=== PATIENT | male | born 1965 | race Caucasian/White ===

== ENCOUNTER 2016-12-27 17:38 | Emergency (ER) | payer MEDICARE, MEDICAID ==
--- NOTE | 2016-12-27 19:24 | ED ---
Lower Extremity - HPI Summary HPI Summary: Patient is a type 2 diabetic, on dialysis with 2 previous surgeries to his left charcot foot with now a small 2x2 cm small effusion to the medial side of the foot with pain, erythema or warmth. He is concerned d/t 2 previous foot infections and 2 surgeries. He has been walking with more pain, but denies other symptoms. He is currently on dialysis and states nothing has changed in his healthy history. He is afebrile. He is ambulatory, but with pain. - History of Current Complaint Chief Complaint: EDExtremityLower Stated Complaint: LEFT FOOT COMPLAINT Time Seen by Provider: 12/27/16 19:01 Pain Intensity: 5 - Allergies/Home Medications Allergies/Adverse Reactions: Allergies Allergy/AdvReac Type Severity Reaction Status Date / Time Amlodipine Allergy Rash Verified 11/22/15 12:53 Iodinated Contrast Media Allergy SEVERE RASH Verified 11/22/15 12:53 [IV CONTRAST DYE] Tetracyclines & Related Allergy Hives Verified 11/22/15 12:53 PMH/Surg Hx/FS Hx/Imm Hx Previously Healthy: No - diabetes, CHF, dialysis Endocrine/Hematology History: Reports: Hx Diabetes - TYPE 2 Denies: Hx Thyroid Disease Cardiovascular History: Reports: Hx Congestive Heart Failure - NO PROBLEMS NOW, Hx Hypertension - CONTROL WITH MEDS Denies: Hx Deep Vein Thrombosis, Hx Myocardial Infarction, Hx Pacemaker/ICD Respiratory History: Denies: Hx Asthma, Hx Chronic Obstructive Pulmonary Disease (COPD), Hx Lung Cancer, Hx Pneumonia, Hx Pulmonary Embolism GI History: Reports: Hx Gastroesophageal Reflux Disease Denies: Hx Gall Bladder Disease, Hx Gastrointestinal Bleed, Hx Ulcer, Hx Urosepsis History: Reports: Hx Chronic Renal Failure, Hx Renal Disease Denies: Hx Kidney Stones Musculoskeletal History: Reports: Other Musculoskeletal History - Fx left ulnar/ radius; Charcot foot Sensory History: Reports: Hx Contacts or Glasses - reading glasses Denies: Hx Hearing Aid Opthamlomology History: Reports: Hx Contacts or Glasses - reading glasses Neurological History: Denies: Hx Dementia, Hx Migraine, Hx Seizures, Hx Transient Ischemic Attacks (TIA) Psychiatric History: Denies: Hx Anxiety, Hx Depression, Hx Schizophrenia, Hx Bipolar Disorder - Surgical History Surgery Procedure, Year, and Place: 09/2012 LEFT MIDFOOT OSTEOTOMY AND FUSION WITH TIBIAL BONE GRAFT AND [place]CHILLES LENGTHING[place] [facility] [place]. 06/2013 LEFT FOOT DEBRIDEMENT AND REMOVAL HARDWARE, [facility] Hx Anesthesia Reactions: No - Immunization History Hx Pertussis Vaccination: No Immunizations Up to Date: Unable to Obtain/Confirm Infectious Disease History: No Infectious Disease History: Denies: Traveled Outside the [place] in Last 30 Days - Family History Known Family History: Positive: None Family History: R & n/C - Social History Occupation: Unemployed Lives: With Family Alcohol Use: Daily Alcohol Amount: 5-6 beers/day Hx Substance Use: No Substance Use Type: Reports: None Hx Tobacco Use: Yes Smoking Status (MU): Light Every Day Tobacco Smoker Type: Cigarettes Amount Used/How Often: 4 CIGARETTES A DAY (TRYING TO QUIT) Length of Time of Smoking/Using Tobacco: 20+ YEARS Have You Smoked in the Last Year: Yes Review of Systems Constitutional: Negative Eyes: Negative Cardiovascular: Negative Respiratory: Negative Positive: Arthralgia - bottom of left foot with pain and deformity, Myalgia Skin: Negative Neurological: Negative Psychological: Normal All Other Systems Reviewed And Are Negative: Yes Physical Exam Triage Information Reviewed: Yes Vital Signs On Initial Exam: Initial Vitals Temp Pulse Resp BP Pulse Ox 97.7 F 69 20 212/104 100 12/27/16 17:43 12/27/16 17:43 12/27/16 17:43 12/27/16 17:43 12/27/16 17:43 Vital Signs Reviewed: Yes Appearance: Positive: Well-Appearing, No Pain Distress, Well-Nourished Skin: Positive: Warm, Skin Color Reflects Adequate Perfusion, Other - PAD throughout left lower extremity Head/Face: Positive: Normal Head/Face Inspection Eyes: Positive: EOMI, FABRICE, Conjunctiva Clear Neck: Positive: Supple, Nontender, No Lymphadenopathy Respiratory/Lung Sounds: Positive: Clear to Auscultation, Breath Sounds Present Cardiovascular: Positive: Normal, RRR, Pulses are Symmetrical in both Upper and Lower Extremities Musculoskeletal: Positive: Pain @ - plantar surface of foot with deformity Neurological: Positive: Speech Normal Psychiatric: Positive: Normal AVPU Assessment: Alert - [place] Coma Scale Coma Scale Total: 15 Diagnostics - Vital Signs Vital Signs Temp Pulse Resp BP Pulse Ox 12/27/16 18:57 98.5 F 62 18 150/76 99 12/27/16 17:43 97.7 F 69 20 212/104 100 - Laboratory Lab Statement: Any lab studies that have been ordered have been reviewed, and results considered in the medical decision making process. Lower Extremity Course/Dx - Course Course Of Treatment: Dr. Decker called at 7:25p. He is familiar with patient. States he would like a CT of the foot and follow up in the office next week. Charcot foot on the left side with small 2x2 effusion medial to the charcot on plantar surface. No signs of infection. Patient states an increase in pain. IMPRESSION: 1. AGAIN NOTED ARE FINDINGS OF ADVANCED OSTEOARTHRITIS OF THE MIDFOOT CONSISTENT WITH THE. HISTORY OF NEUROPATHIC JOINT. 2. THERE IS BEEN INTERVAL DEVELOPMENT OF A LOCULATED FLUID COLLECTION ALONG THE PLANTAR. SURFACE OF THE FOOT WITH EXTENSION THROUGH THE PLANTAR FASCIA ALONG THE JOINTS OF THE. MIDFOOT. IN THE CORRECT CLINICAL SETTING, THIS CONCERNING FOR ABSCESS. No erythema, warmth or drainage. However, d/t extension in to the plantar fascia and joints of the midfoot and hx of diabetes, will treat for possible abscess with Keflex. He will follow up with Dr. Decker next week. - Diagnoses Differential Diagnosis/HQI/PQRI: Positive: Cellulitis, Osteomyelitis, Other - charcot Provider Diagnoses: Abscess of foot Discharge - Discharge Plan Condition: Stable Disposition: HOME Prescriptions: Cephalexin CAP* [Keflex CAP*] 500 mg PO QID #28 cap MDD 4 Patient Education Materials: Abscess (ED) Referrals: Trenton Romero MD [Primary Care Provider] - Additional Instructions: Follow up with Dr Decker next week Take the Keflex as prescribed.
--- NOTE | 2016-12-27 20:25 | RAD ---
HISTORY: Charcot foot with effusion COMPARISONS: June 25, 2016 TECHNIQUE: Multiple contiguous axial CT images are obtained of the left foot, with coronal and sagittal multiplanar reconstructions, without intravenous contrast administration. FINDINGS: BONE DENSITY: Normal. BONES: The patient is status post internal fixation of the midfoot JOINTS: There is advanced osteoarthritic change of the midfoot. This is similar to the previous examination. This is consistent with history of neuropathic joint. MUSCULATURE: Unremarkable ALIGNMENT: There is no dislocation. SOFT TISSUES: There is been interval development of a loculated soft tissue collection along the plantar aspect of the midfoot. This extends into the deep fascia and is contiguous with the lateral tarsometatarsal articulations. This measures approximately 3.8 x 1.6 x 3.8 x 4.5 cm in size. OTHER FINDINGS: None. IMPRESSION: 1. AGAIN NOTED ARE FINDINGS OF ADVANCED OSTEOARTHRITIS OF THE MIDFOOT CONSISTENT WITH THE HISTORY OF NEUROPATHIC JOINT. 2. THERE IS BEEN INTERVAL DEVELOPMENT OF A LOCULATED FLUID COLLECTION ALONG THE PLANTAR SURFACE OF THE FOOT WITH EXTENSION THROUGH THE PLANTAR FASCIA ALONG THE JOINTS OF THE MIDFOOT. IN THE CORRECT CLINICAL SETTING, THIS CONCERNING FOR ABSCESS.
[2016-12-27] MEDS ORDERED: Cephalexin CAP* 500 MG PO ONE ×2 (20:38)
[2016-12-27 20:57] VITALS: BP 141/79
== END 2016-12-27 20:56 | disposition home or self-care (01) ==
LOC: SUPCPDRO 17:38 → ED 17:38
DX: L02.612 Cutaneous abscess of left foot (principal); F17.210 Nicotine dependence, cigarettes, uncomplicated
CPT/HCPCS: 99282; A9270-GY

== ENCOUNTER 2017-01-23 16:28 | Emergency (ER) | payer MEDICARE, MEDICAID ==
--- NOTE | 2017-01-23 19:26 | RAD ---
INDICATION: Constipation COMPARISON: None TECHNIQUE: 5 views the abdomen were obtained. FINDINGS: A low midline peritoneal dialysis catheter is noted. There are no acute bony or soft tissue abnormalities. Overlying the left abdomen there is a gas-filled small bowel loop measuring 3.1 cm in diameter. There is a paucity of gas and stool overlying the colon. IMPRESSION: IN THE LEFT ABDOMEN THERE IS A LOOP OF AIR-FILLED SMALL BOWEL MEASURING 3.1 CM IN DIAMETER WHICH IS PATHOLOGICALLY DILATED STRICTLY BY SIZE CRITERIA. NO OTHER SMALL OR LARGE BOWEL DILATATION IS IDENTIFIED.
[2017-01-23 19:46] LABS: Hematocrit 34 % (42-52); Hemoglobin 11.1 g/dl (14.0-18.0); Mean Corpuscular HGB Conc 33 g/dl (31-36); Mean Corpuscular Hemoglobin 29 pg (27-31); Mean Corpuscular Volume 89 fL (80-94); Mean Platelet Volume 8 um3 (7.4-10.4); Red Blood Count 3.78 10^6/ul (4.0-5.4); Red Cell Distribution Width 13 % (10.5-15); White Blood Count 9.7 10^3/ul (3.5-10.8)
[2017-01-23 20:02] LABS: Albumin 3.2 g/dL (3.2-5.2); BUN/Creatinine Ratio 6.6 (8-20); C Reactive Protein 19.34 mg/L (< 5.00); Calcium 9.3 mg/dL (8.6-10.3); EGFR African American 5.7 (>60); EGFR Non-African American 4.4 (>60); Globulin 4.6 g/dL (2-4); Magnesium 3.2 mg/dL (1.9-2.7); Phosphorus 8.2 mg/dL (2.5-5.0); Potassium 4.3 mmol/L (3.5-5.0); Total Bilirubin 0.7 mg/dL (0.2-1.0); Total Protein 7.8 g/dL (6.4-8.9)
--- NOTE | 2017-01-23 21:05 | ED ---
Joanie Diaz Salem, scribed for Ashwin Mcfarlane MD on 01/23/17 at 1916 . Abdominal Pain/Male - HPI Summary HPI Summary: Patient is a 51 y/o M who presents to the ED with abdominal discomfort for the past couple of weeks, unchanged since onset. He reports abnormal BM producing limited excretion and pressure in rectum. He states that he discussed symptoms with PCP and has been using OTC laxatives/softeners. Pt receives peritoneal dialysis at home and denies anything cloudy. He also denies fever or nausea. - History of Current Complaint Chief Complaint: EDAbdPain Stated Complaint: ABD PAIN Time Seen by Provider: 01/23/17 19:11 Hx Obtained From: Patient Onset/Duration: Gradual Onset, Lasting Weeks, Still Present Timing: Lasting Weeks Severity Initially: Moderate Severity Currently: Moderate Pain Intensity: 6 Pain Scale Used: 0-10 Numeric Location: Diffuse Radiates: No Character: Cramping Aggravating Factor(s): Nothing Alleviating Factor(s): Nothing Associated Signs And Symptoms: Negative: Fever, Nausea - Allergies/Home Medications Allergies/Adverse Reactions: Allergies Allergy/AdvReac Type Severity Reaction Status Date / Time Amlodipine Allergy Rash Verified 11/22/15 12:53 Iodinated Contrast Media Allergy SEVERE RASH Verified 11/22/15 12:53 [IV CONTRAST DYE] Tetracyclines & Related Allergy Hives Verified 11/22/15 12:53 PMH/Surg Hx/FS Hx/Imm Hx Endocrine/Hematology History: Reports: Hx Diabetes - TYPE 2 Denies: Hx Thyroid Disease Cardiovascular History: Reports: Hx Congestive Heart Failure - NO PROBLEMS NOW, Hx Hypertension - CONTROL WITH MEDS Denies: Hx Deep Vein Thrombosis, Hx Myocardial Infarction, Hx Pacemaker/ICD Respiratory History: Denies: Hx Asthma, Hx Chronic Obstructive Pulmonary Disease (COPD), Hx Lung Cancer, Hx Pneumonia, Hx Pulmonary Embolism GI History: Reports: Hx Gastroesophageal Reflux Disease Denies: Hx Gall Bladder Disease, Hx Gastrointestinal Bleed, Hx Ulcer, Hx Urosepsis History: Reports: Hx Chronic Renal Failure, Hx Renal Disease Denies: Hx Kidney Stones Musculoskeletal History: Reports: Other Musculoskeletal History - Fx left ulnar/ radius; Charcot foot Sensory History: Reports: Hx Contacts or Glasses - reading glasses Denies: Hx Hearing Aid Opthamlomology History: Reports: Hx Contacts or Glasses - reading glasses Neurological History: Denies: Hx Dementia, Hx Migraine, Hx Seizures, Hx Transient Ischemic Attacks (TIA) Psychiatric History: Denies: Hx Anxiety, Hx Depression, Hx Schizophrenia, Hx Bipolar Disorder - Surgical History Surgery Procedure, Year, and Place: 09/2012 LEFT MIDFOOT OSTEOTOMY AND FUSION WITH TIBIAL BONE GRAFT AND ACHILLES LENGTHING, [facility]. 06/2013 LEFT FOOT DEBRIDEMENT AND REMOVAL HARDWARE, [facility] Hx Anesthesia Reactions: No Infectious Disease History: Denies: Traveled Outside the [place] in Last 30 Days - Family History Known Family History: Positive: Diabetes, Other - No CA. - Social History Alcohol Use: Daily Alcohol Amount: 5-6 beers/day Hx Substance Use: No Substance Use Type: Reports: None Hx Tobacco Use: Yes Smoking Status (MU): Light Every Day Tobacco Smoker Type: Cigarettes Amount Used/How Often: 4 CIGARETTES A DAY (TRYING TO QUIT) Length of Time of Smoking/Using Tobacco: 20+ YEARS Have You Smoked in the Last Year: Yes Review of Systems Negative: Fever Positive: Abdominal Pain. Negative: Nausea Positive: other - Abnormal BM. All Other Systems Reviewed And Are Negative: Yes Physical Exam Triage Information Reviewed: Yes Vital Signs On Initial Exam: Initial Vitals Temp Pulse Resp BP Pulse Ox 97.9 F 63 20 187/89 99 01/23/17 16:59 01/23/17 16:59 01/23/17 16:59 01/23/17 16:59 01/23/17 16:59 Vital Signs Reviewed: Yes Appearance: Positive: Well-Appearing, No Pain Distress, Well-Nourished Skin: Positive: Warm Head/Face: Positive: Normal Head/Face Inspection Eyes: Positive: FABRICE ENT: Positive: Hearing grossly normal Neck: Positive: Supple Respiratory/Lung Sounds: Positive: Clear to Auscultation, Breath Sounds Present Cardiovascular: Positive: RRR Abdomen Description: Positive: Nontender, No Organomegaly, Soft. Negative: CVA Tenderness (R), CVA Tenderness (L) Bowel Sounds: Positive: Present Musculoskeletal: Positive: Strength/ROM Intact Neurological: Positive: Alert, Oriented to Person Place, Time, Normal Gait Psychiatric: Positive: Affect/Mood Appropriate Diagnostics - Vital Signs Vital Signs Temp Pulse Resp BP Pulse Ox 01/23/17 18:14 97.1 F 65 20 166/96 100 01/23/17 16:59 97.9 F 63 20 187/89 99 - Laboratory Lab Results: Lab Results 01/23/17 01/23/17 01/23/17 Range/Units 19:38 19:38 19:38 WBC 9.7 (3.5-10.8) 10^3/ul RBC 3.78 L (4.0-5.4) 10^6/ul Hgb 11.1 L (14.0-18.0) g/dl Hct 34 L (42-52) % MCV 89 (80-94) fL MCH 29 (27-31) pg MCHC 33 (31-36) g/dl RDW 13 (10.5-15) % Plt Count 182 (150-450) 10^3/ul MPV 8 (7.4-10.4) um3 Neut % (Auto) 73.7 (38-83) % Lymph % (Auto) 12.4 L (25-47) % Robertson % (Auto) 10.3 H (1-9) % Eos % (Auto) 2.2 (0-6) % Baso % (Auto) 1.4 (0-2) % Absolute Neuts (auto) 7.1 (1.5-7.7) 10^3/ul Absolute Lymphs (auto) 1.2 (1.0-4.8) 10^3/ul Absolute Monos (auto) 1.0 H (0-0.8) 10^3/ul Absolute Eos (auto) 0.2 (0-0.6) 10^3/ul Absolute Basos (auto) 0.1 (0-0.2) 10^3/ul Absolute Nucleated RBC 0 10^3/ul Nucleated RBC % 0 Sodium 133 (133-145) mmol/L Potassium 4.3 (3.5-5.0) mmol/L Chloride 98 L (101-111) mmol/L Carbon Dioxide 23 (22-32) mmol/L Anion Gap 12 H (2-11) mmol/L BUN 79 H (6-24) mg/dL Creatinine 12.05 H (0.67-1.17) mg/dL Est GFR ( Amer) 5.7 (>60) Est GFR (Non-Af Amer) 4.4 (>60) BUN/Creatinine Ratio 6.6 L (8-20) Glucose 104 H (70-100) mg/dL Lactic Acid 0.7 (0.5-2.0) mmol/L Calcium 9.3 (8.6-10.3) mg/dL Phosphorus 8.2 H (2.5-5.0) mg/dL Magnesium 3.2 H (1.9-2.7) mg/dL Total Bilirubin 0.70 (0.2-1.0) mg/dL AST 30 (13-39) U/L ALT 22 (7-52) U/L Alkaline Phosphatase 207 H (34-104) U/L C-Reactive Protein 19.34 H (< 5.00) mg/L Total Protein 7.8 (6.4-8.9) g/dL Albumin 3.2 (3.2-5.2) g/dL Globulin 4.6 H (2-4) g/dL Albumin/Globulin Ratio 0.7 L (1-3) Lipase 94 H (11.0-82.0) U/L Result Diagrams: 01/23/17 19:38 01/23/17 19:38 Lab Statement: Any lab studies that have been ordered have been reviewed, and results considered in the medical decision making process. - Radiology ABD XR Radiology Interpretation Completed By: Radiologist - IMPRESSION: IN THE LEFT ABDOMEN THERE IS A LOOP OF AIR-FILLED SMALL BOWEL MEASURING 3.1 CM IN DIAMETER WHICH IS PATHOLOGICALLY DILATED STRICTLY BY SIZE CRITERIA. NO OTHER SMALL OR LARGE BOWEL DILATATION IS IDENTIFIED. - CT Abd/pelvis CT Interpretation Completed By: Radiologist - Impression: Cirrhosis. Probable portal hypertension. Dialysis catheter noted. Ascites. Enlarged peripancreatic, supraceliac and gastrohepatic lymph nodes, nonspecific but can be seen in the setting of viral hepatitis. Re-Evaluation - Re-Evaluation First Eval Re-Evaluation Time: 23:30 Comment: Reviewed results. Abdominal Pain Fem Course/Dx - Course Course Of Treatment: 51 y/o M presents with abdominal discomfort for the past couple of weeks, unchanged since onset. He reports abnormal BM producing limited excretion and pressure in rectum, but denies fever or nausea. He states that has been using OTC laxatives/softeners. ABD XR shows, per radiology, IMPRESSION: IN THE LEFT ABDOMEN THERE IS A LOOP OF AIR-FILLED SMALL BOWEL MEASURING 3.1 CM. IN DIAMETER WHICH IS PATHOLOGICALLY DILATED STRICTLY BY SIZE CRITERIA. NO OTHER SMALL OR. LARGE BOWEL DILATATION IS IDENTIFIED. CT a/p shows, per radiology, Impression: Cirrhosis. Probable portal hypertension. Dialysis catheter noted. Ascites. Enlarged peripancreatic, supraceliac and gastrohepatic lymph nodes, nonspecific but can be seen in the setting of viral hepatitis. Pt will be discharged with instructions. - Diagnoses Provider Diagnoses: Abdominal pain Discharge - Discharge Plan Condition: Stable Disposition: HOME Patient Education Materials: Abdominal Pain (ED) Referrals: Trenton Romero MD [Primary Care Provider] - Additional Instructions: Please follow up with your primary care provider and return for worsening of symptoms. The documentation as recorded by the Joanie curry Salem accurately reflects the service I personally performed and the decisions made by me, Ashwin Mcfarlane MD.
[2017-01-23 23:37] VITALS: BP 139/78
--- NOTE | 2017-01-24 07:53 | RAD ---
INDICATION: Abdominal pain COMPARISON: CT chest April 12, 2011 TECHNIQUE: Axial source images were acquired from the level hemidiaphragms to the symphysis pubis as part of CT imaging for renal stone. The examination was performed with oral contrast only per ED request Lung bases: The lung bases are clear. Liver: The liver appears heterogeneous with a micronodular configuration compatible with cirrhosis. There is left hepatic lobe enlargement.. Gallbladder: Partially contracted. No CT evidence of calcified cholelithiasis. Spleen: The spleen is mildly enlarged. The noncontrast CT appearance is normal. Pancreas: Noncontrast imaging shows no pancreatic mass or ductal dilitation. Adrenal glands: No masses are identified. Kidneys/Bladder: There is no evidence of nephrolithiasis or CT evidence of hydronephrosis. Noncontrast imaging shows a 1.5 cm exophytic lower pole left renal hypodensity likely representing a cyst. There is mild bilateral renal parenchymal thinning with sinus fibrolipomatosis The bladder is unremarkable.. Adenopathy: Enlarged periportal and gastrohepatic lymph nodes measuring up to 1.8 cm. There are enlarged and fatty replaced iliac and inguinal lymph nodes measuring up to 1.5 cm in short axis. Fluid collections: Small amount of ascites right paracolic gutter. Vessels: There are atherosclerotic changes of the aorta and iliac vessels. There is no focal aneurysm. The IVC appears normal. There is portosystemic collaterals compatible with portal hypertension Pelvic organs: The uterus and adnexa appear normal GI tract: Limited evaluation the upper GI tract due to poor oral contrast opacification of the proximal small bowel. Mural thickening transverse colon perhaps related to a colitis.. Soft tissues: Peritoneal dialysis catheter. Osseous structures: There are no acute osseous findings. IMPRESSION: 1. Cirrhotic liver morphology with findings of portal hypertension, unchanged. 2. Small amount of ascites. Peritoneal dialysis catheter. 3. Nonspecific gastrohepatic, periportal, iliac, and inguinal lymphadenopathy. The gastrohepatic and periportal lymphadenopathy is included on the CT of the chest from 2010 and is unchanged. 4. Nonspecific mural thickening of the transverse colon.
== END 2017-01-23 23:37 | disposition home or self-care (01) ==
LOC: ED 16:28
DX: R10.9 Unspecified abdominal pain (principal); F17.210 Nicotine dependence, cigarettes, uncomplicated
CPT/HCPCS: 36415; 74000; 74176; 80053; 83605; 83690; 83735; 84100; 85025; 86140; 99283

== ENCOUNTER 2017-02-03 08:21 | Day surgery (SDC) | payer MEDICARE, MEDICAID ==
[~2017-02-03 08:21] MED LIST: Buffered Lidocaine 0.9% SYRIN* 5 ML/SYR SYRINGE INTRADERM ONE; Buffered Lidocaine 0.9% SYRIN* 5 ML/SYR SYRINGE ONE; Clindamycin 900 MG IVPREMIX(* 900 MG/50 ML SDV IV ONE; Famotidine IV* 10 MG/ML 2 ML (20 mg) IV ONE; Famotidine IV* 10 MG/ML 2 ML (20 mg) ONE; Metoclopramide IV* 5 MG/ML 2 ML VIAL IV SLOW PU ONE; Metoclopramide IV* 5 MG/ML 2 ML VIAL ONE
[2017-02-03] MEDS ORDERED: Bupivacaine 0.5% SDV PF* 30 ML VIAL ONE (08:52)
[2017-02-03] MEDS ORDERED: fentaNYL* 50 MCG/ML 2 ML VIAL (100 MCG VIAL) ONE ×2 (08:58→11:25)
[2017-02-03] MEDS ORDERED: Midazolam* 1 MG/ML 2 ML VIAL (2 MG) ONE (08:58)
[2017-02-03] MEDS ORDERED: DiMENhydriNATE IV* 50 MG/ML VIAL IV PUSH PRN (09:44)
[2017-02-03] MEDS ORDERED: Propofol* 10 MG/ML 20 ML BTL IV PUSH ONE (10:29)
[2017-02-03] MEDS ORDERED: Ondansetron INJ* 2 MG/ML VIAL ONE (10:29)
[2017-02-03] MEDS ORDERED: Phenylephrine IV* 40 MCG/ML 10 ML SYRINGE ONE (10:29)
[2017-02-03] MEDS: fentaNYL* 50 MCG/ML 2 ML VIAL (100 MCG VIAL) IV PRN ×2 (11:28→12:10)
[2017-02-03] MEDS ORDERED: oxyCODONE TAB* 5 MG TAB ONE ×2 (11:44→12:12)
[2017-02-03 13:13] VITALS: BP 157/88
--- NOTE | 2017-02-04 04:08 | OP ---
DATE OF OPERATION: 02/03/17 - [facility] DATE OF : 63 SURGEON: Gumaro Decker MD. HOT DIE PICKER: Carina Lamas PA-C. ANESTHESIOLOGIST: Fernie Cotto MD ANESTHESIA: General PRE-OP DIAGNOSIS: Charcot deformity, left midfoot with plantar prominence and large plantar bursa. POST-OP DIAGNOSIS: Charcot deformity, left midfoot with plantar prominence and large plantar bursa. OPERATIVE PROCEDURE: Decompression osteotomy left midfoot and excision of plantar bursa. DESCRIPTION OF PROCEDURE: The patient was taken to the operating room, lateral positioning used. We opened up 8 cm longitudinal incision along the plantar aspect of the fifth metatarsal edge. We undermined underneath the arch of the foot to allow the osteotomy of some loose bone with a 0.5-inch curved osteotome as well as shaving the undersurface of the prominent cuneiforms where they underride the metatarsal bridge. There was a large 2 x 5 cm bursa in the soft tissue as well, this was filled with brownish necrotic fluid. Cultures were sent intraoperatively. We excised the entire bursa away from the subcutaneous tissue and performed a 3 L pulsatile lavage. We then closed with some 0 Vicryl deep sutures, 2-0 Vicryl subcu and Surgipro for the skin. A compression dressing, plaster splint was applied. [id number]/[facility] #: [id number] MTDD
== END 2017-02-03 12:55 | disposition home or self-care (01) ==
LOC: OR 08:21
PROVIDERS: ATTEND Orthopaedic Surgery
DX: M14.672 Charcot's joint, left ankle and foot (principal); E11.9 Type 2 diabetes mellitus without complications; Z79.4 Long term (current) use of insulin; Z68.34 Body mass index [BMI] 34.0-34.9, adult; F17.210 Nicotine dependence, cigarettes, uncomplicated; I10 Essential (primary) hypertension; N18.6 End stage renal disease; Z99.2 Dependence on renal dialysis
CPT/HCPCS: 87070; 87073; 87205; 88304; 88311; A9270-GY; J2250; J2405; J2704; J3010

== ENCOUNTER → 2017-06-17 11:33 | Day surgery (SDC) | payer MEDICARE, MEDICAID ==
[~2017-06-17 11:33] MED LIST changes: +Acetylcysteine CAP (RENAL)* 600 MG PO ONE; +Aspirin Low Dose CHEW TAB* 81 MG ONE; -Buffered Lidocaine 0.9% SYRIN* 5 ML/SYR SYRINGE INTRADERM ONE; -Buffered Lidocaine 0.9% SYRIN* 5 ML/SYR SYRINGE ONE; -Clindamycin 900 MG IVPREMIX(* 900 MG/50 ML SDV IV ONE; +Clopidogrel TAB* 300 MG ONE; +Diazepam TAB(*) 5 MG ONE; -Famotidine IV* 10 MG/ML 2 ML (20 mg) IV ONE; -Famotidine IV* 10 MG/ML 2 ML (20 mg) ONE; +Flumazenil* 0.1 MG/ML 5 ML MDV ONE; +Heparin 2 UNITS/ML IVPREMIX* 2,000 ML IV ONE; +Heparin(*) 1000 UNIT/ML 10 ML VIAL CATH LAB IV ONE; +Iodixanol* (CONTRAST) 320 MG/ML 100 ML SDV ONE; +Lidocaine 1% INJ* 10 MG/ML 30 ML SDV ONE; -Metoclopramide IV* 5 MG/ML 2 ML VIAL IV SLOW PU ONE; -Metoclopramide IV* 5 MG/ML 2 ML VIAL ONE; +Midazolam* 1 MG/ML 10 ML VIAL (10 MG) ONE; +NS 0.9% 1000 ML* 1,000 ML IV SCH; +Naloxone* 0.4 MG/ML 1 ML VIAL ONE; +diPHENhydraMINE PO* 25 MG ONE; +fentaNYL* 50 MCG/ML 5 ML VIAL (250 MCG VIAL) ONE; +methylPREDNISolone SOD 40 MG* 1 ML VIAL IV ONE; +nitroGLYCERIN DRIP* 25,000 MCG/250 ML BTL ONE
[2017-06-17 17:50] VITALS: BP 130/76
--- NOTE | 2017-08-29 09:56 | CATH ---
CC: Trenton Romero MD; Alva Aldrich MD * PERIPHERAL ANGIOGRAM REPORT: DATE OF PROCEDURE: 06/17/17 - [facility] CATH PRIMARY CARE PHYSICIAN: Trenton Romero MD PROCEDURES: Left common femoral artery antegrade access, angiography left SFA and popliteal. Selective angiography left anterior tibial and left posterior tibial. Angio-Seal left common femoral artery. HISTORY: A 51-year-old diabetic with a Charcot foot with a nonhealing wound left foot lateral aspect. PROCEDURE ACCESS: Left common femoral artery with ultrasound guidance, antegrade puncture. The first puncture was too distal, was repeated more proximally. The SFA was selectively wired, a 5-Malaysian long sheath was then inserted. Angiography was performed of the SFA and profunda, popliteals and the proximal tibials. Subsequently, a selective catheter was positioned in the anterior tibial as well as the posterior tibial for selective distal angiography to evaluate pedal arterial anatomy. Angio-Seal was used for hemostasis. MEDICATIONS: 1. Subcutaneous lidocaine. 2. IV Versed. 3. IV fentanyl. 4. Nitroglycerin 400, 400 mcg IA. 5. Heparin 5000 units IV. HEMODYNAMICS: Initial BP 186/102, final BP 144/89. ANGIOGRAPHY: The left SFA is heavily calcified as is the profunda. The SFA has no stenosis. The profunda is patent. The popliteal has no stenosis. The anterior tibial is heavily calcified, is patent to the ankle. Posterior tibial. The posterior tibial is calcified, patent to the ankle. The medial and lateral plantars are proximally patent, but then are occluded. Peroneal. The peroneal is patent to the ankle, has no stenosis. Dorsalis pedis. The dorsalis pedis is patent. The plantar loop is not patent. CONCLUSION: 1. Occluded lateral plantar without obvious entry point resulting in hypoperfusion of the lateral aspect of the mid foot. This is suboptimal for percutaneous revascularization, although one could attempt to open the pedal loop retrograde from the dorsalis pedis. 2. Successful Angio-Seal left common femoral artery. 3. Patent SFA, profunda, popliteal, anterior tibial, posterior tibial, and peroneal arteries left side. [id number]/[facility] #: [id number] [facility]
== END | disposition home or self-care (01) ==
LOC: CHICATH 11:33
PROVIDERS: ATTEND Internal Medicine Cardiovascular Disease
DX: I70.245 Atherosclerosis of native arteries of left leg with ulceration of other part of foot (principal); Z79.4 Long term (current) use of insulin; Z79.899 Other long term (current) drug therapy; Z91.041 Radiographic dye allergy status; Z88.0 Allergy status to penicillin; Z91.09 Other allergy status, other than to drugs and biological substances; I12.0 Hypertensive chronic kidney disease with stage 5 chronic kidney disease or end stage renal disease; E11.22 Type 2 diabetes mellitus with diabetic chronic kidney disease; N18.6 End stage renal disease; Z99.2 Dependence on renal dialysis; F17.200 Nicotine dependence, unspecified, uncomplicated
CPT/HCPCS: 76937; 99156; 99157; A9270-GY; C1887; C1894; J1644; J2250; J2310; J2920; J3010

== ENCOUNTER 2017-08-02 15:13 | Emergency (ER) | payer MEDICARE, MEDICAID ==
[2017-08-02 15:23] VITALS: BP 145/86
--- OUTSIDE RECORDS SUMMARY | 2017-08-02 15:23 | XMS REPORT ---
:1965 External Reference #:[id number] Author Organization [facility] Address [address] [address] Phone [phone] Care Team Providers Name Role Phone Trenton Romero MD Primary Care Physician Unavailable Payers Type Date Identification Numbers Payment Provider Subscriber Medicare Primary Policy Number: [id number] Medicare Sam Sherman PayID: [id number] [address] [place] [address] Medigap Part B Policy Number: [id number] Medicaid Sam Sherman Group Name: 1 1 [address] PayID: [id number] [place] [address] Medigap Part B Expires: 2016 Policy Number: [id number] Medicaid Sam Sherman Group Name: 1 1 [address] PayID: [id number] [place] [address] Problems Date Description Provider Status Onset: 07/06/2013 Localized, primary osteoarthritis Gumaro Decker M.D. Active of the ankle and/or foot Onset: 07/06/2013 Disorder of joint of ankle and/or Gumaro Decker M.D. Active foot Onset: 07/06/2013 Idiopathic peripheral neuropathy Gumaro Decker M.D. 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 Work Status Not Currently Working Cigarette Use Light tobacco smoker (10 or fewer cigarettes/day) ETOH Use consumes 3-4 beers per day Recreational Drug Use Never Used Drugs Smoking Patient is a current smoker, smokes every day Smoking Light tobacco smoker (10 or fewer 1/4 pack a day cigarettes/day) Daily Caffeine Consumes on average 1 cup of regular coffee per day Exercise Type/Frequency Does not exercise Allergies, Adverse Reactions, Alerts Date Description Reaction Status Severity Comments 07/06/2013 Penicillin active 07/06/2013 Intravenous Dyes active 07/28/2013 Amlodipine active Medications Medication Date Status Form Strength Qnty SIG Indications Ordering Provider Levofloxacin Active Tablets 500mg 1/2 tablet Gumaro Decker M.D. other day (250 mg) Knee Scooter Active T81.31xD Gumaro Decker M.D. I70.245 Glipizide Active Tablets 10mg 180tabs 1 po bid Unknown Atenolol Active Tablets 100mg 90tabs 1 po qd Unknown Hydralazine HCL Active Tablets 50mg 1 by mouth Unknown two times a day Lantus Solostar Active Solution 100Unit 60-70 units Unknown Pen-Inject /ML once daily Sodium Active Tablets 650mg 2 tablets 3 Unknown Bicarbonate times daily Renvela Active Tablets 800mg 5-6 tablets Unknown after each meal, dependent on meal. Atorvastatin 06/09/2017 - Hx Tablets 80mg 90tabs 1 by mouth Marcis T. Calcium 06/09/2017 every day MD Valdemar, [facility], [facility] Levofloxacin 03/06/2017 - Hx Tablets 750mg 20tabs one per day I70 Gumaro 06/09/2017 (pt takes .24 Jeronimo, 250 mg every 5 M.D. other day- Per Dr. Rodriguez) Oxycodone HCL 02/03/2017 - Hx Tablets 5mg 40tabs 1-2 tab by Gumaro 02/11/2017 mouth every Jeronimo, 4-6 hours as M.D. neededfor pain Bactrim DS 02/03/2017 - Hx Tablets 800-160 20tabs 1 by mouth Gumaro 02/11/2017 mg twice a day Jeronimo, x 10 days M.DDejah Levofloxacin 07/28/2013 - Hx Tablets 500mg 30tabs 1 po qd Gumaro 08/10/2013 Cathi Decker Levaquin 07/28/2013 - Hx Tablets 750mg 14tabs 1 po every 996 Caio 08/10/2013 other day .67 Michael Rosales M.D. Bactrim DS 11/30/2012 - Hx Tablets 800-160 20tabs 1 po bid [place] 07/28/2013 mg Cathi Decker Levofloxacin 10/12/2012 - Hx Tablets 500mg 14tabs 1 po qd Gumaro 07/28/2013 Cathi Decker Norvasc - Hx Tablets 10mg 90tabs 1 po qd Unknown 07/28/2013 Oxycodone HCL - Hx Tablets 10mg 100tabs 1 tablet po Unknown 07/28/2013 q6hrs prn Oxycodone HCL - Hx Tablets 5mg 60tabs 1-2 po qid Unknown 06/13/2016 prn Bumetanide - Hx Unknown 08/31/2013 Clonidine HCL - Hx Unknown (Analgesia) 06/08/2017 Vital Signs Date Vital Result Comment 07/22/2017 Height 70 inches 5'10" Weight 240.00 lb Heart Rate 80 /min Respiratory Rate 16 /min Body Temperature 97.0 F Pain Level 6 BMI (Body Mass Index) 34.4 kg/m2 06/24/2017 Height 70 inches 5'10" Weight 240.00 lb Heart Rate 84 /min BP Systolic Sitting 124 mmHg BP Diastolic Sitting 70 mmHg Pain Level 7 BMI (Body Mass Index) 34.4 kg/m2 06/23/2017 Height 70 inches 5'10" Weight 237.38 lb with shoes Heart Rate 86 /min BP Systolic Sitting 104 mmHg Rue lg cuff BP Diastolic Sitting 60 mmHg Rue lg cuff Respiratory Rate 16 /min BMI (Body Mass Index) 34.1 kg/m2 06/09/2017 Height 70 inches 5'10" Weight 244.00 lb w/ shoes and walking boot Heart Rate 72 /min apical BP Systolic Sitting 122 mmHg lue large cuff BP Diastolic Sitting 68 mmHg lue large cuff Respiratory Rate 18 /min BMI (Body Mass Index) 35.0 kg/m2 06/02/2017 Height 70 inches 5'10" Weight 240.00 lb Heart Rate 80 /min BP Systolic 134 mmHg BP Diastolic 90 mmHg Body Temperature 97.9 F Pain Level 9 BMI (Body Mass Index) 34.4 kg/m2 05/23/2017 Height 70 inches 5'10" Weight 240.00 lb BP Systolic 126 mmHg BP Diastolic 88 mmHg Respiratory Rate 20 /min Pain Level 7 BMI (Body Mass Index) 34.4 kg/m2 05/02/2017 Height 70 inches 5'10" Weight 240.00 lb BP Systolic 114 mmHg BP Diastolic 74 mmHg Respiratory Rate 20 /min Body Temperature 97.1 F Pain Level 9 BMI (Body Mass Index) 34.4 kg/m2 04/18/2017 Heart Rate 70 /min BP Systolic Sitting 115 mmHg BP Diastolic Sitting 85 mmHg Body Temperature 97.2 F Pain Level 6 04/01/2017 Height 70 inches 5'10" Weight 240.00 lb Heart Rate 69 /min BP Systolic 114 mmHg BP Diastolic 76 mmHg Body Temperature 95.9 F Pain Level 5 BMI (Body Mass Index) 34.4 kg/m2 03/21/2017 Height 70 inches 5'10" Weight 250.00 lb Heart Rate 60 /min BP Systolic 140 mmHg BP Diastolic 88 mmHg Body Temperature 97.1 F Pain Level 4 BMI (Body Mass Index) 35.9 kg/m2 03/13/2017 Height 70 inches 5'10" Weight 250.00 lb Respiratory Rate 18 /min Body Temperature 97.3 F Pain Level 4 BMI (Body Mass Index) 35.9 kg/m2 03/06/2017 Height 70 inches 5'10" Weight 250.00 lb BP Systolic 124 mmHg BP Diastolic 74 mmHg Respiratory Rate 20 /min Body Temperature 97.9 F Pain Level 0 BMI (Body Mass Index) 35.9 kg/m2 02/28/2017 Height 70 inches 5'10" Weight 250.00 lb BP Systolic 120 mmHg BP Diastolic 78 mmHg Respiratory Rate 20 /min Body Temperature 98.3 F Pain Level 7 BMI (Body Mass Index) 35.9 kg/m2 02/20/2017 Height 70 inches 5'10" Weight 250.00 lb BP Systolic 140 mmHg BP Diastolic 88 mmHg Body Temperature 98.8 F Pain Level 0 BMI (Body Mass Index) 35.9 kg/m2 02/13/2017 Height 70 inches 5'10" Weight 250.00 lb Heart Rate 60 /min BP Systolic 142 mmHg BP Diastolic 80 mmHg Body Temperature 96.3 F BMI (Body Mass Index) 35.9 kg/m2 01/21/2017 Height 70 inches 5'10" Weight 250.00 lb BP Systolic 129 mmHg BP Diastolic 82 mmHg Respiratory Rate 16 /min Body Temperature 97.5 F Pain Level 0 BMI (Body Mass Index) 35.9 kg/m2 12/31/2016 Height 70 inches 5'10" Weight 250.00 lb Heart Rate 68 /min BP Systolic 140 mmHg BP Diastolic 99 mmHg Body Temperature 97.4 F Pain Level 5 BMI (Body Mass Index) 35.9 kg/m2 06/27/2016 Height 70 inches 5'10" Weight 250.00 lb Heart Rate 65 /min BP Systolic 154 mmHg BP Diastolic 83 mmHg BMI (Body Mass Index) 35.9 kg/m2 08/31/2013 Height 70 inches 5'10" Weight 250.00 lb Heart Rate 63 /min 69 BP Systolic 224 mmHg 212/113 BP Diastolic 95 mmHg 212/113 BMI (Body Mass Index) 35.9 kg/m2 08/10/2013 Height 70 inches 5'10" Weight 250.00 lb Heart Rate 75 /min BP Systolic 187 mmHg BP Diastolic 98 mmHg BMI (Body Mass Index) 35.9 kg/m2 07/28/2013 Height 70 inches 5'10" Weight 250.00 lb Heart Rate 68 /min BP Systolic 124 mmHg BP Diastolic 74 mmHg Body Temperature 98.1 F BMI (Body Mass Index) 35.9 kg/m2 Results Test Date Test Result H/L Range Note Laboratory test finding 06/17/2017 Point of Care Glucose 230 mg/dL High 70 -100 1 Basic Metabolic Panel 06/11/2017 Sodium 130 mmol/L Low 133-145 Potassium 4.1 mmol/L 3.5-5.0 Chloride 94 mmol/L Low 101-111 Co2 Carbon Dioxide 25 mmol/L 22-32 Anion Gap 11 mmol/L 2-11 Glucose 206 mg/dL High 70-100 Blood Urea Nitrogen 59 mg/dL High 6-24 Creatinine 8.61 mg/dL High 0.67-1.17 BUN/Creatinine Ratio 6.9 Low 8-20 Calcium 9.2 mg/dL 8.6-10.3 Egfr Non- 6.5 >60 Egfr 8.4 >60 2 CBC Auto Diff 06/11/2017 White Blood Count 7.0 10^3/uL 3.5-10.8 Red Blood Count 3.12 10^6/uL Low 4.0-5.4 Hemoglobin 9.2 g/dL Low 14.0-18.0 Hematocrit 28 % Low 42-52 Mean Corpuscular Volume 90 fL 80-94 Mean Corpuscular Hemoglobin 30 pg 27-31 Mean Corpuscular HGB Conc 33 g/dL 31-36 Red Cell Distribution Width 14 % 10.5-15 Platelet Count 199 10^3/uL 150-450 Mean Platelet Volume 8 um3 7.4-10.4 Abs Neutrophils 4.5 10^3/uL 1.5-7.7 Abs Lymphocytes 1.3 10^3/uL 1.0-4.8 Abs Monocytes 0.9 10^3/uL High 0-0.8 Abs Eosinophils 0.2 10^3/uL 0-0.6 Abs Basophils 0.1 10^3/uL 0-0.2 Abs Nucleated RBC 0 10^3/uL Granulocyte % 63.8 % 38-83 Lymphocyte % 18.9 % Low 25-47 Monocyte % 13.0 % High 1-9 Eosinophil % 3.0 % 0-6 Basophil % 1.3 % 0-2 Nucleated Red Blood Cells % 0 Manual Differential 06/11/2017 Neutrophil % 65 % 38-83 Lymphocytes % 21 % Low 25-47 Monocytes % 10 % 0-13 Basophil % 4 % High 0-2 RBC Morphology Normal Normal Laboratory test finding 05/13/2017 Blood Urea Nitrogen BUN 65 mg/dL High 6 -24 Creatinine 05/13/2017 Creatinine 8.98 mg/dL High 0.67-1.17 Egfr Non- 6.2 >60 Egfr 8.0 >60 3 Laboratory test 02/03/2017 Surgical Pathology SEE RESULT 4 finding BELOW Laboratory test 02/03/2017 Point of Care 174 mg/dL High 74-106 5 finding Glucose Laboratory test 02/03/2017 Anaerobic Culture SEE RESULT 6 finding BELOW Wound Culture/Sensi 02/03/2017 Wound/Misc SEE RESULT 7 Culture-Gram Stain BELOW Laboratory test 08/06/2016 Point of Care 205 mg/dL High 74-106 8 finding Glucose Laboratory test 08/02/2013 C Reactive Protein 0.9 mg/dL High Less than 0.5 9 finding Comp Metabolic Panel 08/02/2013 Sodium 128 mmol/L Low 133-145 Potassium 5.1 mmol/L High 3.5-5.0 Chloride 95 mmol/L Low 101-111 Co2 Carbon Dioxide 24.0 mmol/L 22-32 Anion Gap 9.0 mmol/L 2-11 Glucose 372 mg/dL High 70-100 Blood Urea Nitrogen 33 mg/dL High 6-24 Creatinine 2.40 mg/dL High 0.50-1.40 BUN/Creatinine Ratio 13.8 8-20 Calcium 8.6 mg/dL 8.1-9.9 Total Protein 6.9 g/dL 6.2-8.1 Albumin 2.0 g/dL Low 3.6-5.4 Globulin 4.9 g/dL High 2-4 Albumin/Globulin Ratio 0.4 Low 1-3 Total Bilirubin 0.8 mg/dL 0.4-1.5 Alkaline Phosphatase 164 U/L High 30-110 Alt 19 U/L 14-54 Ast 30 U/L 12-42 Egfr Non- 29.0 >60 Egfr 37.3 >60 10 CBC No Diff 08/02/2013 White Blood Count 6.0 10^3/uL 4.8-10.8 Red Blood Count 4.15 10^6/uL 4.0-5.4 Hemoglobin 11.4 g/dL Low 14.0-18.0 Hematocrit 35 % Low 42-52 Mean Corpuscular Volume 85 fL 80-94 Mean Corpuscular Hemoglobin 28 pg 27-31 Mean Corpuscular HGB Conc 32 g/dL 31-36 Red Cell Distribution Width 13 % 10.5-15 Platelet Count 219 10^3/uL 150-450 Mean Platelet Volume 9 um3 7.4-10.4 Manual Differential 07/26/2013 Neutrophil % 66 % 38-83 Lymphocytes % 22 % Low 25-47 Monocytes % 8 % 0-13 Eosinophils % 3 % 0-6 Myelocytes % 1 % 0-1 RBC Morphology Normal Normal Laboratory test finding 07/26/2013 C Reactive Protein 0.9 mg/dL High Less than 0.5 Comp Metabolic Panel 07/26/2013 Sodium 132 mmol/L Low 133-145 Potassium 4.8 mmol/L 3.5-5.0 Chloride 102 mmol/L 101-111 Co2 Carbon Dioxide 26.0 mmol/L 22-32 Anion Gap 4.0 mmol/L 2-11 Glucose 203 mg/dL High 70-100 Blood Urea Nitrogen 30 mg/dL High 6-24 Creatinine 2.10 mg/dL High 0.50-1.40 BUN/Creatinine Ratio 14.3 8-20 Calcium 8.3 mg/dL 8.1-9.9 Total Protein 6.9 g/dL 6.2-8.1 Albumin 1.9 g/dL Low 3.6-5.4 Globulin 5.0 g/dL High 2-4 Albumin/Globulin Ratio 0.4 Low 1-3 Total Bilirubin 0.5 mg/dL 0.4-1.5 Alkaline Phosphatase 178 U/L High 30-110 Alt 25 U/L 14-54 Ast 43 U/L High 12-42 Egfr Non- 33.9 >60 Egfr 43.6 >60 11 CBC No Diff 07/26/2013 White Blood Count 6.4 10^3/uL 4.8-10.8 Red Blood Count 3.90 10^6/uL Low 4.0-5.4 Hemoglobin 11.1 g/dL Low 14.0-18.0 Hematocrit 33 % Low 42-52 Mean Corpuscular Volume 85 fL 80-94 Mean Corpuscular Hemoglobin 29 pg 27-31 Mean Corpuscular HGB Conc 34 g/dL 31-36 Red Cell Distribution Width 13 % 10.5-15 Platelet Count 311 10^3/uL 150-450 Mean Platelet Volume 9 um3 7.4-10.4 1 Golf Course Mechanic: [id number] 2 Because ethnic data is not always readily available, this report includes an eGFR for both -Americans and non- Americans. The National Kidney Disease Education Program (NKDEP) does not endorse the use of the MDRD equation for patients that are not between the ages of 18 and 70, are , have extremes of body size, muscle mass, or nutritional status, or are non- or non-. According to the National Kidney Foundation, irrespective of diagnosis, the stage of the disease is based on the level of kidney function: Stage Description GFR(mL/min/1.73 m(2)) 1 Kidney damage with normal or decreased GFR 90 2 Kidney damage with mild decrease in GFR 60-89 3 Moderate decrease in GFR 30-59 4 Severe decrease in GFR 15-29 5 Kidney failure <15 (or dialysis) 3 Because ethnic data is not always readily available, this report includes an eGFR for both -Americans and non- Americans. The National Kidney Disease Education Program (NKDEP) does not endorse the use of the MDRD equation for patients that are not between the ages of 18 and 70, are , have extremes of body size, muscle mass, or nutritional status, or are non- or non-. According to the National Kidney Foundation, irrespective of diagnosis, the stage of the disease is based on the level of kidney function: Stage Description GFR(mL/min/1.73 m(2)) 1 Kidney damage with normal or decreased GFR 90 2 Kidney damage with mild decrease in GFR 60-89 3 Moderate decrease in GFR 30-59 4 Severe decrease in GFR 15-29 5 Kidney failure <15 (or dialysis) 4 SEE RESULT BELOW Name: SAM SHERMAN : [address]: Gumaro Decker MD Acct: [id number] Unit: [id number] AGE: 51 Location: OR Re02/03/17 SEX: M Status: SCOTT COMER SPEC: [id number] ROMULO: 02/03/17- SUBM DR: Gumaro Decker MD REQ: [id number] RECD: 02/03/17-1155 STATUS: SOUT _ ORDERED: Decal, LEVEL 3 FINAL DIAGNOSIS Foot, left, excision: -- Benign fibroconnective and synovial tissue fragments with chronic inflammation and reactive change. -- Fibroconnective tissue with metaplastic ossification. -- Bone with reactive change. PRE-OPERATIVE DIAGNOSIS Charcots joint left ankle and foot GROSS DESCRIPTION The specimen is received in formalin labeled, Bone Deformity and Bursa Left Foot, and consists of an 8.0 x 5.5 by up to 2.0 cm aggregate of tamez-pink lobulated and irregular rubbery to fibrous tissue fragments admixed with two nodular bone fragments. The bone fragments measure 0.8 x 0.8 x 0.4 cm and 2.5 x 1.5 x 0.5 cm and internet sales representative sections are submitted in cassette A following decalcification. Within the aggregate the largest fragment measures 5.0 x 4.0 x 2.0 cm, is inked blue, serially sectioned and a internet sales representative section is submitted in cassette B. The second largest fragment measures 3.2 x 2.5 x 0.7 cm, is inked black, serially sectioned and internet sales representative sections of the remaining soft tissue are submitted in cassette C. MICROSCOPIC DESCRIPTION . Signed (signature on file) Mahogany Arrieta MD 1539 END OF REPORT * ML=Testing performed at Main Lab DEPARTMENT OF PATHOLOGY, [address] [place] [address] Balta Fuchs M.D. Director [facility] # [id number] 5 Golf Course Mechanic: [id number] 6 SEE RESULT BELOW Name: SAM SHERMAN : [address]: Gumaro Decker MD Acct: [id number] Unit: [id number] AGE: 51 Location: OR Re02/03/17 SEX: M Status: DEP SDC SPEC: [id number] ROMULO: 02/03/17-[address] [facility] [address]: Gumaro Decker MD REQ: [id number] RECD: 02/03/171202 STATUS: ALEXA IRIZARRY DR: Trenton Rodriguez MD _ SOURCE: WOUND SPDESC:LEFT ORDERED: Anaerobic Cult COMMENTS: LEFT FOOT Procedure Result Reported Site Anaerobic Culture Final 02/07/17- 0804 ML No Growth Day 4 * ML - MAIN LAB ([facility]) . END OF REPORT * ML=Testing performed at Main Lab DEPARTMENT OF PATHOLOGY, [address] [place] [address] Balta Fuchs M.D. Director [facility] # [id number] 7 SEE RESULT BELOW Name: WHITSAM : [address]: Gumaro Decker MD Acct: [id number] Unit: [id number] AGE: 51 Location: OR Re02/03/17 SEX: M Status: DEP SDC SPEC: [id number] ROMULO: 02/03/17-[address] [facility] [address]: Gumaro Decker MD REQ: [id number] RECD: 02/03/17-1202 STATUS: ALEXA IRIZARRY DR: Trenton Rodriguez MD _ SOURCE: FOOT,LEFT SPDESC: ORDERED: Culture Stain QUERIES: Specimen Description LEFT FOOT OPSITE Procedure Result Reported Site Wound/Misc Gram Stain Final 02/03/17- 1358 ML 3+ Neutrophils 1+ Epithelial Cells No Organisms Seen Wound/Misc Culture Final 02/06/17- 0839 ML No Growth Day 3 * ML - MAIN LAB ([facility]) . END OF REPORT * ML=Testing performed at Main Lab DEPARTMENT OF PATHOLOGY, [address] [place] [address] Batla Fuchs M.D. Director [facility] # [id number] 8 Golf Course Mechanic: [id number] LOTTIE ADAME [address] ROSALES [phone] 10 Because ethnic data is not always readily available, this report includes an eGFR for both -Americans and non- Americans. The National Kidney Disease Education Program (NKDEP) does not endorse the use of the MDRD equation for patients that are not between the ages of 18 and 70, are , have extremes of body size, muscle mass, or nutritional status, or are non- or non-. According to the National Kidney Foundation, irrespective of diagnosis, the stage of the disease is based on the level of kidney function: Stage Description GFR(mL/min/1.73 m(2)) 1 Kidney damage with normal or decreased GFR 90 2 Kidney damage with mild decrease in GFR 60-89 3 Moderate decrease in GFR 30-59 4 Severe decrease in GFR 15-29 5 Kidney failure <15 (or dialysis) 11 Because ethnic data is not always readily available, this report includes an eGFR for both -Americans and non- Americans. The National Kidney Disease Education Program (NKDEP) does not endorse the use of the MDRD equation for patients that are not between the ages of 18 and 70, are , have extremes of body size, muscle mass, or nutritional status, or are non- or non-. According to the National Kidney Foundation, irrespective of diagnosis, the stage of the disease is based on the level of kidney function: Stage Description GFR(mL/min/1.73 m(2)) 1 Kidney damage with normal or decreased GFR 90 2 Kidney damage with mild decrease in GFR 60-89 3 Moderate decrease in GFR 30-59 4 Severe decrease in GFR 15-29 5 Kidney failure <15 (or dialysis) Procedures Date CPT Code Description Status 07/04/2017 06741 Removal Devitalization Tissue Wound Less Than Equal 20 Completed Square CM 02/13/2017 77363 Walking Cast Completed 02/03/2017 82475 Partial Excision Bone Tarsal/Metatarsal Completed 02/03/2017 03436 Partial Excision Bone Tarsal/Metatarsal Completed 08/06/2016 Colonoscopy Completed 10/31/2015 02691 Fluoroscopic Guidance For Cent Completed 10/31/2015 84353 Ultrasound Guidance For Vascular Access Completed 10/31/2015 06080 Insertion Tunneled Cent Venous Cathr W/O Subcut Completed Port/Pump 5Yrs> 10/01/2015 42726 EKG, Interpretation Only Completed 08/31/2013 25038 Rad Exam; Foot Comp Completed 07/12/2013 81160 Partial Excision Bone Tarsal/Metatarsal Completed 07/12/2013 36549 Removal Implant Deep Wire,Screw Nail,Keith Or Plate Completed 05/31/2013 25618 Rad Exam; Foot Comp Completed 11/16/2012 65657 Rad Exam; Foot Comp Completed 10/19/2012 41584 Short Leg Cast Completed 10/12/2012 93118 Short Leg Cast Completed 10/12/2012 39188 Rad Exam; Foot Comp Completed 10/09/2012 45166 Arthrodesis Midtarsal/Tarsometatarsal W/Osteotomy Completed 09/28/2012 89541 Rad Exam; Foot Comp Completed 06/26/2012 27217 Short Leg Cast Completed 06/08/2012 61791 Walking Cast Completed 06/08/2012 94538 Short Leg Cast Completed 05/25/2012 87646 Short Leg Cast Completed 05/13/2012 51273 Rad Exam; Foot Limited Completed 05/13/2012 93397 Rad Exam; Foot Limited Completed 05/13/2012 03067 Rad Exam; Ankle Comp Completed 05/13/2012 13607 Rad Exam; Ankle Comp Completed 05/13/2012 50941 Short Leg Cast Completed 04/16/2012 Diabetic Foot Exam Completed Encounters Type Date Location Provider CPT E/M Dx Office Visit 06/23/2017 [facility] Aldrich, 16574 I70.245 3:00p Curtain Supervisor At [facility] DALILA WILKS, FSCAI F17.200 Office Visit 06/20/2017 1:30p [facility] Anh Smith DNP, 93895 L97.521 At [facility] RN, PRODUCT ENGINEERING MANAGER-BC E11.621 M14.672 I12.0 N18.5 F17.200 Office Visit 06/09/2017 3:20p [facility] Alva Aldrich, 09093 I70.245 Curtain Supervisor At [facility] DALILA WILKS, FSCAI E11.621 N18.5 K74.60 Office Visit 06/02/2017 1:15p [facility] [place] [address] E11.621 C.M.ADejah M14.672 Office Visit 01/21/2017 11:00a [facility] De[facility] 97392 M14.672 C.M.Naif Winkler Office Visit 12/31/2016 11:00a [facility] 81093 M14.672 C.MEliud Winkler Office Visit 06/27/2016 11:00a [facility], 67267 M14.671 Puneet Winkler Office Visit 11/02/2015 10:07a [facility] Katy Malik, 34150 N18.5 Hospitalists M.D. E11.9 I10 Office Visit 11/01/2015 10:06a [facility] Katy Malik, 43224 N18.5 Hospitalists M.D. E11.9 I10 Office Visit 10/31/2015 10:06a [facility] [address] I50.9 Hospitalists E11.9 S37.009A I10 Office Visit 10/08/2015 3:21p [facility] Katy Malik, 34267 N18.5 Hospitalists M.D. E11.9 E87.70 D64.9 Office Visit 10/07/2015 3:21p [facility] Katy Malik, 04605 N18.5 Hospitalists M.D. E11.9 E87.70 D64.9 Office Visit 10/06/2015 3:20p [facility] Katy Malik, 07179 N18.5 Hospitalists M.D. E11.9 E87.70 D64.9 Office Visit 10/05/2015 2:49p [facility] Katy Malik, 38926 N18.5 Hospitalists M.D. E11.9 E87.70 D64.9 Office Visit 10/04/2015 2:49p [facility] Katy Malik, 44715 N18.5 Hospitalists M.D. E11.9 E87.70 D64.9 Office Visit 10/03/2015 2:48p [facility] [address] N18.5 Hospitalists E11.9 E87.70 D64.9 Office Visit 10/02/2015 2:47p [facility] [address] E87.70 Hospitalists E11.9 N18.5 D64.9 Office Visit 10/01/2015 2:47p [facility] Mukund Tapia M.D. 08806 I50.9 Hospitalists E11.9 D64.9 N18.5 Office Visit 08/31/2013 1:45p [facility], 15371 707.15 C.M.A. Cathi 996.67 Office Visit 07/28/2013 3:20p [facility] Caio Rosales, 54975 996.67 Infectious Diseases M.D. 730.27 Office Visit 07/20/2013 1:51p [facility] Caio Rosales, 03328 996.67 Infectious Diseases M.D. 730.27 041.00 Office Visit 07/20/2013 10:35a [facility], 15625 682.7 Hospitalists N.P. 250.82 713.5 Office Visit 07/19/2013 10:34a [facility], 56073 682.7 Hospitalists N.P. 250.82 713.5 Office Visit 07/18/2013 10:33a [facility], 12045 682.7 Hospitalists N.P. 250.82 713.5 Office Visit 07/17/2013 10:33a [facility], 44637 682.7 Hospitalists N.P. 250.82 713.5 Office Visit 07/16/2013 10:32a [facility], Sandra Alberts N.PDejah 20739 682.7 Hospitalists 250.82 713.5 Office Visit 07/15/2013 11:12a [facility] Caio Rodriguez [place], 91862 996.67 Infectious Diseases M.D. 730.27 041.00 Office Visit 07/15/2013 10:31a [facility], Sandra Alberts N.P. 34898 682.7 Hospitalists 250.82 713.5 Office Visit 07/14/2013 10:31a [facility], 56113 682.7 Hospitalists N.P. 250.82 713.5 Office Visit 07/13/2013 10:30a [facility], [facility], 68654 682.7 Hospitalists N.P. 250.82 713.5 Office Visit 07/13/2013 11:11a [facility] Caio Rosales, 31234 996.67 Infectious Diseases M.Michael 730.27 041.00 Office Visit 07/12/2013 10:29a [facility] Ass,[facility], [address] 682.7 Hospitalists N.P. 250.82 713.5 Office Visit 07/11/2013 10:28a [facility] Robby DDejah Bradford, [address] 682.7 Assoc, Hospitalists M.D. Hospitalist 250.82 Office Visit 07/11/2013 7:00a [facility] Torres M.D. 48365 682.7 C.M.A. 686.9 250.60 713.5 Office Visit 05/31/2013 3:15p [facility] G[facility] Decker 29897 715.17 C.M.A. MMiguelina Office Visit 09/07/2012 3:30p [facility], 21082 356.8 C.M.A. MMiguelina 716.97 Office Visit 07/03/2012 3:45p [facility], 98681 356.8 C.M.A. MDejahD. Office Visit 06/26/2012 1:00p [facility], 73889 356.8 C.M.A. MMiguelina 250.60 713.5 Office Visit 06/08/2012 10:00a [facility], 73617 716.97 C.M.A. MMiguelina 713.5 Office Visit 05/25/2012 2:45p [facility] 54150 716.97 C.M.A. MDejahD. 250.60 713.5 Office Visit 05/13/2012 2:00p [facility], 20008 356.8 C.M.A. M.D. 094.0 713.5 Plan of Care Future Appointment(s):08/26/2017 11:15 am - Gumaro Decker M.D. at [facility] C.M.ADejah07/31/2017 1:20 pm - Alva Aldrich MD, FACC, FSCAI at [facility] [place]07/22/2017 - Gumaro Decker M.D.[id number] Type 2 diabetes mellitus with foot ulcerNew Therapy:Rehab ReferralFollow up:4-5 weeks
--- NOTE | 2017-08-02 17:36 | UC ---
Ear Complaint HPI - History of Current Complaint Chief Complaint: UCEar Stated Complaint: EAR PAIN Time Seen by Provider: 08/02/17 17:24 Hx Obtained From: Patient Onset/Duration: Sudden Onset - felt a "pop" in R ear this am and now ear hurts and it is sore to swallow on R side Severity Initially: Mild Severity Currently: Mild Aggravating Factors: Other - no pain in teeth, no pain when chewing Associated Signs/Symptoms: Negative: Discharge, Hearing Loss, Foreign Body Sensation, URI Symptoms - Allergies/Home Medications Allergies/Adverse Reactions: Allergies Allergy/AdvReac Type Severity Reaction Status Date / Time Amlodipine Allergy Rash Verified 05/14/17 10:52 Iodinated Contrast Media Allergy SEVERE RASH Verified 05/14/17 10:52 [IV CONTRAST DYE] Tetracyclines & Related Allergy Hives Verified 05/14/17 10:52 PMH/Surg Hx/FS Hx/Imm Hx Previously Healthy: Yes Endocrine History: Diabetes Cardiovascular History: Hypertension - Surgical History Surgical History: Yes Surgery Procedure, Year, and Place: 09/2012 LEFT MIDFOOT OSTEOTOMY AND FUSION WITH TIBIAL BONE GRAFT AND ACHILLES LENGTHING, [facility] [place]. 06/2013 LEFT FOOT DEBRIDEMENT AND REMOVAL HARDWARE, [facility] - Family History Known Family History: Positive: None, Diabetes, Other - No CA. Family History: R & n/C - Social History Occupation: Disabled Lives: With Family Alcohol Use: Daily Alcohol Amount: 5-6 beers/day Substance Use Type: None Smoking Status (MU): Light Every Day Tobacco Smoker Type: Cigarettes Amount Used/How Often: 4 CIGARETTES A DAY (TRYING TO QUIT) Length of Time of Smoking/Using Tobacco: 20+ YEARS Have You Smoked in the Last Year: Yes Household Exposure Type: Cigarettes Cessation Counseling: Patient Advised to Stop - Immunization History Most Recent Influenza Vaccination: never Most Recent Tetanus Shot: current Most Recent Pneumonia Vaccination: never Review of Systems Constitutional: Negative Eyes: Negative ENT: Ear Ache Respiratory: Negative Cardiovascular: Negative Neurological: Negative Psychological: Negative All Other Systems Reviewed And Are Negative: Yes Physical Exam Triage Information Reviewed: Yes Appearance: Well-Appearing, No Pain Distress, Obese Vital Signs: Initial Vital Signs Temp 97.3 F 08/02/17 15:19 Pulse 98 08/02/17 15:19 Resp 18 08/02/17 15:19 BP 145/86 08/02/17 15:19 Pulse Ox 99 08/02/17 15:19 Vital Signs Reviewed: Yes ENT: Positive: Pharynx normal, TMs normal. Negative: Sinus tenderness Dental Exam: Normal Neck exam: Normal Neck: Positive: Supple, Nontender, No Lymphadenopathy Respiratory Exam: Normal Respiratory: Positive: Lungs clear Cardiovascular Exam: Normal Neurological Exam: Normal Psychological Exam: Normal Skin Exam: Normal Skin: Negative: rashes Ear Complaint Course/Dx - Differential Dx/Diagnosis Differential Diagnosis/HQI/PQRI: Cerumen Impaction, Foreign Body, Otitis Externa , Otitis Media Provider Diagnoses: otalgia Discharge - Discharge Plan Condition: Good Disposition: HOME Patient Education Materials: Earache (ED) Referrals: Trenton Romero MD [Primary Care Provider] - 2 Days (if no better) Additional Instructions: there is no evidence of infection on exam use tylenol as directed for pain drink plenty of fluids
== END 2017-08-02 17:47 | disposition home or self-care (01) ==
LOC: UCEAST 15:13
DX: H92.01 Otalgia, right ear (principal); E11.9 Type 2 diabetes mellitus without complications; I10 Essential (primary) hypertension; E66.9 Obesity, unspecified; F17.210 Nicotine dependence, cigarettes, uncomplicated
CPT/HCPCS: 99212; G0463

== ENCOUNTER 2018-02-02 06:59 | Day surgery (SDC) | payer MEDICARE, MEDICAID ==
--- NOTE | 2018-01-01 07:28 | HP ---
PREOPERATIVE HISTORY AND PHYSICAL: DATE OF ADMISSION: 01/12/18 PROVIDER: Dr. Gumaro Decker.* (DICTATED BY KALEE MEEK) CHIEF COMPLAINT: Left ankle pain. HISTORY OF PRESENT ILLNESS: Lalo is a 52-year-old male with a long history of diabetes and end-stage renal disease, who has had Charcot arthropathy of the left foot and ankle. He underwent surgical excision of bony prominences of the plantar aspect of his foot and had a recurrent ulcer in this area secondary to a varus deformity. He has tried bracing to hold his ankle stable in neutral; however, this has failed significantly. He is interested in surgical intervention for correction of problem at this point. PAST MEDICAL HISTORY: Diabetes, end-stage renal disease, peripheral vascular disease, and hypertension. PAST SURGICAL HISTORY: Multiple surgeries on the left foot, peritoneal dialysis catheter placement, carotid stents in his neck as well as removal of that. He reports no complications with anesthesia. CURRENT MEDICATIONS: 1. Glipizide 10 mg p.o. b.i.d. 2. Atenolol 100 mg q. day. 3. Hydralazine 50 mg b.i.d. 4. Lantus 60 to 70 units daily. 5. Sodium bicarbonate 650 mg 2 tabs 3 times daily. ALLERGIES: TETRACYCLINE, INTRAVENOUS DYES, and AMLODIPINE. He is okay to take cephalosporins. FAMILY HISTORY: Noncontributory. SOCIAL HISTORY: He is not currently working. He is a current smoker and smokes a quarter pack of cigarettes per day and has for several years. He drinks 4 to 5 alcoholic beverages per day. He denies any illicit drug use. REVIEW OF SYSTEMS: A 14-point review of systems was discussed with the patient. All systems were negative except discussed in the HPI. PHYSICAL EXAMINATION GENERAL: He is a well-developed, well-nourished male in no acute distress at rest. He is alert and oriented x3 with appropriate mood and affect. VITAL SIGNS: The patient is 5 feet 10 inches, 240 pounds. Blood pressure 122/ 74, pulse of 70, respirations 20. HEENT: Normocephalic, atraumatic. Hearing and vision grossly intact. NECK: His trachea is midline. RESPIRATORY: Lungs clear to auscultation bilaterally. No wheezes, rales, or rhonchi. CARDIOVASCULAR: Regular rate and rhythm. No murmurs, rubs, or gallops. Normal S1, S2. ABDOMEN: Soft, nondistended, nontender. Normal bowel sounds. EXTREMITIES: Exam of the left lower extremity: Skin is intact without abrasions or open wounds. His plantar ulcer is completely healed and infection free. He has a severe varus deformity of the ankle with limited range of motion. Sensation to light touch is decreased secondary to neuropathy. He has 1+ dorsalis pedis pulse. IMPRESSION: Left foot and ankle varus deformity. PLAN: The patient is to undergo left ankle closing wedge osteotomy by Dr. Decker on 01/12/18. The risks, benefits, and postoperative course were discussed with the patient and his and he would like to proceed. All of his questions were answered to his full satisfaction. He is understanding to call if he develops problems or concerns. KALEE MEEK [id number]/[facility] #: [id number] [employer]
[~2018-02-02 06:59] MED LIST changes: -Acetylcysteine CAP (RENAL)* 600 MG PO ONE; -Aspirin Low Dose CHEW TAB* 81 MG ONE; +Buffered Lidocaine 0.9% SYRIN* 5 ML/SYR SYRINGE INTRADERM ONE; -Clopidogrel TAB* 300 MG ONE; -Diazepam TAB(*) 5 MG ONE; +Famotidine IV* 10 MG/ML 2 ML (20 mg) IV ONE; -Flumazenil* 0.1 MG/ML 5 ML MDV ONE; -Heparin 2 UNITS/ML IVPREMIX* 2,000 ML IV ONE; -Heparin(*) 1000 UNIT/ML 10 ML VIAL CATH LAB IV ONE; -Iodixanol* (CONTRAST) 320 MG/ML 100 ML SDV ONE; -Lidocaine 1% INJ* 10 MG/ML 30 ML SDV ONE; +Metoclopramide IV* 5 MG/ML 2 ML VIAL IV SLOW PU ONE; -Midazolam* 1 MG/ML 10 ML VIAL (10 MG) ONE; +NS 0.45% 1000 ML BAG* 1,000 ML IV SCH; -NS 0.9% 1000 ML* 1,000 ML IV SCH; -Naloxone* 0.4 MG/ML 1 ML VIAL ONE; -diPHENhydraMINE PO* 25 MG ONE; -fentaNYL* 50 MCG/ML 5 ML VIAL (250 MCG VIAL) ONE; -methylPREDNISolone SOD 40 MG* 1 ML VIAL IV ONE; -nitroGLYCERIN DRIP* 25,000 MCG/250 ML BTL ONE
[2018-02-02] MEDS ORDERED: Famotidine IV* 10 MG/ML 2 ML (20 mg) ONE (07:05)
[2018-02-02] MEDS ORDERED: Clindamycin 900 MG IVPREMIX(* 900 MG/50 ML SDV IV ONE (07:05)
[2018-02-02] MEDS ORDERED: Metoclopramide IV* 5 MG/ML 2 ML VIAL ONE (07:05)
[2018-02-02] MEDS ORDERED: fentaNYL* 50 MCG/ML 2 ML VIAL (100 MCG VIAL) ONE ×4 (08:27→12:55)
[2018-02-02] MEDS ORDERED: Midazolam* 1 MG/ML 2 ML VIAL (2 MG) ONE (08:27)
[2018-02-02] MEDS ORDERED: Bupivacaine 0.5% PF 10 ML VIAL INJ ONE ×4 (08:57→10:24)
[2018-02-02] MEDS ORDERED: Naloxone* 0.4 MG/ML 1 ML VIAL IV PRN (10:20)
[2018-02-02] MEDS ORDERED: Ondansetron INJ* 2 MG/ML VIAL ONE (10:58)
[2018-02-02] MEDS ORDERED: Propofol* 10 MG/ML 20 ML BTL IV PUSH ONE (10:59)
[2018-02-02] MEDS ORDERED: HYDROmorphone INJ* 0.5 MG/0.5 ML SYRINGE ONE ×2 (11:49→12:38)
[2018-02-02] MEDS: HYDROmorphone INJ* 0.5 MG/0.5 ML SYRINGE IV PRN ×2 (11:50→12:40)
[2018-02-02] MEDS: fentaNYL* 50 MCG/ML 2 ML VIAL (100 MCG VIAL) IV PRN ×4 (11:59→12:56)
[2018-02-02] MEDS ORDERED: oxyCODONE TAB* 5 MG TAB ONE (12:38)
[2018-02-02 13:20] VITALS: BP 149/76
--- NOTE | 2018-02-03 01:14 | OP ---
DATE OF OPERATION: 02/02/18 - [facility] DATE OF : 63 SURGEON: Gumaro Decker MD [employer] SAL[employer] REPRESENTATIVE: Samra Broussard PA-C PRE-OP DIAGNOSIS: Charcot arthropathy, left tibiotalar and hindfoot joints and severe hindfoot varus. POST-OP DIAGNOSIS: Charcot arthropathy, left tibiotalar and hindfoot joints and severe hindfoot varus. OPERATIVE PROCEDURE: Left distal tibial osteotomy and tibiotalar fusion. DESCRIPTION OF PROCEDURE: The patient was taken to the operating room where extensile lateral longitudinal incision was made over the fibula. We dissected around the fibula proximally and removed this with a Fisher elevator. There was some evidence of osteomyelitis of the distal portion of the fibula. This evidence was of slightly greater consistency and some soft friability of the bone itself. Bone was sent to pathology. Cultures were sent of the tibiotalar joint. We then dissected around the tibiotalar joint exposing the lateral talus as well as the tibial shaft. We removed approximately 25 degree wedge from the tibia 4 to 5 cm above the tibiotalar joint. This corrected most of the varus deformity. This was fixed with 3.5 mm Recon plates, 2 of them placed , 1 straight lateral, 1 more anterolaterally. These were placed under manual compression, fixed with locking and nonlocking screws. The tibiotalar fusion was then performed and this was carried out after wedge resection of the tibiotalar joint helping to correct more of the varus deformity. We used paired 6.7 mm cannulated screws driven from the plantar lateral aspect of the hindfoot up through the medial tibial cortex, one over a washer. Good compression was obtained and good correction of the residual varus deformity. X -rays intraoperatively were performed followed by extensive irrigation, closure with deep 2-0 Vicryl subcu, interrupted 2-0 Prolene for the skin, and compression dressing was then applied. [id number]/[facility] #: [id number] [facility]
--- NOTE | 2018-02-03 07:51 | RAD ---
INDICATION: M14.672 COMPARISONS: June 02, 2017 TECHNIQUE: Fluoroscopy was provided for a surgical procedure. Total fluoroscopy time is: 7 seconds FINDINGS: Spot images demonstrate osteotomy of the distal tibia and fibula with graft placement and fixation of the distal tibia. IMPRESSION: FLUOROSCOPY WAS PROVIDED FOR A SURGICAL PROCEDURE CPT II Codes: G9500
== END 2018-02-02 13:54 | disposition home or self-care (01) ==
LOC: OR 06:59
PROVIDERS: ATTEND Orthopaedic Surgery
DX: M21.172 Varus deformity, not elsewhere classified, left ankle (principal); M14.672 Charcot's joint, left ankle and foot; Z79.4 Long term (current) use of insulin; E11.22 Type 2 diabetes mellitus with diabetic chronic kidney disease; N18.6 End stage renal disease; I12.0 Hypertensive chronic kidney disease with stage 5 chronic kidney disease or end stage renal disease; Z99.2 Dependence on renal dialysis; Z72.0 Tobacco use; K74.60 Unspecified cirrhosis of liver; I48.92 Unspecified atrial flutter; I73.9 Peripheral vascular disease, unspecified; Z68.36 Body mass index [BMI] 36.0-36.9, adult
CPT/HCPCS: 76001; 87070; 87073; 87205; 88304; 88311; A9270-GY; C1713; J1170; J2250; J2405; J2704; J2765; J3010

== ENCOUNTER 2018-05-25 12:29 | Inpatient (IN) | payer MEDICARE, MEDICAID ==
[2018-05-25 12:08] LABS: Hematocrit 31 % (42-52); Hemoglobin 10.1 g/dl (14.0-18.0); Mean Corpuscular HGB Conc 33 g/dl (31-36); Mean Corpuscular Hemoglobin 30 pg (27-31); Mean Corpuscular Volume 90 fL (80-94); Mean Platelet Volume 7.6 fL (7.4-10.4); Platelet Count 138 10^3/ul (150-450); Red Cell Distribution Width 17 % (10.5-15); White Blood Count 6.4 10^3/ul (3.5-10.8)
[~2018-05-25 12:29] MED LIST changes: +Buffered Lidocaine 0.9% SYRIN* 5 ML/SYR SYRINGE ONE; +Bupivacaine 0.5% SDV PF* 30ML VIAL ONE; +Famotidine IV* 10 MG/ML 2 ML (20 mg) ONE; +Lidocaine 1% INJ* 10 MG/ML 30 ML SDV ONE; +Lidocaine 1%* 5 ML VIAL ONE; +Lidocaine 2% PF * 5 ML VIAL ONE; -Metoclopramide IV* 5 MG/ML 2 ML VIAL IV SLOW PU ONE; +Midazolam* 1 MG/ML 2 ML VIAL (2 MG) ONE; +ROPIVACAINE 5 MG/ML 30 ML BTL (0.5%) ONE; +Rocuronium* 10 MG/ML VIAL ONE; +ceFAZolin 1 GM ADVAN(*) 1 GM ADDV.VIAL IVPB ONE; +ceFAZolin 2 GM PREMIX in ORs 2 GM/50 ML BAG IVPB ONE; +fentaNYL* 50 MCG/ML 2 ML VIAL (100 MCG VIAL) ONE
--- OUTSIDE RECORDS SUMMARY | 2018-05-25 12:33 | XMS REPORT ---
:1965 External Reference #:[id number] Author Organization [facility] Address [address] [place] [address] [place] [address] Phone [phone] Care Team Providers Name Role Phone Trenton Romero MD Primary Care Physician Unavailable Payers Type Date Identification Numbers Payment Provider Subscriber Medicare Primary Policy Number: [id number] Medicare Sam Sherman PayID: [id number] [address] [place] [address] Medigap Part B Policy Number: [id number] Medicaid Sam Sherman Group Name: 1 1 [address] PayID: [id number] [place] [address] Medigap Part B Expires: 2016 Policy Number: [id number] Medicaid Sam Sherman Group Name: 1 1 [address] PayID: [id number] [place] [address] Problems Date Description Provider Status Onset: 07/06/2013 Localized, primary osteoarthritis Gumaro Decker M.D. Active of the ankle and/or foot Onset: 07/06/2013 Disorder of joint of ankle and/or Gumaro Decker M.D. Active foot Onset: 07/06/2013 Idiopathic peripheral neuropathy Gumaro Decker M.D. 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 Onset: 06/09/2017 [facility]cl [place] arteries of left Alva Aldrich MD, FACC, Active leg w ulceration oth prt foot FSCAI Onset: 01/06/2018 Chest pain Alva Aldrich MD, FACC, Active FSCAI Onset: 01/06/2018 Atrial flutter Alva Aldrich MD, [facility], Active [facility] Family History Date Family Member(s) Problem(s) Comments General Diabetes father, paternal grandmother General Heart Disease father Father Diabetes Type II Father [place] x 2 Mother Hypertension Siblings 2 2 sisters- oldest- paralysed from broken neck, diabetes, youngest- healthy Social History Type Date Description Comments Marital Status Single Lives With Partner Occupation [place] [employer] medically retired Work Status Not Currently Working [...] Date Description Reaction Status Severity Comments 07/06/2013 Intravenous Dyes active 07/28/2013 Amlodipine active 01/06/2018 Tetracycline Urticaria active Medications Medication Date Status Form Strength Qnty SIG Indications Ordering Provider Oxycodone HCL 02/03/20 Active Tablets 5mg 20tabs 1 tabs by Gumaro 18 leigh Decker, every 4-6 M.D. hours as needed Eliquis 01/14/20 Active Tablets 2.5mg 60tabs 1 by Domingo Ring 18 leigh Torres, twice a M.D., [facility], day FASNC Knee Scooter 04/18/20 Active T81.31xD Gmuaro Decker M.D. I70.245 Glipizide Active Tablets 5mg 180tabs 2 po bid Unknown Atenolol Active Tablets 100mg 90tabs 1 po qd Unknown Hydralazine HCL Active Tablets 50mg 1 by mouth two Unknown times a day Lantus Solostar Active Solution 100Uni 70 units once Unknown Pen-Inject t/ML daily Sodium Active Tablets 650mg 2 tablets 3 Unknown Bicarbonate times daily Gabapentin Active Capsules 100mg take 1 to 3 Unknown capsules by mouth at night Calcitriol Active Capsules 0.25mc 1 by mouth Unknown g every other day (Off temporarily Xifaxan Active Tablets 550mg 1 by mouth Unknown once daily Aspirin 81 Low Active Chewtabs 81mg 1 by mouth Unknown Dose every day Oxycodone HCL Active Capsules 5mg 1 tabs by Unknown mouth every 4-6 hours as needed pain(pt takes twice daily) Levofloxacin 06/09/2017 - Hx Tablets 500mg 1/2 tablet Gumaro 07/14/2017 every other Jeronimo, day (250 mg) M.D. Atorvastatin 06/09/2017 - Hx Tablets 80mg 90tabs 1 by mouth Marcis T. Calcium 06/09/2017 every day MD Valdemar, FAC, [facility] Levofloxacin 03/06/2017 - Hx Tablets 750mg 20tabs one per day I7 Gumaro 06/09/2017 (pt takes 250 0. Jeronimo, mg every other 24 M.D. day- Per Dr. Diogo oRdriguez) Oxycodone HCL 02/03/2017 - Hx Tablets 5mg 40tabs 1-2 tab by Gumaro 02/11/2017 mouth every Jeronimo, 4-6 hours as M.D. neededfor pain Bactrim DS 02/03/2017 - Hx Tablets 800-16 20tabs 1 by mouth Gumaro 02/11/2017 0mg twice a day x Jeronimo, 10 days M.D. Levofloxacin 07/28/2013 - Hx Tablets 500mg 30tabs 1 po qd Gumaro 08/10/2013 Cathi Decker Levaquin 07/28/2013 - Hx Tablets 750mg 14tabs 1 po every 99 Caio 08/10/2013 other day 6. D. 67 Cathi Rosales Bactrim DS 11/30/2012 - Hx Tablets 800-16 20tabs 1 po bid Gumaro 07/28/2013 0mg Cathi Decker Levofloxacin 10/12/2012 - Hx Tablets 500mg 14tabs 1 po qd Gumaro 07/28/2013 Cathi Decker Norvasc - Hx Tablets 10mg 90tabs 1 po qd Unknown 07/28/2013 Oxycodone HCL - Hx Tablets 10mg 100tabs 1 tablet po Unknown 07/28/2013 q6hrs prn Oxycodone HCL - Hx Tablets 5mg 60tabs 1-2 po qid prn Unknown 06/13/2016 Bumetanide - Hx Unknown 08/31/2013 Clonidine HCL - Hx Unknown (Analgesia) 06/08/2017 Renvela - Hx Tablets 800mg 5-6 tablets Unknown 01/05/2018 after each meal, dependent on meal. Auryxia - Hx Tablets 1GM 1 by mouth Unknown 05/05/2018 210 with meals. mg(Fe) Vital Signs Date Vital Result Comment 05/14/2018 Height 71 inches 5'11" Weight 263.00 lb Heart Rate 76 /min BP Systolic 134 mmHg BP Diastolic 80 mmHg Body Temperature 97.6 F Pain Level 6 BMI (Body Mass Index) 36.7 kg/m2 05/05/2018 Height 71 inches 5'11" Weight 263.00 lb Heart Rate 79 /min BP Systolic Sitting 130 mmHg Lue reg cuff BP Diastolic Sitting 75 mmHg Lue reg cuff BP Systolic Standing 120 mmHg Lue reg cuff BP Diastolic Standing 70 mmHg Lue reg cuff BMI (Body Mass Index) 36.7 kg/m2 Ejection Fraction 65-70% 01/09/2018 05/05/2018 Height 71 inches 5'11" Heart Rate 68 /min BP Systolic 140 mmHg BP Diastolic 90 mmHg Body Temperature 97.6 F Pain Level 0 04/21/2018 Height 71 inches 5'11" Heart Rate 64 /min BP Systolic 138 mmHg BP Diastolic 82 mmHg Body Temperature 97.2 F Pain Level 0 04/14/2018 Heart Rate 68 /min BP Systolic 136 mmHg BP Diastolic 82 mmHg Body Temperature 97.8 F Pain Level 2 03/19/2018 Height 71 inches 5'11" Heart Rate 68 /min BP Systolic Sitting 156 mmHg BP Diastolic Sitting 84 mmHg Respiratory Rate 16 /min Body Temperature 97.6 F Pain Level 4 03/03/2018 Height 71 inches 5'11" Weight 250.00 lb Heart Rate 64 /min BP Systolic Sitting 130 mmHg BP Diastolic Sitting 90 mmHg Body Temperature 97.5 F Pain Level 4 BMI (Body Mass Index) 34.9 kg/m2 02/12/2018 Height 70 inches 5'10" Weight 265.00 lb Heart Rate 68 /min BP Systolic Sitting 130 mmHg BP Diastolic Sitting 70 mmHg Pain Level 8 BMI (Body Mass Index) 38.0 kg/m2 01/13/2018 Height 70 inches 5'10" Weight 265.00 lb w/ shoes Heart Rate 76 /min BP Systolic Sitting 152 mmHg lue lg cuff BP Diastolic Sitting 72 mmHg lue lg cuff Respiratory Rate 18 /min BMI (Body Mass Index) 38.0 kg/m2 Ejection Fraction 65-70% echo 01/09/18 01/06/2018 Height 70 inches 5'10" Weight 240.00 lb w/ shoes Heart Rate 58 /min irregular BP Systolic Sitting 142 mmHg lue lg cuff BP Diastolic Sitting 68 mmHg lue lg cuff Respiratory Rate 18 /min BMI (Body Mass Index) 34.4 kg/m2 Ejection Fraction stress tet Jaswinder 1 year ago, 12/30/2017 Height 70 inches 5'10" Weight 240.00 lb BP Systolic Sitting 138 mmHg BP Diastolic Sitting 80 mmHg Respiratory Rate 16 /min Body Temperature 97.8 F Pain Level 7 BMI (Body Mass Index) 34.4 kg/m2 11/20/2017 Height 70 inches 5'10" Weight 240.00 lb BP Systolic 122 mmHg BP Diastolic 74 mmHg Respiratory Rate 20 /min Body Temperature 97.7 F Pain Level 4 BMI (Body Mass Index) 34.4 kg/m2 10/23/2017 Height 70 inches 5'10" Weight 240.00 lb Respiratory Rate 16 /min Pain Level 4 BMI (Body Mass Index) 34.4 kg/m2 09/23/2017 Height 70 inches 5'10" Weight 240.00 lb Heart Rate 86 /min BP Systolic Sitting 128 mmHg BP Diastolic Sitting 80 mmHg Pain Level 3 BMI (Body Mass Index) 34.4 kg/m2 08/26/2017 Height 70 inches 5'10" Weight 240.00 lb BP Systolic 124 mmHg BP Diastolic 80 mmHg Body Temperature 97.9 F BMI (Body Mass Index) 34.4 kg/m2 07/31/2017 Height 70 inches 5'10" Weight 248.00 lb w/ shoes Heart Rate 80 /min apical BP Systolic Sitting 122 mmHg lue large cuff BP Diastolic Sitting 72 mmHg lue large cuff BP Systolic Standing 128 mmHg lue large cuff BP Diastolic Standing 76 mmHg lue large cuff Respiratory Rate 18 /min BMI (Body Mass Index) 35.6 kg/m2 Ejection Fraction no echo/ss 07/22/2017 Height 70 inches 5'10" Weight 240.00 [...] Test Date Test Result H/L Range Note CBC Auto Diff 05/01/2018 White Blood Count 6.0 10^3/uL 3.5-10.8 Red Blood Count 3.24 10^6/uL Low 4.00-5.40 Hemoglobin 9.8 g/dL Low 14.0-18.0 Hematocrit 30 % Low 42-52 Mean Corpuscular Volume 92 fL 80-94 Mean Corpuscular Hemoglobin 30 pg 27-31 Mean Corpuscular HGB Conc 33 g/dL 31-36 Red Cell Distribution Width 17 % High 10.5-15 Platelet Count 161 10^3/uL 150-450 Mean Platelet Volume 8.2 um3 7.4-10.4 Abs Neutrophils 3.9 10^3/uL 1.5-7.7 Abs Lymphocytes 1.0 10^3/uL 1.0-4.8 Abs Monocytes 0.8 10^3/uL 0-0.8 Abs Eosinophils 0.2 10^3/uL 0-0.6 Abs Basophils 0.1 10^3/uL 0-0.2 Abs Nucleated RBC 0 10^3/uL Granulocyte % 64.5 % 38-83 Lymphocyte % 16.6 % Low 25-47 Monocyte % 14.0 % High 0-7 Eosinophil % 3.2 % 0-6 Basophil % 1.7 % 0-2 Nucleated Red Blood Cells % 0.3 Basic Metabolic Panel 05/01/2018 Sodium 128 mmol/L Low 135-145 Potassium 4.4 mmol/L 3.5-5.0 Chloride 88 mmol/L Low 101-111 Co2 Carbon Dioxide 24 mmol/L 22-32 Anion Gap 16 mmol/L High 2-11 Glucose 302 mg/dL High 70-100 Blood Urea Nitrogen 70 mg/dL High 6-24 Creatinine 13.19 mg/dL High 0.67-1.17 BUN/Creatinine Ratio 5.3 Low 8-20 Calcium 10.1 mg/dL 8.6-10.3 Egfr Non- 4.0 >60 Egfr 4.8 >60 1 Laboratory test 02/02/2018 Surgical Pathology SEE RESULT BELOW 2 finding Laboratory test 02/02/2018 Point of Care Glucose 183 mg/dL High 70-100 3 finding Wound Culture/Sensi 02/02/2018 Wound/Misc Culture-Gram SEE RESULT BELOW 4 Stain Laboratory test 02/02/2018 Anaerobic Culture SEE RESULT BELOW 5 finding Laboratory test 02/02/2018 Point of Care Glucose 179 mg/dL High 70-100 6 finding Lipid Profile 07/29/2017 Triglycerides 118 mg/dL 7 (Trig/Chol/HDL) Cholesterol 147 mg/dL 8 HDL Cholesterol 47.4 mg/dL 9 LDL Cholesterol 76 mg/dL 10 Laboratory test finding 06/17/2017 Point of Care Glucose 230 mg/dL High 70 -100 11 Basic Metabolic Panel 06/11/2017 Sodium 130 mmol/L Low 133-145 Potassium 4.1 mmol/L 3.5-5.0 Chloride 94 mmol/L Low 101-111 Co2 Carbon Dioxide 25 mmol/L 22-32 Anion Gap 11 mmol/L 2-11 Glucose 206 mg/dL High 70-100 Blood Urea Nitrogen 59 mg/dL High 6-24 Creatinine 8.61 mg/dL High 0.67-1.17 BUN/Creatinine Ratio 6.9 Low 8-20 Calcium 9.2 mg/dL 8.6-10.3 Egfr Non- 6.5 >60 Egfr 8.4 >60 12 CBC Auto Diff 06/11/2017 White Blood Count [...] % High 0-2 RBC Morphology Normal Normal Creatinine 05/13/2017 Creatinine 8.98 mg/dL High 0.67-1.17 Egfr Non- 6.2 >60 Egfr 8.0 >60 13 Laboratory test 05/13/2017 Blood Urea Nitrogen 65 mg/dL High 6-24 finding BUN Laboratory test 02/03/2017 Anaerobic Culture SEE RESULT BELOW 14 finding Laboratory test 02/03/2017 Point of Care 174 mg/dL High 74-106 15 finding Glucose Laboratory test 02/03/2017 Surgical Pathology SEE RESULT BELOW 16 finding Wound Culture/Sensi 02/03/2017 Wound/Misc SEE RESULT BELOW 17 Culture-Gram Stain Laboratory test 08/06/2016 Point of Care 205 mg/dL High 74-106 18 finding Glucose CBC No Diff 08/02/2013 White Blood Count 6.0 10^3/uL 4.8-10.8 Red Blood Count 4.15 10^6/uL 4.0-5.4 Hemoglobin 11.4 g/dL Low 14.0-18.0 Hematocrit 35 % Low 42-52 Mean Corpuscular Volume 85 fL 80-94 Mean Corpuscular Hemoglobin 28 pg 27-31 Mean Corpuscular HGB Conc 32 g/dL 31-36 Red Cell Distribution Width 13 % 10.5-15 Platelet Count 219 10^3/uL 150-450 Mean Platelet Volume 9 um3 7.4-10.4 Comp Metabolic Panel 08/02/2013 Sodium 128 mmol/L [...] Egfr Non- 29.0 >60 Egfr 37.3 >60 19 Laboratory test finding 08/02/2013 C Reactive Protein 0.9 mg/dL High Less than 0.5 20 Manual Differential 07/26/2013 Neutrophil % 66 % [...] Egfr Non- 33.9 >60 Egfr 43.6 >60 21 CBC No Diff 07/26/2013 White Blood Count [...] Mean Platelet Volume 9 um3 7.4-10.4 1 Because ethnic data is not always readily [...] 15-29 5 Kidney failure <15 (or dialysis) 2 SEE RESULT BELOW Name: SAM SHERMAN : [address]: Gumaro Decker MD Acct: [id number] Unit: [id number] AGE: 52 Location: OR Re02/02/18 SEX: M Status: [facility] [place]C: [id number] ROMULO: 02/02/18- [facility] DR: Gumaro Decker MD REQ: [id number] RECD: 02/02/18-1203 STATUS: SOUT _ ORDERED: Decal, LEVEL 3 FINAL DIAGNOSIS Left tibia and fibula, excision: -- Benign bone and cartilage with reactive change. CLINICAL HISTORY No history given GROSS DESCRIPTION The specimen is received in formalin labeled, Left Tibia and Fibula Bone Cuts , and consists of an 11.2 by up to 3.3 x 2.4 cm tamez-pink elongated bone fragment with a smooth margin of resection and mild adherent tamez-white soft tissue. Received separately in the same container is a 6.7 x 4.6 by up to 1.5 cm aggregate of tamez-pink irregular bone fragments. Sfdc Consultant sections, two cassettes following decalcification. Signed by and Reported on: Mahogany Arrieta MD 02/10/18 1044 END OF REPORT DEPARTMENT OF PATHOLOGY, [address] [place] [address] Balta Fuchs M.D. Director [facility] # [id number] 3 [place] Rider: [id number] 4 SEE RESULT BELOW Name: SAM SHERMAN : [address]: Gumaro Decker MD Acct: [id number] Unit: [id number] AGE: 52 Location: OR Re02/02/18 SEX: M Status: DEP SD SPEC: [id number] ROMULO: 02/02/18 [facility] DR: Gumaro Decker MD REQ: [id number] RECD: 02/02/18 STATUS: ALEXA IRIZARRY DR: Trenton Romero MD _ SOURCE: ANKLE LEFT SPDESC: ORDERED: Culture Stain Procedure Result Reported Site Wound/Misc Gram Stain Final 02/02/18- 1136 ML 1+ Epithelial Cells 1+ Neutrophils No Organisms Seen Wound/Misc Culture Final 02/06/18- 933 ML No Growth Day 4 * ML - Main Lab . END OF REPORT DEPARTMENT OF PATHOLOGY, [address] [address] Balta Fuchs M.D. Director JULIAN # [id number] 5 SEE RESULT BELOW Name: SAM SHERMAN : [address]: Gumaro Decker MD Acct: [id number] Unit: [id number] AGE: 52 Location: OR Re02/02/18 SEX: M Status: DEP SDC SPEC: [id number] ROMULO: 02/02/18 [facility] DR: Gumaro Decker MD REQ: [id number] RECD: 02/02/18-1000 STATUS: ALEXA IRIZARRY DR: Trenton Romero MD _ SOURCE: WOUND SPDESC:ANKLE LEFT ORDERED: Anaerobic Cult Procedure Result Reported Site Anaerobic Culture Final 02/06/18- 0934 ML No Growth Day 4 * ML - Main Lab . END OF REPORT DEPARTMENT OF PATHOLOGY, [address] [place] [address] Balta Fuchs M.D. Director [facility] # [id number] 6 [place]: [id number] Desirable: <150 Borderline High: 150-199 High: 200-499 Very High: >500 8 Desirable: <200 Borderline High: 200-239 High: >239 9 Low: <40 Desirable: 40-60 High: >60 10 Desirable: <100 Near Optimal: 100-129 Borderline High: 130-159 High: 160-189 Very High: >189 11 [place]: [id number] 12 Because ethnic data is not always readily [...] 15-29 5 Kidney failure <15 (or dialysis) 13 Because ethnic data is not always readily [...] 15-29 5 Kidney failure <15 (or dialysis) 14 SEE RESULT BELOW Name: SAM SHERMAN : [address]: Gumaro Decker MD Acct: [id number] Unit: [id number] AGE: 51 Location: OR Re02/03/17 SEX: M Status: DEP SDC SPEC: [id number] ROMULO: 02/03/17-[address]: Gumaro Decker MD REQ: [id number] RECD: 02/03/17-1202 STATUS: COMP [facility] DR: Trenton Rodriguez MD _ SOURCE: WOUND SPDESC:LEFT ORDERED: Anaerobic Cult COMMENTS: LEFT FOOT Procedure Result Reported Site Anaerobic Culture Final 02/07/17- 803 ML No Growth Day 4 * ML - MAIN LAB ([facility]) . END OF REPORT * ML=Testing performed at Main Lab DEPARTMENT OF PATHOLOGY, [address] [place] [address] Balta Fuchs M.D. Director [facility] # [id number] 15 [place]: [id number] 16 SEE RESULT BELOW Name: SAM SHERMAN : [address]: Gumaro Decker MD Acct: [id number] Unit: [id number] AGE: 51 Location: OR Re02/03/17 SEX: M Status: [facility] SPEC: [id number] ROMULO: 02/03/17- SUBM DR: Gumaro Decker MD REQ: [id number] RECD: 02/03/171155 STATUS: SOUT _ ORDERED: Decal, LEVEL 3 [...] 2.5 x 1.5 x 0.5 cm and charter representative sections are submitted in cassette A following decalcification. Within the aggregate the largest fragment measures 5.0 x 4.0 x 2.0 cm, is inked blue, serially sectioned and a charter representative section is submitted in cassette B. The second largest fragment measures 3.2 x 2.5 x 0.7 cm, is inked black, serially sectioned and charter representative sections of the remaining soft tissue are submitted in cassette C. MICROSCOPIC DESCRIPTION . Signed (signature on file) Mahogany Arrieta MD 1539 END OF REPORT * ML=Testing performed at Main Lab DEPARTMENT OF PATHOLOGY, [address] [place] [address] Balta Fuchs M.D. Director [facility] # [id number] 17 SEE RESULT BELOW Name: SAM SHERMAN : [address]: Gumaro Decker MD Acct: [id number] Unit: [id number] AGE: 51 Location: OR Re02/03/17 SEX: M Status: [facility] SPEC: [id number] ROMULO: 02/03/17-1041 [facility] DR: Gumaro Decker MD REQ: [id number] RECD: 02/03/171202 STATUS: ALEXA IRIZARRY DR: Trenton Rodriguez MD _ SOURCE: FOOT,LEFT SPDESC: ORDERED: Culture Stain QUERIES: Specimen Description LEFT FOOT OPSITE Procedure Result Reported Site Wound/Misc Gram Stain Final 02/03/17- 1358 ML 3+ Neutrophils 1+ Epithelial Cells No Organisms Seen Wound/Misc Culture Final 02/06/17- 0839 ML No Growth Day 3 * ML - MAIN LAB ([facility]) . END OF REPORT * ML=Testing performed at Main Lab DEPARTMENT OF PATHOLOGY, [address] [place] [address] Balta Fuchs M.D. Director [facility] # [id number] 18 [place]: [id number] LOTTIE ADAME 19 Because ethnic data is not always readily [...] 15-29 5 Kidney failure <15 (or dialysis) [address] ROSALES [phone] 21 Because ethnic data is not always readily [...] dialysis) Procedures Date CPT Code Description Status 05/05/2018 90031 EKG Tracing & Interpretation Completed 04/15/2018 29909 Walking Cast Completed 04/14/2018 71241 Short Leg Cast Completed 03/19/2018 91538 Short Leg Cast Completed 03/03/2018 74065 Short Leg Cast Completed 02/12/2018 64821 Short Leg Cast Completed 02/02/2018 35432 Arthrodesis Ankle,open Completed 02/02/2018 74848 Arthrodesis Ankle,open Completed 02/02/2018 15210 Osteotomy Tibia Completed 02/02/2018 32441 Osteotomy Tibia Completed 01/09/2018 61356 ECHO Transthoracic, Real-Time 2D With Doppler And Color Completed Flow 01/09/2018 63756 ECHO Transthoracic, Real-Time 2D With Doppler And Color Completed Flow 01/06/2018 27339 EKG Tracing & Interpretation Completed 07/04/2017 11275 Removal Devitalization Tissue Wound Less Than Equal 20 Completed Square CM 06/17/2017 46904 Aovda-Vlpjlcrwg-Blilsxkmyk Completed 06/17/2017 37258 Catheter Placement Arterial System Addtl 2ND/3RD Ord Completed Abdom/Pelv 06/17/2017 92060 Catheter Placement Arterial System Init 3RD Order Completed Abdom/Pelv/Low 02/13/2017 29874 Walking Cast Completed 02/03/2017 17403 Partial Excision Bone Tarsal/Metatarsal Completed 02/03/2017 67465 Partial Excision Bone Tarsal/Metatarsal Completed 08/06/2016 Colonoscopy Completed 10/31/2015 02927 Insertion Tunneled Cent Venous Cathr W/O Subcut Completed Port/Pump 5Yrs> 10/31/2015 02433 Ultrasound Guidance For Vascular Access Completed 10/31/2015 27013 Fluoroscopic Guidance For Cent Completed 10/01/2015 74849 EKG, Interpretation Only Completed 08/31/2013 73076 Rad Exam; Foot Comp Completed 07/12/2013 84761 Partial Excision Bone Tarsal/Metatarsal Completed 07/12/2013 42860 Removal Implant Deep Wire,Screw Nail,Keith Or Plate Completed 05/31/2013 74779 Rad Exam; Foot Comp Completed 11/16/2012 56151 Rad Exam; Foot Comp Completed 10/19/2012 50855 Short Leg Cast Completed 10/12/2012 99790 Rad Exam; Foot Comp Completed 10/12/2012 72003 Short Leg Cast Completed 10/09/2012 86104 Arthrodesis Midtarsal/Tarsometatarsal W/Osteotomy Completed 09/28/2012 00936 Rad Exam; Foot Comp Completed 06/26/2012 66401 Short Leg Cast Completed 06/08/2012 21554 Walking Cast Completed 06/08/2012 52860 Short Leg Cast Completed 05/25/2012 80633 Short Leg Cast Completed 05/13/2012 16928 Rad Exam; Foot Limited Completed 05/13/2012 22539 Rad Exam; Foot Limited Completed 05/13/2012 62771 Rad Exam; Ankle Comp Completed 05/13/2012 90237 Rad Exam; Ankle Comp Completed 05/13/2012 94517 Short Leg Cast Completed 04/16/2012 Diabetic Foot Exam Completed Encounters Type Date Location Provider CPT E/M Dx Office Visit 05/05/2018 [facility] Domingo Torres, 32606 I48.3 2:45p Thompson Winkler, DALILA, FASAUSTIN Office Visit 01/13/2018 [facility] Alva Aldrich, 39595 I48.3 3:40p 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 MFarzana. Office Visit 11/20/2017 11:30a [facility] Gumaro Decker 37129 M14.672 Of C.M.A. M.D. Office Visit 10/23/2017 11:30a [facility] Gumaro Decker, 16128 M14.672 Of C.M.A. M.DDejah Office Visit 09/23/2017 10:30a [facility] Gumaro Decker 83739 M86.672 Of C.M.A. M.DDejah Office Visit 08/26/2017 11:15a [facility] Gumaro Decker, 87594 M86.672 Of C.M.A. 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 AT [facility] DALILA WILKS, [facility] Office Visit 07/25/2017 1:30p [facility] AT Anh Smith, 81353 E11.610 [facility] JOSEPHINE, RN, [facility]- I70.299 N18.5 F17.200 Office Visit 07/22/2017 11:15a [facility] Gumaro Decker, 90158 E11.621 Of Puneet Wiknler Office Visit 06/24/2017 11:00a [facility] Gumaro Decker 08215 T81.31xD Of Puneet Winkler M14.672 L97.521 Office Visit 06/23/2017 3:00p [facility] Alva Aldrich, 38263 I70.245 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 M14.672 Office Visit 01/21/2017 11:00a [facility] Of Gumaro Decker, 71382 M14.672 C.M.A. M.D. Office Visit 12/31/2016 11:00a [facility] Of Gumaro Decker, 39949 M14.672 C.M.A. M.D. Office Visit 06/27/2016 11:00a [facility] Gumaro Decker, 30560 M14.671 C.M.A. M.D. Office Visit 11/02/2015 10:07a [facility] Katy Malik, 09900 N18.5 Hospitalists D.O. E11.9 I10 Office Visit 11/01/2015 10:06a [facility] Katy Malik, 95284 N18.5 Hospitalists D.O. E11.9 I10 Office Visit 10/31/2015 10:06a [facility] [address] I50.9 Hospitalists E11.9 S37.009A I10 Office Visit 10/08/2015 3:21p [facility] Katy Malik, 80956 N18.5 Hospitalists D.O. E11.9 E87.70 D64.9 Office Visit 10/07/2015 3:21p [facility] Katy Malik, 24901 N18.5 Hospitalists D.O. E11.9 E87.70 D64.9 Office Visit 10/06/2015 3:20p [facility] Katy Malik, 53603 N18.5 Hospitalists D.O. E11.9 E87.70 D64.9 Office Visit 10/05/2015 2:49p [facility] Katy Malik, 81849 N18.5 Hospitalists D.O. E11.9 E87.70 D64.9 Office Visit 10/04/2015 2:49p [facility] Katy Malik, 39552 N18.5 Hospitalists D.O. E11.9 E87.70 D64.9 Office Visit 10/03/2015 2:48p [facility], [place] [address] N18.5 Hospitalists E11.9 E87.70 D64.9 Office Visit 10/02/2015 2:47p [facility], [place] [address] E87.70 Hospitalists E11.9 N18.5 D64.9 Office Visit 10/01/2015 2:47p [facility], Mukund Tapia M.D. 98906 I50.9 Hospitalists E11.9 D64.9 N18.5 Office Visit 08/31/2013 1:45p [facility] Of [place], [address] 707.15 C.M.ADejah Winkler 996.67 Office Visit 07/28/2013 3:20p [facility] Caio Rosales, 07812 996.67 Infectious Diseases M.DDejah 730.27 Office Visit 07/20/2013 10:35a [facility], [place], 37347 682.7 Hospitalists N.P. 250.82 713.5 Office Visit 07/20/2013 1:51p [facility] Caio Rosales, 64808 996.67 Infectious Diseases M.DDejah 730.27 041.00 Office Visit 07/19/2013 10:34a [facility] [place], 11629 682.7 Hospitalists N.P. 250.82 713.5 Office Visit 07/18/2013 10:33a [facility] [place], [address]5739 682.7 Hospitalists N.P. 250.82 713.5 Office Visit 07/17/2013 10:33a [facility] [address] 682.7 Hospitalists N.P. 250.82 713.5 Office Visit 07/16/2013 10:32a [facility], Sandra [place], 62916 682.7 Hospitalists N.P. 250.82 713.5 Office Visit 07/15/2013 10:31a [facility], Sandra [place], 52800 682.7 Hospitalists N.P. 250.82 713.5 Office Visit 07/15/2013 11:12a [facility] Caio Rosales, 61919 996.67 Infectious Diseases M.D. 730.27 041.00 Office Visit 07/14/2013 10:31a [facility], [place], 81792 682.7 Hospitalists N.P. 250.82 713.5 Office Visit 07/13/2013 11:11a [facility] Caio Rosales, 23942 996.67 Infectious Diseases M.D. 730.27 041.00 Office Visit 07/13/2013 10:30a [facility], [place], 73604 682.7 Hospitalists N.P. 250.82 713.5 Office Visit 07/12/2013 10:29a [facility], [facility] [place], 32643 682.7 Hospitalists N.P. 250.82 713.5 Office Visit 07/11/2013 10:28a [facility] Robby Bradford, 35585 682.7 Assoc, Hospitalists M.D. Hospitalist 250.82 Office Visit 07/11/2013 7:00a [facility] Torres M.D. 46482 682.7 C.M.A. 686.9 250.60 713.5 Office Visit 05/31/2013 3:15p [facility] [place] 41778 715.17 C.M.A. MMiguelina Office Visit 09/07/2012 3:30p [facility] [place] 36301 356.8 C.M.ADejah MMiguelina 716.97 Office Visit 07/03/2012 3:45p [facility] [place]cekr 77947 356.8 C.M.ADejah MDejahDDejah Office Visit 06/26/2012 1:00p [facility] [place] 74836 356.8 C.M.ADejah MMiguelina 250.60 713.5 Office Visit 06/08/2012 10:00a [facility] [place] 74028 716.97 Puneet Winkler 713.5 Office Visit 05/25/2012 2:45p [facility] [place], 18848 716.97 CMaribell Winkler 250.60 713.5 Office Visit 05/13/2012 2:00p [facility] [place], 44255 356.8 C.Selena Winkler 094.0 713.5 Plan of Care Future Appointment(s):06/02/2018 9:45 am - Gumaro Decker M.D. at [facility]05/25/2018 1:00 pm - CAROLINA Vasquez at [facility]05/25/2018 1:00 pm - Gumaro Decker M.D. at [facility]05/26/2018 10:45 am - Gumaro Decker M.D. at [facility]05/14/2018 - Gumaro Decker M.D.M86.672 Other chronic osteomyelitis, left ankle and footFollow up:10-14 days postop
--- OUTSIDE RECORDS SUMMARY | 2018-05-25 12:33 | XMS REPORT | Continuity of Care Document ---
:1965 External Reference #:[id number] Author Name Mihaela Perdue PA-C Address [address] [place] [address] Care Team Providers Name Role Phone Jennifer Teetee WOO Care Team Information Medicaid Specialist Unavailable Heather WILKS, [place] Primary Care Physician Unavailable Payers Type Date Identification Numbers Payment Provider Subscriber Policy Number: [id number] Medicare-[facility] [employer] Lalo Guzman PayID: [id number] [address] [place] [address] Policy Number: [id number] Medicaid/I Lalo Guzman Group Name: 1 2 Insurance Primary PayID: [id number] [address] [place] [address] Advance Directives Description No Information Available Problems Date Description Provider Status Onset: 04/13/2018 Acute myringitis Milan Main MD Active Onset: 12/29/2017 Otorrhea Milan Main MD Active Onset: 12/05/2017 Chronic rhinitis Milan Main MD Active Onset: 12/05/2017 Bilateral chronic serous otitis Milan Main MD Active Onset: 12/05/2017 Conductive hearing loss, bilateral Milan Main MD Active Family History Description No Information Available Social History Type Date Description Comments Sex Unknown Occupation Disabled Tobacco Use Start: Unknown Current Cigarette Smoker Smoked for 20 years. 1-5 Cigarettes Daily Tobacco Use Start: Unknown Never Smoked Cigars Tobacco Use Start: Unknown Never Smoked A Pipe Smokeless Tobacco Never Used Smokeless Tobacco ETOH Use Currently occasionally consumes alcohol Tobacco Use Start: Unknown Patient is a current smoker, smokes some days Smoking Status Reviewed: 05/08/18 Patient is a current smoker, smokes some days Allergies, Adverse Reactions, Alerts Date Description Reaction Status Severity Comments 12/05/2017 Contrast Dye Active 12/05/2017 Tetracycline Active Medications Medication Date Status Form Strength Qnty SIG Indications Ordering Provider Fluticasone 12/05/ Active Suspension 50mcg/Act 16unit 2 puffs Milan Propionate 2018 s both sides Ruparelia once a day , Oxycodone HCL 11/10/ Active Tablets 5mg 60tabs Take 1 Tab Jennifer 2018 by mouth , Teetee Every Six DELIVERY STOCK CLERK Hours as Needed for Pain. Max Daily Amount: 20 mg. Atenolol 09/25/ Active Tablets 100mg 30tabs Take 1 Tab Jennifer 2018 by mouth , Teetee Daily. DELIVERY STOCK CLERK Lantus 09/18/ Active Solution 100Unit/ML 30unit Inject 70 Jennifer Solostar 2018 Pen-Inject s Units , Teetee beneath DELIVERY STOCK CLERK the skin Daily. Glipizide ER 08/07/ Active Tablets ER 5mg 360tab Take 2 Jennifer 2018 24HR s Tabs by , Teetee mouth DELIVERY STOCK CLERK Twice Daily. Xifaxan 06/19/ Active Tablets 550mg 60tabs Take 1 Tab Unknown 2017 by mouth Twice Daily. Hydralazine 04/07/ Active Tablets 50mg 180tab Take 1 By Jennifer HCL 2016 s Mouth Two , Teetee Times DELIVERY STOCK CLERK Daily Sodium 10/12/ Active Tablets 650mg 90tabs Take 1 Tab Jennifer Bicarbonate 2015 by mouth , Teetee Three DELIVERY STOCK CLERK Times Daily. Gabapentin / Active Capsules 100mg [place], 0000 Sammy Winkler Eliquis / Active Tablets 2.5mg Sodums 0000 , Marcis Auryxia / Active Tablets 1GM 210 Jasonon, 0000 mg(Fe) Sammy Winkler Ciprodex 12/29/ Hx Suspension 0.3-0.1% 1units 3 drops H92.13 Milan 2018 - twice a Ruparelia 04/16/ day ayaka , 2018 ears Fluticasone 10/11/ Hx Suspension 50mcg/Act 1units [place] 2 Cifuentes Propionate 2017 - Sprays in D.O., 04/13/ nose as Dwight 2018 Directed. 2 sprays in each nostril once a day until symptoms gone Sevelamer / Hx Tablets 800mg Take 3,200 Unknown Carbonate 0000 - mg by 10/01/ mouth. 2018 Sensipar / Hx Tablets as Unknown 0000 - directed 2017 Immunizations Description No Information Available Vital Signs Date Vital Result Comment 05/08/2018 1:42pm Weight 265.00 lb Weight 120.204 kg Height 70 inches 5'10" Height in cm's 177.8 cm BMI (Body Mass Index) 38.0 kg/m2 05/01/2018 10:49am Weight 265.00 lb Weight 120.204 kg Height 70 inches 5'10" Height in cm's 177.8 cm BMI (Body Mass Index) 38.0 kg/m2 04/17/2018 10:33am Weight 265.00 lb Weight 120.204 kg Height 70 inches 5'10" Height in cm's 177.8 cm BMI (Body Mass Index) 38.0 kg/m2 04/13/2018 10:54am Weight 265.00 lb Weight 120.204 kg Height 70 inches 5'10" Height in cm's 177.8 cm BMI (Body Mass Index) 38.0 kg/m2 02/12/2018 1:38pm Weight 265.00 lb Weight 120.204 kg Height 70 inches 5'10" Height in cm's 177.8 cm BMI (Body Mass Index) 38.0 kg/m2 01/23/2018 11:01am Weight 260.00 lb Weight 117.936 kg Height 70 inches 5'10" Height in cm's 177.8 cm BMI (Body Mass Index) 37.3 kg/m2 12/29/2017 10:34am Weight 260.00 lb Weight 117.936 kg Height 70 inches 5'10" Height in cm's 177.8 cm BMI (Body Mass Index) 37.3 kg/m2 12/25/2017 9:25am Weight 260.00 lb Weight 117.936 kg Height 70 inches 5'10" Height in cm's 177.8 cm BMI (Body Mass Index) 37.3 kg/m2 12/05/2017 10:34am Weight 260.00 lb Weight 117.936 kg Height 70 inches 5'10" Height in cm's 177.8 cm BMI (Body Mass Index) 37.3 kg/m2 Results Description No Information Available Procedures Date Code Description Status 12/05/2017 39331 Tympanostomy W/Tube Local Or Topical Anes. Completed Encounters Type Date Location Provider Dx Diagnosis Office Visit 05/08/2018 [place] Mihaela Perdue, H92.12 Otorrhea, left ear 1:30p 07/14/07 PA-C H65.23 Chronic serous otitis media, bilateral Office Visit 05/01/2018 10:45a [place],After 07/14/07 Mihaela Disla H92.12 Otorrhea , left CATIA Perdue ear H65.23 Chronic serous otitis media, bilateral Office Visit 04/17/2018 [place],After Milan Main, H92.12 Otorrhea, left 10:30a 07/14/07 ear H73.002 Acute myringitis, left ear Office Visit 04/13/2018 [place],After Milan Main, H92.12 Otorrhea, left 10:30a 07/14/07 ear H73.002 Acute myringitis, left ear Office Visit 02/12/2018 [place],After Milan Main, H65.23 Chronic serous 1:45p 07/14/07 otitis media, bilateral Office Visit 01/23/2018 [place],After Milan Main, H92.13 Otorrhea, 10:45a 07/14/07 bilateral H65.23 Chronic serous otitis media, bilateral Office Visit 12/29/2017 [place],After Milan Main, H92.13 Otorrhea, 10:30a 07/14/07 bilateral H65.23 Chronic serous otitis media, bilateral Office Visit 12/25/2017 [place],After Milan Main, H92.13 Otorrhea, 9:15a 07/14/07 bilateral H65.23 Chronic serous otitis media, bilateral Office Visit 12/05/2017 [place],After Milan Main, H90.0 Conductive 10:30a 07/14/07 hearing loss, bilateral H65.23 Chronic serous otitis media, bilateral J31.0 Chronic rhinitis Plan of Treatment Future Appointment(s):05/28/2018 1:45 pm - Milan Main MD at [place],After - KALEE Gaston-CH92.12 Otorrhea, left earH65.23 Chronic serous otitis media, bilateralComments:Rosemarie ear appears to be very healthy today. There is no inflammation in the canal or on the TM. We discussed infection resulting in thickening of the tympanic membrane and reviewed the extra layer of gentian alin on his eardrum both as possible causes for his plugged sensation. At this point I have asked him to discontinue use of Ciprodex drops as further use could result in recurrent fungal infection. We discussed "tincture of time", meaning allow time for the ear to heal and extrude the gentian alin from the eardrum. He will make a follow-up appointment in approximately [address] Main, although I expect the symptoms will be resolved by them and he will cancel that appointment. He is encouraged to call with any questions or concerns in the interim.
--- OUTSIDE RECORDS SUMMARY | 2018-05-25 12:33 | XMS REPORT | Continuity of Care Document ---
:1965 External Reference #:[id number] Author Name Mihaela Perdue PA-C Address [address] [place] [address] Care Team Providers Name Role Phone Jennifer Teetee WOO Care Team Information Field Agronomist Unavailable Heather WILKS, [place] Primary Care Physician Unavailable Payers Type Date Identification Numbers Payment Provider Subscriber Policy Number: [id number] Medicare-[facility] [employer] SRVS Lalo Guzman PayID: [id number] [address] [place] [address] Policy Number: [id number] Medicaid/I Lalo Guzman Group Name: 1 2 Insurance Primary PayID: [id number] [address] [place] [address] Advance Directives Description No Information Available Problems [...] Tobacco Use Start: Unknown Current Cigarette Smoker 1-5 Smoked for 20 years. Cigarettes Daily Tobacco Use Start: Unknown Never Smoked Cigars Tobacco Use Start: Unknown Never Smoked A Pipe Smokeless Tobacco Never Used Smokeless Tobacco ETOH Use Currently occasionally consumes alcohol Allergies, Adverse Reactions, Alerts Date Description Reaction [...] 2018 by mouth , Teetee Every Six SUPERVISOR RECORDS CHANGE Hours as Needed for Pain. Max Daily Amount: 20 mg. Atenolol 09/25/ Active Tablets 100mg 30tabs Take 1 Tab Jennifer 2018 by mouth , Teetee Daily. SUPERVISOR RECORDS CHANGE Lantus 09/18/ Active Solution 100Unit/ML 30unit Inject 70 Jennifer Solostar 2018 Pen-Inject s Units , Teetee beneath SUPERVISOR RECORDS CHANGE the skin Daily. Glipizide ER 08/07/ Active Tablets ER 5mg 360tab Take 2 Jennifer 2018 24HR s Tabs by , Teetee mouth SUPERVISOR RECORDS CHANGE Twice Daily. Xifaxan 06/19/ Active Tablets 550mg 60tabs Take 1 Tab Unknown 2017 by mouth Twice Daily. Hydralazine 04/07/ Active Tablets 50mg 180tab Take 1 By Jennifer HCL 2017 s Mouth Two , Teetee Times SUPERVISOR RECORDS CHANGE Daily Sodium 10/12/ Active Tablets 650mg 90tabs Take 1 Tab Jennifer Bicarbonate 2015 by mouth , Teetee Three SUPERVISOR RECORDS CHANGE Times Daily. Gabapentin / Active Capsules 100mg Hesson, 0000 Sammy Winkler Eliquis / Active Tablets 2.5mg Sodums 0000 Alva WILKS Auryxia / Active Tablets 1GM 210 [place], 0000 mg(Fe) Sammy Winkler Ciprodex 12/29/ Hx Suspension 0.3-0.1% 1units 3 drops H92.13 Milan 2018 - twice a Ruparelia 04/16/ day MD ayaka 2018 ears Fluticasone 10/11/ Hx Suspension 50mcg/Act 1units [place] 2 Cifuentes Propionate 2018 - Sprays in D.O., 04/13/ nose as Dwight 2018 Directed. 2 sprays in each nostril once a day until symptoms gone Sevelamer / Hx Tablets 800mg Take 3,200 Unknown Carbonate 0000 - mg by 04/13/ mouth. 2018 Sensipar / Hx Tablets as Unknown 0000 - directed 2017 Immunizations Description No Information Available Vital Signs Date Vital Result Comment 05/01/2018 10:49am Weight 265.00 lb Weight 120.204 [...] Available Procedures Date Code Description Status 12/05/2017 73899 Tympanostomy W/Tube Local Or Topical Anes. Completed Encounters Type Date Location Provider Dx Diagnosis Office Visit 05/01/2018 [place],After Mihaela Perdue H92.12 Otorrhea, left ear 10:45a 07/14/07 CATIA H65.23 Chronic serous otitis media, bilateral Office Visit 04/17/2018 [place],After Milan Main H92.12 Otorrhea, left 10:30a 07/14/07 MD ear H73.002 Acute myringitis, left ear Office Visit 04/13/2018 [place],After Milan Ruparelia, H92.12 Otorrhea, left 10:30a 07/14/07 MD ear H73.002 Acute myringitis, left ear Office Visit 02/12/2018 [place],After Milan Ruparelia, H65.23 Chronic serous 1:45p 07/14/07 MD otitis media, bilateral Office Visit 01/23/2018 [place],After Milan Ruparelia, H92.13 Otorrhea, 10:45a 07/14/07 MD bilateral H65.23 Chronic serous otitis media, bilateral Office Visit 12/29/2017 [place],After Milan Ruparelia, H92.13 Otorrhea, 10:30a 07/14/07 MD bilateral H65.23 Chronic serous otitis media, bilateral Office Visit 12/25/2017 [place],After Milan Ruparelia, H92.13 Otorrhea, 9:15a 07/14/07 MD bilateral H65.23 Chronic serous otitis media, bilateral Office Visit 12/05/2017 [place],After Milan Ruparelia, H90.0 Conductive 10:30a 07/14/07 MD hearing loss, bilateral H65.23 Chronic serous otitis media, bilateral J31.0 Chronic rhinitis Plan of Treatment Future Appointment(s):05/08/2018 1:30 pm - Mihaela Perdue PA-C at [place],After - KALEE Gaston-CH92.12 Otorrhea, left earH65.23 Chronic serous otitis media, bilateralComments:Lalo is really bothered by the plugged sensation in his left ear. He is reassured that the ear is healthy appearing and that the infection seems to have resolved. I removed small amounts of the gentian alin that was possibly obstructing to find that there is gentian alin on his tympanic membranecannot be removed. Either the gentian alin is resting on his eardrum causing some conductive hearing loss or there is a 2 present that I cannot see that it is plugged. I do not see evidence of TM retraction or middle ear effusion today. Since it is bothering him so much, I told him he could use Ciprodex drops twice a day and return in 1 week to see if this has caused any improvement for him. Hegreciall call if the ear becomes pruritic, painful or drains.
--- OUTSIDE RECORDS SUMMARY | 2018-05-25 12:33 | XMS REPORT ---
:1965 External Reference #:[id number] Author Organization [facility] Address [address] [place] [address] [place] [address] Phone [phone] Care Team Providers Name Role Phone Trenton Romero MD Primary Care Physician Unavailable Payers Type Date Identification Numbers Payment Provider Subscriber Medicare Primary Policy Number: [id number] Medicare Sam Sherman PayID: [id number] [address] [place] [address] Medigap Part B Policy Number: [id number] Medicaid Sam Sherman Group Name: 1 1 [address] PayID: [id number] [place] [address] Medigap Part B Expires: 2016 Policy Number: [id number] Medicaid Sam Sherman Group Name: 1 1 [address] PayID: [id number] [place] [address] Problems Date Description Provider Status Onset: 07/06/2013 Localized, primary osteoarthritis Gumaro Decker M.D. Active of the ankle and/or foot Onset: 07/06/2013 Disorder of joint of ankle and/or Gumaro Decker M.D. Active foot Onset: 07/06/2013 Idiopathic peripheral neuropathy Gumaro Decker M.D. 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 Onset: 06/09/2017 Athscl qagan tayagungin arteries of left Alva Aldrich MD, FACC, Active leg w ulceration oth prt foot FSCAI Onset: 01/06/2018 Chest pain Alva Aldrich MD, FACC, Active FSCAI Onset: 01/06/2018 Atrial flutter Alva Aldrich MD, [facility], Active [facility] Family History Date Family Member(s) Problem(s) Comments General Diabetes father, paternal grandmother General Heart Disease father Father Diabetes Type II Father [place] x 2 Mother Hypertension Siblings 2 2 sisters- oldest- paralysed from broken neck, diabetes, youngest- healthy Social History Type Date Description Comments Marital Status Single Lives With Partner 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 I70.245 Glipizide Active Tablets 5mg [...] Calcium 06/09/2017 every day MD Valdemar, FAC, [facility] Levofloxacin 03/06/2017 - Hx Tablets 750mg 20tabs one per day I7 Gumaro 06/09/2017 (pt takes 250 0. Jeronimo, mg every other 24 M.D. day- Per Dr. Diogo Rodriguez) Oxycodone HCL 02/03/2017 - Hx Tablets [...] mg(Fe) Vital Signs Date Vital Result Comment 05/05/2018 Height 71 inches 5'11" Weight 263.00 [...] Mass Index) 34.4 kg/m2 Ejection Fraction stress elsi San 1 year ago, 12/30/2017 Height 70 inches [...] Nitrogen 65 mg/dL High 6-24 finding BUN Wound Culture/Sensi 02/03/2017 Wound/Misc SEE RESULT BELOW 14 Culture-Gram Stain Laboratory test 02/03/2017 Anaerobic Culture SEE RESULT BELOW 15 finding Laboratory test 02/03/2017 Point of Care 174 mg/dL High 74-106 16 finding Glucose Laboratory test 02/03/2017 Surgical Pathology SEE RESULT BELOW 17 finding Laboratory test 08/06/2016 Point of Care 205 [...] (or dialysis) 2 SEE RESULT BELOW Name: WHITSAM Coyle : [address]: Gumaro Decker MD Acct: [id number] Unit: [id number] AGE: 52 Location: OR Re02/02/18 SEX: M Status: [facility] SPEC: [id number] ROMULO: 02/02/18- [facility] DR: Gumaro Decker MD REQ: [id number] RECD: 02/02/18-1203 STATUS: SOUT _ ORDERED: Decal, [...] cm aggregate of tamez-pink irregular bone fragments. Neurocritical Care Physician sections, two cassettes following decalcification. Signed by and Reported on: Mahogany Arrieta MD 02/10/18 1044 END OF REPORT DEPARTMENT OF PATHOLOGY, [address] [place] [address] Balta Fuchs M.D. Director [facility] # [id number] 3 Fire Services Plumber: [id number] 4 SEE RESULT BELOW Name: SAM SHERMAN : [address]: Gumaro Decker MD Acct: [id number] Unit: [id number] AGE: 52 Location: OR Re02/02/18 SEX: M Status: [facility] SPEC: [id number] ROMULO: 02/02/18 [facility] DR: Gumaro Decker MD REQ: [id number] RECD: 02/02/18 STATUS: ALEXA IRIZARRY DR: Trenton Romero MD _ SOURCE: ANKLE LEFT SPDESC: ORDERED: Culture Stain Procedure Result Reported Site Wound/Misc Gram Stain Final 02/02/18- 1136 ML 1+ Epithelial Cells 1+ Neutrophils No Organisms Seen Wound/Misc Culture Final 02/06/18- 933 ML No Growth Day 4 * ML - Main Lab . END OF REPORT DEPARTMENT OF PATHOLOGY, [address] [place] [address] Balta Fuchs M.D. Director [facility] # [id number] 5 SEE RESULT BELOW Name: SAM SHERMAN Leonides : [address]: Gumaro Decker MD Acct: [id number] Unit: [id number] AGE: 52 Location: OR Re02/02/18 SEX: M Status: DEP SDC SPEC: [id number] ROMULO: 02/02/1851 [facility] DR: Gumaro Decker MD REQ: [id number] RECD: 02/02/18 STATUS: ALEXA IRIZARRY DR: Trenton Romero MD _ SOURCE: WOUND SPDESC:ANKLE LEFT ORDERED: Anaerobic Cult Procedure Result Reported Site Anaerobic Culture Final 02/06/18- 34 ML No Growth Day 4 * ML - Main Lab . END OF REPORT DEPARTMENT OF PATHOLOGY, [address] [place] [address] Balta Fuchs M.D. Director [facility] # [id number] 6 Fire Services Plumber: [id number] Desirable: <150 Borderline High: 150-199 High: 200-499 Very High: >500 8 Desirable: <200 Borderline High: 200-239 High: >239 9 Low: <40 Desirable: 40-60 High: >60 10 Desirable: <100 Near Optimal: 100-129 Borderline High: 130-159 High: 160-189 Very High: >189 11 Fire Services Plumber: [id number] 12 Because ethnic data is not always [...] [address]: Gumaro Decker MD Acct: [id number] Unit: [id number] AGE: 51 Location: OR Re02/03/17 SEX: M Status: [facility] SPEC: [id number] RMOULO: 02/03/17-[address] [facility] [address]: Gumaro Decker MD REQ: [id number] RECD: 02/03/171202 STATUS: ALEXA IRIZARRY DR: Trenton Rodriguez MD _ SOURCE: FOOT,LEFT SPDESC: ORDERED: Culture Stain QUERIES: Specimen Description LEFT FOOT OPSITE Procedure Result Reported Site Wound/Misc Gram Stain Final 02/03/17- 1358 ML 3+ Neutrophils 1+ Epithelial Cells No Organisms Seen Wound/Misc Culture Final 02/06/17- 0839 ML No Growth Day 3 * ML - MAIN LAB ([facility]) . END OF REPORT * ML=Testing performed at Main Lab DEPARTMENT OF PATHOLOGY, [address] [place] [address] Balta Fuchs M.D. Director [facility] # [id number] 15 SEE RESULT BELOW Name: SAM SHERMAN : [address]: Gumaro Decker MD Acct: [id number] Unit: [id number] AGE: 51 Location: OR Re02/03/17 SEX: M Status: DEP SDC SPEC: [id number] ROMULO: 02/03/17-[address] [facility] [address]: Gumaro Decker MD REQ: [id number] RECD: 02/03/17-1201 STATUS: ALEXA IRIZARRY DR: Trenton Rodriguez MD _ SOURCE: WOUND SPDESC:LEFT ORDERED: Anaerobic Cult COMMENTS: LEFT FOOT Procedure Result Reported Site Anaerobic Culture Final 02/07/17- 0804 ML No Growth Day 4 * ML - MAIN LAB ([facility]) . END OF REPORT * ML=Testing performed at Main Lab DEPARTMENT OF PATHOLOGY, [address] [place] [address] Balta Fuchs M.D. Director [facility] # [id number] 16 Fire Services Plumber: [id number] 17 SEE RESULT BELOW Name: SAM SHERMAN : [address]: Gumaro Decker MD Acct: [id number] Unit: [id number] AGE: 51 Location: OR Re02/03/17 SEX: M Status: [facility] SPEC: [id number] ROMULO: 02/03/17- SUBM DR: Gumaro Decker MD REQ: [id number] RECD: 02/03/17-1155 STATUS: SOUT _ ORDERED: Decal, [...] 2.5 x 1.5 x 0.5 cm and wholesale representative sections are submitted in cassette A following decalcification. Within the aggregate the largest fragment measures 5.0 x 4.0 x 2.0 cm, is inked blue, serially sectioned and a wholesale representative section is submitted in cassette B. The second largest fragment measures 3.2 x 2.5 x 0.7 cm, is inked black, serially sectioned and wholesale representative sections of the remaining soft tissue are submitted in cassette C. MICROSCOPIC DESCRIPTION . Signed (signature on file) Mahogany Arrieta MD 1539 END OF REPORT * ML=Testing performed at Main Lab DEPARTMENT OF PATHOLOGY, [address] [place] [address] Balta Fuchs M.D. Director [facility] # [id number] 18 Fire Services Plumber: [id number] LOTTIE ADAME 19 Because ethnic data is [...] <15 (or dialysis) [address] ROSALES [phone] 21 Because ethnic data is not always [...] Procedures Date CPT Code Description Status 05/05/2018 64681 EKG Tracing & Interpretation Completed 04/15/2018 44204 Walking Cast Completed 04/14/2018 04471 Short Leg Cast Completed 03/19/2018 78592 Short Leg Cast Completed 03/03/2018 94663 Short Leg Cast Completed 02/12/2018 13642 Short Leg Cast Completed 02/02/2018 11802 Arthrodesis Ankle,open Completed 02/02/2018 79059 Arthrodesis Ankle,open Completed 02/02/2018 42658 Osteotomy Tibia Completed 02/02/2018 00677 Osteotomy Tibia Completed 01/09/2018 10777 ECHO Transthoracic, Real-Time 2D With Doppler And Color Completed Flow 01/09/2018 93607 ECHO Transthoracic, Real-Time 2D With Doppler And Color Completed Flow 01/06/2018 42387 EKG Tracing & Interpretation Completed 07/04/2017 88493 Removal Devitalization Tissue Wound Less Than Equal 20 Completed Square CM 06/17/2017 92194 Cecta-Lrtyflybg-Dnvyfujpqa Completed 06/17/2017 73815 Catheter Placement Arterial System Addtl 2ND/3RD Ord Completed Abdom/Pelv 06/17/2017 03994 Catheter Placement Arterial System Init 3RD Order Completed Abdom/Pelv/Low 02/13/2017 60668 Walking Cast Completed 02/03/2017 17433 Partial Excision Bone Tarsal/Metatarsal Completed 02/03/2017 39839 Partial Excision Bone Tarsal/Metatarsal Completed 08/06/2016 Colonoscopy Completed 10/31/2015 71495 Insertion Tunneled Cent Venous Cathr W/O Subcut Completed Port/Pump 5Yrs> 10/31/2015 85979 Ultrasound Guidance For Vascular Access Completed 10/31/2015 08421 Fluoroscopic Guidance For Cent Completed 10/01/2015 43247 EKG, Interpretation Only Completed 08/31/2013 89146 Rad Exam; Foot Comp Completed 07/12/2013 13100 Partial Excision Bone Tarsal/Metatarsal Completed 07/12/2013 25187 Removal Implant Deep Wire,Screw Nail,Keith Or Plate Completed 05/31/2013 45322 Rad Exam; Foot Comp Completed 11/16/2012 82783 Rad Exam; Foot Comp Completed 10/19/2012 01155 Short Leg Cast Completed 10/12/2012 54543 Rad Exam; Foot Comp Completed 10/12/2012 97869 Short Leg Cast Completed 10/09/2012 85502 Arthrodesis Midtarsal/Tarsometatarsal W/Osteotomy Completed 09/28/2012 76794 Rad Exam; Foot Comp Completed 06/26/2012 56404 Short Leg Cast Completed 06/08/2012 05713 Walking Cast Completed 06/08/2012 42984 Short Leg Cast Completed 05/25/2012 16093 Short Leg Cast Completed 05/13/2012 51715 Rad Exam; Foot Limited Completed 05/13/2012 18078 Rad Exam; Foot Limited Completed 05/13/2012 87922 Rad Exam; Ankle Comp Completed 05/13/2012 81880 Rad Exam; Ankle Comp Completed 05/13/2012 28193 Short Leg Cast Completed 04/16/2012 Diabetic Foot Exam Completed Encounters Type Date Location Provider CPT E/M Dx Office Visit 01/13/2018 [facility] Alva Aldrich, 90339 I48.3 3:40p Micro Photographer AT [facility] DALILA WILKS, FSCAI Z01.810 Office Visit 01/06/2018 3:20p [facility] Alva Aldrich 33876 R07.9 Micro Photographer AT [facility] DALILA WILKS, FSCAI I48.3 Office Visit 12/30/2017 10:45a [facility] Gumaro Decker 56711 M14.672 Of Puneet Winkler Office Visit 11/20/2017 11:30a [facility] Gumaro Decker 95921 M14.672 Of Puneet Winkler Office Visit 10/23/2017 11:30a [facility] Gumaro Decker 03029 M14.672 Of Puneet Winkler Office Visit 09/23/2017 10:30a [facility] Gumaro Decker, 79579 M86.672 Of Puneet Winkler Office Visit 08/26/2017 11:15a [facility] Gumaro Decker 69162 M86.672 Of Puneet Winkler Office Visit 07/31/2017 1:20p [facility] Alva Whaleyrory, 91356 I70.245 Micro Photographer AT [facility] DALILA WILKS, [facility] Office Visit 07/25/2017 1:30p [facility] AT Anh Smith, 54989 E11.610 [facility] JOSEPHINE RN, [facility] I70.299 N18.5 F17.200 Office Visit 07/22/2017 11:15a [facility] Gumaro Decker 98111 E11.621 Of Puneet Winkler Office Visit 06/24/2017 11:00a [facility] Gumaro Decker 86261 T81.31xD Of Puneet Winkler M14.672 L97.521 Office Visit 06/23/2017 3:00p [facility] Alva Whaleyrory, 48762 I70.245 Micro Photographer AT [facility] DALILA WILKS, [facility] F17.200 Office Visit 06/20/2017 1:30p [facility] Anh Smith DNP, 37406 L97.521 [facility] RN, [facility] E11.621 M14.672 I12.0 N18.5 F17.200 Office Visit 06/09/2017 3:20p [facility] Alva Whaleyrory, 35195 I70.245 Micro Photographer AT [facility] DALILA WILKS, [facility] E11.621 N18.5 K74.60 Office Visit 06/02/2017 1:15p [facility] [place] [address] E11.621 CMaribell M14.672 Office Visit 01/21/2017 11:00a [facility] Of Gumaro Decker 60865 M14.672 Pnueet Winkler Office Visit 12/31/2016 11:00a [facility] Gumaro Decker, 47357 M14.672 Puneet Winkler Office Visit 06/27/2016 11:00a [facility] Gumaro Decker, 91337 M14.671 Puneet Winkler Office Visit 11/02/2015 10:07a [facility] Katy Malik, 69944 N18.5 Hospitalists D.O. E11.9 I10 Office Visit 11/01/2015 10:06a [facility] Katy Malik, 70656 N18.5 Hospitalists D.O. E11.9 I10 Office Visit 10/31/2015 10:06a [facility] [address] I50.9 Hospitalists E11.9 S37.009A I10 Office Visit 10/08/2015 3:21p [facility] Katy Malik, 25128 N18.5 Hospitalists D.O. E11.9 E87.70 D64.9 Office Visit 10/07/2015 3:21p [facility] Katy Malik, 90046 N18.5 Hospitalists D.O. E11.9 E87.70 D64.9 Office Visit 10/06/2015 3:20p [facility] Katy Malik, 50986 N18.5 Hospitalists D.O. E11.9 E87.70 D64.9 Office Visit 10/05/2015 2:49p [facility] Katy Malik, 42013 N18.5 Hospitalists D.O. E11.9 E87.70 D64.9 Office Visit 10/04/2015 2:49p [facility] Katy Malik, 07560 N18.5 Hospitalists D.O. E11.9 E87.70 D64.9 Office Visit 10/03/2015 2:48p [facility], [place] [address] N18.5 Hospitalists E11.9 E87.70 D64.9 Office Visit 10/02/2015 2:47p [facility] [address] E87.70 Hospitalists E11.9 N18.5 D64.9 Office Visit 10/01/2015 2:47p [facility], Mukund Tapia M.D. 73647 I50.9 Hospitalists E11.9 D64.9 N18.5 Office Visit 08/31/2013 1:45p [facility] Gumaro Jeronimo, 07041 707.15 C.M.A. MMiguelina 996.67 Office Visit 07/28/2013 3:20p [facility] Caio Rosales, 23474 996.67 Infectious Diseases M.DDejah 730.27 Office Visit 07/20/2013 10:35a [facility], 09732 682.7 Hospitalists N.P. 250.82 713.5 Office Visit 07/20/2013 1:51p [facility] Caio Rosales, 78071 996.67 Infectious Diseases M.DDejah 730.27 041.00 Office Visit 07/19/2013 10:34a [facility], 01281 682.7 Hospitalists N.P. 250.82 713.5 Office Visit 07/18/2013 10:33a [facility], 83069 682.7 Hospitalists N.P. 250.82 713.5 Office Visit 07/17/2013 10:33a [facility], 89230 682.7 Hospitalists N.P. 250.82 713.5 Office Visit 07/16/2013 10:32a [facility], Sandra Alberts, 45269 682.7 Hospitalists N.P. 250.82 713.5 Office Visit 07/15/2013 10:31a [facility], Sandra Alberts, 79285 682.7 Hospitalists N.P. 250.82 713.5 Office Visit 07/15/2013 11:12a [facility] Caio Rosales, 73106 996.67 Infectious Diseases M.DDejah 730.27 041.00 Office Visit 07/14/2013 10:31a [facility], [facility], 03920 682.7 Hospitalists N.P. 250.82 713.5 Office Visit 07/13/2013 10:30a [facility], [facility], 09144 682.7 Hospitalists N.P. 250.82 713.5 Office Visit 07/13/2013 11:11a [facility] Caio Rodriguez Zenon, 31647 996.67 Infectious Diseases M.DDejah 730.27 041.00 Office Visit 07/12/2013 10:29a [facility], [facility], 67705 682.7 Hospitalists N.P. 250.82 713.5 Office Visit 07/11/2013 10:28a [facility] Robby Bradford, 58005 682.7 Assoc, Hospitalists M.D. Hospitalist 250.82 Office Visit 07/11/2013 7:00a [facility] Jazz Torres M.D. 24935 682.7 C.M.A. 686.9 250.60 713.5 Office Visit 05/31/2013 3:15p [facility] Gumaro Jeronimo, 05373 715.17 C.M.A. M.D. Office Visit 09/07/2012 3:30p [facility] Gumaro Decker, 06238 356.8 C.M.A. M.D. 716.97 Office Visit 07/03/2012 3:45p [facility] Gumaro Decker 17698 356.8 C.M.A. M.D. Office Visit 06/26/2012 1:00p [facility] Gumaro Jeronimo, 52581 356.8 C.M.A. M.D. 250.60 713.5 Office Visit 06/08/2012 10:00a [facility] Gumaro Jeronimo, 31017 716.97 C.M.A. M.D. 713.5 Office Visit 05/25/2012 2:45p [facility]um[facility] Decker, 25537 716.97 C.M.A. M.D. 250.60 713.5 Office Visit 05/13/2012 2:00p [facility] Gumaro Decker, 45867 356.8 C.M.A. M.D. 094.0 713.5 Plan of Care Future Appointment(s):05/26/2018 10:45 am - Gumaro Decker M.D. at [facility].05/05/2018 - Domingo Torres M.D., [facility], NVMJVD31.3 Typical atrial flutterComments:As discussed, your heart seems to be doing well. Please continue your current medications.Follow up:one year
--- OUTSIDE RECORDS SUMMARY | 2018-05-25 12:34 | XMS REPORT ---
:1965 External Reference #:[id number] Author Organization [facility] Address [address] [place] [address] Phone [phone] Care Team Providers Name Role Phone Trenton Romero MD Primary Care Physician Unavailable Payers Type Date Identification Numbers Payment Provider Subscriber Medicare Primary Policy Number: [id number] Medicare Sam Sherman PayID: [id number] [address] [place] [address] Medigap Part B Policy Number: [id number] Medicaid Sam Sherman Group Name: 1 1 [address] PayID: [id number] [place] [address] Medigap Part B Expires: 2016 Policy Number: [id number] Medicaid Sam Sherman Group Name: 1 1 [address] PayID: [id number] [place] [address] Problems Date Description Provider Status Onset: 07/06/2013 Localized, primary osteoarthritis Gumaro Decker M.D. Active of the ankle and/or foot Onset: 07/06/2013 Disorder of joint of ankle and/or Gumaro Decker M.D. Active foot Onset: 07/06/2013 Idiopathic peripheral neuropathy Gumaro Decker M.D. 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 Alva Aldrich MD, FACC, Active leg w ulceration oth prt foot FSCAI Onset: 01/06/2018 Chest pain Alva Aldrich MD, FACC, Active FSCAI Onset: 01/06/2018 Atrial flutter Alva Aldrich MD, [facility], Active [facility] Family History Date Family Member(s) Problem(s) Comments General Diabetes father, paternal grandmother General Heart Disease father Father Diabetes Type II Father [place] x 2 Mother Hypertension Siblings 2 2 sisters- oldest- paralysed from broken neck, diabetes, youngest- healthy Social History Type Date Description Comments Marital Status Single Lives With Partner 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 I70.245 Glipizide Active Tablets 5mg 180tabs 2 po bid Unknown Atenolol Active Tablets 100mg 90tabs 1 po qd Unknown Hydralazine HCL Active Tablets 50mg 1 by mouth Unknown two times a day Lantus Solostar Active Solution 100Uni 70 units Unknown Pen-Inject t/ML once daily Sodium Active Tablets 650mg 2 tablets 3 Unknown Bicarbonate times daily Gabapentin Active Capsules 100mg take 1 to 3 Unknown capsules by mouth at night Calcitriol Active Capsules 0.25mc 1 by mouth Unknown g every other day Xifaxan Active Tablets 550mg 1 by mouth Unknown once daily Aspirin 81 Low Active Chewtabs 81mg 1 by mouth Unknown Dose every day Oxycodone HCL Active Capsules 5mg 1 tabs by Unknown mouth every 4-6 hours as needed pain(pt takes twice daily) Auryxia Active Tablets 1GM 1 by mouth Unknown 210 with meals. mg(Fe) Levofloxacin 06/09/2017 - Hx Tablets 500mg 1/2 tablet Gumaro 07/14/2017 every other Jeronimo, purnima (250 mg) M.D. Atorvastatin 06/09/2017 - Hx Tablets 80mg 90tabs 1 by mouth Marcis T. Calcium 06/09/2017 every day MD Valdemar, [facility], [facility] Levofloxacin 03/06/2017 - Hx Tablets 750mg 20tabs [...] mouth Gumaro 02/11/2017 0mg twice a day Jeronimo, x 10 days M.D. Levofloxacin 07/28/2013 - Hx Tablets 500mg 30tabs 1 po qd Gumaro 08/10/2013 Cathi Decker Levaquin 07/28/2013 - Hx Tablets 750mg 14tabs 1 po every 996 Caio DDejah 08/10/2013 other day .67 Cathi Rosales Bactrim DS 11/30/2012 - Hx [...] 01/05/2018 after each meal, dependent on meal. Vital Signs Date Vital Result Comment 05/05/2018 Height 71 inches 5'11" Heart Rate [...] High 6-24 finding BUN Laboratory test 02/03/2017 Surgical Pathology SEE RESULT BELOW 14 finding Wound Culture/Sensi 02/03/2017 Wound/Misc SEE RESULT BELOW 15 Culture-Gram Stain Laboratory test 02/03/2017 Anaerobic Culture SEE RESULT BELOW 16 finding Laboratory test 02/03/2017 Point of Care 174 mg/dL High 74-106 17 finding Glucose Laboratory test 08/06/2016 Point of Care 205 [...] 150-450 Mean Platelet Volume 9 um3 7.4-10.4 Laboratory test 08/02/2013 C Reactive Protein 0.9 mg/dL High Less than 0.5 19 finding Comp Metabolic Panel 08/02/2013 Sodium 128 [...] Egfr Non- 29.0 >60 Egfr 37.3 >60 20 Manual Differential 07/26/2013 Neutrophil % 66 [...] [address]: Gumaro Decker MD Acct: [id number] Unit: [id number] AGE: 52 Location: OR Re02/02/18 SEX: M Status: [facility] SPEC: [id number] ROMULO: 02/02/18- [facility] DR: Gumaro Decker MD REQ: [id number] RECD: 02/02/18-120 STATUS: SOUT _ ORDERED: Decal, LEVEL 3 [...] cm aggregate of tamez-pink irregular bone fragments. Odd Ticket Clerk sections, two cassettes following decalcification. Signed by and Reported on: Mahogany Arrieta MD 02/10/18 1044 END OF REPORT DEPARTMENT OF PATHOLOGY, [address] [place] [address] Balta Fuchs M.D. Director [facility] # [id number] 3 Rural Service Engineer: [id number] 4 SEE RESULT BELOW Name: DOMINIQUEOTTONIELSAM : [address]: Gumaro Decker MD Acct: [id number] Unit: [id number] AGE: 52 Location: OR Re02/02/18 SEX: M Status: [facility] SPEC: [id number] ROMULO: 02/02/18-0951 [facility] [address]: Gumaro Decker MD REQ: [id number] RECD: 02/02/18-1000 STATUS: ALEXA IRIZARRY DR: Trenton Romero MD _ SOURCE: ANKLE LEFT SPDESC: ORDERED: Culture Stain Procedure Result Reported Site Wound/Misc Gram Stain Final 02/02/18- 1136 ML 1+ Epithelial Cells 1+ Neutrophils No Organisms Seen Wound/Misc Culture Final 02/06/18- 0934 ML No Growth Day 4 * ML - Main Lab . END OF REPORT DEPARTMENT OF PATHOLOGY, [address] [place] [address] Balta Fuchs M.D. Director [facility] # [id number] 5 SEE RESULT BELOW Name: SAM SHERMAN : [address]: Gumaro Decker MD Acct: [id number] Unit: [id number] AGE: 52 Location: OR Re02/02/18 SEX: M Status: DEP SDC SPEC: [id number] ROMULO: 02/02/18 [facility] [address]: Gumaro Decker MD REQ: [id number] RECD: 02/02/18-100 STATUS: ALEXA IRIZARRY DR: Trenton Romero MD _ SOURCE: WOUND SPDESC:ANKLE LEFT ORDERED: Anaerobic Cult Procedure Result Reported Site Anaerobic Culture Final 02/06/18- 933 ML No Growth Day 4 * ML - Main Lab . END OF REPORT DEPARTMENT OF PATHOLOGY, [address] [place] [address] Balta Fuchs M.D. Director [facility] # [id number] 6 Rural Service Engineer: [id number] Desirable: <150 Borderline High: 150-199 High: 200-499 Very High: >500 8 Desirable: <200 Borderline High: 200-239 High: >239 9 Low: <40 Desirable: 40-60 High: >60 10 Desirable: <100 Near Optimal: 100-129 Borderline High: 130-159 High: 160-189 Very High: >189 11 Rural Service Engineer: [id number] 12 Because ethnic data is not always [...] 14 SEE RESULT BELOW Name: SAM SHERMAN Leonides : [address]: Gumaro Decker MD Acct: [id number] Unit: [id number] AGE: 51 Location: OR Re02/03/17 SEX: M Status: [facility] SPEC: [id number] ROMULO: 02/03/17- [facility] DR: Gumaro Decker MD REQ: [id number] RECD: 02/03/17-1155 STATUS: SOUT _ ORDERED: Decal, [...] 2.5 x 1.5 x 0.5 cm and public health representative sections are submitted in cassette A following decalcification. Within the aggregate the largest fragment measures 5.0 x 4.0 x 2.0 cm, is inked blue, serially sectioned and a public health representative section is submitted in cassette B. The second largest fragment measures 3.2 x 2.5 x 0.7 cm, is inked black, serially sectioned and public health representative sections of the remaining soft tissue are submitted in cassette C. MICROSCOPIC DESCRIPTION . Signed (signature on file) Mahogany Arrieta MD 1539 END OF REPORT * ML=Testing performed at Main Lab DEPARTMENT OF PATHOLOGY, [address] [place] [address] Balta Fuchs M.D. Director [facility] # [id number] 15 SEE RESULT BELOW Name: DOMINIQUEOTTONIELSAM : [address]: Gumaro Decker MD Acct: [id number] Unit: [id number] AGE: 51 Location: OR Re02/03/17 SEX: M Status: [facility] SPEC: [id number] ROMULO: 02/03/[address] [facility] [address]: Gumaro Decker MD REQ: [id number] RECD: 02/03/17 STATUS: ALEXA IRIZARRY DR: Trenton Rodriguez MD _ SOURCE: FOOT,LEFT SPDESC: ORDERED: Culture Stain QUERIES: Specimen Description LEFT FOOT OPSITE Procedure Result Reported Site Wound/Misc Gram Stain Final 02/03/17- 1358 ML 3+ Neutrophils 1+ Epithelial Cells No Organisms Seen Wound/Misc Culture Final 02/06/17- 0839 ML No Growth Day 3 * ML - MAIN LAB ([facility]) . END OF REPORT * ML=Testing performed at Main Lab DEPARTMENT OF PATHOLOGY, [address] [place] [address] Balta Fuchs M.D. Director [facility] # [id number] 16 SEE RESULT BELOW Name: SAM SHERMAN : [address]: Gumaro Decker MD Acct: [id number] Unit: [id number] AGE: 51 Location: OR Re02/03/17 SEX: M Status: DEP SDC SPEC: [id number] ROMULO: 02/03/17-[address] [facility] [address]: Gumaro Decker MD REQ: [id number] RECD: 02/03/17-1202 STATUS: ALEXA IRIZARRY DR: Trenton Rodriguez MD _ SOURCE: WOUND SPDESC:LEFT ORDERED: Anaerobic Cult COMMENTS: LEFT FOOT Procedure Result Reported Site Anaerobic Culture Final 02/07/17- 803 ML No Growth Day 4 * ML - MAIN LAB ([facility]) . END OF REPORT * ML=Testing performed at Main Lab DEPARTMENT OF PATHOLOGY, [address] [place] [address] Balta Fuchs M.D. Director [facility] # [id number] 17 Rural Service Engineer: [id number] Rural Service Engineer: [id number] LOTTIE ADAME [address] ROSALES [phone] 20 Because ethnic data is not always readily [...] 15-29 5 Kidney failure <15 (or dialysis) 21 Because ethnic data is not always [...] dialysis) Procedures Date CPT Code Description Status 04/15/2018 21372 Walking Cast Completed 04/14/2018 76067 Short Leg Cast Completed 03/19/2018 67483 Short Leg Cast Completed 03/03/2018 22235 Short Leg Cast Completed 02/12/2018 81814 Short Leg Cast Completed 02/02/2018 97842 Arthrodesis Ankle,open Completed 02/02/2018 07428 Arthrodesis Ankle,open Completed 02/02/2018 69662 Osteotomy Tibia Completed 02/02/2018 93046 Osteotomy Tibia Completed 01/09/2018 50304 ECHO Transthoracic, Real-Time 2D With Doppler And Color Completed Flow 01/09/2018 07029 ECHO Transthoracic, Real-Time 2D With Doppler And Color Completed Flow 01/06/2018 69679 EKG Tracing & Interpretation Completed 07/04/2017 98442 Removal Devitalization Tissue Wound Less Than Equal 20 Completed Square CM 06/17/2017 47231 Qyiwl-Ntygkdtgp-Chspwbqwwm Completed 06/17/2017 75540 Catheter Placement Arterial System Addtl 2ND/3RD Ord Completed Abdom/Pelv 06/17/2017 27208 Catheter Placement Arterial System Init 3RD Order Completed Abdom/Pelv/Low 02/13/2017 40123 Walking Cast Completed 02/03/2017 38928 Partial Excision Bone Tarsal/Metatarsal Completed 02/03/2017 59533 Partial Excision Bone Tarsal/Metatarsal Completed 08/06/2016 Colonoscopy Completed 10/31/2015 06765 Fluoroscopic Guidance For Cent Completed 10/31/2015 29840 Ultrasound Guidance For Vascular Access Completed 10/31/2015 55881 Insertion Tunneled Cent Venous Cathr W/O Subcut Completed Port/Pump 5Yrs> 10/01/2015 65894 EKG, Interpretation Only Completed 08/31/2013 60909 Rad Exam; Foot Comp Completed 07/12/2013 43135 Partial Excision Bone Tarsal/Metatarsal Completed 07/12/2013 72343 Removal Implant Deep Wire,Screw Nail,Keith Or Plate Completed 05/31/2013 45091 Rad Exam; Foot Comp Completed 11/16/2012 00774 Rad Exam; Foot Comp Completed 10/19/2012 08520 Short Leg Cast Completed 10/12/2012 96124 Rad Exam; Foot Comp Completed 10/12/2012 30595 Short Leg Cast Completed 10/09/2012 72589 Arthrodesis Midtarsal/Tarsometatarsal W/Osteotomy Completed 09/28/2012 02629 Rad Exam; Foot Comp Completed 06/26/2012 56987 Short Leg Cast Completed 06/08/2012 68374 Walking Cast Completed 06/08/2012 89007 Short Leg Cast Completed 05/25/2012 12108 Short Leg Cast Completed 05/13/2012 20286 Rad Exam; Foot Limited Completed 05/13/2012 94383 Rad Exam; Foot Limited Completed 05/13/2012 34726 Rad Exam; Ankle Comp Completed 05/13/2012 72302 Rad Exam; Ankle Comp Completed 05/13/2012 81526 Short Leg Cast Completed 04/16/2012 Diabetic Foot Exam Completed Encounters Type Date Location Provider CPT E/M Dx Office Visit 01/13/2018 [facility] Alva Aldrich, 64592 I48.3 3:40p Manager Performance Improvement AT [facility] DALILA WILKS, FSCAI Z01.810 Office Visit 01/06/2018 3:20p [facility] Alva Aldrich, 63844 R07.9 Manager Performance Improvement AT [facility] DALILA WILKS, FSCAI I48.3 Office Visit 12/30/2017 10:45a [facility] Gumaro Decker 49503 M14.672 Of Puneet Winkler Office Visit 11/20/2017 11:30a [facility] Gumaro Decker 96255 M14.672 Of Puneet Winkler Office Visit 10/23/2017 11:30a [facility] Gumaro Decker 67843 M14.672 Of Puneet Winkler Office Visit 09/23/2017 10:30a [facility] Gumaro Decker 08455 M86.672 Of Puneet Winkler Office Visit 08/26/2017 11:15a [facility] Gumaro Decker 67509 M86.672 Of Puneet Winkler Office Visit 07/31/2017 1:20p [facility] Alva Aldrich, 69279 I70.245 Manager Performance Improvement AT [facility] DALILA WILKS, FSCAI Office Visit 07/25/2017 1:30p [facility] AT Anh Smith, 68077 E11.610 [facility] JOSEPHINE, RN, SNELLER HAND-BC I70.299 N18.5 F17.200 Office Visit 07/22/2017 11:15a [facility] Gumaro Decker 42879 E11.621 Of Puneet Winkler Office Visit 06/24/2017 11:00a [facility] Gumaro Decker 59876 T81.31xD Of Puneet Winkler M14.672 L97.521 Office Visit 06/23/2017 3:00p [facility] Alva Aldrich, 36273 I70.245 Manager Performance Improvement AT [facility] DALILA WILKS, [facility] F17.200 Office Visit 06/20/2017 1:30p [facility] Anh Smith DNP, 59581 L97.521 AT [facility] RN, [facility] E11.621 M14.672 I12.0 N18.5 F17.200 Office Visit 06/09/2017 3:20p [facility] Alva Aldrich, 41915 I70.245 Manager Performance Improvement AT [facility] DALILA WILKS, [facility] E11.621 N18.5 K74.60 Office Visit 06/02/2017 1:15p [facility] [place] [address] E11.621 C.M.Naif M14.672 Office Visit 01/21/2017 11:00a [facility] Gumaro Decker 40128 M14.672 Puneet Winkler Office Visit 12/31/2016 11:00a [facility] Gumaro Decker 57177 M14.672 Puneet Winkler Office Visit 06/27/2016 11:00a [facility] Gumaro Decker 39244 M14.671 Puneet Winkler Office Visit 11/02/2015 10:07a [facility] Katy Malik, 31220 N18.5 Hospitalists D.O. E11.9 I10 Office Visit 11/01/2015 10:06a [facility]pc Katy Malik, 36289 N18.5 Hospitalists D.O. E11.9 I10 Office Visit 10/31/2015 10:06a [facility],pc Soco Duran, 99753 I50.9 Hospitalists E11.9 S37.009A I10 Office Visit 10/08/2015 3:21p [facility]pc Katy Malik, 04043 N18.5 Hospitalists D.O. E11.9 E87.70 D64.9 Office Visit 10/07/2015 3:21p [facility] Katy Malik, 97971 N18.5 Hospitalists D.O. E11.9 E87.70 D64.9 Office Visit 10/06/2015 3:20p [facility]pc Katy Malik, 77254 N18.5 Hospitalists D.O. E11.9 E87.70 D64.9 Office Visit 10/05/2015 2:49p [facility]pc Katy Malik, 12110 N18.5 Hospitalists D.O. E11.9 E87.70 D64.9 Office Visit 10/04/2015 2:49p [facility]pc Katy Malik, 79889 N18.5 Hospitalists D.O. E11.9 E87.70 D64.9 Office Visit 10/03/2015 2:48p [facility] [address] N18.5 Hospitalists E11.9 E87.70 D64.9 Office Visit 10/02/2015 2:47p [facility] [address] E87.70 Hospitalists E11.9 N18.5 D64.9 Office Visit 10/01/2015 2:47p [facility] Mukund Tapia M.D. 86285 I50.9 Hospitalists E11.9 D64.9 N18.5 Office Visit 08/31/2013 1:45p [facility] Gumaro Decker, 40672 707.15 C.M.A. MMiguelina 996.67 Office Visit 07/28/2013 3:20p [facility] Caio Michael Blanca, 72955 996.67 Infectious Diseases M.D. 730.27 Office Visit 07/20/2013 10:35a [facility], Christian [place], 03838 682.7 Hospitalists N.P. 250.82 713.5 Office Visit 07/20/2013 1:51p [facility] Caio Michael Rosales, 08790 996.67 Infectious Diseases M.D. 730.27 041.00 Office Visit 07/19/2013 10:34a [facility], [place], 20147 682.7 Hospitalists N.P. 250.82 713.5 Office Visit 07/18/2013 10:33a [facility] 07518 682.7 Hospitalists N.P. 250.82 713.5 Office Visit 07/17/2013 10:33a [facility], 61739 682.7 Hospitalists N.P. 250.82 713.5 Office Visit 07/16/2013 10:32a [facility], Sandra Alberts, 06175 682.7 Hospitalists N.P. 250.82 713.5 Office Visit 07/15/2013 10:31a [facility], Sandra Alberts, 52908 682.7 Hospitalists N.P. 250.82 713.5 Office Visit 07/15/2013 11:12a [facility] Caio Rosales, 36475 996.67 Infectious Diseases M.D. 730.27 041.00 Office Visit 07/14/2013 10:31a [facility], 84360 682.7 Hospitalists N.P. 250.82 713.5 Office Visit 07/13/2013 10:30a [facility], Christian [place], 10138 682.7 Hospitalists N.P. 250.82 713.5 Office Visit 07/13/2013 11:11a [facility] Caio Rosales, 99892 996.67 Infectious Diseases Cathi 730.27 041.00 Office Visit 07/12/2013 10:29a [facility], Christian [place], 45711 682.7 Hospitalists N.P. 250.82 713.5 Office Visit 07/11/2013 10:28a [facility] Robby Bradford, 92125 682.7 Assoc, Hospitalists M.D. Hospitalist 250.82 Office Visit 07/11/2013 7:00a [facility] Jazz Torres M.D. 27194 682.7 C.M.A. 686.9 250.60 713.5 Office Visit 05/31/2013 3:15p [facility] Gumaro Decker 66886 715.17 C.M.A. M.D. Office Visit 09/07/2012 3:30p [facility] Gumaro Decker 04090 356.8 C.M.A. MMiguelina 716.97 Office Visit 07/03/2012 3:45p [facility] Gumaro Decker 43105 356.8 C.M.A. M.D. Office Visit 06/26/2012 1:00p [facility] Gumaro Decker 55610 356.8 C.M.A. M.D. 250.60 713.5 Office Visit 06/08/2012 10:00a [facility] Gumaro Decker 38480 716.97 C.M.A. M.D. 713.5 Office Visit 05/25/2012 2:45p [facility] Gum[facility] Decker 22572 716.97 C.M.A. M.D. 250.60 713.5 Office Visit 05/13/2012 2:00p [facility] Gumaro Decker, 03917 356.8 C.M.A. M.D. 094.0 713.5 Plan of Care Future Appointment(s):05/26/2018 10:45 am - Gumaro Decker M.D. at [facility].05/05/2018 - Gumaro Decker M.D.M21.172 Varus deformity, not elsewhere classified, left ankleNew Therapy:Rehab ReferralFollow up:3-4 xpbebS86.672 Charcot's joint, left ankle and foot
[2018-05-25] MEDS ORDERED: KETAMINE HCL* 50 MG/ML 10 ML VIAL ONE (13:26)
[2018-05-25] MEDS ORDERED: fentaNYL* 50 MCG/ML 2 ML VIAL (100 MCG VIAL) ONE ×2 (13:26→14:53)
[2018-05-25] MEDS ORDERED: Ondansetron INJ* 2 MG/ML VIAL ONE (13:37)
[2018-05-25] MEDS ORDERED: Metoclopramide IV* 5 MG/ML 2 ML VIAL ONE (13:37)
[2018-05-25] MEDS ORDERED: PROCHLORPERAZINE INJ 5 MG/ML 2 ML VIAL IV PRN (13:46)
[2018-05-25] MEDS ORDERED: Naloxone* 0.4 MG/ML 1 ML VIAL IV PRN (13:46)
[2018-05-25] MEDS ORDERED: oxyCODONE TAB* 5 MG TAB PO PRN (13:46)
[2018-05-25] MEDS ORDERED: HYDROmorphone INJ1* 1 MG/ML SYRINGE IV PRN (13:46)
[2018-05-25] MEDS ORDERED: DiMENhydriNATE IV* 50 MG/ML VIAL IV PUSH PRN (13:46)
[2018-05-25] MEDS ORDERED: Acetaminophen IV 1GM/100ML * 1,000 MG/100 ML VIAL IVPB ONE (13:46)
[2018-05-25] MEDS ORDERED: Propofol* 10 MG/ML 20 ML BTL IV PUSH ONE (13:48)
[2018-05-25] MEDS ORDERED: EPHEDrine (Pressors)* 50 MG/ML VIAL ONE (13:49)
[2018-05-25] MEDS ORDERED: Phenylephrine IV* 40 MCG/ML 10 ML SYRINGE ONE (13:52)
[2018-05-25] MEDS ORDERED: traZODone TAB* 50 MG TAB PO PRN (14:34)
[2018-05-25] MEDS ORDERED: Ondansetron INJ* 2 MG/ML VIAL IV PRN (14:34)
[2018-05-25] MEDS ORDERED: diPHENhydraMINE IV* 50 MG/ML 1 ml VIAL (BENADRYL) IV PRN (14:34)
[2018-05-25] MEDS ORDERED: Acetaminophen IV 1GM/100ML * 100 ML ONE (14:40)
[2018-05-25] MEDS ORDERED: GENTAMICIN 0.1% TOPICAL PRN (14:42)
[2018-05-25] MEDS: fentaNYL* 50 MCG/ML 2 ML VIAL (100 MCG VIAL) IV PRN ×2 (14:58→15:42)
[2018-05-25] MEDS: FERRIC CITRATE PO SCH (17:51)
[2018-05-25] MEDS: oxyCODONE/Acetamin 5/325 MG* TAB PO PRN ×2 (17:57→21:53)
[2018-05-25] MEDS: Insulin GLARGINE(*) 1 UNITS UNIT SUBCUT SCH (17:58)
[2018-05-25] MEDS ORDERED: Dextrose 50% Syringe 50 ML* 25 GM/50 ML SYRINGE IV PUSH PRN (18:39)
[2018-05-25] MEDS ORDERED: LORazepam TAB(*) 1 MG PO SCH (19:00)
[2018-05-25] MEDS ORDERED: glipiZIDE TAB.XL* 5 MG PO SCH (21:00)
[2018-05-25] MEDS: Apixaban* 2.5 MG TAB PO SCH (21:36)
[2018-05-25] MEDS: Sodium Bicarbonate (ANTACID)* 650 MG TAB PO SCH (21:36)
[2018-05-25] MEDS: hydrALAZINE TAB* 25 MG PO SCH (21:36)
[2018-05-25] MEDS: RiFAXimin* 550 MG TAB PO SCH (21:36)
[2018-05-25] MEDS: Gabapentin CAP(*) 100 MG PO SCH (21:36)
[2018-05-25] MEDS: ceFAZolin 1 GM in Dextrose (*) 1 GM/50 ML BAG IVPB SCH (21:37)
--- NOTE | 2018-05-25 22:08 | CONS ---
CC: Dr. Romero; Dr. Aldana * CONSULTATION REPORT: DATE OF CONSULTATION: 05/25/18 PRIMARY CARE PROVIDER: Dr. Trenton Romero. ATTENDING PHYSICIAN WHILE IN THE HOSPITAL: Dr. Aldana (report dictated by Bob Blanton NP). REQUESTING PHYSICIAN IN CONSULT: Dr. Gumaro Decker. REASON FOR CONSULTATION: Evaluation and medical management of comorbid medical conditions. HISTORY OF PRESENT ILLNESS: I will refer you to Dr. Decker's H and P for further details. In short, Mr. Guzman is a 52-year-old with multiple medical problems, who presented to Dr. Decker's services. He has left foot and ankle Charcot changes. He has had many I and D's and osteomyelitis to this. 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 It was felt he would benefit from a blow the knee amputation which he underwent today. He carries again the history of diabetes, end-stage renal disease, on peritoneal dialysis, atrial flutter, neuropathy, hypertension , and peripheral arterial disease. Because of these medical complexities, we are asked to evaluate in consult. He is evaluated postoperatively. He says he is having some pain at the incision site, but he denies having any chest pain. He says he does not feel short of breath. He denies to me abdominal pain. He says he is eating. He has a good appetite. He denied having any orthopnea or shortness of breath. He denied having any nausea or vomiting. He denied having any abdominal pain. Because of his medical complexities, we were asked to evaluate in consult. PAST MEDICAL HISTORY: 1. End-stage renal disease, on peritoneal dialysis. 2. Diabetes. 3. Atrial flutter. 4. Neuropathy. 5. Hypertension. 6. PAD. PAST SURGICAL HISTORY: He has had a BKA done today. He has had I and D of the left lower extremity previously. He has had multiple foot and ankle surgeries to that left side. He has also had a PD catheter placement. HOME MEDICATIONS: Include: 1. Oxycodone 5 mg every 6 hours as needed. 2. Hydralazine 50 mg p.o. b.i.d. 3. Glipizide 10 mg p.o. b.i.d. 4. Sodium bicarbonate 650 mg p.o. t.i.d. 5. Lantus 70 units subcu q.p.m. 6. Rifaximin 550 mg p.o. b.i.d. 7. Gentamicin sulfate 3.5 g ophthalmic daily as needed. 8. Gabapentin 100 mg p.o. t.i.d. 9. Auryxia 1 gram p.o. after meals. 10. Atenolol 100 mg daily. 11. Aspirin 81 mg daily. 12. Apixaban 2.5 mg p.o. b.i.d. ALLERGIES TO MEDICATIONS: Include IV DYE, AMLODIPINE, and TETRACYCLINE. FAMILY HISTORY: His mother had hypertension. Father had a history of diabetes. SOCIAL HISTORY: He is a smoker. He does drink 3 to 4 beers. He admits to drinking 3 to 4 beers a day. He is admitting to smoking about a half a pack a day. He has been smoking since he was a teenager. Denies recreational drug abuse. His surrogate decision maker is his partner, Claudia. REVIEW OF SYSTEMS: There is no documented fever. He denies having any significant weight change. There was no double vision. He denied having any ear discharge. There was no rhinorrhea. There was no sore throat. There was no thyroid enlargement. He denies having any chest pain. There is no orthopnea. There is no nocturnal dyspnea. He denies having any abdominal pain. There was no nausea. There was no vomiting. There was no dysuria, no frequency. No seizure. No loss of consciousness. No pruritus. No skin ulcerations. Review of 14 systems completed, all others negative. PHYSICAL EXAMINATION: Vital Signs: Blood pressure 155/59, pulse 52, respirations were 14, O2 sat 99% on 2 L, and temperature 97.3. Generally, at this time, Mr. Guzman is a 52-year-old male patient. He is sitting in the hospital bed. He does not appear to be in any acute distress. He appears to be well nourished, well developed. HEENT: Head: Atraumatic and normocephalic. Eyes: EOMs are intact. Sclerae are anicteric and not pale. Neck was supple. Throat: Oral mucosa appears to be dry. No oropharyngeal erythema. Heart: Sounds S1, S2. He had a regular rate and rhythm. There were no murmurs, rubs, or gallops. Lungs were clear to auscultation. No wheezes, rales, or rhonchi. Abdomen was soft. It was flat. It was nontender. Bowel sounds are present. Extremities: Pulses were 2+ throughout in the upper extremities. He had good pulse in the right lower extremity. The left lower extremity, at the amputated site, he does have dressing there, is clean, dry, and intact. Neurologically, he is awake, he is alert, he is oriented x3. No gross focal deficits. Skin is intact with the exception he has an incision to left lower stump, which is covered with an Kristian dressing. It is clean, dry, and intact. LABORATORY DATA/DIAGNOSTIC STUDIES: These are done today. WBC 6.4, RBC 3.40, hemoglobin 10.1, hematocrit 31, platelet count 138. Sodium 127, potassium 4.1, chloride of 89, bicarb 21, BUN 68, creatinine of 13.12, glucose 259, calcium 10.2. Outpatient EKG shows a normal sinus rhythm, rate of 74. He does have a first degree AV block. He had no ST elevations or T wave inversions noted. Old medical records reviewed. ASSESSMENT AND PLAN: Mr. Guzman is a 52-year-old male patient with multiple medical problems coming into Dr. Decker's services today for a below the knee amputation on the left side. We were asked to evaluate in consult. Recommendations at this point are: 1. Below the knee amputation on the left side: We will defer the management to Dr. Decker and his team. 2. History of end-stage renal disease: I did touch base with Dr. Rodriguez. He will be dialyzing the patient tomorrow. I have stopped IV fluids overnight as he is taking p.o. intake. 3. Diabetes: He will be on a lispro sliding scale and Lantus. 4. Atrial flutter: Continue apixaban and atenolol. 5. Neuropathy: Continue gabapentin. 6. Hypertension: I would continue meds as prescribed. 7. History of peripheral arterial disease: Continue his aspirin. 8. DVT prophylaxis. He is on apixaban. I would continue with this. 9. Code status. He is a full code. 10. Fluids, electrolytes and nutrition. I would recommend a renal diet. TIME SPENT: Time spent on the consult was 60 minutes, greater than half that time was spent [id number] with the patient obtaining my history and physical, the other half time was spent going over the plan of care. I did discuss the plan of care with my attending, Dr. Aldana; he is in agreement. BOB BLANTON, AMNA [id number]/[facility] [place]: [id number] [place]UMAN
[2018-05-25] MEDS: HYDROmorphone TAB* 2 MG PO PRN (23:54)
[2018-05-26] MEDS: Acetaminophen TAB* 325 MG PO SCH ×3 (02:39→17:10)
[2018-05-26] MEDS: ceFAZolin 1 GM in Dextrose (*) 1 GM/50 ML BAG IVPB SCH ×2 (04:50→12:47)
[2018-05-26] MEDS ORDERED: HYDROmorphone INJ1* 1 MG/ML SYRINGE IV SLOW PU ONE (04:54)
[2018-05-26 05:50] LABS: Hematocrit 31 % (42-52); Hemoglobin 10.2 g/dl (14.0-18.0)
[2018-05-26 06:07] LABS: EGFR Non-African American 3.8 (>60)
[2018-05-26] MEDS: HYDROmorphone TAB* 2 MG PO PRN ×3 (06:15→19:12)
--- NOTE | 2018-05-26 06:21 | OP ---
DATE OF OPERATION: 05/25/18 - ROOM #348 DATE OF : 63 ATTENDING SURGEON: Gumaro Decker MD. COLLECTIONS ANALYST: KALEE Vasquez. PRE-OP DIAGNOSIS: Chronic osteomyelitis, nonunion osteotomy, left ankle. POST-OP DIAGNOSIS: Chronic osteomyelitis, nonunion osteotomy, left ankle. OPERATIVE PROCEDURE: Left transtibial amputation. DESCRIPTION OF PROCEDURE: The patient was taken to the operating room where thigh tourniquet was inflated. He had previous popliteal block. We made the transverse fishmouth incision pretty much at the mid third of the calf and raised the flap proximally to an appropriate length of the tibia where this is transacted with a [employer] 5 saw doubling the anterior cortex. We then transacted the fibula 1 cm proximally. The anterior flap was then completely divided. We flexed through the osteotomy and pulled distally to allow visualization of the posterior flap, which was transected with a 10 blade. The leg was sent to pathology. We then dropped to tourniquet after applying suture ligature to the posterior tibial vasculature and the anterior tibial vasculature. There was significant calcification of the main popliteal artery, this had double suture ligature #1 Vicryl as well as a large vascular clip. We irrigated the wound thoroughly at this point sending deep cultures and closure of #1 Vicryl for the deep fascia, 0 Vicryl for the more superficial layers, 2-0 Vicryl subcu, and interrupted 2-0 Prolene for the skin compression dressing plaster splint was applied. [id number]/[facility] #: [id number] MTDDaphnie
--- NOTE | 2018-05-26 07:59 | PN ---
Subjective Date of Service: 05/26/18 Interval History: C/o mild pain to left leg. Denies chest pain or shortness of breath. denies abd pain. Denies fever or chills. Family History: Unchanged from Admission Social History: Unchanged from Admission Past Medical History: Unchanged from Admission Objective Active Medications: Acetaminophen (Tylenol Tab*) 975 mg PO Q8H [facility] Last Admin: 05/26/18 02:39 Dose: 975 mg Apixaban (Eliquis) 2.5 mg PO BID [facility] Last Admin: 05/25/18 21:36 Dose: 2.5 mg Aspirin (Aspirin Ec Tab*) 81 mg PO QAM [facility] Atenolol (Tenormin Tab*) 100 mg PO QAM [facility] Dextrose (D50w Syringe 50 Ml*) 12.5 gm IV PUSH .FOR FS < 60 - SS PRN PRN Reason: FS < 60 Diphenhydramine HCl (Benadryl Iv*) 25 mg IV Q6H PRN PRN Reason: itching Folic Acid (Folvite Tab*) 1 mg PO DAILY [facility] Gabapentin (Neurontin Cap(*)) 100 mg PO TID [facility] Last Admin: 05/25/18 21:36 Dose: 100 mg Gentamicin Sulfate (Gentamicin 0.1% Ointment*) 1 applic TOPICAL DAILY PRN PRN Reason: bandage for dialysis catheter Hydralazine HCl (Apresoline Tab*) 50 mg PO BID [facility] Last Admin: 05/25/18 21:36 Dose: 50 mg Hydromorphone HCl (Dilaudid Tab*) 2 mg PO Q6H PRN PRN Reason: PAIN Last Admin: 05/26/18 06:15 Dose: 2 mg Cefazolin Sodium/Dextrose (Kefzol 1 Gm In Dextrose Duplex (*)) 1 gm in 50 mls @ 200 mls/hr IVPB Q8H [facility] Stop: 05/26/18 13:14 Last Admin: 05/26/18 04:50 Dose: 200 mls/hr Insulin Glargine (Lantus(*)) 70 units SUBCUT QPM [facility] Last Admin: 05/25/18 17:58 Dose: 70 units Insulin Human Lispro (Humalog*) 0 units SUBCUT AC [facility]; Protocol Lorazepam (Ativan Tab(*)) 0 - 6 mg PO .PER [place] PROTOCOL [facility]; Protocol Multivitamins/Minerals (Theragran/Minerals Tab*) 1 tab PO DAILY [facility] Nft: Auryxia (Ferric (Citrate) 1 Gram) 1 grams PO PC [facility] Last Admin: 05/25/18 17:51 Dose: Not Given Ondansetron HCl (Zofran Inj*) 4 mg IV Q6H PRN PRN Reason: nausea Rifaximin (Xifaxan*) 550 mg PO BID [facility] Last Admin: 05/25/18 21:36 Dose: 550 mg Sodium Bicarbonate (Sodium Bicarbonate (Antacid)*) 650 mg PO TID [facility] Last Admin: 05/25/18 21:36 Dose: 650 mg Thiamine HCl (Vitamin B-1 Tab*) 100 mg PO DAILY [facility] Trazodone HCl (Desyrel Tab*) 25 mg PO BEDTIME PRN PRN Reason: insomnia Vital Signs - 8 hr 05/25/18 05/25/18 05/26/18 23:54 23:55 00:00 Temperature Pulse Rate Respiratory 18 18 Rate Blood Pressure (mmHg) O2 Sat by Pulse 100 Oximetry 05/26/18 05/26/18 05/26/18 00:22 02:05 02:40 Temperature 97.5 F Pulse Rate 62 78 Respiratory 16 18 Rate Blood Pressure 136/84 142/78 (mmHg) O2 Sat by Pulse 100 Oximetry 05/26/18 05/26/18 05/26/18 04:37 05:05 06:00 Temperature 97.6 F Pulse Rate 65 89 Respiratory 16 18 Rate Blood Pressure 143/90 148/88 (mmHg) O2 Sat by Pulse 100 Oximetry 05/26/18 05/26/18 05/26/18 06:15 06:25 07:20 Temperature 97.2 F Pulse Rate 67 Respiratory 18 18 18 Rate Blood Pressure 146/85 (mmHg) O2 Sat by Pulse 97 Oximetry 05/26/18 07:47 Temperature Pulse Rate Respiratory 18 Rate Blood Pressure (mmHg) O2 Sat by Pulse 97 Oximetry Oxygen Devices in Use Now: Nasal Cannula Appearance: appears comfortable sitting in the chair , no acute distress Eyes: No Scleral Icterus Ears/Nose/Mouth/Throat: Clear Oropharnyx, Mucous Membranes Moist Neck: NL Appearance and Movements; NL JVP, Trachea Midline Respiratory: Symmetrical Chest Expansion and Respiratory Effort, Clear to Auscultation Cardiovascular: NL Sounds; No Murmurs; No JVD, No Edema Abdominal: NL Sounds; No Tenderness; No Distention Extremities: No Edema, No Clubbing, Cyanosis Skin: No Rash or Ulcers, - - dressing intact to left leg Neurological: Alert and Oriented x 3 Nutrition: Taking PO's Result Diagrams: 05/27/18 06:20 05/27/18 06:20 Microbiology and Other Data: Microbiology 05/25/18 11:15 Gram Stain - Final Wound Assess/Plan/Problems-Billing Assessment: Mr. Guzman is a 52 y.o male with pmhx significant for ESRD on peritoneal dialysis, DM, htn, aflutter who [place] [facility] [place] BKA d/t hardware failure, hx of osteomyelitis. - Patient Problems (1) Status post below knee amputation of left lower extremity Status: Acute Code(s): Z89.512 - ACQUIRED ABSENCE OF LEFT LEG BELOW KNEE SNOMED Code(s): 679777613925000 Comment: management per orthopedics dvt prop per orthopedics pain control and PT / OT per ortho (2) Acute on chronic renal failure Status: Acute Code(s): N17.9 - ACUTE KIDNEY FAILURE, UNSPECIFIED; N18.9 - CHRONIC KIDNEY DISEASE, UNSPECIFIED SNOMED Code(s): 605445818 Comment: - BUN/creatinine elevated above baseline- will continue to monitor - Dr. Rodriguez contacted - Dialysis today- completed (3) Diabetes Status: Acute Code(s): E11.9 - TYPE 2 DIABETES MELLITUS WITHOUT COMPLICATIONS SNOMED Code(s): 04123066 Comment: fasting blood glucose this AM 130- will monitor and adjust insulin as needed will continue lispro ss and lantus Q HS (4) Hypertension Status: Acute Priority: High Code(s): I10 - ESSENTIAL (PRIMARY) HYPERTENSION SNOMED Code(s): 84710594 Comment: stable SBP 127 continue home medications (5) Hyponatremia Status: Acute Code(s): E87.1 - HYPO-OSMOLALITY AND HYPONATREMIA SNOMED Code( s): 40146075 Comment: Sodium 125 - suspect this is related to IVF and end stage renal disease- will repeat BMP in the AM - patient did have dialysis today (6) DVT prophylaxis Status: Acute Code(s): CQI5615 - SNOMED Code(s): 132521588 Comment: per ortho (7) Full code status Status: Acute Code(s): Z78.9 - OTHER SPECIFIED HEALTH STATUS SNOMED Code(s) : 098630039
[2018-05-26] MEDS: Insulin LISPRO* 1 UNITS UNIT SUBCUT SCH ×3 (08:06→17:40)
[2018-05-26] MEDS: FERRIC CITRATE PO SCH ×3 (08:38→17:41)
[2018-05-26] MEDS: Apixaban* 2.5 MG TAB PO SCH ×2 (09:18→20:46)
[2018-05-26] MEDS: RiFAXimin* 550 MG TAB PO SCH ×2 (09:19→20:46)
[2018-05-26] MEDS: Gabapentin CAP(*) 100 MG PO SCH ×3 (09:19→20:46)
[2018-05-26] MEDS: Sodium Bicarbonate (ANTACID)* 650 MG TAB PO SCH ×3 (09:19→20:46)
[2018-05-26] MEDS: Aspirin EC TAB* 81 MG TAB.EC PO SCH (09:19)
[2018-05-26] MEDS: hydrALAZINE TAB* 25 MG PO SCH ×2 (09:19→20:46)
[2018-05-26] MEDS: Folic Acid TAB* 1 MG PO SCH (09:19)
[2018-05-26] MEDS: Atenolol TAB* 50 MG PO SCH (09:19)
[2018-05-26] MEDS: Multivitamins/Minerals TAB PO SCH (09:20)
[2018-05-26] MEDS: Thiamine TAB* 100 MG TAB PO SCH (09:20)
--- NOTE | 2018-05-26 16:23 | PN ---
Progress Note - Progress Note Date of Service: 05/26/18 SOAP: Subjective: []patient seen and examined at bedside. He complains of lle pain. Denies CP, SOB , dizziness, nausea. Went to see the patient x 2 later in the day to check in on pain control after elevating operative extremity, he was sleeping on both occasions Objective: []General: Well appearing, NAD LLE: dressing CDI. thigh is soft, no skin irritation at splint edges. Assessment: []POD 1 sp left transtibial amputation Plan: []NWB LLE Ice and elevate operative extremity to relieve any swelling while in bed Continue home dose of eliquis for DVT/PE prophylaxis Vital Signs Temp 98.3 F 05/26/18 14:46 Pulse 80 05/26/18 14:46 Resp 20 05/26/18 16:22 BP 127/72 05/26/18 14:46 Pulse Ox 92 05/26/18 14:46 Intake & Output 05/25/18 05/26/18 05/26/18 18:59 06:59 18:59 Intake Total 1050 570 420 Output Total 100 0 0 Balance 950 570 420 Weight 259 lb Intake: IV Fluids 1050 0.45% NS 1000 CEFAZOLIN 3MG 50ML 50 Oral 570 420 Output: Urine 0 0 0 Estimated Blood Loss 100 Laboratory Last Values WBC 6.4 10^3/ul (3.5-10.8) 05/25/18 11:53 RBC 3.40 10^6/ul (4.00-5.40) L 05/25/18 11:53 Hgb 10.2 g/dl (14.0-18.0) L 05/26/18 05:40 Hct 31 % (42-52) L 05/26/18 05:40 MCV 90 fL (80-94) 05/25/18 11:53 MCH 30 pg (27-31) 05/25/18 11:53 MCHC 33 g/dl (31-36) 05/25/18 11:53 RDW 17 % (10.5-15) H 05/25/18 11:53 Plt Count 138 10^3/ul (150-450) L 05/25/18 11:53 MPV 7.6 fL (7.4-10.4) 05/25/18 11:53 Sodium 125 mmol/L (135-145) L 05/26/18 05:40 Potassium 3.9 mmol/L (3.5-5.0) 05/26/18 05:40 Chloride 88 mmol/L (101-111) L 05/26/18 05:40 Carbon Dioxide 22 mmol/L (22-32) 05/26/18 05:40 Anion Gap 15 mmol/L (2-11) H 05/26/18 05:40 BUN 71 mg/dL (6-24) H 05/26/18 05:40 Creatinine 13.64 mg/dL (0.67-1.17) H 05/26/18 05:40 Est GFR ( Amer) 4.6 (>60) 05/26/18 05:40 Est GFR (Non-Af Amer) 3.8 (>60) 05/26/18 05:40 BUN/Creatinine Ratio 5.2 (8-20) L 05/26/18 05:40 Glucose 130 mg/dL (70-100) H 05/26/18 05:40 POC Glucose (mg/dL) 311 mg/dL (70-100) H 05/26/18 12:03 Calcium 10.2 mg/dL (8.6-10.3) 05/26/18 05:40
[2018-05-26] MEDS: Insulin GLARGINE(*) 1 UNITS UNIT SUBCUT SCH (17:39)
[2018-05-27] MEDS: Acetaminophen TAB* 325 MG PO SCH ×2 (01:39→08:16)
[2018-05-27] MEDS: HYDROmorphone TAB* 2 MG PO PRN (01:40)
[2018-05-27 06:37] LABS: Hematocrit 30 % (42-52)
[2018-05-27 06:57] LABS: EGFR Non-African American 3.6 (>60)
[2018-05-27] MEDS: Thiamine TAB* 100 MG TAB PO SCH (08:15)
[2018-05-27] MEDS: Sodium Bicarbonate (ANTACID)* 650 MG TAB PO SCH (08:15)
[2018-05-27] MEDS: RiFAXimin* 550 MG TAB PO SCH (08:15)
[2018-05-27] MEDS: Multivitamins/Minerals TAB PO SCH (08:15)
[2018-05-27] MEDS: Aspirin EC TAB* 81 MG TAB.EC PO SCH (08:15)
[2018-05-27] MEDS: Apixaban* 2.5 MG TAB PO SCH (08:15)
[2018-05-27] MEDS: Atenolol TAB* 50 MG PO SCH (08:15)
[2018-05-27] MEDS: Folic Acid TAB* 1 MG PO SCH (08:16)
[2018-05-27] MEDS: hydrALAZINE TAB* 25 MG PO SCH (08:16)
[2018-05-27] MEDS: Gabapentin CAP(*) 100 MG PO SCH (08:16)
[2018-05-27] MEDS: FERRIC CITRATE PO SCH (08:16)
[2018-05-27 08:19] VITALS: BP 136/68
[2018-05-27] MEDS: Insulin LISPRO* 1 UNITS UNIT SUBCUT SCH (08:41)
--- NOTE | 2018-05-27 09:45 | PN ---
Progress Note - Progress Note Date of Service: 05/27/18 SOAP: Subjective: []Patient seen and examined at bedside. Denies CP, SOB, dizziness, nausea. Objective: []General: Well appearing, NAD LLE: dressing CDI. Thigh is soft, no skin irritation at splint edges. Right calf supple and nontender without erythema, edema or palpable cords Assessment: []POD 2 s/p left transtibial amputation Plan: []NWB LLE Ice and elevate operative extremity to relieve any swelling while in bed Continue home dose of eliquis for DVT/PE prophylaxis DC to PMRU. Follow up with Dr. Decker next week Vital Signs Temp 99.0 F 05/27/18 07:23 Pulse 83 05/27/18 07:23 Resp 16 05/27/18 08:16 BP 136/68 05/27/18 07:23 Pulse Ox 96 05/27/18 08:00 Intake & Output 05/26/18 05/27/18 05/27/18 18:59 06:59 18:59 Intake Total 780 1950 Output Total 0 250 Balance 780 1700 Intake: Oral 780 1950 Output: Urine 0 250 Other: Estimated Void Large Laboratory Last Values WBC 6.4 10^3/ul (3.5-10.8) 05/25/18 11:53 RBC 3.40 10^6/ul (4.00-5.40) L 05/25/18 11:53 Hgb 10.0 g/dl (14.0-18.0) L 05/27/18 06:20 Hct 30 % (42-52) L 05/27/18 06:20 MCV 90 fL (80-94) 05/25/18 11:53 MCH 30 pg (27-31) 05/25/18 11:53 MCHC 33 g/dl (31-36) 05/25/18 11:53 RDW 17 % (10.5-15) H 05/25/18 11:53 Plt Count 138 10^3/ul (150-450) L 05/25/18 11:53 MPV 7.6 fL (7.4-10.4) 05/25/18 11:53 Sodium 128 mmol/L (135-145) L 05/27/18 06:20 Potassium 4.1 mmol/L (3.5-5.0) 05/27/18 06:20 Chloride 88 mmol/L (101-111) L 05/27/18 06:20 Carbon Dioxide 23 mmol/L (22-32) 05/27/18 06:20 Anion Gap 17 mmol/L (2-11) H 05/27/18 06:20 BUN 73 mg/dL (6-24) H 05/27/18 06:20 Creatinine 14.38 mg/dL (0.67-1.17) H 05/27/18 06:20 Est GFR ( Amer) 4.4 (>60) 05/27/18 06:20 Est GFR (Non-Af Amer) 3.6 (>60) 05/27/18 06:20 BUN/Creatinine Ratio 5.1 (8-20) L 05/27/18 06:20 Glucose 197 mg/dL (70-100) H 05/27/18 06:20 POC Glucose (mg/dL) 365 mg/dL (70-100) H 05/26/18 17:10 Calcium 10.1 mg/dL (8.6-10.3) 05/27/18 06:20
--- NOTE | 2018-05-28 07:37 | DS ---
AMENDED REPORT NOW INCLUDES COSIGNER DESIGNATION DISCHARGE SUMMARY: DATE OF ADMISSION: 05/25/18 DATE OF DISCHARGE: 05/27/18 PROVIDER: Dr. Gumaro Decker.* (DICTATED BY KALEE TAYLOR) PREOPERATIVE DIAGNOSIS: Chronic osteomyelitis, nonunion osteotomy, left ankle. OPERATIVE PROCEDURE: Left transtibial amputation. INDICATIONS FOR SURGERY: Chronic osteomyelitis, nonunion osteotomy of the left ankle. HOSPITAL COURSE: The patient was admitted to [facility] on . He underwent a left transtibial amputation without complication. He recovered briefly in the PACU and then was transferred to the short-stay surgical unit in stable condition. On postop day 1, he was well appearing, in no acute distress. He was also seen by a medicine team with no changes to his home medication. The patient had dialysis. On 05/26/18, postop day 2, he was well appearing in no acute distress. Dressing clean, dry, and intact. Thigh was soft. No skin irritation. right calf supple and nontender without erythema , edema. No palpable cords. The patient was more comfortable with decreased pain from yesterday. Vital Signs: Temperature 99.0, pulse 83, respiratory rate 16, blood pressure 136/68, pulse ox 96. White blood cell count 6.4, hemoglobin 10.0, hematocrit 30. Sodium 128, potassium 4.1. The patient was deemed to be medically and orthopedically stable for discharge to [facility] [email or web address] DISCHARGE MEDICATIONS: Continued home medications which include: 1. Insulin glargine 70 units subcu q.p.m. 2. Sodium bicarb 650 mg p.o. t.i.d. 3. Oxycodone 5 mg p.o. q.6 hours p.r.n. 4. Glipizide 10 mg p.o. b.i.d. 5. Rifaximin 550 mg p.o. b.i.d. 6. Gabapentin 100 mg p.o. t.i.d. 7. Atenolol 100 mg p.o. q.a.m. 8. Hydralazine 50 mg p.o. b.i.d. 9. Gentamicin as directed. 10. Eliquis 2.5 mg p.o. b.i.d. 11. Auryxia 1 g p.o. p.c. 12. Aspirin 81 mg p.o. q.a.m. DISCHARGE PLAN: The patient will be nonweightbearing on his left lower extremity. Keep the splint clean, dry, and intact. Ice and elevate operated extremity to relive swelling while in bed. Continue home dose of Eliquis for DVT prophylaxis. DISPOSITION: He is discharged to [facility] [[email or web address] FOLLOWUP: Dr. Decker next week. Call with any concerns to [phone]. KALEE TAYLOR [id number]/[facility] #: [id number] TRUMAN
== END 2018-05-27 09:35 | DRG 474 ==
LOC: AA 12:29 → EDSTATUS 13:45 → SSU 16:29
PROVIDERS: ADMIT Orthopaedic Surgery; ATTEND Orthopaedic Surgery
PROC: 0Y6J0Z2 Detachment at Left Lower Leg, Mid, Open Approach (ICD-10-PCS; principal; 2018-05-25 13:00)
PROC: 3E1M39Z Irrigation of Peritoneal Cavity using Dialysate, Percutaneous Approach (ICD-10-PCS; 2018-05-26)
DX: T84.117A Breakdown (mechanical) of internal fixation device of bone of left lower leg, initial encounter (principal); N18.6 End stage renal disease; M86.662 Other chronic osteomyelitis, left tibia and fibula; S82.302 Unspecified fracture of lower end of left tibia; N17.9 Acute kidney failure, unspecified; I48.92 Unspecified atrial flutter; E87.1 Hypo-osmolality and hyponatremia; E11.42 Type 2 diabetes mellitus with diabetic polyneuropathy; E11.51 Type 2 diabetes mellitus with diabetic peripheral angiopathy without gangrene; E11.49 Type 2 diabetes mellitus with other diabetic neurological complication; E11.22 Type 2 diabetes mellitus with diabetic chronic kidney disease; M19.079 Primary osteoarthritis, unspecified ankle and foot; F17.210 Nicotine dependence, cigarettes, uncomplicated; X58.XXXA Exposure to other specified factors, initial encounter; Z79.01 Long term (current) use of anticoagulants; Z99.2 Dependence on renal dialysis; Z79.82 Long term (current) use of aspirin; Z79.4 Long term (current) use of insulin; Z79.891 Long term (current) use of opiate analgesic; Z79.899 Other long term (current) drug therapy; Z88.8 Allergy status to other drugs, medicaments and biological substances; Z91.041 Radiographic dye allergy status; Z82.49 Family history of ischemic heart disease and other diseases of the circulatory system; Z83.3 Family history of diabetes mellitus
CPT/HCPCS: 36415; 80048; 85014; 85018; 85027; 87070; 87073; 87205; 88307; 88311; 90945; A9270-GY; G0257; J0690; J1170; J2250; J2405; J2704; J2765; J2795; J3010

== ENCOUNTER 2018-05-27 07:20 | Inpatient (IN) | payer MEDICARE, MEDICAID ==
[2018-05-27] MEDS ORDERED: Dextrose 50% Syringe 50 ML* 25 GM/50 ML SYRINGE IV PUSH PRN (11:21)
[2018-05-27] MEDS ORDERED: HYDROmorphone TAB* 2 MG PO PRN (11:23)
[2018-05-27] MEDS: Sodium Bicarbonate (ANTACID)* 650 MG TAB PO SCH ×2 (12:58→21:09)
[2018-05-27] MEDS: Gabapentin CAP(*) 100 MG PO SCH ×2 (12:58→21:11)
[2018-05-27] MEDS: Insulin LISPRO* 1 UNITS UNIT SUBCUT SCH ×3 (12:59→21:23)
[2018-05-27] MEDS: Acetaminophen TAB* 325 MG PO PRN (17:04)
[2018-05-27] MEDS: Insulin GLARGINE(*) 1 UNITS UNIT SUBCUT SCH (17:59)
[2018-05-27] MEDS ORDERED: oxyCODONE TAB* 5 MG TAB PO PRN (19:32)
[2018-05-27] MEDS ORDERED: Nicotine Inhaler* 10 MG AMP INH PRN (20:47)
[2018-05-27] MEDS: RiFAXimin* 550 MG TAB PO SCH (21:09)
[2018-05-27] MEDS: Apixaban* 2.5 MG TAB PO SCH (21:10)
[2018-05-27] MEDS: hydrALAZINE TAB* 25 MG PO SCH (21:11)
[2018-05-27] MEDS: Docusate CAP* 100 MG PO SCH (21:11)
[2018-05-27] MEDS: Mouth Piece, Nicotine* 1 EACH CARTRIDGE INH ONE (21:22)
[2018-05-27] MEDS: oxyCODONE TAB* 5 MG TAB PO PRN (21:23)
--- NOTE | 2018-05-27 22:44 | HP ---
ADMISSION HISTORY AND PHYSICAL: DATE OF ADMISSION: 05/27/18 REASON FOR ADMISSION: Left below the knee amputation. HISTORY OF PRESENT ILLNESS: Lalo Guzman is a 52-year-old male. He has a medical history significant for diabetes as well as end-stage renal disease. He is on peritoneal dialysis as a result. He unfortunately also continues to smoke and drink alcohol. The patient has had difficulties with his left foot and ankle for years. He has been trying to manage it for about [address] Decker. He has had attempted reconstruction of his left foot and ankle, but he had a nonunion of the osteotomy of his tibia and failure of the hardware. He has tried nonweightbearing as well as wearing a boot. It was felt the best course of action would be for him to have a left below the knee amputation. He was admitted to [facility] on 05/25/18 and underwent the below the knee amputation that day. Post-operatively, he had some difficulties with pain control as well as confusion. His insulin was restarted, his Lantus insulin, but he has not restarted his diabetes medications. He is felt to have physical therapy and occupation therapy needs. He is now being admitted for inpatient rehab, so that he might return to independent living. PAST MEDICAL HISTORY: Significant for the aforementioned diabetes . He has a history of end-stage renal disease, on peritoneal dialysis. He has a history of atrial flutter, peripheral vascular disease and diabetic peripheral neuropathy. CURRENT MEDICATIONS: Include: 1. Eliquis. 2. Aspirin. 3. Tenormin. 4. Folic acid. 5. Gabapentin. 6. Hydralazine. 7. Lantus insulin. 8. Lispro insulin. 9. Xifaxan. 10. Dilaudid. 11. Sodium bicarbonate. ALLERGIES: The patient has allergies to IODINATED CONTRAST, AMLODIPINE, TETRACYCLINE. SOCIAL HISTORY: The patient smokes half a pack a day. He drinks alcohol almost on a daily basis. REVIEW OF SYSTEMS: The patient reports no current chest pain or shortness of breath. PHYSICAL EXAMINATION VITAL SIGNS: The patient's temperature is 98, blood pressure is 126/60, pulse 76 , respirations 20. HEENT: His extraocular movements are intact. Tongue is midline. NECK: Supple. LUNGS: Sounded clear to auscultation bilaterally. HEART: Sounds were regular. S1 and S2 were audible. ABDOMEN: He has a catheter for peritoneal dialysis. It appears to be clean and dry. EXTREMITIES: His left leg has been amputated below the mid tibia. It is wrapped in a bandage. Right leg, peripheral pulses were intact. NEUROLOGIC: He was awake, alert and oriented. Muscle strength is 5/5 in both upper extremities and right lower extremity. His gait. He transfer with min assist. ASSESSMENT: Left below the knee amputation. PLAN: We are going to integrate him into a comprehensive and therapeutic rehab program with the following goals: 1. Physical Therapy will work with the patient. They are going to work on functional transfer training, ambulation training with a walker. 2. Occupational Therapy will see the patient and work on his activities of daily living including toileting and toilet transfers. 3. Eliquis for DVT prophylaxis. 4. For his atrial fibrillation, we will continue his Eliquis and his beta- kaleigh, his Tenormin. 5. For his diabetes, we are going to restart his glipizide, continue Lantus insulin. Do fingersticks 4 times a day with sliding scale insulin coverage. 6. For hypertension, we will continue his Tenormin as well as his hydralazine. 7. For nicotine addiction, we are going to offer him a nicotine inhaler as needed. 8. Analgesia. The Dilaudid he was getting seems to be making him confused. We are going to switch him to oxycodone. 9. His bowels will be regulated. 10. For his end-stage renal disease, continue peritoneal disease. 11. creative services director will be closely involved to make sure that any services and equipment that the patient requires are in place prior to discharge. 12. Home with appropriate services. ESTIMATED LENGTH OF STAY: 7 to 10 days. [id number]/[facility] #: [id number] MTDD
[2018-05-28] MEDS: Gabapentin CAP(*) 100 MG PO SCH ×3 (09:18→20:14)
[2018-05-28] MEDS: Insulin LISPRO* 1 UNITS UNIT SUBCUT SCH ×4 (09:45→20:55)
[2018-05-28] MEDS: glipiZIDE TAB* 5 MG PO SCH ×2 (10:49→17:27)
[2018-05-28] MEDS: Apixaban* 2.5 MG TAB PO SCH ×2 (10:50→20:11)
[2018-05-28] MEDS: Atenolol TAB* 50 MG PO SCH (10:51)
[2018-05-28] MEDS: Aspirin EC TAB* 81 MG TAB.EC PO SCH (10:51)
[2018-05-28] MEDS: hydrALAZINE TAB* 25 MG PO SCH ×2 (10:51→20:11)
[2018-05-28] MEDS: Folic Acid TAB* 1 MG PO SCH (10:51)
[2018-05-28] MEDS: Docusate CAP* 100 MG PO SCH ×2 (10:51→20:11)
[2018-05-28] MEDS: Sodium Bicarbonate (ANTACID)* 650 MG TAB PO SCH ×3 (10:52→20:11)
[2018-05-28] MEDS: RiFAXimin* 550 MG TAB PO SCH ×2 (10:52→20:11)
[2018-05-28] MEDS: Acetaminophen TAB* 325 MG PO PRN (11:01)
[2018-05-28] MEDS ORDERED: traMADol TAB* 50 MG PO PRN (13:03)
[2018-05-28] MEDS ORDERED: oxyCODONE TAB* 5 MG TAB PO PRN (13:17)
[2018-05-28] MEDS ORDERED: Insulin LISPRO* 1 UNITS UNIT SUBCUT ONE (14:12)
[2018-05-28] MEDS: Mupirocin 2% OINT* TUBE TOPICAL SCH (16:39)
[2018-05-28] MEDS: Insulin GLARGINE(*) 1 UNITS UNIT SUBCUT SCH (17:29)
[2018-05-28] MEDS ORDERED: Mouth Piece, Nicotine* 1 EACH CARTRIDGE INH ONE (18:00)
[2018-05-28] MEDS: Mouth Piece, Nicotine* 1 EACH CARTRIDGE INH ONE (18:13)
[2018-05-28] MEDS: Moisturizing CREAM* 120 GM JAR TOPICAL SCH (19:45)
[2018-05-28] MEDS: Senna TAB PO PRN (20:11)
[2018-05-28] MEDS: oxyCODONE TAB* 5 MG TAB PO PRN (20:12)
--- NOTE | 2018-05-28 21:03 | PN ---
Progress Note Date of Service: 05/28/18 Note: SAM SHERMAN was visited. Therapy notes read and reviewed. He is not as confused as last night. His pain medications were lowered. Otherwise he is doing ok. Notes phantom pain Current Medications: Active Medications Generic Name Dose Route Start Last Admin Trade Name Freq PRN Reason Stop Dose Admin Acetaminophen 650 mg 05/27/18 11:06 05/28/18 11:01 Tylenol Tab* PO 650 mg Q6H PRN Administration FEVER/PAIN Apixaban 2.5 mg 05/27/18 21:00 05/28/18 20:11 Eliquis* PO 2.5 mg BID MALAIKA Administration Aspirin 81 mg 05/28/18 09:00 05/28/18 10:51 Aspirin Ec Tab* PO 81 mg DAILY MALAIKA Administration Atenolol 100 mg 05/28/18 09:00 05/28/18 10:51 Tenormin Tab* PO 100 mg DAILY MALAIKA Administration Dextrose 12.5 gm 05/27/18 11:21 D50w Syringe 50 Ml* IV PUSH .FOR FS < 60 - SS PRN FS < 60 Docusate Sodium 100 mg 05/27/18 21:00 05/28/18 20:11 Colace Cap* PO 100 mg BID MALAIKA Administration Folic Acid 1 mg 05/28/18 09:00 05/28/18 10:51 Folvite Tab* PO 1 mg DAILY MALAIKA Administration Gabapentin 100 mg 05/27/18 14:00 05/28/18 20:14 Neurontin Cap(*) PO 100 mg TID MALAIKA Administration Glipizide 5 mg 05/28/18 08:00 05/28/18 17:27 Glucotrol Tab* PO 5 mg 0800,1700 MALAIKA Administration Hydralazine HCl 50 mg 05/27/18 21:00 05/28/18 20:11 Apresoline Tab* PO 50 mg BID MALAIKA Administration Insulin Glargine 70 units 05/27/18 18:00 05/28/18 17:29 Lantus(*) SUBCUT 70 units Q24H MALAIKA Administration Insulin Human Lispro 0 - 15 units 05/27/18 11:30 05/28/18 20:55 Humalog* SUBCUT 9 units ACHS MALAIKA Administration Protocol Lactulose 30 ml 05/27/18 20:24 Lactulose* PO Q6H PRN CONSTIPATION Multi-Ingredient Ointment 1 applic 11/15/18 21:00 05/28/18 19:45 Hydrocerin* TOPICAL 1 applic BID MALAIKA Administration Mupirocin 1 applic 05/28/18 09:00 05/28/18 16:39 Bactroban 2 % Oint* TOPICAL Not Given DAILY [facility] Nicotine 10 mg 05/27/18 20:47 05/28/18 18:13 Nicotine Inhaler* INH 10 mg Q2H PRN Administration CRAVING Oxycodone HCl 5 mg 05/27/18 19:32 05/28/18 20:12 Roxycodone Tab* PO 5 mg Q4H PRN Administration PAIN - MODERATE TO SEVERE Oxycodone HCl 2.5 mg 05/28/18 13:17 05/28/18 13:53 Roxycodone Tab* PO 2.5 mg Q4H PRN Administration PAIN - MODERATE TO SEVERE Rifaximin 550 mg 05/27/18 21:00 05/28/18 20:11 Xifaxan* PO 550 mg BID MALAIKA Administration Senna 2 tab 05/27/18 11:06 05/28/18 20:11 Senokot Tab* PO 2 tab BEDTIME PRN Administration CONSTIPATION Sodium Bicarbonate 650 mg 05/27/18 14:00 05/28/18 20:11 Sodium Bicarbonate (Antacid)* PO 650 mg TID MALAIKA Administration Vital Signs: Vital Signs Temp Pulse Resp BP Pulse Ox 98.3 F 73 18 122/73 99 05/28/18 15:50 05/28/18 15:50 05/28/18 20:14 05/28/18 15:50 05/28/18 19:18 Lab Results: Laboratory Results - last 24 hr 05/28/18 05/28/18 05/28/18 08:11 12:06 17:04 POC Glucose (mg/dL) 192 H 254 H 266 H 05/28/18 20:12 POC Glucose (mg/dL) 270 H Exam: GENERAL: alert, oriented LUNGS: Clear HEART: reg rhythm ABDOMEN: PD catheter site clean EXTREMITIES: Stump site clean. NEUROLOGIC: no focal weakness Assessment/Plan: 1. Left BKA: PT/OT. Kristian wrap. Hopefully rehabilitation nurse 2. Post-op confusion: Limiting opioids. Tramadol is renally cleared so will avoid 3. DM: sugars high. Continue Lantus, glipizide, SSI. Will increase glipizide to 10 BID 4. Phantom Pain: Increase Gabapentin to 200 TID. Go slow as renally cleared 5. DPN: Gabapentin 6. DVT Prophylaxis: Eliquis 7. Atrial flutter: Tenormin/ELiquis 8. Advanced DIrectives: Full code 05/28/18 21:05 05/28/18 21:06
[2018-05-29] MEDS: oxyCODONE TAB* 5 MG TAB PO PRN ×4 (05:12→18:44)
[2018-05-29 07:19] LABS: Hematocrit 27 % (42-52); Hemoglobin 8.9 g/dl (14.0-18.0); Mean Corpuscular HGB Conc 33 g/dl (31-36); Mean Corpuscular Hemoglobin 30 pg (27-31); Mean Corpuscular Volume 90 fL (80-94); Mean Platelet Volume 8.2 fL (7.4-10.4); Platelet Count 99 10^3/ul (150-450); Red Blood Count 2.98 10^6/ul (4.00-5.40); Red Cell Distribution Width 16 % (10.5-15)
[2018-05-29 07:32] LABS: EGFR Non-African American 3.7 (>60)
[2018-05-29 07:54] LABS: ABS Basophils 0.1 10^3/ul (0-0.2); ABS Eosinophils 0.2 10^3/ul (0-0.6); ABS Lymphocytes 0.5 10^3/ul (1.0-4.8); ABS Monocytes 0.9 10^3/ul (0-0.8); ABS Neutrophils 3.3 10^3/ul (1.5-7.7); ABS Nucleated RBC 0 10^3/ul; Eosinophil % 4.2 % (0-6); Lymphocyte % 9.2 % (25-47); Nucleated Red Blood Cells % 0
[2018-05-29] MEDS: Sodium Bicarbonate (ANTACID)* 650 MG TAB PO SCH ×3 (08:14→20:15)
[2018-05-29] MEDS: Folic Acid TAB* 1 MG PO SCH (08:14)
[2018-05-29] MEDS: hydrALAZINE TAB* 25 MG PO SCH ×2 (08:14→20:16)
[2018-05-29] MEDS: Moisturizing CREAM* 120 GM JAR TOPICAL SCH ×2 (08:14→21:50)
[2018-05-29] MEDS: glipiZIDE TAB* 5 MG PO SCH ×2 (08:15→17:33)
[2018-05-29] MEDS: Aspirin EC TAB* 81 MG TAB.EC PO SCH (08:15)
[2018-05-29] MEDS: Docusate CAP* 100 MG PO SCH ×2 (08:15→20:15)
[2018-05-29] MEDS: Apixaban* 2.5 MG TAB PO SCH ×2 (08:16→20:14)
[2018-05-29] MEDS: Atenolol TAB* 50 MG PO SCH (08:16)
[2018-05-29] MEDS: RiFAXimin* 550 MG TAB PO SCH ×2 (08:16→20:15)
[2018-05-29] MEDS: Gabapentin CAP(*) 100 MG PO SCH ×3 (08:17→20:15)
[2018-05-29] MEDS: Insulin LISPRO* 1 UNITS UNIT SUBCUT SCH ×4 (08:18→21:30)
[2018-05-29] MEDS: Acetaminophen TAB* 325 MG PO PRN (08:21)
[2018-05-29] MEDS: Nicotine PATCH 14 MG/24 HR* PATCH TRANSDERM SCH ×2 (10:51→10:59)
[2018-05-29] MEDS: Mupirocin 2% OINT* TUBE TOPICAL SCH (10:57)
--- NOTE | 2018-05-29 13:04 | PMRUTEAM ---
PMRU: Team Meeting Current Status: Nursing: Current Status Skin Deviations [Left Abdomen] Other Skin Deviations [Bilateral Arm Other ] Skin Deviations [Right Lower Abrasion Anterior Leg] Skin Deviations [Left Leg] Incision Skin Deviation Description [ PD site intact Left Abdomen] Skin Deviation Description [ several small open areas, s/p itching per pt Bilateral Arm] report. lotion applied to dry skin, bandages as needed Skin Deviation Description [ incision intact with sutures. xeroform, telfa, 4x4 Left Leg] 's x3, ABD x1, vamshi and carmen wrap. mod amount of bleeding noted from mid incision Physical Therapy: Current Status Bed Mobility Assistance Supervision Transfer Moblility Assistance Supervision,Contact Guard Assist Transfer/Bed Mobility Rolling Walker Recommended Devices Ambulation Assistance 2 or More Person Assist Ambulation Assistive Devices Rolling Walker Stairs Assistance Not Tested Stairs Recommended Devices Two Rails Number of Stairs 1 Curb Not Tested Manual Wheelchair Control/ Bilateral UE's Technique Wheelchair Propulsion Ability Standby Assistance Wheelchair Distance (ft) 150' x 2 Objective Comments patient needs occasional cuing for safety and procedure, but continues to demosntrate good overall ability in completion of WC moobiltiy. Occupational Therapy: Current Status Upper Body Dressing Supervision Lower Body Dressing Min Assist Bathing Mod Assist Toileting Supervision Toilet Transfer Supervision Shower Transfer Min Assist,2 Person Assist Eating Independent Rec Therapy: Current Status Summary of Assessment and Pt. was in his room with family, open to Clinical Impression conversation and talkative throughout. Pt. appeared to have a difficult time getting his words out and felt "silly", pt. stated he recently got pain medications and thought it was having affecting him. Pt. was open to continued leisure visits while on the unit. Treatment Goals Pt. will engage in leisure activities while on the unit. Treatment Plan Provide RT services and encourage involvement. Social Work: Current Status Discharge Plan return home with home care svs and family support Potential for Family Training pt's partner is supportive and involved Anticipated Discharge Home Destination Discharge With home care svs and family support Goals: Physical Therapy: Initial Goals Bed Mobility Assistance Independent Transfer Mobility Assistance Independent Transfer/Bed Mobility None,Rolling Walker Recommended Devices Ambulation Independent Ambulation Recommended Devices Rolling Walker Ambulation Distance 20 Wheelchair Propulsion Ability Independent Wheelchair Distance (ft) 150 Physical Therapy: Updated Goals Transfer/Bed Mobility Rolling Walker Recommended Devices Occupational Therapy: Initial Goals Goals to be Completed in (Days 10-14 ) Upper Body Bathing Routine Independent Lower Body Bathing Routine Modified Independent with Upper Body Dressing Routine Independent Lower Body Dressing Routine Modified Independent with Toilet Hygeine and Clothing Modified Independent with Management Routine Toilet Transfer Routine Modified Independent with Tub Transfer Routine Independent Functional Transfers for ADL Modified Independent with Grooming Routine Independent Feeding Routine Independent Social Work: Goals Discharge Plan return home with home care svs and family support Potential for Family Training pt's partner is supportive and involved Anticipated Discharge Home Destination Discharge With home care svs and family support Care Plan: Care Plan ADL's - Improve/Maintain Start: 05/27/18 15:01 Freq: DAILY Status: Active Target: Protocol: Activity Type Activity Date Activity User E-Sign Co-Sign Detail Recorded Client Recorded Date Recorded By Document 05/29/18 11:57 [id number] 05/29/18 11:57 [id number] 05/29/18 11:57 PMRU Outcome: ADL's/ADL Transfers Orders/Interventions Occupational Therapy Evaluation & Treatment Device No Patient to receive OT 5x/wk for 60-120 Therex min/day Self Care Management Group Therapy UE/LE ADL's with Assist Yes: mod I ADL Transfers with Assist Yes: mod I Toileting: Transfers,Clothing Management Yes: mod I ,Hygeine w/Assist Light Kitchen/Laundry w/Assist No Progression Toward Outcome/Goals Progressing Outcome/Goals Met Pt making notable progress with LB dressing, completing all tasks except donning/doffing sock. He still has difficulty with his first transfer of the day, leaning to the right and requiring min A to correct. Pt more approprate this morning and able to remain on task. Coping/Psych-Improve/Maintain Start: 05/27/18 11:40 Freq: QSHIFT Status: Active Target: Protocol: Activity Type Activity Date Activity User E-Sign Co-Sign Detail Recorded Client Recorded Date Recorded By Document 05/29/18 11:38 [id number] 05/29/18 11:39 [id number] 05/29/18 11:38 PMRU Outcome: Coping/Psychosocial Coping Outcome/Goals Verbalization of Acceptance of Rehab Admit Verbalization of Sense of Control Over Health Status Willingness to Participate in Treatment Plan and Basic Needs Psychosocial Outcome/Goals Maintain/ Improve Emotional Health Demonstrates Knowledge of Healthy Coping Mechanisms Available Cooperate/ Participate in Plan Progression Toward Outcome/Goals - Progressing Coping Progression Toward Outcome/Goals - Progressing Psychosocial DVT Prophylaxis- Improve/Maintain Start: 05/27/18 11:40 Freq: QSHIFT Status: Active Target: Protocol: Activity Type Activity Date Activity User E-Sign Co-Sign Detail Recorded Client Recorded Date Recorded By Document 05/29/18 11:38 [id number] 05/29/18 11:39 [id number] 05/29/18 11:38 PMRU Outcome: DVT Prophylaxis Outcome/Goals Remains Free of DVT Complies with DVT Prophylaxis /Treatment Demonstrates Knowledge of DVT Prevention/ Treatment Progression Toward Outcome/Goals Progressing Discharge Planning - Improve/Maintain Start: 05/27/18 11:40 Freq: DAILY Status: Active Target: Protocol: Activity Type Activity Date Activity User E-Sign Co-Sign Detail Recorded Client Recorded Date Recorded By Document 05/29/18 01:16 [id number] 05/29/18 01:16 [id number] 05/29/18 01:16 PMRU Outcome: Discharge Planning Update Patient Family No Outcome/Goals Demonstrates Understanding of Discharge Plan Education-Improve/Maintain Start: 05/27/18 11:40 Freq: QSHIFT Status: Active Target: Protocol: Activity Type Activity Date Activity User E-Sign Co-Sign Detail Recorded Client Recorded Date Recorded By Document 05/29/18 11:38 [id number] 05/29/18 11:39 [id number] 05/29/18 11:38 PMRU Outcome: Education Outcome/Goals Encourage Questions Progression Toward Outcome/Goals Progressing /GI-Improve/Maintain Start: 05/27/18 11:40 Freq: QSHIFT Status: Active Target: Protocol: Activity Type Activity Date Activity User E-Sign Co-Sign Detail Recorded Client Recorded Date Recorded By Document 05/29/18 11:38 [id number] 05/29/18 11:39 [id number] 05/29/18 11:38 PMRU Outcome: Genitourinary/ Gastrointestinal Genitourinary- Outcome/Goals Maintain/ Achieve Adequate Urinary Output Gastrointestinal-Outcome/Goals Maintain/ Achieve Bowel Regularity in Accordance with Pt's Baseline Prevent Constipation Laxatives as Ordered Progression Toward Outcome/Goals - Progressing Progression Toward Outcome/Goals - GI Progressing Outcome/Goals Met Comment Dialysis patient. voided x1 this am. colace given Medication Administration Start: 05/27/18 11:40 Freq: QSHIFT Status: Active Target: Protocol: Activity Type Activity Date Activity User E-Sign Co-Sign Detail Recorded Client Recorded Date Recorded By Document 05/29/18 11:38 [id number] 05/29/18 11:39 [id number] 05/29/18 11:38 PMRU Outcome: Medication Administration Assess Patient Knowledge/Teach Med Yes Education for all Meds Outcome/Goals Patient Independent with Medication Administration at Home Demonstrates Understanding Progression Towards Outcome/Goals Progressing Is Patient Going Home on Lovenox? No Metabolic Status- Improve/Maintain Start: 05/27/18 11:40 Freq: QSHIFT Status: Active Target: Protocol: Activity Type Activity Date Activity User E-Sign Co-Sign Detail Recorded Client Recorded Date Recorded By Document 05/29/18 11:38 [id number] 05/29/18 11:39 [id number] 05/29/18 11:38 PMRU Outcome: Metabolic Status Have Fingersticks Been Ordered Yes Fingerstick Order Frequency AC & HS Outcome/Goals Maintain/ Improve Metabolic Status Demonstrate Knowledge of Prevention/ Treatment of Metabolic Imbalances Progression Toward Outcome/Goals Progressing Mobility- Improve/Maintain Start: 05/27/18 18:12 Freq: DAILY Status: Active Target: Protocol: Activity Type Activity Date Activity User E-Sign Co-Sign Detail Recorded Client Recorded Date Recorded By Document 05/27/18 18:13 [id number] 05/27/18 18:14 [id number] 05/27/18 18:13 PMRU Outcome: Mobility Physical Therapy Evaluation and Yes Treatment Activity OOB with Assistance Yes NWB Yes: LLE Device Yes Assistance Yes Patient to be seen 5x/wk for 60-120 min/ Therex day for: Mobility Training Gait Training W/C Mobility Balance Outcome/Goals Maintain/ Achieve Baseline Mobility Status Improve Mobility Status Demonstrates Proper Use of Assistive Devices Free from Complications of Immobility Bed Mobility Yes: independent Transfers Yes: independent with/without RW Gait x ft Yes: independent 20' with rolling walker. W/C Mobility x ft Yes: independent 150 ' Pain/Comfort- Improve/Maintain Start: 05/27/18 11:40 Freq: QSHIFT Status: Active Target: Protocol: Activity Type Activity Date Activity User E-Sign Co-Sign Detail Recorded Client Recorded Date Recorded By Document 05/29/18 11:38 [id number] 05/29/18 11:39 [id number] 05/29/18 11:38 PMRU Outcome: Pain/Comfort Outcome/Goals Demonstrates Knowledge and Use of Available Comfort Measures Achieves Acceptable Comfort/Pain Level as Determined by Patient/Condit Maintain Comfort Level Allowing Patient to Fully Participate in Rehab Progression Toward Outcome/Goals Progressing Outcome/Goals Met Comment oxycodone given this am Safety- Improve/Maintain Start: 05/27/18 11:40 Freq: QSHIFT Status: Active Target: Protocol: Activity Type Activity Date Activity User E-Sign Co-Sign Detail Recorded Client Recorded Date Recorded By Document 05/29/18 11:38 [id number] [email or web address]-C14 05/29/18 11:39 [id number] 05/29/18 11:38 PMRU Outcome: Safety Outcome/Goals Remain Free of Injury or Harm Cooperates with Safety Measures for Least Restrictive Environment Prevent Falls/ Injury Equipment Needed Progression Toward Outcome/Goals Progressing Outcome/Goals Met Comment patient ringing appropriately at present Skin- Improve/Maintain Start: 05/27/18 11:40 Freq: QSHIFT Status: Active Target: Protocol: Activity Type Activity Date Activity User E-Sign Co-Sign Detail Recorded Client Recorded Date Recorded By Document 05/29/18 11:38 [id number] [email or web address]-C14 05/29/18 11:39 [id number] 05/29/18 11:38 PMRU Outcome: Skin Skin Risk Level Medium Skin Orders Dressing Change Turn/Position q2hr While in Bed Outcome/Goals Free from Decubitus Surgical Incisions Healing Progression Toward Outcome/Goals Progressing Medicine Note: Length of Stay: 11 days Anticipated Discharge Destination: Home Tentative Discharge Date: 06/09/18 Discharged to: home
[2018-05-29] MEDS: Insulin GLARGINE(*) 1 UNITS UNIT SUBCUT SCH (17:34)
[2018-05-29] MEDS: FERRIC CITRATE 210 MG PO SCH (17:46)
[2018-05-29] MEDS: Senna TAB PO PRN (20:18)
--- NOTE | 2018-05-29 20:36 | PN ---
Progress Note Date of Service: 05/29/18 Note: SAM SHERMAN was visited. Therapy notes read and reviewed. He was discussed in interdisciplinary plan of care rounds. He is doing ok. PD is going okay. Labs show a low Na but this has been consistent. Current Medications: Active Medications Generic Name Dose Route Start Last Admin Trade Name Freq PRN Reason Stop Dose Admin Acetaminophen 650 mg 05/27/18 11:06 05/29/18 08:21 Tylenol Tab* PO 650 mg Q6H PRN Administration FEVER/PAIN Apixaban 2.5 mg 05/27/18 21:00 05/29/18 20:14 Eliquis* PO 2.5 mg BID MALAIKA Administration Aspirin 81 mg 05/28/18 09:00 05/29/18 08:15 Aspirin Ec Tab* PO 81 mg DAILY MALAIKA Administration Atenolol 100 mg 05/28/18 09:00 05/29/18 08:16 Tenormin Tab* PO 100 mg DAILY MALAIKA Administration Dextrose 12.5 gm 05/27/18 11:21 D50w Syringe 50 Ml* IV PUSH .FOR FS < 60 - SS PRN FS < 60 Docusate Sodium 100 mg 05/27/18 21:00 05/29/18 20:15 Colace Cap* PO 100 mg BID MALAIKA Administration Folic Acid 1 mg 05/28/18 09:00 05/29/18 08:14 Folvite Tab* PO 1 mg DAILY MALAIKA Administration Gabapentin 200 mg 05/29/18 09:00 05/29/18 20:15 Neurontin Cap(*) PO 200 mg TID MALAIKA Administration Glipizide 10 mg 05/29/18 08:00 05/29/18 17:33 Glucotrol Tab* PO 10 mg 0800,1700 MALAIKA Administration Hydralazine HCl 50 mg 05/27/18 21:00 05/29/18 20:16 Apresoline Tab* PO 50 mg BID MALAIKA Administration Insulin Glargine 70 units 05/27/18 18:00 05/29/18 17:34 Lantus(*) SUBCUT 70 units Q24H MALAIKA Administration Insulin Human Lispro 0 - 15 units 05/27/18 11:30 05/29/18 17:34 Humalog* SUBCUT 6 units ACHS MALAIKA Administration Protocol Lactulose 30 ml 05/27/18 20:24 05/29/18 14:29 Lactulose* PO 30 ml Q6H PRN Administration CONSTIPATION Multi-Ingredient Ointment 1 applic 05/28/18 21:00 05/29/18 08:14 Hydrocerin* TOPICAL 1 applic BID MALAIKA Administration Mupirocin 1 applic 05/28/18 09:00 05/29/18 10:57 Bactroban 2 % Oint* TOPICAL Not Given DAILY MALAIKA Nicotine 10 mg 05/27/18 20:47 05/28/18 18:13 Nicotine Inhaler* INH 10 mg Q2H PRN Administration CRAVING Nicotine 1 patch 05/29/18 08:00 05/29/18 10:59 Nicotine Patch 14 Mg/24 Hr* TRANSDERM Not Given DAILY MALAIKA Pto Nf Med* Ferric 2 tab 05/29/18 17:30 05/29/18 17:46 Citrate 210 Mg ( PO 2 tab Auryxia) Tab TID PC MALAIKA Administration Oxycodone HCl 5 mg 05/27/18 19:32 05/29/18 18:44 Roxycodone Tab* PO 5 mg Q4H PRN Administration PAIN - MODERATE TO SEVERE Oxycodone HCl 2.5 mg 05/28/18 13:17 05/28/18 13:53 Roxycodone Tab* PO 2.5 mg Q4H PRN Administration PAIN - MODERATE TO SEVERE Pharmacy Profile Note 1 note 05/29/18 21:00 Nicotine Patch Removal Note* FOLLOW UP 2100 MALAIKA Rifaximin 550 mg 05/27/18 21:00 05/29/18 20:15 Xifaxan* PO 550 mg BID MALAIKA Administration Senna 2 tab 05/27/18 11:06 05/29/18 20:18 Senokot Tab* PO 2 tab BEDTIME PRN Administration CONSTIPATION Sodium Bicarbonate 650 mg 05/27/18 14:00 05/29/18 20:15 Sodium Bicarbonate (Antacid)* PO 650 mg TID MALAIKA Administration Vital Signs: Vital Signs Temp Pulse Resp BP Pulse Ox 98.5 F 77 18 147/70 99 05/29/18 16:23 05/29/18 16:23 05/29/18 20:15 05/29/18 16:23 05/29/18 16:23 Lab Results: Laboratory Results - last 24 hr 05/29/18 05/29/18 05/29/18 07:01 07:01 11:27 WBC 5.0 RBC 2.98 L Hgb 8.9 L Hct 27 L MCV 90 MCH 30 MCHC 33 RDW 16 H Plt Count 99 L MPV 8.2 Neut % (Auto) 66.8 Lymph % (Auto) 9.2 L Brule % (Auto) 18.5 H Eos % (Auto) 4.2 Baso % (Auto) 1.3 Absolute Neuts (auto) 3.3 Absolute Lymphs (auto) 0.5 L Absolute Monos (auto) 0.9 H Absolute Eos (auto) 0.2 Absolute Basos (auto) 0.1 Absolute Nucleated RBC 0 Nucleated RBC % 0 Hem Pathologist Commnt Sodium 127 L Potassium 4.2 Chloride 88 L Carbon Dioxide 23 Anion Gap 16 H BUN 77 H Creatinine 13.96 H Est GFR ( Amer) 4.5 Est GFR (Non-Af Amer) 3.7 BUN/Creatinine Ratio 5.5 L Glucose 164 H POC Glucose (mg/dL) 202 H Calcium 10.0 Total Bilirubin 0.60 AST 23 ALT < 3 L Alkaline Phosphatase 249 H Total Protein 7.3 Albumin 2.9 L Globulin 4.4 H Albumin/Globulin Ratio 0.7 L 05/29/18 05/29/18 16:48 20:15 WBC RBC Hgb Hct MCV MCH MCHC RDW Plt Count MPV Neut % (Auto) Lymph % (Auto) Brule % (Auto) Eos % (Auto) Baso % (Auto) Absolute Neuts (auto) Absolute Lymphs (auto) Absolute Monos (auto) Absolute Eos (auto) Absolute Basos (auto) Absolute Nucleated RBC Nucleated RBC % Hem Pathologist Commnt Sodium Potassium Chloride Carbon Dioxide Anion Gap BUN Creatinine Est GFR ( Amer) Est GFR (Non-Af Amer) BUN/Creatinine Ratio Glucose POC Glucose (mg/dL) 202 H 216 H Calcium Total Bilirubin AST ALT Alkaline Phosphatase Total Protein Albumin Globulin Albumin/Globulin Ratio Exam: GENERAL: alert, oriented LUNGS: Clear HEART: reg rhythm ABDOMEN: PD catheter site clean EXTREMITIES: Stump site clean. NEUROLOGIC: no focal weakness Assessment/Plan: 1. Left BKA: PT/OT. Kristian wrap. 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 Post-op confusion: Limiting opioids. Tramadol is renally cleared so will avoid 3. DM: sugars high but improving. Continue Lantus, glipizide, SSI. glipizide 10 BID 4. ESRD: Peritoneal Dialysis 5. Phantom Pain: Increased Gabapentin to 200 TID. Go slow as renally cleared 6. DPN: Gabapentin 7. DVT Prophylaxis: Eliquis 8. Atrial flutter: Tenormin/ELiquis 9. Advanced DIrectives: Full code 05/29/18 20:36
[2018-05-29] MEDS: Nicotine Patch Removal NOTE FOLLOW UP SCH (21:50)
[2018-05-30] MEDS: oxyCODONE TAB* 5 MG TAB PO PRN ×4 (03:28→17:33)
[2018-05-30] MEDS: glipiZIDE TAB* 5 MG PO SCH ×2 (08:52→17:27)
[2018-05-30] MEDS: FERRIC CITRATE 210 MG PO SCH ×3 (08:52→17:26)
[2018-05-30] MEDS: Insulin LISPRO* 1 UNITS UNIT SUBCUT SCH ×4 (08:52→20:21)
[2018-05-30] MEDS: Apixaban* 2.5 MG TAB PO SCH ×2 (08:53→20:18)
[2018-05-30] MEDS: Aspirin EC TAB* 81 MG TAB.EC PO SCH (08:53)
[2018-05-30] MEDS: Atenolol TAB* 50 MG PO SCH (08:53)
[2018-05-30] MEDS: Docusate CAP* 100 MG PO SCH ×2 (08:54→20:19)
[2018-05-30] MEDS: Folic Acid TAB* 1 MG PO SCH (08:54)
[2018-05-30] MEDS: Gabapentin CAP(*) 100 MG PO SCH ×3 (08:55→20:18)
[2018-05-30] MEDS: hydrALAZINE TAB* 25 MG PO SCH ×2 (08:55→20:19)
[2018-05-30] MEDS: RiFAXimin* 550 MG TAB PO SCH ×2 (08:56→20:19)
[2018-05-30] MEDS: Moisturizing CREAM* 120 GM JAR TOPICAL SCH ×2 (08:56→20:22)
[2018-05-30] MEDS: Sodium Bicarbonate (ANTACID)* 650 MG TAB PO SCH ×3 (08:57→20:18)
[2018-05-30] MEDS: Nicotine PATCH 14 MG/24 HR* PATCH TRANSDERM SCH (08:57)
[2018-05-30] MEDS: Mupirocin 2% OINT* TUBE TOPICAL SCH (09:38)
[2018-05-30] MEDS ORDERED: Castor Oil (Pharmaceutic Aid)* 118 ML BTL PO ONE (14:30)
[2018-05-30] MEDS ORDERED: Epoetin Alfa* 10,000 UNITS/ML VIAL SUBCUT ONE (15:00)
[2018-05-30] MEDS ORDERED: Epoetin Alfa* 3,000 UNITS/ML VIAL SUBCUT ONE (15:00)
[2018-05-30] MEDS ORDERED: Epoetin Alfa* 4,000 UNITS/ML VIAL SUBCUT ONE (15:00)
[2018-05-30] MEDS: Insulin GLARGINE(*) 1 UNITS UNIT SUBCUT SCH (17:28)
--- NOTE | 2018-05-30 18:10 | PN ---
Progress Note Date of Service: 05/30/18 Note: SAM SHERMAN was visited. Therapy notes read and reviewed. His blood sugars are better today and he is feeling okay. 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 Current Medications: Active Medications Generic Name Dose Route Start Last Admin Trade Name Freq PRN Reason Stop Dose Admin Acetaminophen 650 mg 05/27/18 11:06 05/29/18 08:21 Tylenol Tab* PO 650 mg Q6H PRN Administration FEVER/PAIN Apixaban 2.5 mg 05/27/18 21:00 05/30/18 08:53 Eliquis* PO 2.5 mg BID MALAIKA Administration Aspirin 81 mg 05/28/18 09:00 05/30/18 08:53 Aspirin Ec Tab* PO 81 mg DAILY MALAIKA Administration Atenolol 100 mg 05/28/18 09:00 05/30/18 08:53 Tenormin Tab* PO 100 mg DAILY MALAIKA Administration Dextrose 12.5 gm 05/27/18 11:21 D50w Syringe 50 Ml* IV PUSH .FOR FS < 60 - SS PRN FS < 60 Docusate Sodium 100 mg 05/27/18 21:00 05/30/18 08:54 Colace Cap* PO 100 mg BID MALAIKA Administration Folic Acid 1 mg 05/28/18 09:00 05/30/18 08:54 Folvite Tab* PO 1 mg DAILY MALAIKA Administration Gabapentin 200 mg 05/29/18 09:00 05/30/18 13:20 Neurontin Cap(*) PO 200 mg TID MALAIKA Administration Glipizide 10 mg 05/29/18 08:00 05/30/18 17:27 Glucotrol Tab* PO 10 mg 0800,1700 MALAIKA Administration Hydralazine HCl 50 mg 05/27/18 21:00 05/30/18 08:55 Apresoline Tab* PO 50 mg BID MALAIKA Administration Insulin Glargine 70 units 05/27/18 18:00 05/30/18 17:28 Lantus(*) SUBCUT 70 units Q24H MALAIKA Administration Insulin Human Lispro 0 - 15 units 05/27/18 11:30 05/30/18 17:28 Humalog* SUBCUT 3 units ACHS MALAIKA Administration Protocol Lactulose 30 ml 05/27/18 20:24 05/30/18 09:02 Lactulose* PO 30 ml Q6H PRN Administration CONSTIPATION Multi-Ingredient Ointment 1 applic 05/28/18 21:00 05/30/18 08:56 Hydrocerin* TOPICAL 1 applic BID MALAIKA Administration Mupirocin 1 applic 05/28/18 09:00 05/30/18 09:38 Bactroban 2 % Oint* TOPICAL Not Given DAILY MALAIKA Nicotine 10 mg 05/27/18 20:47 05/28/18 18:13 Nicotine Inhaler* INH 10 mg Q2H PRN Administration CRAVING Nicotine 1 patch 05/29/18 08:00 05/30/18 08:57 Nicotine Patch 14 Mg/24 Hr* TRANSDERM Not Given DAILY MALAIKA Pto Nf Med* Ferric 2 tab 05/29/18 17:30 05/30/18 17:26 Citrate 210 Mg ( PO 2 tab Auryxia) Tab TID PC MALAIKA Administration Oxycodone HCl 5 mg 05/27/18 19:32 05/30/18 17:33 Roxycodone Tab* PO 5 mg Q4H PRN Administration PAIN - MODERATE TO SEVERE Oxycodone HCl 2.5 mg 05/28/18 13:17 05/28/18 13:53 Roxycodone Tab* PO 2.5 mg Q4H PRN Administration PAIN - MODERATE TO SEVERE Pharmacy Profile Note 1 note 05/29/18 21:00 05/29/18 21:50 Nicotine Patch Removal Note* FOLLOW UP 1 note 2100 MALAIKA Administration Rifaximin 550 mg 05/27/18 21:00 05/30/18 08:56 Xifaxan* PO 550 mg BID MALAIKA Administration Senna 2 tab 05/27/18 11:06 05/29/18 20:18 Senokot Tab* PO 2 tab BEDTIME PRN Administration CONSTIPATION Sodium Bicarbonate 650 mg 05/27/18 14:00 05/30/18 13:20 Sodium Bicarbonate (Antacid)* PO 650 mg TID MALAIKA Administration Vital Signs: Vital Signs Temp Pulse Resp BP Pulse Ox 97.9 F 71 20 129/74 97 05/30/18 15:50 05/30/18 15:50 05/30/18 17:33 05/30/18 15:50 05/30/18 15:50 Lab Results: Laboratory Results - last 24 hr 05/29/18 05/30/18 05/30/18 20:15 08:12 12:29 POC Glucose (mg/dL) 216 H 170 H 162 H 05/30/18 16:48 POC Glucose (mg/dL) 170 H Exam: GENERAL: alert, oriented LUNGS: Clear HEART: reg rhythm ABDOMEN: PD catheter site clean EXTREMITIES: Stump site clean. NEUROLOGIC: no focal weakness Assessment/Plan: 1. Left BKA: PT/OT. Kristian wrap. 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 Post-op confusion: Limiting opioids. Tramadol is renally cleared so will avoid 3. DM: sugars high but improving. Continue Lantus, glipizide, SSI. glipizide 10 BID 4. ESRD: Peritoneal Dialysis 5. Phantom Pain: Increased Gabapentin to 200 TID. Go slow as renally cleared 6. DPN: Gabapentin 7. DVT Prophylaxis: Eliquis 8. Atrial flutter: Tenormin/ELiquis 9. Advanced DIrectives: Full code 05/30/18 18:10
[2018-05-30] MEDS: Nicotine Patch Removal NOTE FOLLOW UP SCH (20:20)
[2018-05-30] MEDS: Acetaminophen TAB* 325 MG PO PRN (20:24)
[2018-05-31] MEDS: oxyCODONE TAB* 5 MG TAB PO PRN ×6 (00:19→23:37)
[2018-05-31] MEDS: Insulin LISPRO* 1 UNITS UNIT SUBCUT SCH ×4 (08:30→20:50)
[2018-05-31] MEDS: glipiZIDE TAB* 5 MG PO SCH ×2 (08:31→18:24)
[2018-05-31] MEDS: FERRIC CITRATE 210 MG PO SCH ×3 (08:31→18:24)
[2018-05-31] MEDS: Docusate CAP* 100 MG PO SCH ×2 (08:32→20:51)
[2018-05-31] MEDS: Aspirin EC TAB* 81 MG TAB.EC PO SCH (08:32)
[2018-05-31] MEDS: Apixaban* 2.5 MG TAB PO SCH ×2 (08:32→20:52)
[2018-05-31] MEDS: Atenolol TAB* 50 MG PO SCH (08:32)
[2018-05-31] MEDS: Gabapentin CAP(*) 100 MG PO SCH ×3 (08:33→20:51)
[2018-05-31] MEDS: Folic Acid TAB* 1 MG PO SCH (08:33)
[2018-05-31] MEDS: hydrALAZINE TAB* 25 MG PO SCH ×2 (08:34→20:52)
[2018-05-31] MEDS: Sodium Bicarbonate (ANTACID)* 650 MG TAB PO SCH ×3 (08:35→21:53)
[2018-05-31] MEDS: RiFAXimin* 550 MG TAB PO SCH ×2 (08:35→20:52)
[2018-05-31] MEDS: Moisturizing CREAM* 120 GM JAR TOPICAL SCH ×2 (09:00→20:50)
[2018-05-31] MEDS: Mupirocin 2% OINT* TUBE TOPICAL SCH (12:11)
[2018-05-31] MEDS: Nicotine PATCH 14 MG/24 HR* PATCH TRANSDERM SCH (12:14)
[2018-05-31] MEDS: Acetaminophen TAB* 325 MG PO PRN (16:33)
--- NOTE | 2018-05-31 16:40 | PN ---
Progress Note Date of Service: 05/31/18 Note: SAM SHERMAN was visited. Nursing notes read and reviewed. He has a lot of pain in his stump. He got a little confused post-op so we cut his oxycodone to 5 mg. Will try 10 mg and monitor. Current Medications: Active Medications Generic Name Dose Route Start Last Admin Trade Name Freq PRN Reason Stop Dose Admin Acetaminophen 650 mg 05/27/18 11:06 05/31/18 16:33 Tylenol Tab* PO 650 mg Q6H PRN Administration FEVER/PAIN Apixaban 2.5 mg 05/27/18 21:00 05/31/18 08:32 Eliquis* PO 2.5 mg BID MALAIKA Administration Aspirin 81 mg 05/28/18 09:00 05/31/18 08:32 Aspirin Ec Tab* PO 81 mg DAILY MALAIKA Administration Atenolol 100 mg 05/28/18 09:00 05/31/18 08:32 Tenormin Tab* PO 100 mg DAILY MALAIKA Administration Dextrose 12.5 gm 05/27/18 11:21 D50w Syringe 50 Ml* IV PUSH .FOR FS < 60 - SS PRN FS < 60 Docusate Sodium 100 mg 05/27/18 21:00 05/31/18 08:32 Colace Cap* PO 100 mg BID MALAIKA Administration Folic Acid 1 mg 05/28/18 09:00 05/31/18 08:33 Folvite Tab* PO 1 mg DAILY MALAIKA Administration Gabapentin 200 mg 05/29/18 09:00 05/31/18 14:08 Neurontin Cap(*) PO 200 mg TID MALAIKA Administration Glipizide 10 mg 05/29/18 08:00 05/31/18 08:31 Glucotrol Tab* PO 10 mg 0800,1700 MALAIKA Administration Hydralazine HCl 50 mg 05/27/18 21:00 05/31/18 08:34 Apresoline Tab* PO 50 mg BID MALAIKA Administration Insulin Glargine 70 units 05/27/18 18:00 05/30/18 17:28 Lantus(*) SUBCUT 70 units Q24H MALAIKA Administration Insulin Human Lispro 0 - 15 units 05/27/18 11:30 05/31/18 14:22 Humalog* SUBCUT 3 units ACHS MALAIKA Administration Protocol Lactulose 30 ml 05/27/18 20:24 05/30/18 09:02 Lactulose* PO 30 ml Q6H PRN Administration CONSTIPATION Multi-Ingredient Ointment 1 applic 05/28/18 21:00 05/31/18 09:00 Hydrocerin* TOPICAL 1 applic BID MALAIKA Administration Mupirocin 1 applic 05/28/18 09:00 05/31/18 12:11 Bactroban 2 % Oint* TOPICAL Not Given DAILY MALAIKA Nicotine 10 mg 05/27/18 20:47 05/28/18 18:13 Nicotine Inhaler* INH 10 mg Q2H PRN Administration CRAVING Nicotine 1 patch 05/29/18 08:00 05/31/18 12:14 Nicotine Patch 14 Mg/24 Hr* TRANSDERM Not Given DAILY MALAIKA Pto Nf Med* Ferric 2 tab 05/29/18 17:30 05/31/18 14:22 Citrate 210 Mg ( PO 2 tab Auryxia) Tab TID PC MALAIKA Administration Oxycodone HCl 5 mg 05/27/18 19:32 05/31/18 14:07 Roxycodone Tab* PO 5 mg Q4H PRN Administration PAIN - MODERATE TO SEVERE Oxycodone HCl 2.5 mg 05/28/18 13:17 05/28/18 13:53 Roxycodone Tab* PO 2.5 mg Q4H PRN Administration PAIN - MODERATE TO SEVERE Pharmacy Profile Note 1 note 05/29/18 21:00 05/30/18 20:20 Nicotine Patch Removal Note* FOLLOW UP Not Given 2[facility] Rifaximin 550 mg 05/27/18 21:00 05/31/18 08:35 Xifaxan* PO 550 mg BID MALAIKA Administration Senna 2 tab 05/27/18 11:06 05/29/18 20:18 Senokot Tab* PO 2 tab BEDTIME PRN Administration CONSTIPATION Sodium Bicarbonate 650 mg 05/27/18 14:00 05/31/18 14:23 Sodium Bicarbonate (Antacid)* PO 650 mg TID MALAIKA Administration Vital Signs: Vital Signs Temp Pulse Resp BP Pulse Ox 97.5 F 65 18 133/70 100 05/31/18 15:21 05/31/18 15:21 05/31/18 15:21 05/31/18 15:21 05/31/18 15:21 Lab Results: Laboratory Results - last 24 hr 05/30/18 05/30/18 05/31/18 16:48 20:17 07:54 POC Glucose (mg/dL) 170 H 127 H 131 H 05/31/18 12:35 POC Glucose (mg/dL) 155 H Exam: GENERAL: alert, oriented LUNGS: Clear HEART: reg rhythm ABDOMEN: PD catheter site clean EXTREMITIES: Stump site clean. NEUROLOGIC: no focal weakness Assessment/Plan: 1. Left BKA: PT/OT. Kristian wrap. Hopefully medical assistant ob gyn tomorrow 2. DM: sugars improving. Continue Lantus, glipizide, SSI. glipizide 10 BID 3. ESRD: Peritoneal Dialysis 4. Phantom Pain: Increased Gabapentin to 200 TID. Go slow as renally cleared 5. DPN: Gabapentin 6. DVT Prophylaxis: Eliquis 7. Atrial flutter: Tenormin/Eliquis 8. Advanced DIrectives: Full code 05/31/18 16:40
[2018-05-31] MEDS: Insulin GLARGINE(*) 1 UNITS UNIT SUBCUT SCH (18:23)
[2018-05-31] MEDS: Nicotine Patch Removal NOTE FOLLOW UP SCH (21:38)
[2018-06-01] MEDS: FERRIC CITRATE 210 MG PO SCH ×3 (07:53→17:08)
[2018-06-01] MEDS: Docusate CAP* 100 MG PO SCH ×2 (07:54→20:42)
[2018-06-01] MEDS: Gabapentin CAP(*) 100 MG PO SCH ×3 (07:54→20:38)
[2018-06-01] MEDS: glipiZIDE TAB* 5 MG PO SCH ×2 (07:54→17:08)
[2018-06-01] MEDS: oxyCODONE TAB* 5 MG TAB PO PRN ×3 (07:54→17:06)
[2018-06-01] MEDS: Folic Acid TAB* 1 MG PO SCH (07:55)
[2018-06-01] MEDS: Aspirin EC TAB* 81 MG TAB.EC PO SCH (07:55)
[2018-06-01] MEDS: Atenolol TAB* 50 MG PO SCH (07:55)
[2018-06-01] MEDS: hydrALAZINE TAB* 25 MG PO SCH ×2 (07:56→20:41)
[2018-06-01] MEDS: Apixaban* 2.5 MG TAB PO SCH ×2 (07:56→20:41)
[2018-06-01] MEDS: Nicotine PATCH 14 MG/24 HR* PATCH TRANSDERM SCH (07:57)
[2018-06-01] MEDS: Sodium Bicarbonate (ANTACID)* 650 MG TAB PO SCH ×3 (07:57→20:47)
[2018-06-01] MEDS: RiFAXimin* 550 MG TAB PO SCH ×2 (07:57→20:47)
[2018-06-01] MEDS: Insulin LISPRO* 1 UNITS UNIT SUBCUT SCH ×4 (08:50→20:37)
[2018-06-01] MEDS: Mupirocin 2% OINT* TUBE TOPICAL SCH (09:09)
[2018-06-01] MEDS: Moisturizing CREAM* 120 GM JAR TOPICAL SCH ×2 (09:38→20:44)
[2018-06-01] MEDS: Insulin GLARGINE(*) 1 UNITS UNIT SUBCUT SCH (17:28)
--- NOTE | 2018-06-01 19:24 | PN ---
Progress Note Date of Service: 06/01/18 Note: SAM Coyle OSCARTRINITYOTTONIEL was visited. Therapy notes read and reviewed. Current Medications: Active Medications Generic Name Dose Route Start Last Admin Trade Name Bucky PRN Reason Stop Dose Admin Acetaminophen 650 mg 05/27/18 11:06 05/31/18 16:33 Tylenol Tab* PO 650 mg Q6H PRN Administration FEVER/PAIN Apixaban 2.5 mg 05/27/18 21:00 06/01/18 07:56 Eliquis* PO 2.5 mg BID MALAIKA Administration Aspirin 81 mg 05/28/18 09:00 06/01/18 07:55 Aspirin Ec Tab* PO 81 mg DAILY MALAIKA Administration Atenolol 100 mg 05/28/18 09:00 06/01/18 07:55 Tenormin Tab* PO 100 mg DAILY MALAIKA Administration Dextrose 12.5 gm 05/27/18 11:21 D50w Syringe 50 Ml* IV PUSH .FOR FS < 60 - SS PRN FS < 60 Docusate Sodium 100 mg 05/27/18 21:00 06/01/18 07:54 Colace Cap* PO 100 mg BID MALAIKA Administration Folic Acid 1 mg 05/28/18 09:00 06/01/18 07:55 Folvite Tab* PO 1 mg DAILY MALAIKA Administration Gabapentin 200 mg 05/29/18 09:00 06/01/18 14:12 Neurontin Cap(*) PO 200 mg TID MALAIKA Administration Glipizide 10 mg 05/29/18 08:00 06/01/18 17:08 Glucotrol Tab* PO 10 mg 0800,1700 MALAIKA Administration Hydralazine HCl 50 mg 05/27/18 21:00 06/01/18 07:56 Apresoline Tab* PO 50 mg BID MALAIKA Administration Insulin Glargine 70 units 05/27/18 18:00 06/01/18 17:28 Lantus(*) SUBCUT 70 units Q24H MALAIKA Administration Insulin Human Lispro 0 - 15 units 05/27/18 11:30 06/01/18 17:05 Humalog* SUBCUT 3 units ACHS MALAIKA Administration Protocol Lactulose 30 ml 05/27/18 20:24 05/30/18 09:02 Lactulose* PO 30 ml Q6H PRN Administration CONSTIPATION Multi-Ingredient Ointment 1 applic 05/28/18 21:00 06/01/18 09:38 Hydrocerin* TOPICAL 1 applic BID MALAIKA Administration Mupirocin 1 applic 05/28/18 09:00 06/01/18 09:09 Bactroban 2 % Oint* TOPICAL Not Given DAILY MALAIKA Nicotine 10 mg 05/27/18 20:47 05/28/18 18:13 Nicotine Inhaler* INH 10 mg Q2H PRN Administration CRAVING Nicotine 1 patch 05/29/18 08:00 06/01/18 07:57 Nicotine Patch 14 Mg/24 Hr* TRANSDERM Not Given DAILY MALAIKA Pto Nf Med* Ferric 2 tab 05/29/18 17:30 06/01/18 17:08 Citrate 210 Mg ( PO 2 tab Auryxia) Tab TID PC MALAIKA Administration Oxycodone HCl 5 mg 05/27/18 19:32 05/31/18 14:07 Roxycodone Tab* PO 5 mg Q4H PRN Administration PAIN - MODERATE TO SEVERE Oxycodone HCl 10 mg 05/31/18 17:01 06/01/18 17:06 Roxycodone Tab* PO 10 mg Q4H PRN Administration PAIN - SEVERE Pharmacy Profile Note 1 note 05/29/18 21:00 05/31/18 21:38 Nicotine Patch Removal Note* FOLLOW UP Not Given 2100 [facility] Rifaximin 550 mg 05/27/18 21:00 06/01/18 07:57 Xifaxan* PO 550 mg BID MALAIKA Administration Senna 2 tab 05/27/18 11:06 05/29/18 20:18 Senokot Tab* PO 2 tab BEDTIME PRN Administration CONSTIPATION Sodium Bicarbonate 650 mg 05/27/18 14:00 06/01/18 14:11 Sodium Bicarbonate (Antacid)* PO 650 mg TID MALAIKA Administration Vital Signs: Vital Signs Temp Pulse Resp BP Pulse Ox 98.1 F 66 20 132/65 100 06/01/18 15:55 06/01/18 15:55 06/01/18 18:21 06/01/18 15:55 06/01/18 15:55 Lab Results: Laboratory Results - last 24 hr 05/31/18 05/31/18 06/01/18 16:56 20:20 07:36 POC Glucose (mg/dL) 194 H 241 H 147 H 06/01/18 11:57 POC Glucose (mg/dL) 158 H Exam: GENERAL: alert, oriented LUNGS: Clear HEART: reg rhythm ABDOMEN: PD catheter site clean EXTREMITIES: Stump site clean. NEUROLOGIC: no focal weakness Assessment/Plan: 1. Left BKA: PT/OT. Kristian wrap. 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 DM: sugars improving. Continue Lantus, glipizide, SSI. glipizide 10 BID 3. ESRD: Peritoneal Dialysis 4. Phantom Pain: Increased Gabapentin to 200 TID. Go slow as renally cleared 5. DPN: Gabapentin 6. DVT Prophylaxis: Eliquis 7. Atrial flutter: Tenormin/Eliquis 8. Advanced DIrectives: Full code 06/01/18 19:24
[2018-06-01] MEDS: Acetaminophen TAB* 325 MG PO PRN (19:34)
[2018-06-01] MEDS: Nicotine Patch Removal NOTE FOLLOW UP SCH (20:43)
[2018-06-02] MEDS: oxyCODONE TAB* 5 MG TAB PO PRN ×4 (01:06→23:52)
[2018-06-02] MEDS: Apixaban* 2.5 MG TAB PO SCH ×2 (08:24→20:46)
[2018-06-02] MEDS: FERRIC CITRATE 210 MG PO SCH ×3 (08:24→16:51)
[2018-06-02] MEDS: glipiZIDE TAB* 5 MG PO SCH ×2 (08:24→16:16)
[2018-06-02] MEDS: Aspirin EC TAB* 81 MG TAB.EC PO SCH (08:24)
[2018-06-02] MEDS: Atenolol TAB* 50 MG PO SCH (08:25)
[2018-06-02] MEDS: Docusate CAP* 100 MG PO SCH ×2 (08:25→20:45)
[2018-06-02] MEDS: Gabapentin CAP(*) 100 MG PO SCH ×3 (08:26→20:45)
[2018-06-02] MEDS: Folic Acid TAB* 1 MG PO SCH (08:26)
[2018-06-02] MEDS: hydrALAZINE TAB* 25 MG PO SCH ×2 (08:27→20:46)
[2018-06-02] MEDS: RiFAXimin* 550 MG TAB PO SCH ×2 (08:27→20:47)
[2018-06-02] MEDS: Sodium Bicarbonate (ANTACID)* 650 MG TAB PO SCH ×3 (08:27→20:47)
[2018-06-02] MEDS: Nicotine PATCH 14 MG/24 HR* PATCH TRANSDERM SCH (08:27)
[2018-06-02] MEDS: Mupirocin 2% OINT* TUBE TOPICAL SCH (08:28)
[2018-06-02] MEDS: Moisturizing CREAM* 120 GM JAR TOPICAL SCH ×2 (08:30→20:48)
[2018-06-02] MEDS: Insulin LISPRO* 1 UNITS UNIT SUBCUT SCH ×4 (09:26→20:49)
--- NOTE | 2018-06-02 12:48 | PMRUTEAM ---
PMRU: Team Meeting Current Status: Nursing: Current Status Skin Deviations [Chest, arms] Other Skin Deviations [R back] Wound Skin Deviations [Left Wound Posterior Shoulder] Skin Deviations [Left Abdomen] Other Skin Deviations [Bilateral Arm Abrasion ] Skin Deviations [Right Lower Abrasion Anterior Leg] Skin Deviations [Left Leg] Incision Skin Deviation Description [ dry skin - scarrered scabs, pt picks at them. Pt Chest, arms] declined lotion. Skin Deviation Description [R boil back] Skin Deviation Description [ Boil, see note Left Posterior Shoulder] Skin Deviation Description [ peritoneal dialysis catheter insertion site Left Abdomen] Skin Deviation Description [ numerous scattered; lotion applied Bilateral Arm] Skin Deviation Description [ stump Left Leg] Physical Therapy: Current Status Bed Mobility Assistance Not Tested Transfer Moblility Assistance Supervision Transfer/Bed Mobility Rolling Walker Recommended Devices Ambulation Assistance Supervision Ambulation Assistive Devices Railings Number of Feet Patient 5' x 3 forward and retro in // bars. Ambulated Stairs Assistance Not Tested Stairs Recommended Devices Two Rails Number of Stairs 1 Curb Not Tested Manual Wheelchair Control/ Bilateral UE's Technique Wheelchair Propulsion Ability Standby Assistance Wheelchair Distance (ft) 150' Objective Comments patient needs occasional cuing for safety and procedure, but continues to demosntrate good overall ability in completion of WC moobiltiy. Occupational Therapy: Current Status Upper Body Dressing Independent Lower Body Dressing Supervision Bathing Min Assist Toileting Contact Guard Assist Toilet Transfer Contact Guard Assist Shower Transfer Contact Guard Assist Eating Independent Rec Therapy: Current Status Summary of Assessment and RT assessment complete and pt. is aware of RT Clinical Impression services. Pt. has been engaged in leisure sessions (cards) and word search puzzles independently. Pt. also visits with family in the afternoons. Treatment Goals Pt. will engage in leisure activities while on the unit. Treatment Plan Provide RT services and encourage involvement. Social Work: Current Status Discharge Plan return home with home care svs and family support Potential for Family Training pt's partner is involved and supportive Anticipated Discharge Home Destination Discharge With home care svs and family support Goals: Physical Therapy: Initial Goals Bed Mobility Assistance Independent Transfer Mobility Assistance Independent Transfer/Bed Mobility None,Rolling Walker Recommended Devices Ambulation Independent Ambulation Recommended Devices Rolling Walker Ambulation Distance 20 Wheelchair Propulsion Ability Independent Wheelchair Distance (ft) 150 Physical Therapy: Updated Goals Transfer/Bed Mobility Rolling Walker Recommended Devices Occupational Therapy: Initial Goals Goals to be Completed in (Days 10-14 ) Upper Body Bathing Routine Independent Lower Body Bathing Routine Modified Independent with Upper Body Dressing Routine Independent Lower Body Dressing Routine Modified Independent with Toilet Hygeine and Clothing Modified Independent with Management Routine Toilet Transfer Routine Modified Independent with Tub Transfer Routine Independent Functional Transfers for ADL Modified Independent with Grooming Routine Independent Feeding Routine Independent Nutrition: Goals Intervention Goals 1. Recommend adding consistent carbohydrate to diet order 2. Adequate PO intake to maintain lean body mass and hydration w/o undesired wt loss 3. Intake will promote post-op healing 4. Electrolytes WNL in the setting of ESRD on PD 5. Adequate glycemic control per inpatient parameters (goal: < 180) 6. Maintain regularity of BM w/o constipation or diarrhea 7. Diet education will be provided as indicated Social Work: Goals Discharge Plan return home with home care svs and family support Potential for Family Training pt's partner is involved and supportive Anticipated Discharge Home Destination Discharge With home care svs and family support Care Plan: Care Plan ADL's - Improve/Maintain Start: 05/27/18 15:01 Freq: DAILY Status: Active Target: Protocol: Activity Type Activity Date Activity User E-Sign Co-Sign Detail Recorded Client Recorded Date Recorded By Document 06/01/18 14:27 [id number] [email or web address] 06/01/18 14:27 [id number] 06/01/18 14:27 PMRU Outcome: ADL's/ADL Transfers Orders/Interventions Occupational Therapy Evaluation & Treatment Device No Patient to receive OT 5x/wk for 60-120 Therex min/day Self Care Management Group Therapy UE/LE ADL's with Assist Yes: set-up ADL Transfers with Assist Yes: mod I Toileting: Transfers,Clothing Management Yes: mod I ,Hygeine w/Assist Light Kitchen/Laundry w/Assist No Progression Toward Outcome/Goals Progressing Outcome/Goals Met Pt is nearing achievement of ADL goals except for toileting for a BM given his constipation. Will speak about progress tomorrow during team meeting. Coping/Psych-Improve/Maintain Start: 05/27/18 11:40 Freq: QSHIFT Status: Active Target: Protocol: Activity Type Activity Date Activity User E-Sign Co-Sign Detail Recorded Client Recorded Date Recorded By Document 06/02/18 00:24 [id number] [id number] 06/02/18 00:24 [id number] 06/02/18 00:24 PMRU Outcome: Coping/Psychosocial Coping Outcome/Goals Verbalization of Acceptance of Rehab Admit Verbalization of Sense of Control Over Health Status Willingness to Participate in Treatment Plan and Basic Needs Psychosocial Outcome/Goals Maintain/ Improve Emotional Health Demonstrates Knowledge of Healthy Coping Mechanisms Available Cooperate/ Participate in Plan Progression Toward Outcome/Goals - Progressing Coping Progression Toward Outcome/Goals - Progressing Psychosocial DVT Prophylaxis- Improve/Maintain Start: 05/27/18 11:40 Freq: QSHIFT Status: Active Target: Protocol: Activity Type Activity Date Activity User E-Sign Co-Sign Detail Recorded Client Recorded Date Recorded By Document 06/02/18 00:24 [id number] [email or web address] 06/02/18 00:24 [id number] 06/02/18 00:24 PMRU Outcome: DVT Prophylaxis Outcome/Goals Remains Free of DVT Complies with DVT Prophylaxis /Treatment Demonstrates Knowledge of DVT Prevention/ Treatment Progression Toward Outcome/Goals Progressing Discharge Planning - Improve/Maintain Start: 05/27/18 11:40 Freq: DAILY Status: Active Target: Protocol: Activity Type Activity Date Activity User E-Sign Co-Sign Detail Recorded Client Recorded Date Recorded By Document 06/02/18 00:25 [id number] [email or web address] 06/02/18 00:25 [id number] 06/02/18 00:25 PMRU Outcome: Discharge Planning Update Patient Family No Outcome/Goals Demonstrates Understanding of Discharge Plan Education-Improve/Maintain Start: 05/27/18 11:40 Freq: QSHIFT Status: Active Target: Protocol: Activity Type Activity Date Activity User E-Sign Co-Sign Detail Recorded Client Recorded Date Recorded By Document 06/02/18 00:24 [id number] [email or web address] 06/02/18 00:24 [id number] 06/02/18 00:24 PMRU Outcome: Education Outcome/Goals Encourage Questions Progression Toward Outcome/Goals Progressing /GI-Improve/Maintain Start: 05/27/18 11:40 Freq: QSHIFT Status: Active Target: Protocol: Activity Type Activity Date Activity User E-Sign Co-Sign Detail Recorded Client Recorded Date Recorded By Document 06/02/18 00:24 [id number] [email or web address] 06/02/18 00:24 [id number] 06/02/18 00:24 PMRU Outcome: Genitourinary/ Gastrointestinal Genitourinary- Outcome/Goals Maintain/ Achieve Adequate Urinary Output Gastrointestinal-Outcome/Goals Maintain/ Achieve Bowel Regularity in Accordance with Pt's Baseline Prevent Constipation Laxatives as Ordered Progression Toward Outcome/Goals - Progressing Progression Toward Outcome/Goals - GI Progressing Outcome/Goals Met Comment peritoneal dialysis Medication Administration Start: 05/27/18 11:40 Freq: QSHIFT Status: Active Target: Protocol: Activity Type Activity Date Activity User E-Sign Co-Sign Detail Recorded Client Recorded Date Recorded By Document 06/02/18 00:24 [id number] [email or web address] 06/02/18 00:24 [id number] 06/02/18 00:24 PMRU Outcome: Medication Administration Assess Patient Knowledge/Teach Med Yes Education for all Meds Outcome/Goals Patient Independent with Medication Administration at Home Demonstrates Understanding Progression Towards Outcome/Goals Progressing Is Patient Going Home on Lovenox? No Metabolic Status- Improve/Maintain Start: 05/27/18 11:40 Freq: QSHIFT Status: Active Target: Protocol: Activity Type Activity Date Activity User E-Sign Co-Sign Detail Recorded Client Recorded Date Recorded By Document 06/02/18 00:24 [id number] [email or web address] 06/02/18 00:24 [id number] 06/02/18 00:24 PMRU Outcome: Metabolic Status Have Fingersticks Been Ordered Yes Fingerstick Order Frequency AC & HS Outcome/Goals Maintain/ Improve Metabolic Status Demonstrate Knowledge of Prevention/ Treatment of Metabolic Imbalances Progression Toward Outcome/Goals Progressing Mobility- Improve/Maintain Start: 05/27/18 18:12 Freq: DAILY Status: Active Target: Protocol: Activity Type Activity Date Activity User E-Sign Co-Sign Detail Recorded Client Recorded Date Recorded By Document 05/27/18 18:13 [id number] [email or web address] 05/27/18 18:14 [id number] 05/27/18 18:13 PMRU Outcome: Mobility Physical Therapy Evaluation and Yes Treatment Activity OOB with Assistance Yes NWB Yes: LLE Device Yes Assistance Yes Patient to be seen 5x/wk for 60-120 min/ Therex day for: Mobility Training Gait Training W/C Mobility Balance Outcome/Goals Maintain/ Achieve Baseline Mobility Status Improve Mobility Status Demonstrates Proper Use of Assistive Devices Free from Complications of Immobility Bed Mobility Yes: independent Transfers Yes: independent with/without RW Gait x ft Yes: independent 20' with rolling walker. W/C Mobility x ft Yes: independent 150 ' Pain/Comfort- Improve/Maintain Start: 05/27/18 11:40 Freq: QSHIFT Status: Active Target: Protocol: Activity Type Activity Date Activity User E-Sign Co-Sign Detail Recorded Client Recorded Date Recorded By Document 06/02/18 00:24 [id number] [email or web address] 06/02/18 00:24 [id number] 06/02/18 00:24 PMRU Outcome: Pain/Comfort Outcome/Goals Demonstrates Knowledge and Use of Available Comfort Measures Achieves Acceptable Comfort/Pain Level as Determined by Patient/Condit Maintain Comfort Level Allowing Patient to Fully Participate in Rehab Progression Toward Outcome/Goals Progressing Outcome/Goals Met Comment pt resting at this time Safety- Improve/Maintain Start: 05/27/18 11:40 Freq: QSHIFT Status: Active Target: Protocol: Activity Type Activity Date Activity User E-Sign Co-Sign Detail Recorded Client Recorded Date Recorded By Document 06/02/18 00:24 [id number] [email or web address] 06/02/18 00:24 [id number] 06/02/18 00:24 PMRU Outcome: Safety Outcome/Goals Remain Free of Injury or Harm Cooperates with Safety Measures for Least Restrictive Environment Prevent Falls/ Injury Equipment Needed Progression Toward Outcome/Goals Progressing Outcome/Goals Met Comment BA armed Skin- Improve/Maintain Start: 05/27/18 11:40 Freq: QSHIFT Status: Active Target: Protocol: Activity Type Activity Date Activity User E-Sign Co-Sign Detail Recorded Client Recorded Date Recorded By Document 06/02/18 00:24 [id number] [email or web address] 06/02/18 00:24 [id number] 06/02/18 00:24 PMRU Outcome: Skin Skin Risk Level Medium Skin Orders Dressing Change Outcome/Goals Free from Decubitus Surgical Incisions Healing Progression Toward Outcome/Goals Progressing Medicine Note: Length of Stay: 1 week Anticipated Discharge Destination: Home Tentative Discharge Date: 06/09/18 Discharged to: home
--- NOTE | 2018-06-02 18:05 | PN ---
Progress Note Date of Service: 06/02/18 Note: SAM SHERMAN was visited. Therapy notes read and reviewed. He was discussed in interdisciplinary team rounds. He is doing well. Blood sugars improved. 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 Current Medications: Active Medications Generic Name Dose Route Start Last Admin Trade Name Freq PRN Reason Stop Dose Admin Acetaminophen 650 mg 05/27/18 11:06 06/01/18 19:34 Tylenol Tab* PO 650 mg Q6H PRN Administration FEVER/PAIN Apixaban 2.5 mg 05/27/18 21:00 06/02/18 08:24 Eliquis* PO 2.5 mg BID MALAIKA Administration Aspirin 81 mg 05/28/18 09:00 06/02/18 08:24 Aspirin Ec Tab* PO 81 mg DAILY MALAIKA Administration Atenolol 100 mg 05/28/18 09:00 06/02/18 08:25 Tenormin Tab* PO 100 mg DAILY MALAIKA Administration Dextrose 12.5 gm 05/27/18 11:21 D50w Syringe 50 Ml* IV PUSH .FOR FS < 60 - SS PRN FS < 60 Docusate Sodium 100 mg 05/27/18 21:00 06/02/18 08:25 Colace Cap* PO 100 mg BID MALAIKA Administration Folic Acid 1 mg 05/28/18 09:00 06/02/18 08:26 Folvite Tab* PO 1 mg DAILY MALAIKA Administration Gabapentin 200 mg 05/29/18 09:00 06/02/18 13:11 Neurontin Cap(*) PO 200 mg TID MALAIKA Administration Glipizide 10 mg 05/29/18 08:00 06/02/18 16:16 Glucotrol Tab* PO 10 mg 0800,1700 MALAIKA Administration Hydralazine HCl 50 mg 05/27/18 21:00 06/02/18 08:27 Apresoline Tab* PO 50 mg BID MALAIKA Administration Insulin Glargine 70 units 05/27/18 18:00 06/01/18 17:28 Lantus(*) SUBCUT 70 units Q24H MALAIKA Administration Insulin Human Lispro 0 - 15 units 05/27/18 11:30 06/02/18 16:14 Humalog* SUBCUT 3 units ACHS MALAIKA Administration Protocol Lactulose 30 ml 05/27/18 20:24 05/30/18 09:02 Lactulose* PO 30 ml Q6H PRN Administration CONSTIPATION Multi-Ingredient Ointment 1 applic 05/28/18 21:00 06/02/18 08:30 Hydrocerin* TOPICAL 1 applic BID MALAIKA Administration Mupirocin 1 applic 05/28/18 09:00 06/02/18 08:28 Bactroban 2 % Oint* TOPICAL Not Given DAILY MALAIKA Nicotine 10 mg 05/27/18 20:47 05/28/18 18:13 Nicotine Inhaler* INH 10 mg Q2H PRN Administration CRAVING Nicotine 1 patch 05/29/18 08:00 06/02/18 08:27 Nicotine Patch 14 Mg/24 Hr* TRANSDERM Not Given DAILY MALAIKA Pto Nf Med* Ferric 2 tab 05/29/18 17:30 06/02/18 16:51 Citrate 210 Mg ( PO 2 tab Auryxia) Tab TID PC MALAIKA Administration Oxycodone HCl 5 mg 05/27/18 19:32 06/02/18 09:27 Roxycodone Tab* PO 5 mg Q4H PRN Administration PAIN - MODERATE TO SEVERE Oxycodone HCl 10 mg 05/31/18 17:01 06/02/18 15:58 Roxycodone Tab* PO 10 mg Q4H PRN Administration PAIN - SEVERE Pharmacy Profile Note 1 note 05/29/18 21:00 06/01/18 20:43 Nicotine Patch Removal Note* FOLLOW UP Not Given [facility] Rifaximin 550 mg 05/27/18 21:00 06/02/18 08:27 Xifaxan* PO 550 mg BID MALAIKA Administration Senna 2 tab 05/27/18 11:06 05/29/18 20:18 Senokot Tab* PO 2 tab BEDTIME PRN Administration CONSTIPATION Sodium Bicarbonate 650 mg 05/27/18 14:00 06/02/18 13:14 Sodium Bicarbonate (Antacid)* PO 650 mg TID MALAIKA Administration Vital Signs: Vital Signs Temp Pulse Resp BP Pulse Ox 97.8 F 70 22 133/76 99 06/02/18 15:49 06/02/18 15:49 06/02/18 15:58 06/02/18 15:49 06/02/18 15:49 Lab Results: Laboratory Results - last 24 hr 06/01/18 06/01/18 06/02/18 16:36 20:30 08:11 POC Glucose (mg/dL) 176 H 193 H 171 H 06/02/18 06/02/18 12:04 16:06 POC Glucose (mg/dL) 144 H 163 H Exam: GENERAL: alert, oriented LUNGS: Clear HEART: reg rhythm ABDOMEN: PD catheter site clean EXTREMITIES: Stump site clean. Suture line healing NEUROLOGIC: no focal weakness Assessment/Plan: 1. Left BKA: PT/OT. 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 DM: sugars improving. Continue Lantus, glipizide, SSI. glipizide 10 BID 3. ESRD: Peritoneal Dialysis 4. Phantom Pain: Increased Gabapentin to 200 TID. Go slow as renally cleared 5. DPN: Gabapentin 6. DVT Prophylaxis: Eliquis 7. Atrial flutter: Tenormin/Eliquis 8. Advanced DIrectives: Full code 06/02/18 18:06
[2018-06-02] MEDS: Insulin GLARGINE(*) 1 UNITS UNIT SUBCUT SCH (18:15)
[2018-06-02] MEDS: Acetaminophen TAB* 325 MG PO PRN (19:08)
[2018-06-02] MEDS: Nicotine Patch Removal NOTE FOLLOW UP SCH (20:37)
[2018-06-03] MEDS: Nicotine PATCH 14 MG/24 HR* PATCH TRANSDERM SCH (08:30)
[2018-06-03] MEDS: Mupirocin 2% OINT* TUBE TOPICAL SCH (08:37)
[2018-06-03] MEDS: FERRIC CITRATE 210 MG PO SCH ×3 (08:52→17:06)
[2018-06-03] MEDS: glipiZIDE TAB* 5 MG PO SCH ×2 (08:52→17:05)
[2018-06-03] MEDS: Insulin LISPRO* 1 UNITS UNIT SUBCUT SCH ×4 (08:52→20:46)
[2018-06-03] MEDS: Aspirin EC TAB* 81 MG TAB.EC PO SCH (08:53)
[2018-06-03] MEDS: Atenolol TAB* 50 MG PO SCH (08:53)
[2018-06-03] MEDS: Apixaban* 2.5 MG TAB PO SCH ×2 (08:53→20:01)
[2018-06-03] MEDS: Folic Acid TAB* 1 MG PO SCH (08:54)
[2018-06-03] MEDS: Gabapentin CAP(*) 100 MG PO SCH ×3 (08:54→20:01)
[2018-06-03] MEDS: Docusate CAP* 100 MG PO SCH ×2 (08:54→20:04)
[2018-06-03] MEDS: hydrALAZINE TAB* 25 MG PO SCH ×2 (08:54→20:02)
[2018-06-03] MEDS: Sodium Bicarbonate (ANTACID)* 650 MG TAB PO SCH ×3 (08:55→20:01)
[2018-06-03] MEDS: RiFAXimin* 550 MG TAB PO SCH ×2 (08:55→20:01)
[2018-06-03] MEDS: Moisturizing CREAM* 120 GM JAR TOPICAL SCH ×2 (08:55→20:06)
[2018-06-03] MEDS: oxyCODONE TAB* 5 MG TAB PO PRN ×3 (09:00→20:00)
--- NOTE | 2018-06-03 13:17 | PN ---
Progress Note Date of Service: 06/03/18 Note: SAM SHERMAN was visited. Nursing and therapy notes read and reviewed. No chest pain, shortness of breath or abdominal pain. No new concerns. Current Medications: Active Medications Generic Name Dose Route Start Last Admin Trade Name Freq PRN Reason Stop Dose Admin Acetaminophen 650 mg 05/27/18 11:06 06/02/18 19:08 Tylenol Tab* PO 650 mg Q6H PRN Administration FEVER/PAIN Apixaban 2.5 mg 05/27/18 21:00 06/03/18 08:53 Eliquis* PO 2.5 mg BID MALAIKA Administration Aspirin 81 mg 05/28/18 09:00 06/03/18 08:53 Aspirin Ec Tab* PO 81 mg DAILY MALAIKA Administration Atenolol 100 mg 05/28/18 09:00 06/03/18 08:53 Tenormin Tab* PO 100 mg DAILY MALAIKA Administration Dextrose 12.5 gm 05/27/18 11:21 D50w Syringe 50 Ml* IV PUSH .FOR FS < 60 - SS PRN FS < 60 Docusate Sodium 100 mg 05/27/18 21:00 06/03/18 08:54 Colace Cap* PO 100 mg BID MALAIKA Administration Folic Acid 1 mg 05/28/18 09:00 06/03/18 08:54 Folvite Tab* PO 1 mg DAILY MALAIKA Administration Gabapentin 200 mg 05/29/18 09:00 06/03/18 08:54 Neurontin Cap(*) PO 200 mg TID MALAIKA Administration Glipizide 10 mg 05/29/18 08:00 06/03/18 08:52 Glucotrol Tab* PO 10 mg 0800,1700 MALAIKA Administration Hydralazine HCl 50 mg 05/27/18 21:00 06/03/18 08:54 Apresoline Tab* PO 50 mg BID MALAIKA Administration Insulin Glargine 70 units 05/27/18 18:00 06/02/18 18:15 Lantus(*) SUBCUT 70 units Q24H MALAIKA Administration Insulin Human Lispro 0 - 15 units 05/27/18 11:30 06/03/18 12:25 Humalog* SUBCUT 3 units ACHS MALAIKA Administration Protocol Lactulose 30 ml 05/27/18 20:24 05/30/18 09:02 Lactulose* PO 30 ml Q6H PRN Administration CONSTIPATION Multi-Ingredient Ointment 1 applic 05/28/18 21:00 06/03/18 08:55 Hydrocerin* TOPICAL 1 applic BID MALAIKA Administration Mupirocin 1 applic 05/28/18 09:00 06/03/18 08:37 Bactroban 2 % Oint* TOPICAL Not Given DAILY [facility]KA Nicotine 10 mg 05/27/18 20:47 05/28/18 18:13 Nicotine Inhaler* INH 10 mg Q2H PRN Administration CRAVING Nicotine 1 patch 05/29/18 08:00 06/03/18 08:30 Nicotine Patch 14 Mg/24 Hr* TRANSDERM Not Given DAILY [facility] Pto Nf Med* Ferric 2 tab 05/29/18 17:30 06/03/18 12:25 Citrate 210 Mg ( PO 2 tab Auryxia) Tab TID PC MALAIKA Administration Oxycodone HCl 5 mg 05/27/18 19:32 06/02/18 09:27 Roxycodone Tab* PO 5 mg Q4H PRN Administration PAIN - MODERATE TO SEVERE Oxycodone HCl 10 mg 05/31/18 17:01 06/03/18 09:00 Roxycodone Tab* PO 10 mg Q4H PRN Administration PAIN - SEVERE Pharmacy Profile Note 1 note 05/29/18 21:00 06/02/18 20:37 Nicotine Patch Removal Note* FOLLOW UP Not Given [address] [facility] Rifaximin 550 mg 05/27/18 21:00 06/03/18 08:55 Xifaxan* PO 550 mg BID MALAIKA Administration Senna 2 tab 05/27/18 11:06 05/29/18 20:18 Senokot Tab* PO 2 tab BEDTIME PRN Administration CONSTIPATION Sodium Bicarbonate 650 mg 05/27/18 14:00 06/03/18 08:55 Sodium Bicarbonate (Antacid)* PO 650 mg TID MALAIKA Administration Vital Signs: Vital Signs Temp Pulse Resp BP Pulse Ox 98.0 F 65 16 118/58 97 06/03/18 05:39 06/03/18 05:39 06/03/18 11:00 06/03/18 05:39 06/03/18 05:39 Lab Results: Laboratory Results - last 24 hr 06/02/18 06/02/18 06/03/18 16:06 20:32 08:05 POC Glucose (mg/dL) 163 H 199 H 150 H 06/03/18 12:09 POC Glucose (mg/dL) 188 H Exam: GENERAL: no acute distress. alert and appropriate. LUNGS: Clear to auscultation bilaterally. HEART: regular rate and rhythm ABDOMEN: PD catheter site clean. 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 Right leg without edema. NEUROLOGIC: no focal weakness. Decreased sensation in right foot consistent with h/o peripheral neuropathy. Assessment/Plan: 1. Left BKA: PT/OT. Jack Spinner 2. DM: sugars improving. Continue Lantus, glipizide, SSI. glipizide 10 BID 3. ESRD: Peritoneal Dialysis 4. Phantom Pain: Gabapentin to 200 TID. Going slow as renally cleared 5. DPN: Gabapentin 6. DVT Prophylaxis: Eliquis 7. Atrial flutter: Tenormin/Eliquis 8. Advanced DIrectives: Full code 06/03/18 13:16
[2018-06-03] MEDS ORDERED: Castor Oil (Pharmaceutic Aid)* 118 ML BTL PO ONE (16:30)
[2018-06-03] MEDS: Insulin GLARGINE(*) 1 UNITS UNIT SUBCUT SCH (17:05)
[2018-06-03] MEDS: Calcium Polycarbophil TAB* 625 MG PO SCH (17:11)
[2018-06-03] MEDS: Nicotine Patch Removal NOTE FOLLOW UP SCH (20:06)
[2018-06-04] MEDS: oxyCODONE TAB* 5 MG TAB PO PRN ×3 (01:25→17:07)
[2018-06-04] MEDS ORDERED: Castor Oil (Pharmaceutic Aid)* 118 ML BTL PO PRN (06:00)
--- NOTE | 2018-06-04 08:51 | PN ---
Progress Note Date of Service: 06/04/18 Note: SAM SHERMAN was visited. Nursing and therapy notes read and reviewed. No chest pain, shortness of breath or abdominal pain. Current Medications: Active Medications Generic Name Dose Route Start Last Admin Trade Name Freq PRN Reason Stop Dose Admin Acetaminophen 650 mg 05/27/18 11:06 06/02/18 19:08 Tylenol Tab* PO 650 mg Q6H PRN Administration FEVER/PAIN Apixaban 2.5 mg 05/27/18 21:00 06/03/18 20:01 Eliquis* PO 2.5 mg BID MALAIKA Administration Aspirin 81 mg 05/28/18 09:00 06/03/18 08:53 Aspirin Ec Tab* PO 81 mg DAILY MALAIKA Administration Atenolol 100 mg 05/28/18 09:00 06/03/18 08:53 Tenormin Tab* PO 100 mg DAILY MALAIKA Administration Calcium Polycarbophil 625 mg 06/03/18 17:00 06/03/18 17:11 Fibercon Tab* PO 625 mg DAILY MALAIKA Administration [place] Oil 30 ml 06/04/18 06:00 [place] Oil (Pharmaceutic Aid)* PO ONCE PRN IF NO RESULTS [place] Oil 30 ml 06/05/18 06:00 [place] Oil (Pharmaceutic Aid)* PO DAILY PRN NO BM Dextrose 12.5 gm 05/27/18 11:21 D50w Syringe 50 Ml* IV PUSH .FOR FS < 60 - SS PRN FS < 60 Docusate Sodium 100 mg 05/27/18 21:00 06/03/18 20:04 Colace Cap* PO Not Given BID MALAIKA Folic Acid 1 mg 05/28/18 09:00 06/03/18 08:54 Folvite Tab* PO 1 mg DAILY MALAIKA Administration Gabapentin 200 mg 05/29/18 09:00 06/03/18 20:01 Neurontin Cap(*) PO 200 mg TID MALAIKA Administration Glipizide 10 mg 05/29/18 08:00 06/03/18 17:05 Glucotrol Tab* PO 10 mg 0800,1700 MALAIKA Administration Hydralazine HCl 50 mg 05/27/18 21:00 06/03/18 20:02 Apresoline Tab* PO 50 mg BID MALAIKA Administration Insulin Glargine 70 units 05/27/18 18:00 06/03/18 17:05 Lantus(*) SUBCUT 70 units Q24H MALAIKA Administration Insulin Human Lispro 0 - 15 units 05/27/18 11:30 06/03/18 20:46 Humalog* SUBCUT 3 units ACHS MALAIKA Administration Protocol Lactulose 30 ml 05/27/18 20:24 05/30/18 09:02 Lactulose* PO 30 ml Q6H PRN Administration CONSTIPATION Multi-Ingredient Ointment 1 applic 05/28/18 21:00 06/03/18 20:06 Hydrocerin* TOPICAL Not Given BID [facility] Mupirocin 1 applic 05/28/18 09:00 06/03/18 08:37 Bactroban 2 % Oint* TOPICAL Not Given DAILY [facility] Nicotine 10 mg 05/27/18 20:47 05/28/18 18:13 Nicotine Inhaler* INH 10 mg Q2H PRN Administration CRAVING Nicotine 1 patch 05/29/18 08:00 06/03/18 08:30 Nicotine Patch 14 Mg/24 Hr* TRANSDERM Not Given DAILY [facility] Pto Nf Med* Ferric 2 tab 05/29/18 17:30 06/03/18 17:06 Citrate 210 Mg ( PO 2 tab Auryxia) Tab TID PC [facility] Administration Oxycodone HCl 10 mg 05/31/18 17:01 06/04/18 01:25 Roxycodone Tab* PO 10 mg Q4H PRN Administration PAIN - SEVERE Oxycodone HCl 5 mg 06/04/18 07:36 Roxycodone Tab* PO Q4H PRN PAIN Pharmacy Profile Note 1 note 05/29/18 21:00 06/03/18 20:06 Nicotine Patch Removal Note* FOLLOW UP Not Given [facility] Rifaximin 550 mg 05/27/18 21:00 06/03/18 20:01 Xifaxan* PO 550 mg BID MALAIKA Administration Senna 2 tab 05/27/18 11:06 05/29/18 20:18 Senokot Tab* PO 2 tab BEDTIME PRN Administration CONSTIPATION Sodium Bicarbonate 650 mg 05/27/18 14:00 06/03/18 20:01 Sodium Bicarbonate (Antacid)* PO 650 mg TID MALAIKA Administration Vital Signs: Vital Signs Temp Pulse Resp BP Pulse Ox 97.8 F 66 20 132/76 99 06/04/18 05:18 06/04/18 05:18 06/04/18 05:18 06/04/18 05:18 06/04/18 05:18 Lab Results: Laboratory Results - last 24 hr 06/03/18 06/03/18 06/03/18 12:09 16:37 20:23 POC Glucose (mg/dL) 188 H 137 H 175 H 06/04/18 07:56 POC Glucose (mg/dL) 142 H Exam: GENERAL: no acute distress. alert and appropriate. LUNGS: Clear to auscultation bilaterally. HEART: regular rate and rhythm ABDOMEN: PD catheter site clean. + bowel sounds, soft, non-tender, non-distended EXTREMITIES: Left BKA incision c/d/i with sutures and scant sanguinous drainage. Right leg without edema. NEUROLOGIC: no focal weakness. Decreased sensation in right foot consistent with h/o peripheral neuropathy. Assessment/Plan: 1. Left BKA: PT/OT. 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 DM: sugars improving. Continue Lantus, glipizide, SSI. glipizide 10 BID 3. ESRD: Peritoneal Dialysis 4. Phantom Pain: Gabapentin to 200 TID. Going slow as renally cleared 5. DPN: Gabapentin 6. DVT Prophylaxis: Eliquis 7. Atrial flutter: Tenormin/Eliquis 8. Advanced DIrectives: Full code 06/04/18 08:50
[2018-06-04] MEDS: Mupirocin 2% OINT* TUBE TOPICAL SCH (09:00)
[2018-06-04] MEDS: Insulin LISPRO* 1 UNITS UNIT SUBCUT SCH ×4 (09:43→21:13)
[2018-06-04] MEDS: glipiZIDE TAB* 5 MG PO SCH ×2 (09:43→17:06)
[2018-06-04] MEDS: FERRIC CITRATE 210 MG PO SCH ×3 (09:44→17:41)
[2018-06-04] MEDS: Atenolol TAB* 50 MG PO SCH (09:45)
[2018-06-04] MEDS: Apixaban* 2.5 MG TAB PO SCH ×2 (09:45→20:32)
[2018-06-04] MEDS: Aspirin EC TAB* 81 MG TAB.EC PO SCH (09:45)
[2018-06-04] MEDS: Folic Acid TAB* 1 MG PO SCH (09:46)
[2018-06-04] MEDS: Docusate CAP* 100 MG PO SCH ×2 (09:46→20:31)
[2018-06-04] MEDS: Gabapentin CAP(*) 100 MG PO SCH ×3 (09:46→22:38)
[2018-06-04] MEDS: hydrALAZINE TAB* 25 MG PO SCH ×2 (09:48→20:32)
[2018-06-04] MEDS: Moisturizing CREAM* 120 GM JAR TOPICAL SCH ×2 (09:49→20:37)
[2018-06-04] MEDS: RiFAXimin* 550 MG TAB PO SCH ×2 (09:49→20:34)
[2018-06-04] MEDS: Nicotine PATCH 14 MG/24 HR* PATCH TRANSDERM SCH (09:50)
[2018-06-04] MEDS: Sodium Bicarbonate (ANTACID)* 650 MG TAB PO SCH ×3 (09:50→22:37)
[2018-06-04] MEDS: Calcium Polycarbophil TAB* 625 MG PO SCH (09:51)
[2018-06-04] MEDS ORDERED: Ondansetron ODT TAB* 4 MG PO PRN (14:20)
[2018-06-04] MEDS: Insulin GLARGINE(*) 1 UNITS UNIT SUBCUT SCH (17:41)
[2018-06-04] MEDS: Nicotine Patch Removal NOTE FOLLOW UP SCH (20:38)
[2018-06-05] MEDS: oxyCODONE TAB* 5 MG TAB PO PRN ×4 (00:32→20:55)
[2018-06-05] MEDS ORDERED: Castor Oil (Pharmaceutic Aid)* 118 ML BTL PO PRN (06:00)
[2018-06-05 06:49] LABS: ABS Basophils 0.1 10^3/ul (0-0.2); ABS Eosinophils 0.2 10^3/ul (0-0.6); ABS Monocytes 0.6 10^3/ul (0-0.8); ABS Nucleated RBC 0 10^3/ul; Eosinophil % 4.8 % (0-6); Hematocrit 26 % (42-52); Hemoglobin 8.7 g/dl (14.0-18.0); Lymphocyte % 21.2 % (25-47); Mean Corpuscular HGB Conc 33 g/dl (31-36); Mean Corpuscular Hemoglobin 29 pg (27-31); Mean Corpuscular Volume 89 fL (80-94); Mean Platelet Volume 8.5 fL (7.4-10.4); Nucleated Red Blood Cells % 0; Platelet Count 178 10^3/ul (150-450); Red Blood Count 2.96 10^6/ul (4.00-5.40); Red Cell Distribution Width 16 % (10.5-15)
[2018-06-05 06:55] LABS: EGFR Non-African American 3.5 (>60)
[2018-06-05] MEDS: glipiZIDE TAB* 5 MG PO SCH ×2 (08:22→17:18)
[2018-06-05] MEDS: Aspirin EC TAB* 81 MG TAB.EC PO SCH (08:22)
[2018-06-05] MEDS: Folic Acid TAB* 1 MG PO SCH (08:22)
[2018-06-05] MEDS: Gabapentin CAP(*) 100 MG PO SCH ×3 (08:22→20:54)
[2018-06-05] MEDS: RiFAXimin* 550 MG TAB PO SCH ×2 (08:23→20:54)
[2018-06-05] MEDS: hydrALAZINE TAB* 25 MG PO SCH ×2 (08:23→20:53)
[2018-06-05] MEDS: Calcium Polycarbophil TAB* 625 MG PO SCH (08:23)
[2018-06-05] MEDS: Docusate CAP* 100 MG PO SCH ×2 (08:23→20:53)
[2018-06-05] MEDS: Apixaban* 2.5 MG TAB PO SCH ×2 (08:23→20:53)
[2018-06-05] MEDS: Sodium Bicarbonate (ANTACID)* 650 MG TAB PO SCH ×3 (08:23→20:54)
[2018-06-05] MEDS: Atenolol TAB* 50 MG PO SCH (08:23)
[2018-06-05] MEDS: Nicotine PATCH 14 MG/24 HR* PATCH TRANSDERM SCH (08:24)
[2018-06-05] MEDS: Mupirocin 2% OINT* TUBE TOPICAL SCH (08:24)
[2018-06-05] MEDS: Moisturizing CREAM* 120 GM JAR TOPICAL SCH ×2 (08:25→20:51)
[2018-06-05] MEDS: FERRIC CITRATE 210 MG PO SCH ×3 (08:26→17:18)
[2018-06-05] MEDS: Insulin LISPRO* 1 UNITS UNIT SUBCUT SCH ×4 (08:39→20:56)
--- NOTE | 2018-06-05 11:03 | PN ---
Progress Note Date of Service: 06/05/18 Note: SAM SHERMAN was visited. Nursing notes read and reviewed. Vomited thanksgiving dinner yesterday. OK now. No chest pain, shortness of breath or abdominal pain. Current Medications: Active Medications Generic Name Dose Route Start Last Admin Trade Name Freq PRN Reason Stop Dose Admin Acetaminophen 650 mg 05/27/18 11:06 06/02/18 19:08 Tylenol Tab* PO 650 mg Q6H PRN Administration FEVER/PAIN Apixaban 2.5 mg 05/27/18 21:00 06/05/18 08:23 Eliquis* PO 2.5 mg BID MALAIKA Administration Aspirin 81 mg 05/28/18 09:00 06/05/18 08:22 Aspirin Ec Tab* PO 81 mg DAILY MALAIKA Administration Atenolol 100 mg 05/28/18 09:00 06/05/18 08:23 Tenormin Tab* PO 100 mg DAILY MALAIKA Administration Calcium Polycarbophil 625 mg 06/03/18 17:00 06/05/18 08:23 Fibercon Tab* PO 625 mg DAILY MALAIKA Administration [place] Oil 30 ml 06/04/18 06:00 [place] Oil (Pharmaceutic Aid)* PO ONCE PRN IF NO RESULTS [place] Oil 30 ml 06/05/18 06:00 [place] Oil (Pharmaceutic Aid)* PO DAILY PRN NO BM Dextrose 12.5 gm 05/27/18 11:21 D50w Syringe 50 Ml* IV PUSH .FOR FS < 60 - SS PRN FS < 60 Docusate Sodium 100 mg 05/27/18 21:00 06/05/18 08:23 Colace Cap* PO 100 mg BID MALAIKA Administration Folic Acid 1 mg 05/28/18 09:00 06/05/18 08:22 Folvite Tab* PO 1 mg DAILY MALAIKA Administration Gabapentin 200 mg 05/29/18 09:00 06/05/18 08:22 Neurontin Cap(*) PO 200 mg TID MALAIKA Administration Glipizide 10 mg 05/29/18 08:00 06/05/18 08:22 Glucotrol Tab* PO 10 mg 0800,1700 MALAIKA Administration Hydralazine HCl 50 mg 05/27/18 21:00 06/05/18 08:23 Apresoline Tab* PO 50 mg BID MALAIKA Administration Insulin Glargine 70 units 05/27/18 18:00 06/04/18 17:41 Lantus(*) SUBCUT 70 units Q24H MALAIKA Administration Insulin Human Lispro 0 - 15 units 05/27/18 11:30 06/05/18 08:39 Humalog* SUBCUT 2 units ACHS MALAIKA Administration Protocol Lactulose 30 ml 05/27/18 20:24 05/30/18 09:02 Lactulose* PO 30 ml Q6H PRN Administration CONSTIPATION Multi-Ingredient Ointment 1 applic 05/28/18 21:00 06/05/18 08:25 Hydrocerin* TOPICAL 1 applic BID MALAIKA Administration Mupirocin 1 applic 05/28/18 09:00 06/05/18 08:24 Bactroban 2 % Oint* TOPICAL 1 applic DAILY MALAIKA Administration Nicotine 10 mg 05/27/18 20:47 05/28/18 18:13 Nicotine Inhaler* INH 10 mg Q2H PRN Administration CRAVING Nicotine 1 patch 05/29/18 08:00 06/05/18 08:24 Nicotine Patch 14 Mg/24 Hr* TRANSDERM Not Given DAILY MALAIKA Pto Nf Med* Ferric 2 tab 05/29/18 17:30 06/05/18 08:26 Citrate 210 Mg ( PO 2 tab Auryxia) Tab TID PC MALAIKA Administration Ondansetron HCl 4 mg 06/04/18 14:20 06/04/18 14:44 Zofran Odt Tab* PO 4 mg Q6H PRN Administration NAUSEA/VOMITING Oxycodone HCl 10 mg 05/31/18 17:01 06/05/18 08:26 Roxycodone Tab* PO 10 mg Q4H PRN Administration PAIN - SEVERE Oxycodone HCl 5 mg 06/04/18 07:36 Roxycodone Tab* PO Q4H PRN PAIN Pharmacy Profile Note 1 note 05/29/18 21:00 06/04/18 20:38 Nicotine Patch Removal Note* FOLLOW UP Not Given [facility] Rifaximin 550 mg 05/27/18 21:00 06/05/18 08:23 Xifaxan* PO 550 mg BID MALAIKA Administration Senna 2 tab 05/27/18 11:06 05/29/18 20:18 Senokot Tab* PO 2 tab BEDTIME PRN Administration CONSTIPATION Sodium Bicarbonate 650 mg 05/27/18 14:00 06/05/18 08:23 Sodium Bicarbonate (Antacid)* PO 650 mg TID MALAIKA Administration Vital Signs: Vital Signs Temp Pulse Resp BP Pulse Ox 97.6 F 82 18 145/62 100 06/05/18 06:18 06/05/18 06:37 06/05/18 10:32 06/05/18 06:37 06/05/18 08:00 Lab Results: Laboratory Results - last 24 hr 06/04/18 06/04/18 06/04/18 12:23 16:37 20:31 WBC RBC Hgb Hct MCV MCH MCHC RDW Plt Count MPV Neut % (Auto) Lymph % (Auto) [place] % (Auto) Eos % (Auto) Baso % (Auto) Absolute Neuts (auto) Absolute Lymphs (auto) Absolute Monos (auto) Absolute Eos (auto) Absolute Basos (auto) Absolute Nucleated RBC Nucleated RBC % Sodium Potassium Chloride Carbon Dioxide Anion Gap BUN Creatinine Est GFR ( Amer) Est GFR (Non-Af Amer) BUN/Creatinine Ratio Glucose POC Glucose (mg/dL) 149 H 157 H 152 H Calcium Total Bilirubin AST ALT Alkaline Phosphatase Total Protein Albumin Globulin Albumin/Globulin Ratio 06/05/18 06/05/18 06:30 06:30 WBC 5.0 RBC 2.96 L Hgb 8.7 L Hct 26 L MCV 89 MCH 29 MCHC 33 RDW 16 H Plt Count 178 MPV 8.5 Neut % (Auto) 60.2 Lymph % (Auto) 21.2 L [place] % (Auto) 12.0 H Eos % (Auto) 4.8 Baso % (Auto) 1.8 Absolute Neuts (auto) 3.0 Absolute Lymphs (auto) 1.0 Absolute Monos (auto) 0.6 Absolute Eos (auto) 0.2 Absolute Basos (auto) 0.1 Absolute Nucleated RBC 0 Nucleated RBC % 0 Sodium 125 L Potassium 4.0 Chloride 85 L Carbon Dioxide 20 L Anion Gap 20 H BUN 78 H Creatinine 14.67 H Est GFR ( Amer) 4.3 Est GFR (Non-Af Amer) 3.5 BUN/Creatinine Ratio 5.3 L Glucose 135 H POC Glucose (mg/dL) Calcium 10.3 Total Bilirubin 0.60 AST 35 ALT 5 L Alkaline Phosphatase 287 H Total Protein 7.4 Albumin 3.0 L Globulin 4.4 H Albumin/Globulin Ratio 0.7 L Exam: GENERAL: no acute distress. alert and appropriate. LUNGS: Clear to auscultation bilaterally. HEART: regular rate and rhythm ABDOMEN: PD catheter site clean. + bowel sounds, soft, non-tender, non-distended EXTREMITIES: Left BKA dressed. Right leg without edema. NEUROLOGIC: no focal weakness. Decreased sensation in right foot consistent with h/o peripheral neuropathy. Assessment/Plan: 1. Left BKA: PT/OT. 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 DM: sugars improving. Continue Lantus, glipizide, SSI. glipizide 10 BID 3. ESRD: Peritoneal Dialysis. Creatinine stably high. Also has chronic hyponatremia. 4. Phantom Pain: Gabapentin to 200 TID. 5. DPN: Gabapentin 6. DVT Prophylaxis: Eliquis 7. Atrial flutter: Tenormin/Eliquis 8. Advanced Directives: Full code 06/05/18 11:03
[2018-06-05] MEDS: Acetaminophen TAB* 325 MG PO PRN (17:17)
[2018-06-05] MEDS: Insulin GLARGINE(*) 1 UNITS UNIT SUBCUT SCH (17:57)
[2018-06-05] MEDS: Nicotine Patch Removal NOTE FOLLOW UP SCH (21:24)
[2018-06-06] MEDS: oxyCODONE TAB* 5 MG TAB PO PRN ×4 (01:00→12:31)
[2018-06-06] MEDS: Insulin LISPRO* 1 UNITS UNIT SUBCUT SCH ×4 (07:45→20:54)
[2018-06-06] MEDS: glipiZIDE TAB* 5 MG PO SCH ×2 (07:47→16:41)
[2018-06-06] MEDS: FERRIC CITRATE 210 MG PO SCH ×3 (07:55→16:52)
[2018-06-06] MEDS ORDERED: Epoetin Alfa* 10,000 UNITS/ML VIAL SUBCUT ONE (09:00)
--- NOTE | 2018-06-06 09:11 | PN ---
Progress Note Date of Service: 06/06/18 Note: SAM SHERMAN was visited. Nursing and therapy notes read and reviewed. No chest pain, shortness of breath or abdominal pain. Current Medications: Active Medications Generic Name Dose Route Start Last Admin Trade Name Freq PRN Reason Stop Dose Admin Acetaminophen 650 mg 05/27/18 11:06 06/05/18 17:17 Tylenol Tab* PO 650 mg Q6H PRN Administration FEVER/PAIN Apixaban 2.5 mg 05/27/18 21:00 06/05/18 20:53 Eliquis* PO 2.5 mg BID [facility] Administration Aspirin 81 mg 05/28/18 09:00 06/05/18 08:22 Aspirin Ec Tab* PO 81 mg DAILY [facility] Administration Atenolol 100 mg 05/28/18 09:00 06/05/18 08:23 Tenormin Tab* PO 100 mg DAILY [facility] Administration Calcium Polycarbophil 625 mg 06/03/18 17:00 06/05/18 08:23 Fibercon Tab* PO 625 mg DAILY [facility] Administration [place] Oil 30 ml 06/04/18 06:00 [place] (Pharmaceutic Aid)* PO ONCE PRN IF NO RESULTS [place] 30 ml 06/05/18 06:00 [place] (Pharmaceutic Aid)* PO DAILY PRN NO BM Dextrose 12.5 gm 05/27/18 11:21 D50w Syringe 50 Ml* IV PUSH .FOR FS < 60 - SS PRN FS < 60 Docusate Sodium 100 mg 05/27/18 21:00 06/05/18 20:53 Colace Cap* PO 100 mg BID MALAIKA Administration Folic Acid 1 mg 05/28/18 09:00 06/05/18 08:22 Folvite Tab* PO 1 mg DAILY [facility] Administration Gabapentin 200 mg 05/29/18 09:00 06/05/18 20:54 Neurontin Cap(*) PO 200 mg TID [facility]AIKA Administration Glipizide 10 mg 05/29/18 08:00 06/06/18 07:47 Glucotrol Tab* PO 10 mg 0800,1700 [facility] Administration Hydralazine HCl 50 mg 05/27/18 21:00 06/05/18 20:53 Apresoline Tab* PO 50 mg BID [facility] Administration Insulin Glargine 70 units 05/27/18 18:00 06/05/18 17:57 Lantus(*) SUBCUT 70 units Q24H [facility] Administration Insulin Human Lispro 0 - 15 units 05/27/18 11:30 06/06/18 07:45 Humalog* SUBCUT 3 units ACHS [facility]AIKA Administration Protocol Lactulose 30 ml 05/27/18 20:24 05/30/18 09:02 Lactulose* PO 30 ml Q6H PRN Administration CONSTIPATION Multi-Ingredient Ointment 1 applic 05/28/18 21:00 06/05/18 20:51 Hydrocerin* TOPICAL 1 applic BID [facility] Administration Mupirocin 1 applic 05/28/18 09:00 06/05/18 08:24 Bactroban 2 % Oint* TOPICAL 1 applic DAILY [facility] Administration Nicotine 10 mg 05/27/18 20:47 05/28/18 18:13 Nicotine Inhaler* INH 10 mg Q2H PRN Administration CRAVING Nicotine 1 patch 05/29/18 08:00 06/05/18 08:24 Nicotine Patch 14 Mg/24 Hr* TRANSDERM Not Given DAILY [facility] Pto Nf Med* Ferric 2 tab 05/29/18 17:30 06/06/18 07:55 Citrate 210 Mg ( PO 2 tab Auryxia) Tab TID PC [facility] Administration Ondansetron HCl 4 mg 06/04/18 14:20 06/04/18 14:44 Zofran Odt Tab* PO 4 mg Q6H PRN Administration NAUSEA/VOMITING Oxycodone HCl 10 mg 05/31/18 17:01 06/06/18 08:02 Roxycodone Tab* PO 10 mg Q4H PRN Administration PAIN - SEVERE Oxycodone HCl 5 mg 06/04/18 07:36 Roxycodone Tab* PO Q4H PRN PAIN Pharmacy Profile Note 1 note 05/29/18 21:00 06/05/18 21:24 Nicotine Patch Removal Note* FOLLOW UP Not Given [facility] Rifaximin 550 mg 05/27/18 21:00 06/05/18 20:54 Xifaxan* PO 550 mg BID [facility] Administration Senna 2 tab 05/27/18 11:06 05/29/18 20:18 Senokot Tab* PO 2 tab BEDTIME PRN Administration CONSTIPATION Sodium Bicarbonate 650 mg 05/27/18 14:00 06/05/18 20:54 Sodium Bicarbonate (Antacid)* PO 650 mg TID [facility] Administration Vital Signs: Vital Signs Temp Pulse Resp BP Pulse Ox 97.0 F 59 22 102/60 100 06/06/18 06:09 06/06/18 06:09 06/06/18 08:02 06/06/18 06:15 06/06/18 08:00 Lab Results: Laboratory Results - last 24 hr 06/05/18 06/05/18 06/05/18 11:48 16:25 20:24 POC Glucose (mg/dL) 137 H 142 H 202 H 06/06/18 07:34 POC Glucose (mg/dL) 169 H Exam: GENERAL: no acute distress. alert and appropriate. LUNGS: Clear to auscultation bilaterally. HEART: regular rate and rhythm ABDOMEN: PD catheter site clean. + bowel sounds, soft, non-tender, non-distended EXTREMITIES: Left BKA incision c/d/i with scant sanguinous drainage on telfa. Right leg without edema. NEUROLOGIC: no focal weakness. Decreased sensation in right foot consistent with h/o peripheral neuropathy. Assessment/Plan: 1. Left BKA: PT/OT. 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 DM: sugars stable. Continue Lantus, glipizide, SSI. glipizide 10 BID 3. ESRD: Peritoneal Dialysis. Creatinine stably high. Also has chronic hyponatremia. 4. Phantom Pain: Gabapentin to 200 TID. 5. DPN: Gabapentin 6. DVT Prophylaxis: Eliquis 7. Atrial flutter: Tenormin/Eliquis 8. Advanced Directives: Full code 06/06/18 09:10
[2018-06-06] MEDS: RiFAXimin* 550 MG TAB PO SCH ×2 (09:35→20:45)
[2018-06-06] MEDS: Docusate CAP* 100 MG PO SCH ×2 (09:35→20:46)
[2018-06-06] MEDS: Folic Acid TAB* 1 MG PO SCH (09:36)
[2018-06-06] MEDS: Apixaban* 2.5 MG TAB PO SCH ×2 (09:37→20:45)
[2018-06-06] MEDS: Calcium Polycarbophil TAB* 625 MG PO SCH (09:37)
[2018-06-06] MEDS: Aspirin EC TAB* 81 MG TAB.EC PO SCH (09:38)
[2018-06-06] MEDS: Sodium Bicarbonate (ANTACID)* 650 MG TAB PO SCH ×3 (09:38→20:46)
[2018-06-06] MEDS: Atenolol TAB* 50 MG PO SCH (09:39)
[2018-06-06] MEDS: hydrALAZINE TAB* 25 MG PO SCH ×2 (09:39→20:46)
[2018-06-06] MEDS: Gabapentin CAP(*) 100 MG PO SCH ×3 (09:40→20:47)
[2018-06-06] MEDS: Nicotine PATCH 14 MG/24 HR* PATCH TRANSDERM SCH (09:41)
[2018-06-06] MEDS: Mupirocin 2% OINT* TUBE TOPICAL SCH (09:42)
[2018-06-06] MEDS: Moisturizing CREAM* 120 GM JAR TOPICAL SCH ×2 (09:42→20:50)
[2018-06-06] MEDS: Insulin GLARGINE(*) 1 UNITS UNIT SUBCUT SCH (18:15)
[2018-06-06] MEDS: Nicotine Patch Removal NOTE FOLLOW UP SCH (20:50)
[2018-06-07] MEDS: Insulin LISPRO* 1 UNITS UNIT SUBCUT SCH ×4 (08:13→21:30)
[2018-06-07] MEDS: Apixaban* 2.5 MG TAB PO SCH ×2 (08:15→21:27)
[2018-06-07] MEDS: Sodium Bicarbonate (ANTACID)* 650 MG TAB PO SCH ×3 (08:16→21:27)
[2018-06-07] MEDS: Aspirin EC TAB* 81 MG TAB.EC PO SCH (08:16)
[2018-06-07] MEDS: Docusate CAP* 100 MG PO SCH ×2 (08:16→21:28)
[2018-06-07] MEDS: FERRIC CITRATE 210 MG PO SCH ×3 (08:17→16:59)
[2018-06-07] MEDS: Calcium Polycarbophil TAB* 625 MG PO SCH (08:17)
[2018-06-07] MEDS: RiFAXimin* 550 MG TAB PO SCH ×2 (08:18→21:28)
[2018-06-07] MEDS: hydrALAZINE TAB* 25 MG PO SCH ×2 (08:18→21:26)
[2018-06-07] MEDS: Folic Acid TAB* 1 MG PO SCH (08:18)
[2018-06-07] MEDS: glipiZIDE TAB* 5 MG PO SCH ×2 (08:19→17:01)
[2018-06-07] MEDS: Gabapentin CAP(*) 100 MG PO SCH ×3 (08:20→21:26)
[2018-06-07] MEDS: Atenolol TAB* 50 MG PO SCH (08:20)
[2018-06-07] MEDS: Mupirocin 2% OINT* TUBE TOPICAL SCH (08:22)
[2018-06-07] MEDS: Nicotine PATCH 14 MG/24 HR* PATCH TRANSDERM SCH (08:22)
[2018-06-07] MEDS: Moisturizing CREAM* 120 GM JAR TOPICAL SCH ×2 (08:22→21:29)
--- NOTE | 2018-06-07 09:43 | PN ---
Progress Note Date of Service: 06/07/18 Note: SAM SHERMAN was visited. Nurisng and therapy notes read and reviewed. Staff reports aggitated with PA and staff needing to be with him in bathroom. No chest pain, shortness of breath or abdominal pain. He was tired yesterday, but better today. Notes last 1-2 weeks being "twitchy" such as when holding something. He finds it annoying. Current Medications: Active Medications Generic Name Dose Route Start Last Admin Trade Name Freq PRN Reason Stop Dose Admin Acetaminophen 650 mg 05/27/18 11:06 06/05/18 17:17 Tylenol Tab* PO 650 mg Q6H PRN Administration FEVER/PAIN Apixaban 2.5 mg 05/27/18 21:00 06/07/18 08:15 Eliquis* PO 2.5 mg BID MALAIKA Administration Aspirin 81 mg 05/28/18 09:00 06/07/18 08:16 Aspirin Ec Tab* PO 81 mg DAILY MALAIKA Administration Atenolol 100 mg 05/28/18 09:00 06/07/18 08:20 Tenormin Tab* PO 100 mg DAILY MALAIAK Administration Calcium Polycarbophil 625 mg 06/03/18 17:00 06/07/18 08:17 Fibercon Tab* PO 625 mg DAILY MALAIKA Administration [place] Oil 30 ml 06/04/18 06:00 [place] Oil (Pharmaceutic Aid)* PO ONCE PRN IF NO RESULTS [place] Oil 30 ml 06/05/18 06:00 [place] Oil (Pharmaceutic Aid)* PO DAILY PRN NO BM Dextrose 12.5 gm 05/27/18 11:21 D50w Syringe 50 Ml* IV PUSH .FOR FS < 60 - SS PRN FS < 60 Docusate Sodium 100 mg 05/27/18 21:00 06/07/18 08:16 Colace Cap* PO 100 mg BID MALAIKA Administration Folic Acid 1 mg 05/28/18 09:00 06/07/18 08:18 Folvite Tab* PO 1 mg DAILY MALAIKA Administration Gabapentin 200 mg 05/29/18 09:00 06/07/18 08:20 Neurontin Cap(*) PO 200 mg TID MALAIKA Administration Glipizide 10 mg 05/29/18 08:00 06/07/18 08:19 Glucotrol Tab* PO 10 mg 0800,1700 MALAIKA Administration Hydralazine HCl 50 mg 05/27/18 21:00 06/07/18 08:18 Apresoline Tab* PO 50 mg BID [facility] Administration Insulin Glargine 70 units 05/27/18 18:00 06/06/18 18:15 Lantus(*) SUBCUT 70 units Q24H MALAIKA Administration Insulin Human Lispro 0 - 15 units 05/27/18 11:30 06/07/18 08:13 Humalog* SUBCUT 3 units ACHS [facility] Administration Protocol Lactulose 30 ml 05/27/18 20:24 05/30/18 09:02 Lactulose* PO 30 ml Q6H PRN Administration CONSTIPATION Multi-Ingredient Ointment 1 applic 05/28/18 21:00 06/07/18 08:22 Hydrocerin* TOPICAL Not Given BID [facility] Mupirocin 1 applic 05/28/18 09:00 06/07/18 08:22 Bactroban 2 % Oint* TOPICAL Not Given DAILY [facility] Nicotine 10 mg 05/27/18 20:47 05/28/18 18:13 Nicotine Inhaler* INH 10 mg Q2H PRN Administration CRAVING Nicotine 1 patch 05/29/18 08:00 06/07/18 08:22 Nicotine Patch 14 Mg/24 Hr* TRANSDERM Not Given DAILY [facility] Pto Nf Med* Ferric 2 tab 05/29/18 17:30 06/07/18 08:17 Citrate 210 Mg ( PO 2 tab Auryxia) Tab TID PC [facility] Administration Ondansetron HCl 4 mg 06/04/18 14:20 06/04/18 14:44 Zofran Odt Tab* PO 4 mg Q6H PRN Administration NAUSEA/VOMITING Oxycodone HCl 10 mg 05/31/18 17:01 06/06/18 12:31 Roxycodone Tab* PO 10 mg Q4H PRN Administration PAIN - SEVERE Oxycodone HCl 5 mg 06/04/18 07:36 Roxycodone Tab* PO Q4H PRN PAIN Pharmacy Profile Note 1 note 05/29/18 21:00 06/06/18 20:50 Nicotine Patch Removal Note* FOLLOW UP Not Given 2100 [facility] Rifaximin 550 mg 05/27/18 21:00 06/07/18 08:18 Xifaxan* PO 550 mg BID [facility] Administration Senna 2 tab 05/27/18 11:06 05/29/18 20:18 Senokot Tab* PO 2 tab BEDTIME PRN Administration CONSTIPATION Sodium Bicarbonate 1,300 mg 06/07/18 14:00 Sodium Bicarbonate (Antacid)* PO TID MALAIKA Sodium Bicarbonate 650 mg 06/07/18 09:36 Sodium Bicarbonate (Antacid)* PO 06/07/18 09:37 ONCE ONE Vital Signs: Vital Signs Temp Pulse Resp BP Pulse Ox 99.4 F 73 25 128/67 100 06/07/18 06:05 06/07/18 06:05 06/07/18 08:20 06/07/18 06:05 06/07/18 06:05 Lab Results: Laboratory Results - last 24 hr 06/06/18 06/06/18 06/06/18 11:21 16:24 20:37 POC Glucose (mg/dL) 141 H 163 H 164 H 06/07/18 08:00 POC Glucose (mg/dL) 174 H Exam: GENERAL: no acute distress. alert and appropriate. LUNGS: Clear to auscultation bilaterally. HEART: regular rate and rhythm ABDOMEN: PD catheter site clean. + bowel sounds, soft, non-tender, non-distended EXTREMITIES: Left BKA incision c/d/i with scant sanguinous drainage on telfa. Right leg without edema. Noted arm holding coffee cup and an occasional jerk. NEUROLOGIC: no focal weakness. Decreased sensation in right foot consistent with h/o peripheral neuropathy. Assessment/Plan: 1. 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 DM: sugars stable. Continue Lantus, glipizide, SSI. glipizide 10 BID 3. ESRD: Peritoneal Dialysis. Creatinine stably high. Also has chronic hyponatremia. Pt reports at home he took 1300mg of sodium bicarbonate tid prescribed by Dr. Rodrgiuez. In hospital only received 650mg tid. Will increase to home dose and monitor labs. Possibly this contributes to jerking. 4. Phantom Pain: Gabapentin to 200 TID. 5. DPN: Gabapentin 6. DVT Prophylaxis: Eliquis 7. Atrial flutter: Tenormin/Eliquis 8. Advanced Directives: Full code 9. Discharge planning: I d/w pt rehab unit protocols and staff following recommendations of therapists for amount of assist needed for transfers and toileting. He understands and will try to be less argumentative. Family training tomorrow. 06/07/18 09:40
[2018-06-07] MEDS: Sodium Bicarbonate (ANTACID)* 650 MG TAB PO ONE ×2 (09:52→10:03)
[2018-06-07] MEDS: oxyCODONE TAB* 5 MG TAB PO PRN (12:04)
[2018-06-07] MEDS: Insulin GLARGINE(*) 1 UNITS UNIT SUBCUT SCH (19:00)
[2018-06-07] MEDS: Nicotine Patch Removal NOTE FOLLOW UP SCH (20:57)
[2018-06-07] MEDS: Senna TAB PO PRN (21:28)
[2018-06-08 07:10] LABS: EGFR Non-African American 3.1 (>60)
[2018-06-08] MEDS: oxyCODONE TAB* 5 MG TAB PO PRN (08:09)
[2018-06-08] MEDS: Gabapentin CAP(*) 100 MG PO SCH ×3 (08:09→22:08)
[2018-06-08] MEDS: Atenolol TAB* 50 MG PO SCH (08:09)
[2018-06-08] MEDS: Docusate CAP* 100 MG PO SCH ×2 (08:10→20:50)
[2018-06-08] MEDS: Folic Acid TAB* 1 MG PO SCH (08:10)
[2018-06-08] MEDS: FERRIC CITRATE 210 MG PO SCH ×3 (08:10→17:05)
[2018-06-08] MEDS: Aspirin EC TAB* 81 MG TAB.EC PO SCH (08:10)
[2018-06-08] MEDS: glipiZIDE TAB* 5 MG PO SCH ×2 (08:10→17:06)
[2018-06-08] MEDS: Apixaban* 2.5 MG TAB PO SCH ×2 (08:11→20:50)
[2018-06-08] MEDS: Calcium Polycarbophil TAB* 625 MG PO SCH (08:11)
[2018-06-08] MEDS: hydrALAZINE TAB* 25 MG PO SCH ×2 (08:11→20:50)
[2018-06-08] MEDS: Nicotine PATCH 14 MG/24 HR* PATCH TRANSDERM SCH (08:12)
[2018-06-08] MEDS: Sodium Bicarbonate (ANTACID)* 650 MG TAB PO SCH ×3 (08:12→20:49)
[2018-06-08] MEDS: RiFAXimin* 550 MG TAB PO SCH ×2 (08:12→20:50)
[2018-06-08] MEDS: Insulin LISPRO* 1 UNITS UNIT SUBCUT SCH ×4 (08:15→20:50)
[2018-06-08] MEDS: Moisturizing CREAM* 120 GM JAR TOPICAL SCH ×2 (08:53→20:56)
[2018-06-08] MEDS: Mupirocin 2% OINT* TUBE TOPICAL SCH (08:53)
[2018-06-08] MEDS: Insulin GLARGINE(*) 1 UNITS UNIT SUBCUT SCH (18:21)
--- NOTE | 2018-06-08 18:21 | PN ---
Progress Note Date of Service: 06/08/18 Note: SAM SHERMAN was visited. Therapy notes read and reviewed. He was up many times last night with diarrhea and then had two Percocet this morning and was very lethargic during family training. Better in the afternoon. Was supposed to go home in the morning. Will see how he does in the am. Yesterday, several small bottles (shot glass size) of Miguelangel Whitt were found in his room and were confiscated. He may have consumed some also Current Medications: Active Medications Generic Name Dose Route Start Last Admin Trade Name Freq PRN Reason Stop Dose Admin Acetaminophen 650 mg 05/27/18 11:06 06/05/18 17:17 Tylenol Tab* PO 650 mg Q6H PRN Administration FEVER/PAIN Apixaban 2.5 mg 05/27/18 21:00 06/08/18 08:11 Eliquis* PO 2.5 mg BID MALAIKA Administration Aspirin 81 mg 05/28/18 09:00 06/08/18 08:10 Aspirin Ec Tab* PO 81 mg DAILY MALAIKA Administration Atenolol 100 mg 05/28/18 09:00 06/08/18 08:09 Tenormin Tab* PO 100 mg DAILY MALAIKA Administration Calcium Polycarbophil 625 mg 06/03/18 17:00 06/08/18 08:11 Fibercon Tab* PO 625 mg DAILY MALAIKA Administration [place] Oil 30 ml 06/05/18 06:00 06/07/18 19:41 [place] Oil (Pharmaceutic Aid)* PO 30 ml DAILY PRN Administration NO BM Dextrose 12.5 gm 05/27/18 11:21 D50w Syringe 50 Ml* IV PUSH .FOR FS < 60 - SS PRN FS < 60 Docusate Sodium 100 mg 05/27/18 21:00 06/08/18 08:10 Colace Cap* PO 100 mg BID MALAIKA Administration Folic Acid 1 mg 05/28/18 09:00 06/08/18 08:10 Folvite Tab* PO 1 mg DAILY MALAIKA Administration Gabapentin 200 mg 05/29/18 09:00 06/08/18 13:32 Neurontin Cap(*) PO Not Given TID MALAIKA Glipizide 10 mg 05/29/18 08:00 06/08/18 17:06 Glucotrol Tab* PO 10 mg 0800,1700 MALAIKA Administration Hydralazine HCl 50 mg 05/27/18 21:00 06/08/18 08:11 Apresoline Tab* PO 50 mg BID MALAIKA Administration Insulin Glargine 70 units 05/27/18 18:00 06/07/18 19:00 Lantus(*) SUBCUT 70 units Q24H MALAIKA Administration Insulin Human Lispro 0 - 15 units 05/27/18 11:30 06/08/18 17:06 Humalog* SUBCUT 2 units ACHS MALAIKA Administration Protocol Lactulose 30 ml 05/27/18 20:24 05/30/18 09:02 Lactulose* PO 30 ml Q6H PRN Administration CONSTIPATION Multi-Ingredient Ointment 1 applic 05/28/18 21:00 06/08/18 08:53 Hydrocerin* TOPICAL 1 applic BID MALAIKA Administration Mupirocin 1 applic 05/28/18 09:00 06/08/18 08:53 Bactroban 2 % Oint* TOPICAL 1 applic DAILY MALAIKA Administration Nicotine 10 mg 05/27/18 20:47 05/28/18 18:13 Nicotine Inhaler* INH 10 mg Q2H PRN Administration CRAVING Nicotine 1 patch 05/29/18 08:00 06/08/18 08:12 Nicotine Patch 14 Mg/24 Hr* TRANSDERM Not Given DAILY MALAIKA Pto Nf Med* Ferric 2 tab 05/29/18 17:30 06/08/18 17:05 Citrate 210 Mg ( PO 2 tab Auryxia) Tab TID PC MALAIKA Administration Ondansetron HCl 4 mg 06/04/18 14:20 06/04/18 14:44 Zofran Odt Tab* PO 4 mg Q6H PRN Administration NAUSEA/VOMITING Oxycodone HCl 10 mg 05/31/18 17:01 06/08/18 08:09 Roxycodone Tab* PO 10 mg Q4H PRN Administration PAIN - SEVERE Oxycodone HCl 5 mg 06/04/18 07:36 Roxycodone Tab* PO Q4H PRN PAIN Pharmacy Profile Note 1 note 05/29/18 21:00 06/07/18 20:57 Nicotine Patch Removal Note* FOLLOW UP Not Given [facility] [facility] Rifaximin 550 mg 05/27/18 21:00 06/08/18 08:12 Xifaxan* PO 550 mg BID MALAIKA Administration Senna 2 tab 05/27/18 11:06 06/07/18 21:28 Senokot Tab* PO 2 tab BEDTIME PRN Administration CONSTIPATION Sodium Bicarbonate 1,300 mg 06/07/18 14:00 06/08/18 13:38 Sodium Bicarbonate (Antacid)* PO 1,300 mg TID MALAIKA Administration Vital Signs: Vital Signs Temp Pulse Resp BP Pulse Ox 97.8 F 65 16 125/96 100 06/08/18 16:36 06/08/18 16:36 06/08/18 16:36 06/08/18 16:36 06/08/18 16:36 Lab Results: Laboratory Results - last 24 hr 06/07/18 06/08/18 06/08/18 20:50 06:30 11:35 Sodium 128 L Potassium 4.3 Chloride 86 L Carbon Dioxide 23 Anion Gap 19 H BUN 78 H Creatinine 16.26 H Est GFR ( Amer) 3.8 Est GFR (Non-Af Amer) 3.1 BUN/Creatinine Ratio 4.8 L Glucose 151 H POC Glucose (mg/dL) 159 H 158 H Calcium 9.9 06/08/18 16:36 Sodium Potassium Chloride Carbon Dioxide Anion Gap BUN Creatinine Est GFR ( Amer) Est GFR (Non-Af Amer) BUN/Creatinine Ratio Glucose POC Glucose (mg/dL) 139 H Calcium Exam: GENERAL: no acute distress. alert and appropriate. LUNGS: Clear to auscultation bilaterally. HEART: regular rate and rhythm ABDOMEN: PD catheter site clean. + bowel sounds, soft, non-tender, non-distended EXTREMITIES: Left BKA incision c/d/i with scant sanguinous drainage on telfa. NEUROLOGIC: no focal weakness. Decreased sensation in right foot consistent with h/o peripheral neuropathy. Assessment/Plan: 1. Left BKA: PT/OT. Grinder Set Up Operator Thread Tool 2. DM: sugars stable. Continue Lantus, glipizide, SSI. 3. ESRD: Peritoneal Dialysis. Creatinine stably high. Also has chronic hyponatremia. Pt back on 1300mg of sodium bicarbonate tid . 4. Phantom Pain: Gabapentin to 200 BID. 5. DPN: Gabapentin 6. DVT Prophylaxis: Eliquis 7. Atrial flutter: Tenormin/Eliquis 8. Advanced Directives: Full code 9. Discharge planning: In light of am lethargy, will see how he does tomorrow morning 06/08/18 18:21
[2018-06-08] MEDS: Nicotine Patch Removal NOTE FOLLOW UP SCH (20:51)
[2018-06-09] MEDS: oxyCODONE TAB* 5 MG TAB PO PRN (02:12)
[2018-06-09 06:36] VITALS: BP 107/52
[2018-06-09] MEDS: glipiZIDE TAB* 5 MG PO SCH (09:03)
[2018-06-09] MEDS: Apixaban* 2.5 MG TAB PO SCH (09:04)
[2018-06-09] MEDS: Docusate CAP* 100 MG PO SCH (09:05)
[2018-06-09] MEDS: Calcium Polycarbophil TAB* 625 MG PO SCH (09:05)
[2018-06-09] MEDS: Folic Acid TAB* 1 MG PO SCH (09:05)
[2018-06-09] MEDS: Atenolol TAB* 50 MG PO SCH (09:05)
[2018-06-09] MEDS: Aspirin EC TAB* 81 MG TAB.EC PO SCH (09:05)
[2018-06-09] MEDS: Gabapentin CAP(*) 100 MG PO SCH (09:05)
[2018-06-09] MEDS: RiFAXimin* 550 MG TAB PO SCH (09:07)
[2018-06-09] MEDS: Sodium Bicarbonate (ANTACID)* 650 MG TAB PO SCH (09:07)
[2018-06-09] MEDS: hydrALAZINE TAB* 25 MG PO SCH (09:07)
[2018-06-09] MEDS: Nicotine PATCH 14 MG/24 HR* PATCH TRANSDERM SCH (09:08)
[2018-06-09] MEDS: Insulin LISPRO* 1 UNITS UNIT SUBCUT SCH ×2 (09:12→13:06)
[2018-06-09] MEDS: FERRIC CITRATE 210 MG PO SCH ×2 (09:16→13:18)
[2018-06-09] MEDS: Moisturizing CREAM* 120 GM JAR TOPICAL SCH (09:16)
[2018-06-09] MEDS: Mupirocin 2% OINT* TUBE TOPICAL SCH (09:16)
[2018-06-09] MEDS ORDERED: Gabapentin CAP(*) 100 MG PO SCH (21:00)
--- NOTE | 2018-06-10 12:09 | DS ---
CC: Trenton Romero MD * DISCHARGE SUMMARY: DATE OF ADMISSION: 05/27/18 DATE OF DISCHARGE: 06/09/18 DISCHARGE DIAGNOSES: 1. Left [id number] amputation. 2. Diabetes mellitus. 3. End-stage renal disease, on peritoneal dialysis. 4. Atrial flutter. 5. Diabetic peripheral neuropathy. 6. Peripheral vascular disease. HISTORY OF PRESENT ILLNESS AND HOSPITAL COURSE: For complete history of the events leading up to his rehab stay, please see the history and physical dictated by me on 05/27/18. While on the rehab unit, the patient continued to get peritoneal dialysis. He initially seemed to be quite confused and his opioid dose was reduced. Gradually, however, when seen that this was the patient's baseline, the opioid dose was increased again to assuage his pain. The patient had some stump pain, which was relieved by gabapentin. Otherwise, the patient seemed to be stable. A stump bending machine set up operator was ordered for him. The patient was up all night on the evening of 06/07/18 to 06/08/18 with diarrhea. The following morning, he received a dose of oxycodone 10 mg and was lethargic during the day. However, later that day, he returned to his baseline. The patient was seen by both Physical and Occupational Therapy and made good gains with both disciplines. With physical therapy at the time of admission, the patient required min assist of 2 people to do a transfer. He was unable to hop or ambulate. With occupational therapy at the time of admission, the patient required setup for upper body dressing, mod assist to max assist for lower body dressing, mod assist for bathing, total assistance for toileting. By the time of discharge, the patient was independent in transfers, independent in wheel chair, independent in dressing, independent with the urinal. He was supervision for toilet transfers. The patient's came in for family training prior to discharge. She will provide supervision for the first week. DISCHARGE DIET: Renal. DISCHARGE MEDICATIONS: Included: 1. Eliquis 2.5 mg twice daily. 2. Aspirin 81 mg daily. 3. Tenormin 100 mg daily. 4. Auryxia 2 tablets 3 times a day. 5. FiberCon 625 mg daily. 6. [place] oil 30 cc every day as needed. 7. Gabapentin 200 mg twice daily. 8. Glipizide 10 mg at 8 a.m. and 5 p.m. 9. Hydralazine 50 mg twice daily. 10. Lantus insulin 70 units percutaneously every 24 hours. 11. Nicotine patch 14 mg 1 patch transdermally every day. 12. Oxycodone 5 mg every 4 hours as needed not to exceed 4 per day. 13. Xifaxan 550 mg twice daily. 14. Sodium bicarbonate 1300 mg orally 3 times a day. SERVICES AFTER DISCHARGE: Through [facility] home prison physical therapy and home occupational therapy as well as a home health aide. FOLLOWUP: Follow up with Dr. Gumaro Decker in 1 week as well as with his primary care doctor, Dr. Trenton Romero, in the next 2 to 3 weeks. TIME SPENT: Time spent on this discharge was approximately 50 minutes, greater than half of that was spent with the patient's significant other and himself discussing post discharge rehabilitation, medications, and pain relievers. [id number]/CPS #: [id number]
== END 2018-06-09 15:20 | disposition home health service (06) | DRG 474 ==
LOC: PMRU 10:50 → UNDOADMIN 10:50 → UNDODISIN 06-09 15:20
PROVIDERS: ADMIT Physical Medicine & Rehabilitation; ATTEND Physical Medicine & Rehabilitation
PROC: 3E1M39Z Irrigation of Peritoneal Cavity using Dialysate, Percutaneous Approach (ICD-10-PCS; principal; 2018-05-27)
PROC: 0Y6J0Z2 Detachment at Left Lower Leg, Mid, Open Approach (ICD-10-PCS; 2018-05-27)
PROC: F07Z5ZZ Bed Mobility Treatment (ICD-10-PCS; 2018-05-27)
PROC: F07Z9ZZ Gait Training/Functional Ambulation Treatment (ICD-10-PCS; 2018-05-27)
PROC: F07Z8ZZ Transfer Training Treatment (ICD-10-PCS; 2018-05-27)
PROC: F07Z4ZZ Wheelchair Mobility Treatment (ICD-10-PCS; 2018-05-27)
PROC: F08Z0ZZ Bathing/Showering Techniques Treatment (ICD-10-PCS; 2018-05-27)
PROC: F08Z1ZZ Dressing Techniques Treatment (ICD-10-PCS; 2018-05-27)
PROC: F08Z3ZZ Feeding/Eating Treatment (ICD-10-PCS; 2018-05-27)
PROC: 3E1M39Z Irrigation of Peritoneal Cavity using Dialysate, Percutaneous Approach (ICD-10-PCS; 2018-05-27)
DX: Z47.81 Encounter for orthopedic aftercare following surgical amputation (principal); N18.6 End stage renal disease; I48.92 Unspecified atrial flutter; E87.1 Hypo-osmolality and hyponatremia; T84.117A Breakdown (mechanical) of internal fixation device of bone of left lower leg, initial encounter; M86.662 Other chronic osteomyelitis, left tibia and fibula; S82.302 Unspecified fracture of lower end of left tibia; N17.9 Acute kidney failure, unspecified; Z89.512 Acquired absence of left leg below knee; E11.22 Type 2 diabetes mellitus with diabetic chronic kidney disease; E11.41 Type 2 diabetes mellitus with diabetic mononeuropathy; G58.9 Mononeuropathy, unspecified; F17.210 Nicotine dependence, cigarettes, uncomplicated; R19.7 Diarrhea, unspecified; Z99.2 Dependence on renal dialysis; Z79.82 Long term (current) use of aspirin; Z79.4 Long term (current) use of insulin; Z79.899 Other long term (current) drug therapy; Z88.8 Allergy status to other drugs, medicaments and biological substances; Z91.041 Radiographic dye allergy status; Z72.89 Other problems related to lifestyle; E11.42 Type 2 diabetes mellitus with diabetic polyneuropathy; E11.51 Type 2 diabetes mellitus with diabetic peripheral angiopathy without gangrene; E11.49 Type 2 diabetes mellitus with other diabetic neurological complication; M19.079 Primary osteoarthritis, unspecified ankle and foot; X58.XXXA Exposure to other specified factors, initial encounter; Z79.01 Long term (current) use of anticoagulants; Z79.891 Long term (current) use of opiate analgesic; Z82.49 Family history of ischemic heart disease and other diseases of the circulatory system; Z83.3 Family history of diabetes mellitus
CPT/HCPCS: 36415; 80048; 80053; 85025; 85060; 90945; A9270-GY; G0257; J0885

== ENCOUNTER 2018-06-28 21:44 | Emergency (ER) | payer MEDICARE, MEDICAID ==
--- OUTSIDE RECORDS SUMMARY | 2018-06-28 22:14 | XMS REPORT | Continuity of Care Document ---
:1965 External Reference #:[id number] Author Name Clement Reyes Care Team Providers Name Role Phone Trenton Romero MD Primary Care Physician Unavailable Payers Type Date Identification Numbers Payment Provider Subscriber Policy Number: [id number] Medicare Sam Sherman PayID: [id number] [address] [place] [address] Policy Number: [id number] Medicaid Sam Sherman Group Name: 1 1 [address] PayID: [id number] [place] [address] Expires: 2016 Policy Number: [id number] Medicaid Sam Sherman Group Name: 1 1 [address] PayID: [id number] [place] [address] Advance Directives Description No Information Available Problems Date Description Provider Status Onset: 07/06/2013 Localized, primary osteoarthritis Gumaro Decker M.D. Active of the ankle and/or foot Onset: 07/06/2013 Disorder of joint of ankle and/or Gumaro Decker M.D. Active foot Onset: 07/06/2013 Idiopathic peripheral neuropathy Gumaro Decker M.D. 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 Onset: 06/09/2017 Atherosclerosis of [place] arteries Alva Aldrich MD, Active of left leg with ulceration of [facility], [facility] other part of foot Onset: 01/06/2018 Chest pain Alva Aldrich MD, Active FAC, FSCAI Onset: 01/06/2018 Atrial flutter Alva Aldrich MD, Active FAC, FSCAI Onset: 05/26/2018 End stage renal failure on Karen Ruff NP Active dialysis Onset: 05/26/2018 Type 2 diabetes mellitus Karen Ruff AMNA Active Onset: 05/26/2018 End-stage renal disease Karen Ruff NP Active Onset: 05/26/2018 Acute renal failure syndrome Karen Ruff NP Active Onset: 05/26/2018 Amputated below knee Karen Ruff AMNA Active Onset: 05/25/2018 Long-term current use of insulin Christian Blanton N.P. 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 Work Status Not Currently Working Tobacco Use Start: Unknown Light tobacco smoker (10 or fewer cigarettes/day) ETOH Use consumes 3-4 beers per day Recreational Drug Use Never Used Drugs Tobacco Use Start: Unknown Patient is a current smoker, smokes every day Tobacco Use Start: Unknown Light tobacco smoker 1/4 pack a day (10 or fewer cigarettes/day) Smoking Status Reviewed: 05/14/18 Light tobacco smoker 1/4 pack a day (10 or fewer cigarettes/day) Exercise Type/Frequency Does not exercise Allergies, Adverse Reactions, Alerts Date Description Reaction Status Severity Comments 07/06/2013 Intravenous Dyes Active 07/28/2013 Amlodipine Active 01/06/2018 Tetracycline Urticaria Active Medications Medication Date Status Form Strength Qnty SIG Indications Ordering Provider Oxycodone HCL 02/03/20 Active Tablets 5mg 20tabs 1 tabs by Gumaro Decker, every 4-6 M.D. hours as needed Eliquis 01/14/20 Active Tablets 2.5mg 60tabs 1 by Domingo Torre mouth Brian, twice a M.D., [facility], day FASNC Knee Scooter 04/18/20 Active [...] T. Calcium 06/09/2017 every day MD Valdemar, [facility], [facility] Levofloxacin 03/06/2017 - Hx Tablets 750mg 20tabs [...] 500mg 14tabs 1 po qd Gumaro 07/28/2013 Amairani Decker. Norvasc - Hx Tablets 10mg 90tabs 1 [...] mouth Unknown 05/05/2018 210 with meals. mg(Fe) Immunizations Description No Information Available Vital Signs Date Vital Result Comment 05/14/2018 11:31am Height 71 inches 5'11" Weight 263.00 lb Heart Rate 76 /min BP Systolic 134 mmHg BP Diastolic 80 mmHg Body Temperature 97.6 F Pain Level 6 BMI (Body Mass Index) 36.7 kg/m2 05/05/2018 2:24pm Height 71 inches 5'11" Weight 263.00 lb Heart Rate 79 /min BP Systolic Sitting 130 mmHg Lue reg cuff BP Diastolic Sitting 75 mmHg Lue reg cuff BP Systolic Standing 120 mmHg Lue reg cuff BP Diastolic Standing 70 mmHg Lue reg cuff BMI (Body Mass Index) 36.7 kg/m2 Ejection Fraction 65-70% 01/09/2018 05/05/2018 11:11am Height 71 inches 5'11" Heart Rate 68 /min BP Systolic 140 mmHg BP Diastolic 90 mmHg Body Temperature 97.6 F Pain Level 0 04/21/2018 11:56am Height 71 inches 5'11" Heart Rate 64 /min BP Systolic 138 mmHg BP Diastolic 82 mmHg Body Temperature 97.2 F Pain Level 0 04/14/2018 11:52am Heart Rate 68 /min BP Systolic 136 mmHg BP Diastolic 82 mmHg Body Temperature 97.8 F Pain Level 2 03/19/2018 11:23am Height 71 inches 5'11" Heart Rate 68 /min BP Systolic Sitting 156 mmHg BP Diastolic Sitting 84 mmHg Respiratory Rate 16 /min Body Temperature 97.6 F Pain Level 4 03/03/2018 12:08pm Height 71 inches 5'11" Weight 250.00 lb Heart Rate 64 /min BP Systolic Sitting 130 mmHg BP Diastolic Sitting 90 mmHg Body Temperature 97.5 F Pain Level 4 BMI (Body Mass Index) 34.9 kg/m2 02/12/2018 10:46am Height 70 inches 5'10" Weight 265.00 lb Heart Rate 68 /min BP Systolic Sitting 130 mmHg BP Diastolic Sitting 70 mmHg Pain Level 8 BMI (Body Mass Index) 38.0 kg/m2 01/13/2018 3:36pm Height 70 inches 5'10" Weight 265.00 lb w/ shoes Heart Rate 76 /min BP Systolic Sitting 152 mmHg lue lg cuff BP Diastolic Sitting 72 mmHg lue lg cuff Respiratory Rate 18 /min BMI (Body Mass Index) 38.0 kg/m2 Ejection Fraction 65-70% echo 01/09/18 01/06/2018 3:30pm Height 70 inches 5'10" Weight 240.00 lb w/ shoes Heart Rate 58 /min irregular BP Systolic Sitting 142 mmHg lue lg cuff BP Diastolic Sitting 68 mmHg lue lg cuff Respiratory Rate 18 /min BMI (Body Mass Index) 34.4 kg/m2 Ejection Fraction stress elsi Mcdanielhrie 1 year ago, 12/30/2017 11:15am Height 70 inches 5'10" Weight 240.00 lb BP Systolic Sitting 138 mmHg BP Diastolic Sitting 80 mmHg Respiratory Rate 16 /min Body Temperature 97.8 F Pain Level 7 BMI (Body Mass Index) 34.4 kg/m2 11/20/2017 11:35am Height 70 inches 5'10" Weight 240.00 lb BP Systolic 122 mmHg BP Diastolic 74 mmHg Respiratory Rate 20 /min Body Temperature 97.7 F Pain Level 4 BMI (Body Mass Index) 34.4 kg/m2 10/23/2017 11:45am Height 70 inches 5'10" Weight 240.00 lb Respiratory Rate 16 /min Pain Level 4 BMI (Body Mass Index) 34.4 kg/m2 09/23/2017 10:54am Height 70 inches 5'10" Weight 240.00 lb Heart Rate 86 /min BP Systolic Sitting 128 mmHg BP Diastolic Sitting 80 mmHg Pain Level 3 BMI (Body Mass Index) 34.4 kg/m2 08/26/2017 11:22am Height 70 inches 5'10" Weight 240.00 lb BP Systolic 124 mmHg BP Diastolic 80 mmHg Body Temperature 97.9 F BMI (Body Mass Index) 34.4 kg/m2 07/31/2017 1:16pm Height 70 inches 5'10" Weight 248.00 lb w/ shoes Heart Rate 80 /min apical BP Systolic Sitting 122 mmHg lue large cuff BP Diastolic Sitting 72 mmHg lue large cuff BP Systolic Standing 128 mmHg lue large cuff BP Diastolic Standing 76 mmHg lue large cuff Respiratory Rate 18 /min BMI (Body Mass Index) 35.6 kg/m2 Ejection Fraction no echo/ss 07/22/2017 11:32am Height 70 inches 5'10" Weight 240.00 lb Heart Rate 80 /min Respiratory Rate 16 /min Body Temperature 97.0 F Pain Level 6 BMI (Body Mass Index) 34.4 kg/m2 06/24/2017 11:05am Height 70 inches 5'10" Weight 240.00 lb Heart Rate 84 /min BP Systolic Sitting 124 mmHg BP Diastolic Sitting 70 mmHg Pain Level 7 BMI (Body Mass Index) 34.4 kg/m2 06/23/2017 2:52pm Height 70 inches 5'10" Weight 237.38 lb with shoes Heart Rate 86 /min BP Systolic Sitting 104 mmHg Rue lg cuff BP Diastolic Sitting 60 mmHg Rue lg cuff Respiratory Rate 16 /min BMI (Body Mass Index) 34.1 kg/m2 06/09/2017 3:27pm Height 70 inches 5'10" Weight 244.00 lb w/ shoes and walking boot Heart Rate 72 /min apical BP Systolic Sitting 122 mmHg lue large cuff BP Diastolic Sitting 68 mmHg lue large cuff Respiratory Rate 18 /min BMI (Body Mass Index) 35.0 kg/m2 06/02/2017 1:28pm Height 70 inches 5'10" Weight 240.00 lb Heart Rate 80 /min BP Systolic 134 mmHg BP Diastolic 90 mmHg Body Temperature 97.9 F Pain Level 9 BMI (Body Mass Index) 34.4 kg/m2 05/23/2017 11:43am Height 70 inches 5'10" Weight 240.00 lb BP Systolic 126 mmHg BP Diastolic 88 mmHg Respiratory Rate 20 /min Pain Level 7 BMI (Body Mass Index) 34.4 kg/m2 05/02/2017 11:19am Height 70 inches 5'10" Weight 240.00 lb BP Systolic 114 mmHg BP Diastolic 74 mmHg Respiratory Rate 20 /min Body Temperature 97.1 F Pain Level 9 BMI (Body Mass Index) 34.4 kg/m2 04/18/2017 1:42pm Heart Rate 70 /min BP Systolic Sitting 115 mmHg BP Diastolic Sitting 85 mmHg Body Temperature 97.2 F Pain Level 6 04/01/2017 12:07pm Height 70 inches 5'10" Weight 240.00 lb Heart Rate 69 /min BP Systolic 114 mmHg BP Diastolic 76 mmHg Body Temperature 95.9 F Pain Level 5 BMI (Body Mass Index) 34.4 kg/m2 03/21/2017 11:16am Height 70 inches 5'10" Weight 250.00 lb Heart Rate 60 /min BP Systolic 140 mmHg BP Diastolic 88 mmHg Body Temperature 97.1 F Pain Level 4 BMI (Body Mass Index) 35.9 kg/m2 03/13/2017 12:10pm Height 70 inches 5'10" Weight 250.00 lb Respiratory Rate 18 /min Body Temperature 97.3 F Pain Level 4 BMI (Body Mass Index) 35.9 kg/m2 03/06/2017 10:39am Height 70 inches 5'10" Weight 250.00 lb BP Systolic 124 mmHg BP Diastolic 74 mmHg Respiratory Rate 20 /min Body Temperature 97.9 F Pain Level 0 BMI (Body Mass Index) 35.9 kg/m2 02/28/2017 1:39pm Height 70 inches 5'10" Weight 250.00 lb BP Systolic 120 mmHg BP Diastolic 78 mmHg Respiratory Rate 20 /min Body Temperature 98.3 F Pain Level 7 BMI (Body Mass Index) 35.9 kg/m2 02/20/2017 2:59pm Height 70 inches 5'10" Weight 250.00 lb BP Systolic 140 mmHg BP Diastolic 88 mmHg Body Temperature 98.8 F Pain Level 0 BMI (Body Mass Index) 35.9 kg/m2 02/13/2017 10:16am Height 70 inches 5'10" Weight 250.00 lb Heart Rate 60 /min BP Systolic 142 mmHg BP Diastolic 80 mmHg Body Temperature 96.3 F BMI (Body Mass Index) 35.9 kg/m2 01/21/2017 11:16am Height 70 inches 5'10" Weight 250.00 lb BP Systolic 129 mmHg BP Diastolic 82 mmHg Respiratory Rate 16 /min Body Temperature 97.5 F Pain Level 0 BMI (Body Mass Index) 35.9 kg/m2 12/31/2016 11:34am Height 70 inches 5'10" Weight 250.00 lb Heart Rate 68 /min BP Systolic 140 mmHg BP Diastolic 99 mmHg Body Temperature 97.4 F Pain Level 5 BMI (Body Mass Index) 35.9 kg/m2 06/27/2016 11:20am Height 70 inches 5'10" Weight 250.00 lb Heart Rate 65 /min BP Systolic 154 mmHg BP Diastolic 83 mmHg BMI (Body Mass Index) 35.9 kg/m2 08/31/2013 1:53pm Height 70 inches 5'10" Weight 250.00 lb Heart Rate 63 /min 69 BP Systolic 224 mmHg 212/113 BP Diastolic 95 mmHg 212/113 BMI (Body Mass Index) 35.9 kg/m2 08/10/2013 3:54pm Height 70 inches 5'10" Weight 250.00 lb Heart Rate 75 /min BP Systolic 187 mmHg BP Diastolic 98 mmHg BMI (Body Mass Index) 35.9 kg/m2 07/28/2013 3:27pm Height 70 inches 5'10" Weight 250.00 lb Heart Rate 68 /min BP Systolic 124 mmHg BP Diastolic 74 mmHg Body Temperature 98.1 F BMI (Body Mass Index) 35.9 kg/m2 Results Test Date Facility Test Result H/L Range Note CBC No Diff 05/25/2018 [facility] White Blood 6.4 10^3/uL N 3.5-10.[address] [place] [address] [phone] Red Blood Count 3.40 10^6/uL Low 4.00-5.40 Hemoglobin 10.1 g/dL Low 14.0-18.0 Hematocrit 31 % Low 42-52 Mean Corpuscular Volume 90 fL N 80-94 Mean Corpuscular Hemoglobin 30 pg N 27-31 Mean Corpuscular HGB Conc 33 g/dL N 31-36 Red Cell Distribution Width 17 % High 10.5-15 Platelet Count 138 10^3/uL Low 150-450 Mean Platelet Volume 7.6 fL N 7.4-10.4 CBC Auto Diff 05/21/2018 [facility] White Blood 5.7 10^3/uL N 3.5-10.[address] [place] [address] [phone] Red Blood Count 3.45 10^6/uL Low 4.00-5.40 Hemoglobin 10.3 g/dL Low 14.0-18.0 Hematocrit 31 % Low 42-52 Mean Corpuscular Volume 90 fL N 80-94 Mean Corpuscular Hemoglobin 30 pg N 27-31 Mean Corpuscular HGB Conc 33 g/dL N 31-36 Red Cell Distribution Width 16 % High 10.5-15 Platelet Count 167 10^3/uL N 150-450 Mean Platelet Volume 7.9 fL N 7.4-10.4 Abs Neutrophils 4.0 10^3/uL N 1.5-7.7 Abs Lymphocytes 0.7 10^3/uL Low 1.0-4.8 Abs Monocytes 0.6 10^3/uL N 0-0.8 Abs Eosinophils 0.2 10^3/uL N 0-0.6 Abs Basophils 0.1 10^3/uL N 0-0.2 Abs Nucleated RBC 0 10^3/uL Granulocyte % 71.4 % N 38-83 Lymphocyte % 13.1 % Low 25-47 Monocyte % 10.9 % High 0-7 Eosinophil % 3.1 % N 0-6 Basophil % 1.5 % N 0-2 Nucleated Red Blood Cells % 0 Inr/Protime 05/21/2018 [facility] Inr 1.01 N 0.77-1.02 [place] [address] [phone] Laboratory test 05/21/2018 [facility] Partial 31.4 seconds N 26.0-36.3 finding [address] [employer] [place] [address] PTT [phone] Type & Screen 05/21/2018 [facility] Patient A Positive [facility] [place] [address] [phone] Antibody Screen NEGATIVE Basic Metabolic 05/01/2018 [facility] Sodium 128 mmol/L Low 135-145 [place] [address] [phone] Potassium 4.4 mmol/L N 3.5-5.0 Chloride 88 mmol/L Low 101-111 Co2 Carbon Dioxide 24 mmol/L N 22-32 Anion Gap 16 mmol/L High 2-11 Glucose 302 mg/dL High 70-100 Blood Urea Nitrogen 70 mg/dL High 6-24 Creatinine 13.19 mg/dL High 0.67-1.17 BUN/Creatinine Ratio 5.3 Low 8-20 Calcium 10.1 mg/dL N 8.6-10.3 Egfr Non- 4.0 >60 Egfr 4.8 >60 1 CBC Auto Diff 05/01/2018 [facility] White Blood 6.0 10^3/uL N 3.5-10.[address] [place] [address] [phone] Red Blood Count 3.24 10^6/uL Low 4.00-5.40 Hemoglobin 9.8 g/dL Low 14.0-18.0 Hematocrit 30 % Low 42-52 Mean Corpuscular Volume 92 fL N 80-94 Mean Corpuscular Hemoglobin 30 pg N 27-31 Mean Corpuscular HGB Conc 33 g/dL N 31-36 Red Cell Distribution Width 17 % High 10.5-15 Platelet Count 161 10^3/uL N 150-450 Mean Platelet Volume 8.2 um3 N 7.4-10.4 Abs Neutrophils 3.9 10^3/uL N 1.5-7.7 Abs Lymphocytes 1.0 10^3/uL N 1.0-4.8 Abs Monocytes 0.8 10^3/uL N 0-0.8 Abs Eosinophils 0.2 10^3/uL N 0-0.6 Abs Basophils 0.1 10^3/uL N 0-0.2 Abs Nucleated RBC 0 10^3/uL Granulocyte % 64.5 % N 38-83 Lymphocyte % 16.6 % Low 25-47 Monocyte % 14.0 % High 0-7 Eosinophil % 3.2 % N 0-6 Basophil % 1.7 % N 0-2 Nucleated Red Blood Cells % 0.3 Laboratory test 02/02/2018 [facility] Surgical Pathology SEE RESULT [address] [place] [address] [phone] Laboratory test 02/02/2018 [facility] Point of Care 183 mg/dL High 70-1 [address] Glucose 00 [place] [address] [phone] Wound 02/02/2018 [facility] Wound/Misc SEE RESULT 4 Culture/Sensi [address] Culture-[place] [address] [phone] Laboratory test 02/02/2018 [facility] Anaerobic Culture SEE RESULT [address] [place] [address] [phone] Laboratory test 02/02/2018 [facility] Point of Care 179 mg/dL High 70-1 [address] Glucose 00 [place] [address] [phone] Lipid Profile 07/29/2017 [facility] Triglycerides 118 mg/dL 7 (Trig/Chol/HDL) [address] [place], [place] [address] [phone] Cholesterol 147 mg/dL 8 HDL Cholesterol 47.4 mg/dL 9 LDL Cholesterol 76 mg/dL 10 Laboratory test 06/17/2017 [facility] Point of 230 mg/dL High 70-100 [address] [place] [address] [phone] Basic Metabolic 06/11/2017 [facility] Sodium 130 mmol/L Low 133-[address] [place] [address] [phone] Potassium 4.1 mmol/L N 3.5-5.0 Chloride 94 mmol/L Low 101-111 Co2 Carbon Dioxide 25 mmol/L N 22-32 Anion Gap 11 mmol/L N 2-11 Glucose 206 mg/dL High 70-100 Blood Urea Nitrogen 59 mg/dL High 6-24 Creatinine 8.61 mg/dL High 0.67-1.17 BUN/Creatinine Ratio 6.9 Low 8-20 Calcium 9.2 mg/dL N 8.6-10.3 Egfr Non- 6.5 >60 Egfr 8.4 >60 12 CBC Auto Diff 06/11/2017 [facility] White Blood 7.0 10^3/uL N 3.5-10.[address] [place] [address] [phone] Red Blood Count 3.12 10^6/uL Low 4.0-5.4 Hemoglobin 9.2 g/dL Low 14.0-18.0 Hematocrit 28 % Low 42-52 Mean Corpuscular Volume 90 fL N 80-94 Mean Corpuscular Hemoglobin 30 pg N 27-31 Mean Corpuscular HGB Conc 33 g/dL N 31-36 Red Cell Distribution Width 14 % N 10.5-15 Platelet Count 199 10^3/uL N 150-450 Mean Platelet Volume 8 um3 N 7.4-10.4 Abs Neutrophils 4.5 10^3/uL N 1.5-7.7 Abs Lymphocytes 1.3 10^3/uL N 1.0-4.8 Abs Monocytes 0.9 10^3/uL High 0-0.8 Abs Eosinophils 0.2 10^3/uL N 0-0.6 Abs Basophils 0.1 10^3/uL N 0-0.2 Abs Nucleated RBC 0 10^3/uL Granulocyte % 63.8 % N 38-83 Lymphocyte % 18.9 % Low 25-47 Monocyte % 13.0 % High 1-9 Eosinophil % 3.0 % N 0-6 Basophil % 1.3 % N 0-2 Nucleated Red Blood Cells % 0 Manual Differential 06/11/2017 [facility] Neutrophil % 65 % N 38-[address] [place], [place] [id number] [phone] Lymphocytes % 21 % Low 25-47 Monocytes % 10 % N 0-13 Basophil % 4 % High 0-2 RBC Morphology Normal Normal Creatinine 05/13/2017 [facility] Creatinine 8.98 mg/dL High 0.67-1.[address] [place], [place] [address] [phone] Egfr Non- 6.2 N >60 Egfr 8.0 N >60 13 Laboratory test 05/13/2017 [facility] Blood Urea 65 mg/dL High 6-[address] Nitrogen BUN [place], [place] [address] [phone] Laboratory test 02/03/2017 [facility] Anaerobic SEE RESULT [address] Culture BELOW [place], [place] [address] [phone] Laboratory test 02/03/2017 [facility] Point of Care 174 mg/dL High 74-106 [address] Glucose [place], [place] [address] [phone] Laboratory test 02/03/2017 [facility] Surgical SEE RESULT [address] [place] [address] [phone] Wound 02/03/2017 [facility] Wound/Misc SEE RESULT 17 Culture/Sensi [address] [place] [address] Stain [phone] Laboratory test 08/06/2016 [facility] Point of Care 205 mg/dL High 74-106 [address] [place] [address] [phone] CBC No Diff 08/02/2013 [facility] White Blood 6.0 4.8-10.[address] Count 10^3/[place] [address] [phone] Red Blood Count 4.15 10^6/uL 4.0-5.4 Hemoglobin 11.4 g/dL Low 14.0-18.0 Hematocrit 35 % Low 42-52 Mean Corpuscular Volume 85 fL 80-94 Mean Corpuscular Hemoglobin 28 pg 27-31 Mean Corpuscular HGB Conc 32 g/dL 31-36 Red Cell Distribution Width 13 % 10.5-15 Platelet Count 219 10^3/uL 150-450 Mean Platelet Volume 9 um3 7.4-10.4 Comp Metabolic Panel 08/02/2013 [facility] Sodium 128 mmol/L Low 133-[address] [place] [address] [phone] Potassium 5.1 mmol/L High 3.5-5.0 Chloride 95 [...] >60 Egfr 37.3 >60 19 Laboratory test 08/02/2013 [facility] C Reactive 0.9 mg/dL High Less [address] Protein than 0.5 [place] [address] [phone] Manual 07/26/2013 [facility] Neutrophil % 66 % 38-[address] [place] [address] [phone] Lymphocytes % 22 % Low 25-47 Monocytes % 8 % 0-13 Eosinophils % 3 % 0-6 Myelocytes % 1 % 0-1 RBC Morphology Normal Normal Laboratory test 07/26/2013 [facility] C Reactive 0.9 mg/dL High Less than finding [address] Protein 0.5 [place] [address] [phone] Comp Metabolic 07/26/2013 [facility] Sodium 132 mmol/L Low 133 -[address] [place] [address] [phone] Potassium 4.8 mmol/L 3.5-5.0 Chloride 102 mmol/L [...] 43.6 >60 21 CBC No Diff 07/26/2013 [facility] White Blood 6.4 10^3/uL 4.8 -10.[address] [place] [address] [phone] Red Blood Count 3.90 10^6/uL Low 4.0-5.4 [...] [address]: Gumaro Decker MD Acct: [id number] Unit: [id number] AGE: 52 Location: OR Re02/02/18 SEX: M Status: [facility] SPEC: [id number] ROMULO: 02/02/18- [facility] DR: Gumaro Decker MD REQ: [id number] RECD: 02/02/18-1203 STATUS: SOUT _ ORDERED: Decal, [...] cm aggregate of tamez-pink irregular bone fragments. [employer] Dried Salt sections, two cassettes following decalcification. Signed by and Reported on: Mahogany Arrieta MD 02/10/18 1044 END OF REPORT DEPARTMENT OF PATHOLOGY, [address] [place] [address] Balta Fuchs M.D. Director [facility] # [id number] 3 Tavern Car Attendant: [id number] SEE RESULT BELOW Name: SAM SHERMAN : [address]: Gumaro Decker MD Acct: [id number] Unit: [id number] AGE: 52 Location: OR Re02/02/18 SEX: M Status: [facility] [facility] SPEC: [id number] ROMULO: 02/02/[address] [facility] [address]: Gumaro Decker MD REQ: [id number] RECD: 02/02/18 STATUS: ALEXA IRIZARRY DR: Trenton Romero MD _ SOURCE: ANKLE LEFT SPDESC: ORDERED: Culture Stain Procedure Result Reported Site Wound/Misc Gram Stain Final 02/02/18- 1136 ML 1+ Epithelial Cells 1+ Neutrophils No Organisms Seen Wound/Misc Culture Final 02/06/18- 933 ML No Growth Day 4 * ML - Main Lab . END OF REPORT DEPARTMENT OF PATHOLOGY, [address] [place] [id number] Balta Fuchs M.D. Director [facility] # [id number] 5 SEE RESULT BELOW Name: SAM SHERMAN : [address]: Gumaro Decker MD Acct: [id number] Unit: [id number] AGE: 52 Location: OR Re02/02/18 SEX: M Status: DEP SDC SPEC: [id number] ROMULO: 02/02/[address] [facility] [address]: Gumaro Decker MD REQ: [id number] RECD: 02/02/18-1000 STATUS: ALEXA IRIZARRY DR: Trenton Romero MD _ SOURCE: WOUND SPDESC:ANKLE LEFT ORDERED: Anaerobic Cult Procedure Result Reported Site Anaerobic Culture Final 02/06/18- 0934 ML No Growth Day 4 * ML - Main Lab . END OF REPORT DEPARTMENT OF PATHOLOGY, [address] [place] [address] Balta Fuchs M.D. Director [facility] # [id number] 6 Tavern Car Attendant: [id number] Desirable: <150 Borderline High: 150-199 High: 200-499 Very High: >500 8 Desirable: <200 Borderline High: 200-239 High: >239 9 Low: <40 Desirable: 40-60 High: >60 10 Desirable: <100 Near Optimal: 100-129 Borderline High: 130-159 High: 160-189 Very High: >189 11 [address] Attendant: [id number] Because ethnic data is not always [...] [address]: Gumaro Decker MD Acct: [id number] Unit: [id number] AGE: 51 Location: OR Re02/03/17 SEX: M Status: DEP SDC SPEC: [id number] ROMULO: 02/03/17-[address]: Gumaro Decker MD REQ: [id number] RECD: 02/03/17-1202 STATUS: COMP SHIRA DR: Trenton Rodriguez MD _ SOURCE: WOUND SPDESC:LEFT ORDERED: Anaerobic Cult COMMENTS: LEFT FOOT Procedure Result Reported Site Anaerobic Culture Final 02/07/17- 803 ML No Growth Day 4 * ML - MAIN LAB ([facility]) . END OF REPORT * ML=Testing performed at Main Lab DEPARTMENT OF PATHOLOGY, [address] [place] [address] Balta Fuchs M.D. Director [facility] # [id number] 15 [address] Attendant: [id number] SEE RESULT BELOW Name: SAM SHERMAN : [address]: Gumaro Decker MD Acct: [id number] Unit: [id number] AGE: 51 Location: OR Re02/03/17 SEX: M Status: [facility] [facility] SPEC: [id number] ROMULO: 02/03/17- SUBM DR: Gumaro Decker MD REQ: [id number] RECD: 02/03/171155 STATUS: SOUT _ ORDERED: Decal, [...] 2.5 x 1.5 x 0.5 cm and community engagement representative sections are submitted in cassette A following decalcification. Within the aggregate the largest fragment measures 5.0 x 4.0 x 2.0 cm, is inked blue, serially sectioned and a community engagement representative section is submitted in cassette B. The second largest fragment measures 3.2 x 2.5 x 0.7 cm, is inked black, serially sectioned and community engagement representative sections of the remaining soft tissue are submitted in cassette C. MICROSCOPIC DESCRIPTION . Signed (signature on file) Mahogany Arrieta MD [id number] END OF REPORT * ML=Testing performed at Main Lab DEPARTMENT OF PATHOLOGY, [address] [place] [address] Balta Fuchs M.D. Director [facility] # [id number] 17 SEE RESULT BELOW Name: SAM SHERMAN : [address]: Gumaro Decker MD Acct: [id number] Unit: [id number] AGE: 51 Location: OR Re02/03/17 SEX: M Status: SCOTT ARREDONDO SPEC: [id number] ROMULO: 02/03/17-[address] [facility] [address]: Gumaro Decker MD REQ: [id number] RECD: 02/03/171202 STATUS: ALEXA IRIZARRY DR: Trenton Rodriguez MD _ SOURCE: FOOT,LEFT SPDESC: ORDERED: Culture Stain QUERIES: Specimen Description LEFT FOOT OPSITE Procedure Result Reported Site Wound/Misc Gram Stain Final 02/03/17- 1358 ML 3+ Neutrophils 1+ Epithelial Cells No Organisms Seen Wound/Misc Culture Final 02/06/17- 0839 ML No Growth Day 3 * ML - MAIN LAB ([facility]) . END OF REPORT * ML=Testing performed at Main Lab DEPARTMENT OF PATHOLOGY, [address] [place] [address] Balta Fuchs M.D. Director [facility] # [id number] 18 Tavern Car Attendant: [id number] LOTTIE ADAME 19 Because ethnic data is [...] <15 (or dialysis) [address] ROSALES [phone] 21 Because ethnic data is not always [...] Kidney failure <15 (or dialysis) Procedures Date Code Description Status 05/25/2018 51561 Amputation Leg Through Tibia & Fibula Completed 05/25/2018 68002 Amputation Leg Through Tibia & Fibula Completed 05/05/2018 43593 EKG Tracing & Interpretation Completed 04/15/2018 69277 Walking Cast Completed 04/14/2018 44837 Short Leg Cast Completed 03/19/2018 69647 Short Leg Cast Completed 03/03/2018 69388 Short Leg Cast Completed 02/12/2018 72035 Short Leg Cast Completed 02/02/2018 87259 Arthrodesis Ankle,open Completed 02/02/2018 50999 Arthrodesis Ankle,open Completed 02/02/2018 43252 Osteotomy Tibia Completed 02/02/2018 25645 Osteotomy Tibia Completed 01/09/2018 88840 ECHO Transthoracic, Real-Time 2D With Doppler And Completed Color Flow 01/09/2018 80673 ECHO Transthoracic, Real-Time 2D With Doppler And Completed Color Flow 01/06/2018 57201 EKG Tracing & Interpretation Completed 07/04/2017 31176 Removal Devitalization Tissue Wound Less Than Equal 20 Completed Square CM 06/17/2017 57326 Uvbhl-Ataamzcmb-Qhncrjzswe Completed 06/17/2017 64131 Catheter Placement Arterial System Addtl 2ND/3RD Ord Completed Abdom/Pelv 06/17/2017 80228 Catheter Placement Arterial System Init 3RD Order Completed Abdom/Pelv/Low 02/13/2017 85650 Walking Cast Completed 02/03/2017 11083 Partial Excision Bone Tarsal/Metatarsal Completed 02/03/2017 38677 Partial Excision Bone Tarsal/Metatarsal Completed 08/06/2016 92358216 Colonoscopy Completed 10/31/2015 25538 Insertion Tunneled Cent Venous Cathr W/O Subcut Completed Port/Pump 5Yrs> 10/31/2015 99672 Ultrasound Guidance For Vascular Access Completed 10/31/2015 46809 Fluoroscopic Guidance For Cent Completed 10/01/2015 08860 EKG, Interpretation Only Completed 08/31/2013 36411 Rad Exam; Foot Comp Completed 07/12/2013 60692 Partial Excision Bone Tarsal/Metatarsal Completed 07/12/2013 33866 Removal Implant Deep Wire,Screw Nail,Keith Or Plate Completed 05/31/2013 25514 Rad Exam; Foot Comp Completed 11/16/2012 38044 Rad Exam; Foot Comp Completed 10/19/2012 21635 Short Leg Cast Completed 10/12/2012 98532 Rad Exam; Foot Comp Completed 10/12/2012 44539 Short Leg Cast Completed 10/09/2012 56697 Arthrodesis Midtarsal/Tarsometatarsal W/Osteotomy Completed 09/28/2012 37680 Rad Exam; Foot Comp Completed 06/26/2012 20987 Short Leg Cast Completed 06/08/2012 89242 Walking Cast Completed 06/08/2012 61875 Short Leg Cast Completed 05/25/2012 02566 Short Leg Cast Completed 05/13/2012 23999 Rad Exam; Foot Limited Completed 05/13/2012 54848 Rad Exam; Foot Limited Completed 05/13/2012 47736 Rad Exam; Ankle Comp Completed 05/13/2012 86572 Rad Exam; Ankle Comp Completed 05/13/2012 73954 Short Leg Cast Completed 04/16/2012 [id number] Diabetic Foot Exam Completed Encounters Type Date Location Provider Dx Diagnosis Office Visit 05/26/2018 [facility] Z89.512 Acquired absence 8:11a Assoc,indy Ruff NP of left leg Hospitalists below knee N17.9 Acute kidney failure, unspecified N18.6 End stage renal disease E11.22 Type 2 diabetes mellitus w diabetic chronic kidney disease Z99.2 Dependence on renal dialysis Office Visit 05/25/2018 8:10a [facility] Z89.512 Acquired Assoc,indy Blanton N.Jose C. 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 foot Office Visit 11/20/2017 [facility] Gumaro Decker M14.672 Charcot's joint , 11:30a Services Of Cathi left ankle and C.M.A. foot Office Visit 10/23/2017 Orthopedic Andrew Ahmadi4.672 Charcot's joint , 11:30a Services Of Cathi left ankle and C.M.A. foot Office Visit 09/23/2017 Orthopedic Nora Ahmadi86.672 Other chronic 10:30a Services Of Cathi osteomyelitis, C.M.A. left ankle and foot Office Visit 08/26/2017 Orthopedic Nora Ahmadi86.672 Other chronic 11:15a Services Of Cathi osteomyelitis, C.M.A. left ankle and foot Office Visit 07/31/2017 [facility] Alva Brothers I70.245 [facility] [place] 1:20p Cardiology Of MD Valdemar, arteries of left Industrial Safety And Health Manager AT [facility], FSCAI leg w ulceration oth prt foot Office Visit 07/25/2017 Wound Care Anh E11.610 Type 2 diabetes 1:30p Center AT [facility] JOSEPHINE Smith, RN, mellitus w [facility] diabetic neuropathic arthropathy I70.299 Oth [facility] [place] arteries of extremities, unsp extremity N18.5 Chronic kidney disease, stage 5 F17.200 Nicotine dependence, unspecified, uncomplicated Office Visit 07/22/2017 11:15a [facility] E11.621 Type 2 diabetes Services Of Cathi Decker mellitus with C.M.A. foot ulcer Office Visit 06/24/2017 11:00a [facility] T81.31xD Disruption of Services Of Cathi Decker external C.M.A. operation (surgical) wound, NEC, subs M14.672 Charcot's joint, left ankle and foot L97.521 Non-prs chronic ulcer oth prt l foot limited to brkdwn skin Office Visit 06/23/2017 3:00p [facility] Alva Brothers I70.245 [facility] [place] Of Industrial Safety And Health Manager AT [facility] MD Valdemar, arteries of left FACC, FSCAI leg w ulceration oth prt foot F17.200 Nicotine dependence, unspecified, uncomplicated Office Visit 06/20/2017 1:30p Wound Care Anh Smith, L97.521 Non- prs chronic Center AT [facility] JOSEPHINE, RN, [facility]- ulcer oth prt l foot limited to brkdwn skin E11.621 Type 2 diabetes mellitus with foot ulcer M14.672 Charcot's joint, left ankle and foot I12.0 Hyp chr kidney disease w stage 5 chr kidney disease or Esrd N18.5 Chronic kidney disease, stage 5 F17.200 Nicotine dependence, unspecified, uncomplicated Office Visit 06/09/2017 3:20p [facility] Alva Brothers I70.245 [facility] [place] Of Industrial Safety And Health Manager AT [facility] MD Valdemar, arteries of left FACC, FSCAI leg w ulceration oth prt foot E11.621 Type 2 diabetes mellitus with foot ulcer N18.5 Chronic kidney disease, stage 5 K74.60 Unspecified cirrhosis of liver Office Visit 06/02/2017 1:15p Orthopedic Remyiggy Sandra, E11.621 Type 2 Services Of MD laura Teixeira mellitus with foot ulcer M14.672 Charcot's joint, left ankle and foot Office Visit 01/21/2017 11:00a Orthopedic Services G[facility] M14.672 Charcot 's Of Puneet Decker M.D. joint, left ankle and foot Office Visit 12/31/2016 11:00a [facility] M14.672 Charcot 's Of Puneet Decker M.D. joint, left ankle and foot Office Visit 06/27/2016 11:00a Orthopedic Services [facility] M14.671 Charcot 's Of Puneet Decker M.D. joint, right ankle and foot Office [facility] kidney Assoc,indy Gan D.O. disease, stage Hospitalists 5 E11.9 Type 2 diabetes mellitus without complications I10 Essential (primary) hypertension Office Visit 11/01/2015 10:06[facility] N18.5 Chronic kidney Assoc,indy Gan D.O. disease, stage Hospitalists 5 E11.9 Type 2 diabetes mellitus without complications I10 Essential (primary) hypertension Office Visit 10/31/2015 10:06a [facility] Soco I50.9 Heart failure, Assoc,pc Andreea, DO unspecified Hospitalists E11.9 Type 2 diabetes mellitus without complications S37.009A Unspecified injury of unspecified kidney, initial encounter I10 Essential (primary) hypertension Office Visit 10/08/2015 3:21p [facility] Katy N18.5 Chronic kidney Assoc,indy Gan D.O. disease, stage Hospitalists 5 E11.9 Type 2 diabetes mellitus without complications E87.70 Fluid overload, unspecified D64.9 Anemia, unspecified Office Visit 10/07/2015 3:[facility]p [facility] N18.5 Chronic kidney Assoc,indy Gan D.O. disease, stage Hospitalists 5 E11.9 Type 2 diabetes mellitus without complications E87.70 Fluid overload, unspecified D64.9 Anemia, unspecified Office Visit 10/06/2015 3:20p [facility] N18.5 Chronic kidney Assoc,indy Gan D.O. disease, stage Hospitalists 5 E11.9 Type 2 diabetes mellitus without complications E87.70 Fluid overload, unspecified D64.9 Anemia, unspecified Office Visit 10/05/2015 2:49p [facility] N18.5 Chronic kidney Assoc,indy Gan D.O. disease, stage Hospitalists 5 E11.9 Type 2 diabetes mellitus without complications E87.70 Fluid overload, unspecified D64.9 Anemia, unspecified Office Visit 10/04/2015 2:49p [facility] N18.5 Chronic kidney Assoc,indy Gan D.O. disease, stage Hospitalists 5 E11.9 Type 2 diabetes mellitus without complications E87.70 Fluid overload, unspecified D64.9 Anemia, unspecified Office Visit 10/03/2015 2:48p [facility] Ulises Yen N18.5 Chronic kidney Assoc,indy WILKS disease, stage Hospitalists 5 E11.9 Type 2 diabetes mellitus without complications E87.70 Fluid overload, unspecified D64.9 Anemia, unspecified Office Visit 10/02/2015 [facility] Ulises E87.70 Fluid overload, 2:47p Assoc,indy Yen MD unspecified Hospitalists E11.9 Type 2 diabetes mellitus without complications N18.5 Chronic kidney disease, stage 5 D64.9 Anemia, unspecified Office Visit 10/01/2015 2:47p [facility] Mukund Tapia, I50.9 Heart failure, Assoc,indy Winkler unspecified Hospitalists E11.9 Type 2 diabetes mellitus without complications D64.9 Anemia, unspecified N18.5 Chronic kidney disease, stage 5 Office Visit 08/31/2013 1:45p Orthopedic Services Gumaro Decker, 707.15 Ulcer Of Of C.MEliud Bales. Other Part Of Foot 996.67 Infection & Inflammatory React Due To Internal Orthoped Othe Office Visit 07/28/2013 [facility] Caio Rodriguez 996.67 Infection & 3:20p For Pearl Rosales M.D. Inflammatory React Diseases Due To Internal Orthoped Othe 730.27 Osteomyelitis Unspec Ankle & Foot Office Visit 07/20/2013 [facility] Caio Rodriguez 996.67 Infection & 1:51p For Infectious Cathi Rosales Inflammatory React Diseases Due To Internal Orthoped Othe 730.27 Osteomyelitis Unspec Ankle & Foot 041.00 Streptococcus Unspec Office Visit 07/20/2013 10:35a [facility] 682.7 Cellulitis & Assoc,pc Harvinder, N.P. Abscess Foot Hospitalists Except Toes 250.82 Diabetes W/ Other Spec Manifestations Type II Uncontrolled 713.5 Arthropathy W/ Neurological Disorders Office Visit 07/19/2013 10:34a [facility] Christian 682.7 Cellulitis & Assoc,pc Harvinder, N.P. Abscess Foot Hospitalists Except Toes 250.82 Diabetes W/ Other Spec Manifestations Type II Uncontrolled 713.5 Arthropathy W/ Neurological Disorders Office Visit 07/18/2013 10:33a [facility] 682.7 Cellulitis & Assoc,pc Harvinder, N.P. Abscess Foot Hospitalists Except Toes 250.82 Diabetes W/ Other Spec Manifestations Type II Uncontrolled 713.5 Arthropathy W/ Neurological Disorders Office Visit 07/17/2013 10:33a [facility] 682.7 Cellulitis & Assoc,pc Harvinder, N.P. Abscess Foot Hospitalists Except Toes 250.82 Diabetes W/ Other Spec Manifestations Type II Uncontrolled 713.5 Arthropathy W/ Neurological Disorders Office Visit 07/16/2013 [facility] 6[facility] Cellulitis & Assoc,pc Aristeo, N.P. Abscess Foot Hospitalists Except Toes 250.82 Diabetes W/ Other Spec Manifestations Type II Uncontrolled 713.5 Arthropathy W/ Neurological Disorders Office Visit 07/15/2013 10:31a [facility] 682.7 Cellulitis & Assoc,pc Aristeo, N.P. Abscess Foot Hospitalists Except Toes 250.82 Diabetes W/ Other Spec Manifestations Type II Uncontrolled 713.5 Arthropathy W/ Neurological Disorders Office Visit 07/15/2013 [facility] Caio Rodriguez 996.67 Infection & 11:12a For Infectious Cathi Rosales Inflammatory React Diseases Due To Internal Orthoped Othe 730.27 Osteomyelitis Unspec Ankle & Foot 041.00 Streptococcus Unspec Office Visit 07/14/2013 10:31a [facility] 682.7 Cellulitis & Assoc,pc Harvinder, N.P. Abscess Foot Hospitalists Except Toes 250.82 Diabetes W/ Other Spec Manifestations Type II Uncontrolled 713.5 Arthropathy W/ Neurological Disorders Office Visit 07/13/2013 [facility] Caio Rodriguez 996.67 Infection & 11:11a For Infectious Cathi Rosales Inflammatory React Diseases Due To Internal Orthoped Othe 730.27 Osteomyelitis Unspec Ankle & Foot 041.00 Streptococcus Unspec Office Visit 07/13/2013 10:30a [facility] 682.7 Cellulitis & Assoc,pc Harvinder, N.P. Abscess Foot Hospitalists Except Toes 250.82 Diabetes W/ Other Spec Manifestations Type II Uncontrolled 713.5 Arthropathy W/ Neurological Disorders Office Visit 07/12/2013 10:29a [facility] 682.7 Cellulitis & Assoc,pc Harvinder N.P. Abscess Foot Hospitalists Except Toes 250.82 Diabetes W/ Other Spec Manifestations Type II Uncontrolled 713.5 Arthropathy W/ Neurological Disorders Office Visit 07/11/2013 [facility] Robby Rodriguez 682.7 Cellulitis & 10:28a Assoc,indy Bradford M.D. Abscess Foot Hospitalists Hospitalist Except Toes 250.82 Diabetes W/ Other Spec Manifestations Type II Uncontrolled Office Visit 07/11/2013 7:00a Orthopedic Jazz Torres 682.7 Cellulitis & Services Of C.M.A. Cathi Abscess Foot Except Toes 686.9 Local Infection Of Skin And Subcutaneous Tissue Unspec 250.60 Diabetes W/ Neurological Manifestations Type II Controlled 713.5 Arthropathy W/ Neurological Disorders Office Visit 05/31/2013 [facility] 715.17 Osteoarthrosis 3:15p Services Of Cathi Decker Localized Prim Ankle C.M.A. & Foot Office Visit 09/07/2012 [facility] 356.8 Neuropathy Other 3:30p Services Of Cathi Decker Spec Idiopathic C.M.A. Peripheral 716.97 Arthropathy Unspec Ankle & Foot Office Visit 07/03/2012 3:45p [facility] Chester.8 Neuropathy Other Services Of Cathi Decker Spec Idiopathic C.M.A. Peripheral Office Visit 06/26/2012 1:00p [facility] 356.8 Neuropathy Other Services Of Cathi Decker Spec Idiopathic C.M.A. Peripheral 250.60 Diabetes W/ Neurological Manifestations Type II Controlled 713.5 Arthropathy W/ Neurological Disorders Office Visit 06/08/2012 10:00a [facility] 716.97 Arthropathy Services Of Cathi Decker Unspec Ankle & C.M.A. Foot 713.5 Arthropathy W/ Neurological Disorders Office Visit 05/25/2012 2:45p [facility] 716.97 Arthropathy Services Of Cathi Decker Unspec Ankle & C.M.A. Foot 250.60 Diabetes W/ Neurological Manifestations Type II Controlled 713.5 Arthropathy W/ Neurological Disorders Office Visit 05/13/2012 2:00p [facility] 356.8 Neuropathy Other Services Of Cathi Decker Spec Idiopathic C.M.A. 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
--- NOTE | 2018-06-28 22:20 | ED ---
Neurological HPI - HPI Summary HPI Summary: This patient is a 52 year old M brought in by ambulance to [facility] with a chief complaint of tremors of his head and extremities since 3 days ago. The patient reports that the tremors worsened today. The patient rates the pain 0/10 in severity. Symptoms aggravated by nothing. Symptoms alleviated by nothing. Patient reports weakness, nausea, dizziness, GRACE, left ear bloody discharge, and emesis x1 at 05:00. Patient denies fever, chills or SOB. Patient receives peritoneal dialysis. 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 - History of Current Complaint Chief Complaint: EDNeurologicalDeficit Stated Complaint: TWITCHING Time Seen by Provider: 06/28/18 22:09 Hx Obtained From: Patient Onset/Duration: Gradual Onset, Started days ago - 3 days, Still Present, Worse Since - today Timing: Constant Onset Severity: Mild Current Severity: Moderate Neurological Deficit Location: Generalized Pain Intensity: 0 Pain Scale Used: 0-10 Numeric Character: Weak, Dizzy, Other: - tremors of head and extremities Aggravating: Nothing Alleviating: Nothing Associated Signs and Symptoms: Positive: Weakness, Dizziness, Nausea/Vomiting - Additional Pertinent History Primary Care Physician: [id number] - Allergy/Home Medications Allergies/Adverse Reactions: Allergies Allergy/AdvReac Type Severity Reaction Status Date / Time Iodinated Contrast- Oral and Allergy Severe Hives Verified 05/25/18 11:21 IV Dye amlodipine Allergy Intermediate Rash And Verified 05/25/18 11:21 Itching tetracycline Allergy Mild Hives Verified 05/25/18 11:21 Home Medications: Home Medications Gabapentin CAP(*) [Neurontin 100 mg CAP(*)] 200 mg PO BEDTIME 06/28/18 [History Confirmed 06/28/18] RiFAXimin* [Xifaxan*] 550 mg PO DAILY 06/28/18 [History Confirmed 06/28/18] PMH/Surg Hx/FS Hx/Imm Hx Endocrine/Hematology History: Reports: Hx Diabetes - TYPE 2, Hx Anemia Denies: Hx Thyroid Disease Cardiovascular History: Reports: Hx Congestive Heart Failure - NO PROBLEMS NOW, Hx Hypertension, Hx Peripheral Vascular Disease - left leg atherosclerosis, Other Cardiovascular Problems/Disorders - Atrial Flutter, new onset Denies: Hx Deep Vein Thrombosis, Hx Myocardial Infarction, Hx Pacemaker/ICD Respiratory History: Denies: Hx Asthma, Hx Chronic Obstructive Pulmonary Disease (COPD), Hx Lung Cancer, Hx Pneumonia, Hx Pulmonary Embolism, Other Respiratory Problems/ Disorders GI History: Reports: 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, Hx Gastroesophageal Reflux Disease Denies: Hx Gall Bladder Disease, Hx Gastrointestinal Bleed, Hx Ulcer, Hx Urosepsis, Other GI Disorders History: Reports: Hx Chronic Renal Failure - peritoneal dialysis, Hx Renal Disease Denies: Hx Kidney Stones, Other Problems/Disorders Musculoskeletal History: Reports: Hx Arthritis - LEFT FOOT, Other Musculoskeletal History - osteoarthritis Sensory History: Reports: Hx Contacts or Glasses Denies: Hx Hearing Aid Opthamlomology History: Reports: Hx Contacts or Glasses Neurological History: Reports: Hx Nerve Disease - Diabetic Neuropathy, Other Neuro Impairments/Disorders - neuropathy Denies: Hx Dementia, Hx Migraine, Hx Seizures, Hx Transient Ischemic Attacks (TIA) Psychiatric History: Denies: Hx Anxiety, Hx Depression, Hx Panic Disorder, Hx Schizophrenia, Hx Bipolar Disorder, Other Psychiatric Issues/Disorders - Surgical History Surgery Procedure, Year, and Place: 09/2012 LEFT MIDFOOT OSTEOTOMY AND FUSION WITH TIBIAL BONE GRAFT AND ACHILLES LENGTHING, [facility]. 06/2013 LEFT FOOT DEBRIDEMENT AND REMOVAL HARDWARE, [facility], LLE 02/02/18,dialysis catheter. 05/2018 left BKA Hx Anesthesia Reactions: No Infectious Disease History: No Infectious Disease History: Reports: Hx Shingles - history of-approx 2 years ago Denies: History Other Infectious Disease - Osteomyelitis, Traveled Outside the [place] in Last 30 Days - Family History Known Family History: Positive: Diabetes, Other - No CA. Family History: R & n/C - Social History Alcohol Use: Daily Alcohol Amount: 6 drinks per day Hx Substance Use: No Substance Use Type: Reports: None Hx Tobacco Use: Yes Smoking Status (MU): Current Every Day Smoker Type: Cigarettes Amount Used/How Often: 1/2 ppd per patient who is trying to quit Length of Time of Smoking/Using Tobacco: patient states 25 years Have You Smoked in the Last Year: Yes Review of Systems Negative: Fever, Chills Positive: Other - left ear bloody discharge Negative: Shortness Of Breath Positive: Vomiting, Nausea Neurological: Other - tremors of extremities and head Positive: Headache, Weakness All Other Systems Reviewed And Are Negative: Yes Physical Exam - Summary Physical Exam Summary: Appearance: Chronically ill-appearing, no acute distress, Well-nourished, lying in bed comfortably Skin: Warm, dry, no obvious rash Eyes: sclera anicteric, no conjunctival pallor ENT: mucous membranes moist, pharynx appears normal Neck: Supple, nontender Respiratory: Clear to auscultation, no signs of respiratory distress Cardiovascular: Normal S1, S2. No murmurs. Normal distal pulses in tibial and radial bilaterally. Abdomen: Soft, nontender, normal active bowel sounds present Musculoskeletal: Normal, Strength/ROM Intact, LLE has dressing from recent BKA, No focal motor deficits Neurological: A&Ox3, awake and alert, mentation is normal, speech is fluent and appropriate, Myoclonic jerking in all 4 extremities and head. This was noted to be worse with intention and better when he is distracted Psychiatric: affect is normal, does not appear anxious or depressed Triage Information Reviewed: Yes Vital Signs On Initial Exam: Initial Vitals Temp Pulse Resp BP Pulse Ox 98 F 78 20 96/73 97 06/28/18 21:44 06/28/18 21:44 06/28/18 21:44 06/28/18 21:44 06/28/18 21:44 Vital Signs Reviewed: Yes Diagnostics - Vital Signs Vital Signs Temp Pulse Resp BP Pulse Ox 06/28/18 22:00 74 97 06/28/18 21:58 110/80 06/28/18 21:53 74 96/73 97 06/28/18 21:51 75 96 06/28/18 21:44 98 F 78 20 96/73 97 - Laboratory Result Diagrams: 06/28/18 22:23 06/28/18 22:23 Lab Statement: Any lab studies that have been ordered have been reviewed, and results considered in the medical decision making process. Course/Dx - Course Course Of Treatment: This patient is a 52 year old M brought in by ambulance to [facility] with a chief complaint of myoclonic jerking of his head and extremities since 3 days ago. This is noted to be worse with intention and better when he is distracted. Patient reports weakness, nausea, dizziness, GRACE, left ear bloody discharge, and emesis x1 at 05:00. Patient denies fever, chills or SOB. Patient receives. 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 Test results with no significant abnormalities. We discussed patient care with Dr. Moctezuma, neurologist, and they recommended the patient see him at the clinic. Patient will be discharged home with follow up from PCP. The patient is agreeable with this plan. dx otitis media with drainage and myoclonic jerking - Diagnoses Provider Diagnoses: Myoclonic jerking, Otitis media - Physician Notifications Discussed Care Of Patient With: Thong Moctezuma Time Discussed With Above Provider: 23:55 Instructed by Provider To: Other - Dr. Moctezuma recommends that the patient see him in the clinic. Discharge - Sign-Out/Discharge Documenting (check all that apply): Patient Departure - Discharge Plan Condition: Stable Disposition: HOME Prescriptions: Ciproflox/Dexameth OTIC.SUSP* [Ciprodex Otic*] 1 drop .SEE ORDER QID #1 bottle Referrals: Trenton Romero MD [Primary Care Provider] - Additional Instructions: The kind of muscle twitching and jerking is referred to as myoclonus. It has many potential causes, often metabolic abnormalities such as kidney failure for example. It does not require admission to the hospital, but I spoke to Dr. Moctezuma , one of our neurologists, and he asked that you call his office in the morning and his staff will make an appointment for you. I have also prescribed a topical antibiotic for your ear, contact your ENT for advice on how long to use that for. - Billing Disposition and Condition Condition: STABLE Disposition: Home - Attestation Statements Document Initiated by Rashel: Yes Documenting Scribe: Mahogany Vizcarra Provider For Whom Rashel is Documenting (Include Credential): Juan Luis Gallegos MD Scribe Attestation: IMahogany, scribed for Juan Luis Gallegos MD on 06/29/18 at 0217. Scribe Documentation Reviewed: Yes Provider Attestation: The documentation as recorded by the Mahogany curry accurately reflects the service I personally performed and the decisions made by me, Juan Luis Gallegos MD Status of Scribe Document: Viewed
[2018-06-28 22:39] LABS: ABS Basophils 0.1 10^3/ul (0-0.2); ABS Eosinophils 0 10^3/ul (0-0.6); ABS Lymphocytes 0.5 10^3/ul (1.0-4.8); ABS Monocytes 1.1 10^3/ul (0-0.8); ABS Neutrophils 9.5 10^3/ul (1.5-7.7); ABS Nucleated RBC 0 10^3/ul; Eosinophil % 0 %; Hematocrit 28 % (42-52); Lymphocyte % 4.5 %; Mean Corpuscular HGB Conc 32 g/dl (31-36); Mean Corpuscular Hemoglobin 30 pg (27-31); Mean Corpuscular Volume 91 fL (80-94); Mean Platelet Volume 8.3 fL (7.4-10.4); Nucleated Red Blood Cells % 0; Platelet Count 102 10^3/ul (150-450); Red Blood Count 3.06 10^6/ul (4.00-5.40); Red Cell Distribution Width 17 % (10.5-15); White Blood Count 11.2 10^3/ul (3.5-10.8)
[2018-06-28 22:47] LABS: EGFR Non-African American 3.6 (>60)
[2018-06-29] MEDS ORDERED: Diazepam TAB(*) 5 MG PO ONE (00:42)
[2018-06-29 00:51] VITALS: BP 111/54
== END 2018-06-29 00:55 | disposition home or self-care (01) ==
LOC: ED 21:44
DX: G25.3 Myoclonus (principal); H66.90 Otitis media, unspecified, unspecified ear; R53.1 Weakness; R42 Dizziness and giddiness; R11.2 Nausea with vomiting, unspecified; F17.210 Nicotine dependence, cigarettes, uncomplicated
CPT/HCPCS: 36415; 80053; 83735; 85025; 99284

== ENCOUNTER 2018-08-28 14:16 | Inpatient (IN) | payer MEDICARE ==
--- OUTSIDE RECORDS SUMMARY | 2018-08-28 14:41 | XMS REPORT | Continuity of Care Document ---
:1965 External Reference #:[id number] Author Name Milan Main MD Address [address]i [address] [place] [address] Care Team Providers Name Role Phone Jennifer Teetee WOO Care Team Information Professor Of Poultry Science Unavailable Heather WILKS, [place] Primary Care Physician Unavailable Payers Type Date Identification Numbers Payment Provider Subscriber Policy Number: [id number] Medicare-[facility] [employer] SRVS Lalo Guzman PayID: [id number] [address] [place] [address] Policy Number: [id number] Medicaid/I Lalo Guzman Group Name: 1 2 Insurance Primary PayID: [id number] [address] [place] [address] Advance Directives Description No Information Available Problems Date Description Provider Status Onset: 12/05/2017 Conductive hearing loss, bilateral Milan Main MD Active Onset: 12/05/2017 Bilateral chronic serous otitis Milan Main MD Active Onset: 12/05/2017 Chronic rhinitis Milan Main MD Active Onset: 12/29/2017 Otorrhea Milan Main MD Active Onset: 04/13/2018 Acute myringitis Milan Main MD Active Family History Description [...] smoker, smokes some days Smoking Status Reviewed: 07/15/18 Patient is a current smoker, smokes some days Allergies, Adverse Reactions, Alerts Date Description Reaction Status Severity Comments 12/05/2017 Contrast Dye Active 12/05/2017 Tetracycline Active Medications Medication Date Status Form Strength Qnty SIG Indications Ordering Provider Ofloxacin 07/15/ Active Solution 0.3% 10ml instill Milan (Otic) 2018 3-4 drops [place] to the , right ear 2 times a day for 10 days. Fluticasone 12/05/ Active Suspension 50mcg/Act 16unit 2 puffs Milan Propionate 2018 s both sides [place] once a day , Oxycodone HCL 11/10/ Active Tablets 5mg 60tabs Take 1 Tab Jennifer 2018 by mouth , Teetee Every Six RETAIL LOSS PREVENTION OFFICER Hours as Needed for Pain. Max Daily Amount: 20 mg. Atenolol 09/25/ Active Tablets 100mg 30tabs Take 1 Tab Jennifer 2018 by mouth , Teetee Daily. RETAIL LOSS PREVENTION OFFICER Lantus 09/18/ Active Solution 100Unit/ML 30unit Inject 70 Jennifer Solostar 2018 Pen-Inject s Units , Teetee beneath RETAIL LOSS PREVENTION OFFICER the skin Daily. Glipizide ER 08/07/ Active Tablets ER 5mg 360tab Take 2 Jennifer 2017 24HR s Tabs by , Teetee mouth RETAIL LOSS PREVENTION OFFICER Twice Daily. Xifaxan 06/19/ Active Tablets 550mg 60tabs Take 1 Tab Unknown 2016 by mouth Twice Daily. Hydralazine 04/07/ Active Tablets 50mg 180tab Take 1 By Jennifer HCL 2017 s Mouth Two , Teetee Times RETAIL LOSS PREVENTION OFFICER Daily Sodium 10/12/ Active Tablets 650mg 90tabs Take 1 Tab Jennifer Bicarbonate 2015 by mouth , Teetee Three RETAIL LOSS PREVENTION OFFICER Times Daily. Gabapentin / Active Capsules 100mg Hesson, 0000 Sammy Winkler Eliquis / Active Tablets 2.5mg Sodums 0000 MD, Marceh Auryxia / Active Tablets 1GM 210 Hesson, 0000 mg(Fe) Sammy Winkler Ciprodex 12/29/ Hx Suspension 0.3-0.1% 1units 3 drops H92.13 Milan 2018 - twice a [place]lia // day both , 2018 ears Fluticasone 10/11/ Hx Suspension 50mcg/Act 1units Clifford 2 Cifuentes Propionate 2018 - Sprays in D.O., 04/13/ nose as Dwight 2018 Directed. 2 sprays in each nostril once a day until symptoms gone Sevelamer / Hx Tablets 800mg Take 3,200 Unknown Carbonate 0000 - mg by . 2018 Sensipar / Hx Tablets as Unknown 0000 - directed 2017 Immunizations Description No Information Available Vital Signs Date Vital Result Comment 07/31/2018 11:19am Weight 250.00 lb Weight 113.400 kg Height 70 inches 5'10" Height in cm's 177.8 cm BMI (Body Mass Index) 35.9 kg/m2 07/22/2018 11:06am Weight 250.00 lb Weight 113.400 kg Height 70 inches 5'10" Height in cm's 177.8 cm BMI (Body Mass Index) 35.9 kg/m2 07/15/2018 3:06pm Weight 250.00 lb Weight 113.400 kg Height 70 inches 5'10" Height in cm's 177.8 cm BMI (Body Mass Index) 35.9 kg/m2 05/08/2018 1:42pm Weight 265.00 lb Weight 120.204 [...] Information Available Procedures Date Code Description Status 07/31/2018 14599 Tympanostomy W/Tube Local Or Topical Anes. Completed 07/22/2018 07924 Binocular Microscopy Completed 07/15/2018 95406 Binocular Microscopy Completed 12/05/2017 82107 Tympanostomy W/Tube Local Or Topical Anes. Completed Encounters Type Date Location Provider Dx Diagnosis Office Visit 07/22/2018 [place] Mihaela Perdue H65.22 Chronic serous 10:45a 07/14/07 PA-C otitis media, left ear H69.81 Other specified disorders of Eustachian tube, right ear Office Visit 07/15/2018 3:00p [facility] 07/14/07 Mihaela Disla H92.12 Otorrhea , left [place], PA-C ear H65.23 Chronic serous otitis media, bilateral Office Visit 05/08/2018 1:30p [facility] 07/14/07 Mihaela Disla H92.12 Otorrhea , left [place], PA-C ear H65.23 Chronic serous otitis media, bilateral Office Visit 05/01/2018 10:45a [facility] 07/14/07 Mihaela Disla H92.12 Otorrhea , left [place], PA-C ear H65.23 Chronic serous otitis media, bilateral Office Visit 04/17/2018 [facility] Milan Main H92.12 Otorrhea, left 10:30a 07/14/07 ear H73.002 Acute myringitis, left ear Office Visit 04/13/2018 [facility],After Milan Main, H92.12 Otorrhea, left 10:30a 07/14/07 ear H73.002 Acute myringitis, left ear Office Visit 02/12/2018 [facility],After Milan Main, H65.23 Chronic serous 1:45p 07/14/07 MD otitis media, bilateral Office Visit 01/23/2018 [facility],After Milan Main, H92.13 Otorrhea, 10:45a 07/14/07 MD bilateral H65.23 Chronic serous otitis media, bilateral Office Visit 12/29/2017 [facility],After Milan Main, H92.13 Otorrhea, 10:30a 07/14/07 MD bilateral H65.23 Chronic serous otitis media, bilateral Office Visit 12/25/2017 [facility],After Milan Main, H92.13 Otorrhea, 9:15a 07/14/07 MD bilateral H65.23 Chronic serous otitis media, bilateral Office Visit 12/05/2017 [facility] Milan Main, H90.0 Conductive 10:30a 07/14/07 hearing loss, bilateral H65.23 Chronic serous otitis media, bilateral J31.0 Chronic rhinitis Plan of Treatment Future Appointment(s):08/28/2018 11:15 am - Milan Main MD at [facility] - Milan Main MDH65.22 Chronic serous otitis media, left earComments:Complications of tympanostomy tubes were outlined, we discussed anesthesia, persistent perforation, worsening of hearing, persistent drainage, scar formation and possible surgical removal of tympanostomy tubes. patient underwent bilateral tympanostomy tubes, T tubes. possible audiogram at that time.H69.81 Other specified disorders of Eustachian tube, right earH90.0 Conductive hearing loss, bilateral
--- OUTSIDE RECORDS SUMMARY | 2018-08-28 14:41 | XMS REPORT | Continuity of Care Document ---
:1965 External Reference #:[id number] Author Name Milan Main MD Address [address] [place] [address] Care Team Providers Name Role Phone Teetee Rodriguez NP Care Team Information General Sales Manager Unavailable Heather WILKS, [place] Primary Care Physician Unavailable Payers Date Identification Numbers Payment Provider Subscriber Policy Number: [id number] Medicare-[facility] [employer] SRVS Lalo Megan PayID: [id number] [address] [place] [address] Policy Number: [id number] Medicaid/I Lalo Halejenaro Group Name: 1 2 Insurance Primary PayID: [id number] [address] [place] [address] Advance Directives Description No Information Available Problems [...] Ofloxacin 07/15/ Active Solution 0.3% 10ml instill Ruparelia (Otic) 2018 3-4 drops , Milan WILKS to the right ear 2 times a day for 10 days. Fluticasone 12/05/ Active Suspension 50mcg/Act 16unit 2 puffs [place] Propionate 2018 s both sides , Milan WILKS once a day Oxycodone HCL 11/10/ Active Tablets 5mg 60tabs Take 1 Tab Jennifer 2018 by mouth , Teetee Every Six PSYCHIATRIC REGISTERED NURSE Hours as Needed for Pain. Max Daily Amount: 20 mg. Atenolol 09/25/ Active Tablets 100mg 30tabs Take 1 Tab Jennifer 2018 by mouth , Teetee Daily. PSYCHIATRIC REGISTERED NURSE Lantus 09/18/ Active Solution 100Unit/ML 30unit Inject 70 Jennifer Solostar 2018 Pen-Inject s Units , Teetee beneath PSYCHIATRIC REGISTERED NURSE the skin Daily. Glipizide ER 08/07/ Active Tablets ER 5mg 360tab Take 2 Jennifer 2017 24HR s Tabs by , Teetee mouth PSYCHIATRIC REGISTERED NURSE Twice Daily. Xifaxan 06/19/ Active Tablets 550mg 60tabs Take 1 Tab Unknown 2016 by mouth Twice Daily. Hydralazine 04/07/ Active Tablets 50mg 180tab Take 1 By Jennifer HCL 2016 s Mouth Two , Teetee Times PSYCHIATRIC REGISTERED NURSE Daily Sodium 10/12/ Active Tablets 650mg 90tabs Take 1 Tab Jennifer Bicarbonate 2015 by mouth , Teetee Three PSYCHIATRIC REGISTERED NURSE Times Daily. Gabapentin / Active Capsules 100mg Hesson, 0000 Sammy Winkler Eliquis / Active Tablets 2.5mg Sodums 0000 MD, Marcis Auryxia / Active Tablets 1GM 210 Hesson, 0000 mg(Fe) Sammy Winkler Ciprodex 12/29/ Hx Suspension 0.3-0.1% 1units 3 drops H92.13 Ruparelia 2017 - twice a , Milan WILKS 04/16/ day both 2018 ears Fluticasone 10/11/ Hx Suspension 50mcg/Act 1units [place] 2 Cifuentes Propionate 2017 - Sprays in [...] Information Available Procedures Date Code Description Status 08/28/2018 27742 Tympanometry Completed 08/28/2018 60067 Comprehensive Audiogram Completed 07/31/2018 46904 Tympanostomy W/Tube Local Or Topical Anes. Completed 07/22/2018 18255 Binocular Microscopy Completed 07/15/2018 39445 Binocular Microscopy Completed 12/05/2017 36457 Tympanostomy W/Tube Local Or Topical Anes. Completed Encounters Type Date Location Provider Dx Diagnosis Office Visit 07/22/2018 [place],[facility] Mihaela Perdue, H65.22 Chronic serous 10:45a 07/14/07 PA-C otitis media, left ear H69.81 Other specified disorders of Eustachian tube, right ear Office Visit 07/15/2018 3:00p [place],[facility] 07/14/07 Mihaela Disla H92.12 Otorrhea , left [place], PA-C ear H65.23 Chronic serous otitis media, bilateral Office Visit 05/08/2018 1:30p [place],[facility] 07/14/07 Mihaela ADejah H92.12 Otorrhea , left [place], PA-C ear H65.23 Chronic serous otitis media, bilateral Office Visit 05/01/2018 10:45a [place],[facility] 07/14/07 Mihaela A. H92.12 Otorrhea , left [place], PA-C ear H65.23 Chronic serous otitis media, bilateral Office Visit 04/17/2018 [place],After Milan Main H92.12 Otorrhea, left 10:30a 07/14/07 ear H73.002 Acute myringitis, left ear Office Visit 04/13/2018 [place],[facility] [place], Milan H92.12 Otorrhea, left 10:30a 07/14/07 MD ear H73.002 Acute myringitis, left ear Office Visit 02/12/2018 [place],[facility] [place], Milan H65.23 Chronic serous 1:45p 07/14/07 MD otitis media, bilateral Office Visit 01/23/2018 [place],[facility] [place], Milan H92.13 Otorrhea, 10:45a 07/14/07 MD bilateral H65.23 Chronic serous otitis media, bilateral Office Visit 12/29/2017 [place],[facility] [place], Milan H92.13 Otorrhea, 10:30a 07/14/07 MD bilateral H65.23 Chronic serous otitis media, bilateral Office Visit 12/25/2017 [place],[facility] [place], Milan H92.13 Otorrhea, 9:15a 07/14/07 MD bilateral H65.23 Chronic serous otitis media, bilateral Office Visit 12/05/2017 [place],[facility] [place], Milan H90.0 Conductive 10:30a 07/14/07 MD hearing loss, bilateral H65.23 Chronic serous otitis media, bilateral J31.0 Chronic rhinitis Plan of Treatment No Information Available
[2018-08-28] MEDS ORDERED: Morphine INJ* 10 MG/ML 1 ML CARPUJECT IV PRN (17:18)
[2018-08-28] MEDS ORDERED: Acetaminophen TAB* 325 MG PO PRN (17:18)
[2018-08-28] MEDS ORDERED: Ondansetron INJ* 2 MG/ML VIAL IV PRN (17:24)
[2018-08-28] MEDS ORDERED: Morphine VIAL* 4 MG/ML VIAL (1 ml vial) ONE (17:42)
[2018-08-28] MEDS ORDERED: Zosyn per Pharmacy* NOTE FOLLOW UP SCH (18:00)
[2018-08-28] MEDS ORDERED: Piperacillin/Tazobac ADVAN(*) 3.375 GM in NS 0.9% 100 ML* 100 ML IVPB ONE (18:15)
[2018-08-28] MEDS ORDERED: Vancomycin(*) 1,500 MG in NS 0.9% 250 ML* 250 ML IVPB ONE (18:30)
[2018-08-28] MEDS ORDERED: Dextrose 50% Syringe 50 ML* 25 GM/50 ML SYRINGE IV PUSH PRN (18:41)
[2018-08-28] MEDS ORDERED: Vancomycin - DIALYSIS DOSING* NOTE FOLLOW UP SCH (19:00)
[2018-08-28 20:06] LABS: ABS Basophils 0.1 10^3/ul (0-0.2); ABS Eosinophils 0.1 10^3/ul (0-0.6); ABS Lymphocytes 0.6 10^3/ul (1.0-4.8); ABS Neutrophils 11.7 10^3/ul (1.5-7.7); ABS Nucleated RBC 0 10^3/ul; Eosinophil % 0.9 %; Hematocrit 25 % (42-52); Hemoglobin 8.1 g/dl (14.0-18.0); Lymphocyte % 4.6 %; Mean Corpuscular HGB Conc 32 g/dl (31-36); Mean Corpuscular Hemoglobin 29 pg (27-31); Mean Corpuscular Volume 90 fL (80-94); Mean Platelet Volume 8.1 fL (7.4-10.4); Nucleated Red Blood Cells % 0; Platelet Count 203 10^3/ul (150-450); Red Blood Count 2.79 10^6/ul (4.00-5.40); Red Cell Distribution Width 16 % (10.5-15); White Blood Count 13.5 10^3/ul (3.5-10.8)
[2018-08-28 20:33] LABS: BUN/Creatinine Ratio 6.9 (8-20); Calcium 7.4 mg/dL (8.6-10.3); EGFR African American 4.7 (>60); EGFR Non-African American 3.9 (>60); Potassium 4.1 mmol/L (3.5-5.0)
[2018-08-28] MEDS: Morphine VIAL* 4 MG/ML VIAL (1 ml vial) IV PRN (20:44)
[2018-08-28] MEDS ORDERED: glipiZIDE TAB.XL* 5 MG PO SCH (21:00)
[2018-08-28] MEDS ORDERED: hydrALAZINE TAB* 25 MG PO SCH (21:00)
--- NOTE | 2018-08-28 21:53 | CONS ---
CC: Dr. Romero * CONSULTATION REPORT: DATE OF CONSULT: PHYSICIAN REQUESTING CONSULT: Dr. Maravilla. PRIMARY CARE PROVIDER: Dr. Romero. CHIEF COMPLAINT: Right axilla abscess; status post I and D. HISTORY OF PRESENT ILLNESS: The patient reports on 08/21/18, he noticed a pimple in his right axilla. The patient reports he expressed this pimple. He reports he woke up Friday morning with significant swelling, was able to express more pus. In the following days, the patient experienced increased swelling and pain. He was seen by his primary care provider, Dr. Romero, on Friday and started on Keflex. Today, he saw Dr. Maravilla in his office and an I and D was performed. The patient was admitted to the hospital due to need for packing, IV antibiotics, and pain control. Hospitalist service was consulted due to patient's complex medical history. PAST MEDICAL HISTORY: 1. End-stage renal disease, on peritoneal dialysis. 2. Type 2 diabetes. 3. Left [id number] amputation. 4. A-flutter. 5. Diabetic neuropathy. 6. Hypertension. PAST SURGICAL HISTORY: Left BKA. MEDICATIONS: 1. Eliquis 2.5 mg 1 by mouth twice a day. 2. Glipizide 10 mg p.o. b.i.d. 3. Atenolol 100 mg p.o. b.i.d. 4. Hydralazine 25 mg p.o. b.i.d. 5. Lantus 70 units daily. 6. Sodium bicarb 650 mg tabs, 2 tabs by mouth b.i.d. 7. Gabapentin 100 mg in a.m., 100 mg at noon, 200 mg at bedtime. 8. Calcitriol 0.25 mcg 1 by mouth every other day. 9. Aspirin 81 mg by mouth daily. 10. Auryxia (FE) 1 tab by mouth 3 times a day after meals. FAMILY HISTORY: Father has diabetes. Mother has hypertension. SOCIAL HISTORY: Patient is single. He lives with partner. 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 The patient is a smoker. He reports approximately 10 cigarettes per day. The patient consumes alcohol. He reports approximately 4 to 5 beers per day. The patient denies drug use. The patient drinks approximately 1 cup of coffee per day. REVIEW OF SYSTEMS: The patient reports moderate pain to right axilla. The patient was recently given morphine, therefore pain is currently tolerable. The patient denies numbness or tingling, chest pain, palpitations, nausea, vomiting, diarrhea, fever, chills. A 12-point review of systems was completed and all others were negative. PHYSICAL EXAM: General: Mr. Guzman is a 53-year-old male who is sitting in bed, in no acute distress, appears stated age. Vital Signs: Temp 98.5, HR 72, respirations 20, oxygen saturation is 100% on room air, BP 112/62. HEENT: Sclerae without icterus. EOMs intact. Oral mucosa is moist without lesion. Neck: Neck is supple. No lymphadenopathy. Cardiac: S1, S2 present. Regular rate and rhythm. No murmurs, rubs, gallops. Respiratory: Lungs are clear to auscultation. No wheezes, rubs, rhonchi. Abdomen: Abdomen is soft, nontender, bowel sounds x4. Peritoneal dialysis site is covered with a dressing and dressing is clean, dry, and intact. Extremities: Left BKA. Right lower extremity is free from edema, clubbing, cyanosis. Skin: The patient has Kristian wrap around upper chest. Gauze under Kristian wrap to right axilla. Scant amount of serous drainage noted. Remainder of skin is clean, dry, and intact. Neuro: No focal deficits or weakness noted. IMPRESSION AND PLAN: Mr. Guzman is a 53-year-old male with a past medical history significant for end-stage renal disease, on peritoneal dialysis, diabetes, hypertension, atrial flutter; who presented today from Dr. Maravilla' s office for admission for IV antibiotics, dressing care, pain management. Hospitalist team were asked to assist due to patient's complex medical history. 1. End-stage renal disease, on peritoneal dialysis. Per Dr. Maravilla's notes , Dr. Rodriguez has been contacted and is aware of patient being on the unit. Per patient, he will be provided with supplies to complete peritoneal dialysis tomorrow. The patient reports that he usually does it nightly, but missing 1 day is not a big problem per patient. I will order labs for tomorrow morning to assess patient's status. I will order CBC, CMP, magnesium. 2. Diabetes: The patient is currently on glipizide and Lantus. Due to patient 's recent I and D and need for IV antibiotics, I will hold patient's glipizide. I will continue patient's Lantus. I will place the patient on fingersticks a.c. and h.s. 3. Atrial flutter: The patient reports this is paroxysmal as he is not always in atrial flutter. The patient reports that this is why he is on Eliquis. The patient admits to only taking Eliquis once a day. I educated the patient on the risks of only taking Eliquis once a day as it is a twice a day medication. Therefore, skipping a dose could increase his risk of stroke. The patient states understanding. The Eliquis has been held per surgical team and I agree with this plan. I would encourage the patient to be restarted on Eliquis as soon as possible. 4. Diabetic neuropathy: The patient has diabetic neuropathy and takes gabapentin accordingly. The patient should continue that as same. 5. Hypertension: The patient reports he was initially ordered hydralazine 50 mg p.o. b.i.d., but he takes his blood pressure at home and notes that it has been low, therefore he reduced his dose to 25 mg b.i.d. The patient should continue hydralazine 25 mg p.o. b.i.d. while hospitalized. The patient's vital signs should be monitored routinely. The patient should continue atenolol 100 mg p.o. q.a.m. 6. Pain control: Per surgical team. 7. Antibiotics: Per surgical team. Vancomycin and Zosyn has been ordered. 8. Fluids, electrolytes, and nutrition: The patient will be placed on a renal diet. 9. Deep venous thrombosis prophylaxis: The patient will be ordered SCDs. 10. Code status: The patient is a full code. Thank you very much for allowing us to participate in the care of this patient. We will follow along with you. I have discussed this plan with my attending, Dr. Gan, who agrees with my plan. MERCY MADRIGAL, PHARMACY OPERATIONS SPECIALIST [id number]/[facility] #: [id number] TRUMAN
[2018-08-28] MEDS: Insulin GLARGINE(*) 1 UNITS UNIT SUBCUT SCH (22:44)
[2018-08-28] MEDS: oxyCODONE/Acetamin 5/325 MG* TAB PO PRN (22:46)
[2018-08-28] MEDS: Sodium Bicarbonate (ANTACID)* 650 MG TAB PO SCH (22:46)
[2018-08-28] MEDS: Gabapentin CAP(*) 100 MG PO SCH (22:46)
[2018-08-28] MEDS: Sevelamer TAB* 800 MG PO SCH (22:50)
[2018-08-29] MEDS: ZOSYN 3.375 GM Q12H per EXTENDED INFUSION IVPB SCH ×6 (00:04→22:55)
[2018-08-29] MEDS ORDERED: Insulin LISPRO* 1 UNITS UNIT SUBCUT ONE ×2 (00:49→00:58)
[2018-08-29] MEDS ORDERED: Dextrose 50% Syringe 50 ML* 25 GM/50 ML SYRINGE IV PUSH PRN ×2 (00:49→00:50)
[2018-08-29] MEDS ORDERED: NS 0.9% 500 ML* 500 ML IV ONE ×2 (00:49→04:45)
[2018-08-29] MEDS ORDERED: NS 0.9% 250 ML* 250 ML IV ONE ×2 (00:52→02:26)
--- NOTE | 2018-08-29 00:52 | PN ---
Progress Note - Progress Note Date of Service: 08/29/18 Note: Called for BP: 80 SBP. Will give 250 cc bolus. Not on his peritoneal dialysis tonight. Elevated blood glucose will give more lispro
[2018-08-29 05:21] LABS: Hematocrit 21 % (42-52); Hemoglobin 6.9 g/dl (14.0-18.0); Mean Corpuscular HGB Conc 33 g/dl (31-36); Mean Corpuscular Hemoglobin 29 pg (27-31); Mean Corpuscular Volume 88 fL (80-94); Platelet Count 173 10^3/ul (150-450); Red Blood Count 2.39 10^6/ul (4.00-5.40); Red Cell Distribution Width 15 % (10.5-15); White Blood Count 11.1 10^3/ul (3.5-10.8)
[2018-08-29 05:39] LABS: Albumin 2.4 g/dL (3.2-5.2); Albumin/Globulin Ratio 0.6 (1-3); BUN/Creatinine Ratio 6.8 (8-20); Calcium 7.3 mg/dL (8.6-10.3); EGFR African American 4.5 (>60); EGFR Non-African American 3.7 (>60); Globulin 3.9 g/dL (2-4); Magnesium 2.4 mg/dL (1.9-2.7); Total Bilirubin 0.5 mg/dL (0.2-1.0); Total Protein 6.3 g/dL (6.4-8.9)
[2018-08-29 06:00] LABS: Vancomycin Random 19.3 mcg/mL
[2018-08-29] MEDS ORDERED: Vancomycin Random Level* NOTE FOLLOW UP ONE (06:00)
--- NOTE | 2018-08-29 08:05 | PN ---
Subjective Date of Service: 08/29/18 Interval History: Mr. Guzman reports feeling relatively well today. He denies any significant pain at the abscess site. He denies chest pain, SOB, nausea, or abdominal pain. He notes that he first noted the abscess last Friday08/21/18. He has noted that his blood sugar has been elevated at home. He does not know what his HgbA1c is. Objective Active Medications: Acetaminophen (Tylenol Tab*) 650 mg PO Q6H PRN Aspirin (Aspirin Ec Tab*) 81 mg PO DAILY [facility] Atenolol (Tenormin Tab*) 100 mg PO QAM [facility] Cinacalcet (Sensipar Tab*) 30 mg PO DAILY [facility] Dextrose (D50w Syringe 50 Ml*) 12.5 gm IV PUSH .FOR FS < 60 - SS PRN Gabapentin (Neurontin Cap(*)) 100 mg PO 0800,1600 [facility] Gabapentin (Neurontin Cap(*)) 200 mg PO BEDTIME [facility] Hydralazine HCl (Apresoline Tab*) 25 mg PO BID [facility] Piperacillin Sod/Tazobactam (Sod 3.375 gm/ Sodium Chloride) 100 mls @ 25 mls/ hr IVPB Q12H [facility] Insulin Glargine (Lantus(*)) 70 units SUBCUT 2300 [facility] Insulin Human Lispro (Humalog*) 0 units SUBCUT AC [facility]; Protocol Insulin Human Lispro (Humalog*) 0 units SUBCUT AC [facility]; Protocol Morphine Sulfate (Morphine Vial*) 4 mg IV Q1H PRN Ondansetron HCl (Zofran Inj*) 4 mg IV Q6H PRN Oxycodone/Acetaminophen (Percocet 5/325 Tab*) 1 tab PO Q4H PRN Pharmacy Consult (Zosyn Per Pharmacy*) 1 note FOLLOW UP .ZOSYN PER PHARMACY [facility] Pharmacy Consult (Vancomycin - Dialysis Dosing*) 1 note FOLLOW UP .PER PHARMACY [facility] Sevelamer Carbonate (Renvela Tab*) 800 mg PO TID [facility] Sodium Bicarbonate (Sodium Bicarbonate (Antacid)*) 1,300 mg PO BID [facility] Vital Signs: Temp Pulse Resp BP Pulse Ox 98.4 F 67 16 82/44 100 08/29/18 03:53 08/29/18 03:53 08/29/18 03:53 08/29/18 03:53 08/29/18 03:53 Oxygen Devices in Use Now: None Appearance: Male lying in bed in NAD Eyes: No Scleral Icterus Ears/Nose/Mouth/Throat: Mucous Membranes Moist Respiratory: Symmetrical Chest Expansion and Respiratory Effort, Clear to Auscultation Cardiovascular: NL Sounds; No Murmurs; No JVD, No Edema Abdominal: NL Sounds; No Tenderness; No Distention Lymphatic: No Cervical Adenopathy Extremities: No Edema Skin: - - Erythema with minimal sanginous drainage noted to right axilla Neurological: Alert and Oriented x 3, NL Muscle Strength and Tone Nutrition: Taking PO's Result Diagrams: 08/29/18 05:15 08/29/18 05:12 Assess/Plan/Problems-Billing Assessment: Mr. Guzman is a 53 yo M with a PMH of DM, aflutter on chronic anticoagulation , ESRD on PD, and HTN who was admitted on 08/28/18 with a right axilla abscess now s/p I&D. - Patient Problems (1) Abscess Comment: - Leukocytosis resolved, BP remains low - S/P I&D with Dr. Maravilla immediately prior to admission - Continue vanco and zosyn pending cultures (2) Anemia Comment: - Hgb 6.9 after I&D on eliquis - SBP 80s - PRBC ordered now. (3) Hypertension Comment: - SBP 80s despite multiple small fluid boluses overnight, plan for PRBC per above - Atenolol dose decreased and hold parameters instituted, hydralazine discontinued. (4) Diabetes Comment: - BG 230-300 - Continue home lantus with lispro SSI and carb counting coverage, may need further adjustment - Hold glipizide (5) ESRD (end stage renal disease) Comment: - Continue PD per routine, dialysis team aware. - No significant electrolyte abnormalities, no evidence of fluid overload (6) Atrial flutter Comment: - Hold eliquis - Hold atenolol given low BP. (7) Diabetic neuropathy Comment: - Continue gabapentin (8) DVT prophylaxis Comment: - SCDs. (9) Full code status Comment: Status and Disposition: Inpatient. Will transfer patient to Hospitalist service.
[2018-08-29] MEDS ORDERED: Nicotine Inhaler* 10 MG AMP INH PRN (08:36)
[2018-08-29] MEDS: Insulin LISPRO* 1 UNITS UNIT SUBCUT SCH ×6 (08:37→18:44)
--- NOTE | 2018-08-29 08:39 | PN ---
Progress Note - Progress Note Date of Service: 08/29/18 SOAP: Subjective: Pt seen and examined. Feels ok, pain at R axilla I and D site; stareting PD now Receiving 1 u pRBC Objective: Temp Pulse Resp BP Pulse Ox 98.4 F 67 16 82/44 100 08/29/18 03:53 08/29/18 03:53 08/29/18 03:53 08/29/18 03:53 08/29/18 03:53 Intake & Output 08/28/18 08/29/18 08/29/18 22:59 06:59 14:59 Intake Total 120 1841 Balance 120 1841 Weight 230 lb 285 lb 1.6 oz a and o x3, nad carmen wrap removed, no significant blood packing removed- and replaced labs noted Assessment: ESRD on eliquis, s/p I and D Plan: abx packing change Friday and likely d/c
[2018-08-29] MEDS: Atenolol TAB* 25 MG PO SCH ×2 (08:42→08:57)
[2018-08-29] MEDS: Morphine VIAL* 4 MG/ML VIAL (1 ml vial) IV PRN (08:49)
[2018-08-29] MEDS: oxyCODONE/Acetamin 5/325 MG* TAB PO PRN ×2 (08:49→19:46)
[2018-08-29] MEDS: Gabapentin CAP(*) 100 MG PO SCH ×3 (08:56→22:19)
[2018-08-29] MEDS: Sodium Bicarbonate (ANTACID)* 650 MG TAB PO SCH ×2 (08:57→22:18)
[2018-08-29] MEDS: Cinacalcet TAB* 30 MG PO SCH (08:58)
[2018-08-29] MEDS: Sevelamer TAB* 800 MG PO SCH ×3 (08:59→22:20)
[2018-08-29] MEDS ORDERED: Aspirin EC TAB* 81 MG TAB.EC PO SCH (09:00)
[2018-08-29] MEDS ORDERED: Atenolol TAB* 50 MG PO SCH ×2 (09:00)
[2018-08-29] MEDS ORDERED: Vancomycin(*) 1,000 MG in NS 0.9% 250 ML* 250 ML IVPB ONE (14:00)
[2018-08-29 16:35] LABS: Hematocrit 23 % (42-52); Hemoglobin 7.6 g/dl (14.0-18.0)
[2018-08-29] MEDS: Insulin GLARGINE(*) 1 UNITS UNIT SUBCUT SCH (22:55)
[2018-08-30] MEDS: oxyCODONE/Acetamin 5/325 MG* TAB PO PRN ×2 (04:05→16:39)
[2018-08-30] MEDS ORDERED: Vancomycin Random Level* NOTE FOLLOW UP ONE (06:00)
[2018-08-30 07:32] LABS: Hematocrit 23 % (42-52); Hemoglobin 7.6 g/dl (14.0-18.0)
--- NOTE | 2018-08-30 08:46 | PN ---
Subjective Date of Service: 08/30/18 Interval History: Mr. Guzman reports being frustrated that the food he has doesn't taste good but otherwise he is feeling ok. He reports that the bleeding in his right armpit seems to be under control now. He rates that pain there at about a 4-5/ 10. He denies other complaint including chest pain, SOB, nausea, or abdominal pain. Objective Active Medications: Acetaminophen (Tylenol Tab*) 650 mg PO Q6H PRN Atenolol (Tenormin Tab*) 25 mg PO QAM [facility] Cinacalcet (Sensipar Tab*) 30 mg PO DAILY [facility] Dextrose (D50w Syringe 50 Ml*) 12.5 gm IV PUSH .FOR FS < 60 - SS PRN Gabapentin (Neurontin Cap(*)) 100 mg PO 0800,1600 [facility] Gabapentin (Neurontin Cap(*)) 200 mg PO BEDTIME [facility] Piperacillin Sod/Tazobactam (Sod 3.375 gm/ Sodium Chloride) 100 mls @ 25 mls/ hr IVPB Q12H [facility] Insulin Glargine (Lantus(*)) 70 units SUBCUT 2300 [facility] Insulin Human Lispro (Humalog*) 0 units SUBCUT AC [facility]; Protocol Insulin Human Lispro (Humalog*) 0 units SUBCUT AC [facility]; Protocol Mupirocin (Bactroban 2 % Oint*) 1 applic TOPICAL DAILY [facility] Nicotine (Nicotine Inhaler*) 10 mg INH Q2H PRN Ondansetron HCl (Zofran Inj*) 4 mg IV Q6H PRN Oxycodone/Acetaminophen (Percocet 5/325 Tab*) 1 tab PO Q4H PRN Pharmacy Consult (Zosyn Per Pharmacy*) 1 note FOLLOW UP .ZOSYN PER PHARMACY [facility] Pharmacy Consult (Vancomycin - Dialysis Dosing*) 1 note FOLLOW UP .PER PHARMACY [facility] Sevelamer Carbonate (Renvela Tab*) 800 mg PO TID [facility] Sodium Bicarbonate (Sodium Bicarbonate (Antacid)*) 1,300 mg PO BID [facility] Vital Signs: Temp Pulse Resp BP Pulse Ox 98.0 F 71 18 103/60 100 08/30/18 04:33 08/30/18 04:33 08/30/18 08:00 08/30/18 03:57 08/30/18 03:57 Oxygen Devices in Use Now: None Appearance: Male lying in bed in NAD Eyes: No Scleral Icterus Ears/Nose/Mouth/Throat: Mucous Membranes Moist Neck: Trachea Midline Respiratory: Symmetrical Chest Expansion and Respiratory Effort, Clear to Auscultation Cardiovascular: NL Sounds; No Murmurs; No JVD, No Edema Abdominal: NL Sounds; No Tenderness; No Distention Skin: - - Dressing to R axilla with minimal sanginous drainage, no erythema Neurological: Alert and Oriented x 3, NL Muscle Strength and Tone Nutrition: Taking PO's Result Diagrams: 08/30/18 04:58 08/29/18 05:12 Assess/Plan/Problems-Billing Assessment: Mr. Guzman is a 53 yo M with a PMH of DM, aflutter on chronic anticoagulation , ESRD on PD, and HTN who was admitted on 08/28/18 with a right axilla abscess now s/p I&D. - Patient Problems (1) Abscess Comment: - Leukocytosis resolved, BP improved - S/P I&D with Dr. Maravilla immediately prior to admission - Continue vanco and zosyn pending cultures (2) Anemia Comment: - Hgb 7.6 after I&D on eliquis, s/p one unit PRBC - SBP now in 110s - Asymptomatic at rest but will mobilize today (3) Hypertension Comment: - SBP 110s - Atenolol dose decreased and hold parameters instituted, hydralazine discontinued. (4) Diabetes Comment: - BG 230s - Increase home lantus to 80 units, continue lispro SSI and carb counting coverage, may need further adjustment - Hold glipizide (5) ESRD (end stage renal disease) Comment: - Continue PD per routine, dialysis team aware. - No significant electrolyte abnormalities, no evidence of fluid overload (6) Atrial flutter Comment: - Hold eliquis - Hold atenolol given low BP. (7) Diabetic neuropathy Comment: - Continue gabapentin (8) DVT prophylaxis Comment: - SCDs. (9) Full code status Comment: Status and Disposition: Inpatient.
[2018-08-30] MEDS: Atenolol TAB* 25 MG PO SCH (09:56)
[2018-08-30] MEDS: Sodium Bicarbonate (ANTACID)* 650 MG TAB PO SCH ×2 (09:56→21:11)
[2018-08-30] MEDS: Gabapentin CAP(*) 100 MG PO SCH ×3 (09:56→21:10)
[2018-08-30] MEDS: Cinacalcet TAB* 30 MG PO SCH (09:57)
[2018-08-30] MEDS: Insulin LISPRO* 1 UNITS UNIT SUBCUT SCH ×6 (09:57→17:58)
[2018-08-30] MEDS: Mupirocin 2% OINT* TUBE TOPICAL SCH (09:59)
[2018-08-30] MEDS: Sevelamer TAB* 800 MG PO SCH ×3 (10:05→21:10)
[2018-08-30] MEDS: ZOSYN 3.375 GM Q12H per EXTENDED INFUSION IVPB SCH ×4 (11:26→22:59)
[2018-08-30] MEDS ORDERED: NS 0.9% 100 ML* 100 ML ONE (22:44)
[2018-08-30] MEDS ORDERED: Insulin GLARGINE(*) 1 UNITS UNIT SUBCUT SCH (23:00)
[2018-08-31] MEDS: oxyCODONE/Acetamin 5/325 MG* TAB PO PRN (01:07)
[2018-08-31] MEDS: Gabapentin CAP(*) 100 MG PO SCH (08:08)
[2018-08-31] MEDS: Cinacalcet TAB* 30 MG PO SCH (08:08)
[2018-08-31] MEDS: Sevelamer TAB* 800 MG PO SCH ×2 (08:08→14:25)
[2018-08-31] MEDS: Atenolol TAB* 25 MG PO SCH (08:09)
[2018-08-31] MEDS: Morphine VIAL* 4 MG/ML VIAL (1 ml vial) IV PRN (09:21)
--- NOTE | 2018-08-31 10:25 | PN ---
Progress Note - Progress Note Date of Service: 08/31/18 Note: S: seen w/ Dr. Maravilla. Less pain. On Zosyn. Current Medications Acetaminophen (Tylenol Tab*) 650 mg PO Q6H PRN PRN Reason: FEVER Atenolol (Tenormin Tab*) 25 mg PO QAM [facility] Last Admin: 08/31/18 08:09 Dose: 25 mg Cinacalcet (Sensipar Tab*) 30 mg PO DAILY [facility] Last Admin: 08/31/18 08:08 Dose: 30 mg Dextrose (D50w Syringe 50 Ml*) 12.5 gm IV PUSH .FOR FS < 60 - SS PRN PRN Reason: FS < 60 Gabapentin (Neurontin Cap(*)) 100 mg PO 0800,1600 [facility] Last Admin: 08/31/18 08:08 Dose: 100 mg Gabapentin (Neurontin Cap(*)) 200 mg PO BEDTIME [facility] Last Admin: 08/30/18 21:10 Dose: 200 mg Piperacillin Sod/Tazobactam (Sod 3.375 gm/ Sodium Chloride) 100 mls @ 25 mls/ hr IVPB Q12H [facility] Last Admin: 08/30/18 22:59 Dose: 25 mls/hr Insulin Glargine (Lantus(*)) 80 units SUBCUT 2300 [facility] Last Admin: 08/30/18 22:58 Dose: 80 unit Insulin Human Lispro (Humalog*) 0 units SUBCUT AC [facility]; Protocol Last Admin: 08/30/18 17:58 Dose: 6 unit Insulin Human Lispro (Humalog*) 0 units SUBCUT [facility]; Protocol Last Admin: 08/30/18 17:58 Dose: 7 unit Morphine Sulfate (Morphine Vial*) 4 mg IV Q1H PRN PRN Reason: SEVERE PAIN Last Admin: 08/31/18 09:21 Dose: 4 mg Mupirocin (Bactroban 2 % Oint*) 1 applic TOPICAL DAILY [facility] Last Admin: 08/30/18 09:59 Dose: 1 applic Nicotine (Nicotine Inhaler*) 10 mg INH Q2H PRN PRN Reason: CRAVING Ondansetron HCl (Zofran Inj*) 4 mg IV Q6H PRN PRN Reason: NAUSEA Oxycodone/Acetaminophen (Percocet 5/325 Tab*) 1 tab PO Q4H PRN PRN Reason: PAIN Last Admin: 02/18/19 01:07 Dose: 1 tab Pharmacy Consult (Zosyn Per Pharmacy*) 1 note FOLLOW UP .ZOSYN PER PHARMACY [facility] Pharmacy Consult (Vancomycin - Dialysis Dosing*) 1 note FOLLOW UP .PER PHARMACY [facility] Pharmacy Consult (Vancomycin Random Level*) 1 note FOLLOW UP ONCE ONE Stop: 09/01/18 06:01 Sevelamer Carbonate (Renvela Tab*) 800 mg PO TID [facility] Last Admin: 08/31/18 08:08 Dose: 800 mg Sodium Bicarbonate (Sodium Bicarbonate (Antacid)*) 1,300 mg PO BID [facility] Last Admin: 08/30/18 21:11 Dose: 1,300 mg Vital Signs - 8 hr 08/31/18 08/31/18 08/31/18 04:13 08:08 09:21 Temperature 97.7 F Pulse Rate 64 Respiratory 16 16 16 Rate Blood Pressure 131/78 (mmHg) O2 Sat by Pulse 100 Oximetry Gen: appears comfortable; NAD R axilla: less swelling and erythema; no sig tenderness; packing changed after premed w/ MS 4 mg; no sig bleeding or addl drainage; probes to depth of ~ 8 cm; repacked w/ saline-moistened 4x4; 4x4 gauze cover dsgs. C&S: Name: SAM SHERMAN : [address]: Jonn Maravilla MD Acct: [id number] Unit: [id number] AGE: 53 Location: [facility] Re08/28/18 SEX: M Status: REG REF SPEC: [id number] ROMULO: 08/28/18-[address] [facility] [address]: Jonn Maravilla MD REQ: [id number] RECD: 08/28/18-1711 _ STATUS: COMP SOURCE: AXILLA,RIG SPDESC: ORDERED: Culture & Stain COMMENTS: [id number] QUERIES: Provider Requisition # [id number] Specimen Description right axilla Procedure Result Reported Site Wound/Misc Gram Stain Final 08/29/18- 0732 ML 4+ Neutrophils 3+ Gram Positive Cocci in Clusters, resembling Staph 2+ Gram Positive Bacilli , resembling diptheroids Wound/Misc Culture Final 08/30/18- 1054 ML Organism 1 FINEGOLDIA MAGNA Quantity 1+ Anaerobic sensitivities are not routinely performed. Positive isolates will be saved for one week. Please call the Microbiology Laboratory if susceptibility testing is needed. A: s/p I&D R axillary abscess, improving P: potential d/c home today (will d/w Hospitalist); office f/u Wed for pkg change.
[2018-08-31] MEDS: Insulin LISPRO* 1 UNITS UNIT SUBCUT SCH ×4 (10:48→14:24)
[2018-08-31] MEDS: ZOSYN 3.375 GM Q12H per EXTENDED INFUSION IVPB SCH ×2 (10:50)
[2018-08-31] MEDS: Sodium Bicarbonate (ANTACID)* 650 MG TAB PO SCH (10:50)
[2018-08-31 11:36] VITALS: BP 118/78
[2018-08-31] MEDS: Mupirocin 2% OINT* TUBE TOPICAL SCH (12:35)
--- NOTE | 2018-08-31 14:19 | PN ---
Subjective Date of Service: 08/31/18 Interval History: Mr. Guzman denies complaint and is eager for discharge to home. Objective Active Medications: Acetaminophen (Tylenol Tab*) 650 mg PO Q6H PRN Atenolol (Tenormin Tab*) 25 mg PO QAM [facility] Cinacalcet (Sensipar Tab*) 30 mg PO DAILY [facility] Dextrose (D50w Syringe 50 Ml*) 12.5 gm IV PUSH .FOR FS < 60 - SS PRN Gabapentin (Neurontin Cap(*)) 100 mg PO 0800,1600 [facility] Gabapentin (Neurontin Cap(*)) 200 mg PO BEDTIME [facility] Piperacillin Sod/Tazobactam (Sod 3.375 gm/ Sodium Chloride) 100 mls @ 25 mls/ hr IVPB Q12H [facility] Insulin Glargine (Lantus(*)) 80 units SUBCUT 2300 [facility] Insulin Human Lispro (Humalog*) 0 units SUBCUT AC [facility]; Protocol Insulin Human Lispro (Humalog*) 0 units SUBCUT AC [facility]; Protocol Morphine Sulfate (Morphine Vial*) 4 mg IV Q1H PRN Mupirocin (Bactroban 2 % Oint*) 1 applic TOPICAL DAILY [facility] Nicotine (Nicotine Inhaler*) 10 mg INH Q2H PRN Ondansetron HCl (Zofran Inj*) 4 mg IV Q6H PRN Oxycodone/Acetaminophen (Percocet 5/325 Tab*) 1 tab PO Q4H PRN Pharmacy Consult (Zosyn Per Pharmacy*) 1 note FOLLOW UP .ZOSYN PER PHARMACY [facility] Pharmacy Consult (Vancomycin - Dialysis Dosing*) 1 note FOLLOW UP .PER PHARMACY [facility] Pharmacy Consult (Vancomycin Random Level*) 1 note FOLLOW UP ONCE ONE Sevelamer Carbonate (Renvela Tab*) 800 mg PO TID [facility] Sodium Bicarbonate (Sodium Bicarbonate (Antacid)*) 1,300 mg PO BID [facility] Vital Signs: Temp Pulse Resp BP Pulse Ox 97.7 F 67 16 118/78 99 08/31/18 11:31 08/31/18 11:31 08/31/18 11:31 08/31/18 11:35 08/31/18 11:31 Oxygen Devices in Use Now: None Appearance: Male lying in bed in NAD Eyes: No Scleral Icterus Ears/Nose/Mouth/Throat: Mucous Membranes Moist Neck: Trachea Midline Respiratory: Symmetrical Chest Expansion and Respiratory Effort, Clear to Auscultation Cardiovascular: NL Sounds; No Murmurs; No JVD, No Edema Abdominal: NL Sounds; No Tenderness; No Distention Lymphatic: No Cervical Adenopathy Extremities: No Edema Skin: - - Right armpit dressing CDI Neurological: Alert and Oriented x 3, NL Muscle Strength and Tone Nutrition: Taking PO's Result Diagrams: 08/30/18 04:58 08/29/18 05:12 Assess/Plan/Problems-Billing Assessment: Mr. Guzman is a 53 yo M with a PMH of DM, aflutter on chronic anticoagulation , ESRD on PD, and HTN who was admitted on 08/28/18 with a right axilla abscess now s/p I&D. - Patient Problems (1) Abscess Comment: - Leukocytosis resolved, BP improved - S/P I&D with Dr. Maravilla immediately prior to admission - Switch to doxycycline x 7 days (2) Anemia Comment: - Hgb 7.6 after I&D on eliquis, s/p one unit PRBC - SBP now in 110s - Asymptomatic at rest but will mobilize today (3) Hypertension Comment: - SBP 110s - Hold Atenolol and hydralazine until follow up with PCP (4) Diabetes Comment: - BG 230s - Increase home lantus to 80 units, continue lispro SSI and carb counting coverage, may need further adjustment - Resume glipizide (5) ESRD (end stage renal disease) Comment: - Continue PD per routine, dialysis team aware. - No significant electrolyte abnormalities, no evidence of fluid overload (6) Atrial flutter Comment: - Hold eliquis until follow up with surgery - Hold atenolol given low BP. (7) Diabetic neuropathy Comment: - Continue gabapentin (8) DVT prophylaxis Comment: - SCDs. (9) Full code status Comment: Status and Disposition: Inpatient. Discharge to home
--- NOTE | 2018-08-31 21:00 | DS ---
CC: Dr. Romero * [facility] DISCHARGE SUMMARY: DATE OF ADMISSION: 08/28/18 DATE OF DISCHARGE: 08/31/18 PRIMARY CARE PHYSICIAN: Dr. Romero ATTENDING PHYSICIAN: Dr. Ryan Brian * (dictation provided by Mihaela Arzola NP) PRIMARY DIAGNOSIS: Right axilla abscess. SECONDARY DIAGNOSES: 1. Type 2 diabetes, insulin dependent. 2. Morbid obesity. 3. End-stage renal disease, on peritoneal dialysis. 4. Left leg below-knee amputation. 5. Atrial flutter. 6. Diabetic neuropathy. 7. Hypertension. MEDICATIONS: At time of discharge are: 1. Hold Eliquis. 2. Hold Hydralazine. 3. Clindamycin 600 mg p.o. t.i.d. x5 days. 4. Atenolol 100 mg p.o. q.a.m. 5. Sensipar 30 mg p.o. daily. 6. Gabapentin 100 mg p.o. b.i.d. 7. Renvela 800 mg p.o. t.i.d. 8. Glipizide 10 mg p.o. b.i.d. 9. Gabapentin 200 mg p.o. at bedtime. 10. Sodium bicarbonate 1300 mg p.o. b.i.d. 11. Lantus insulin 70 units subcutaneously q.p.m. HOSPITAL COURSE: Mr. Guzman is a 53-year-old male with past medical history of diabetes and end-stage renal disease, on peritoneal dialysis, who presented to the hospital on 08/28/18 with concern for right axilla abscess. Please see the dictated consultation report from Moira Haider NP for complete details , but in brief the patient reported that he had developed a pimple onto his right armpit on 08/21/18. He was able to express pus from this, thereafter noticed increased swelling, pain, and redness. He saw Dr. Maravilla in the office on 08/28/18, where an I and D was performed and then the patient was admitted to the hospital. I will note that patient was on Keflex for 3 days prior to admission started by his primary care physician, Dr. Romero. In the emergency room, Mr. Guzman had labs, which showed a white blood cell count of 13.5. He had a hemoglobin of 8.1, but this was consistent with his history of anemia in the setting of end-stage renal disease. BUN and creatinine were elevated at 93 and 13.53 respectively, but again this was in the setting of his renal disease. He is afebrile. Mr. Guzman was admitted to the hospital and treated with vancomycin and Zosyn. On the first day of admission, he was noted to have significant bleeding from the armpit. I will note the patient was on Eliquis at the time of the I and D due to his history of atrial flutter. Patient's hemoglobin fell to ivis of 6.9 and he was transfused 1 unit of blood. With this, his hemoglobin is now 7.6 and his blood pressure is now running approximately 120 systolically. Because of his low blood pressure, we did decrease his atenolol dose and hold his hydralazine while in the hospital. Mr. Guzman is doing well. His bleeding has stopped. He does not have significant drainage from the wound site, packing has been removed, and [facility] deemed him appropriate for discharge to home to continue antibiotic therapy and to follow up them on Friday. Patient will be resuming his atenolol, but I have asked him to hold Hydralazine as his blood pressure is just 120 systolically here in the hospital. He will also be holding Eliquis and aspirin until his followup with [facility] , which will be on Friday. Mr. Guzman is physically stable for discharge to home. He will follow up with [facility] on Friday and with Dr. Romero in the next week regarding management of his blood pressure. DISPOSITION: Home DIET: Low carb, low fat, low salt ACTIVITY: Do not lift more than 5 lbs with the right upper extremity until follow up with [facility] on Friday FOLLOW UP: 1. [facility] on Friday, review resumption of eliquis. 2. Dr. Romero regarding blood pressure medication adjustments. TIME SPENT: Approximately 60 minutes were spent in the discharge of this patient. More than half the time was spent with the patient at the bedside reviewing the events leading up to this hospitalization from the physical examination and reviewing the plan of care. MIHAELA ARZOLA NP [id number]/CPS #: [id number] [facility] CENTERDaphnie
[2018-09-01] MEDS ORDERED: Vancomycin Random Level* NOTE FOLLOW UP ONE (06:00)
== END 2018-08-31 16:10 | disposition home or self-care (01) | DRG 602 ==
LOC: SSU 14:36
PROVIDERS: ADMIT Surgery; ATTEND Internal Medicine
PROC: 0X943ZZ Drainage of Right Axilla, Percutaneous Approach (ICD-10-PCS; 2018-08-28)
PROC: 3E1M39Z Irrigation of Peritoneal Cavity using Dialysate, Percutaneous Approach (ICD-10-PCS; principal; 2018-08-29)
PROC: 30233N1 Transfusion of Nonautologous Red Blood Cells into Peripheral Vein, Percutaneous Approach (ICD-10-PCS; 2018-08-29)
DX: L02.411 Cutaneous abscess of right axilla (principal); N18.6 End stage renal disease; I12.0 Hypertensive chronic kidney disease with stage 5 chronic kidney disease or end stage renal disease; L76.22 Postprocedural hemorrhage of skin and subcutaneous tissue following other procedure; E11.22 Type 2 diabetes mellitus with diabetic chronic kidney disease; D63.1 Anemia in chronic kidney disease; E66.01 Morbid (severe) obesity due to excess calories; M19.079 Primary osteoarthritis, unspecified ankle and foot; F17.210 Nicotine dependence, cigarettes, uncomplicated; I95.9 Hypotension, unspecified; Y83.8 Other surgical procedures as the cause of abnormal reaction of the patient, or of later complication, without mention of misadventure at the time of the procedure; Y82.8 Other medical devices associated with adverse incidents; E11.42 Type 2 diabetes mellitus with diabetic polyneuropathy; Z91.041 Radiographic dye allergy status; Z88.8 Allergy status to other drugs, medicaments and biological substances; Z89.432 Acquired absence of left foot; Z99.2 Dependence on renal dialysis; Z83.3 Family history of diabetes mellitus; Z82.49 Family history of ischemic heart disease and other diseases of the circulatory system; Z72.89 Other problems related to lifestyle; Z95.9 Presence of cardiac and vascular implant and graft, unspecified; Z68.39 Body mass index [BMI] 39.0-39.9, adult; Y92.9 Unspecified place or not applicable; Z79.4 Long term (current) use of insulin
CPT/HCPCS: 36415; 80048; 80053; 80202; 83735; 85014; 85018; 85025; 85027; 86850; 86900; 86901; 86922; A9270-GY; J2270; J2543; J3370; P9040

== ENCOUNTER 2019-01-10 14:25 | Emergency (ER) | payer MEDICARE, MEDICAID ==
--- OUTSIDE RECORDS SUMMARY | 2019-01-10 14:39 | XMS REPORT | Continuity of Care Document ---
:1965 External Reference #:[id number] Author Name Covert, Michelle Care Team Providers Name Role Phone Trenton Romero MD Primary Care Physician Unavailable Payers Date Identification Numbers Payment Provider Subscriber Policy Number: [id number] Medicare Sam Sherman PayID: [id number] [address] [place] [address] Expires: 2016 Policy Number: [id number] Medicaid Sam Sherman Group Name: 1 1 [address] PayID: [id number] [place] [address] Effective: 2018 Policy Number: [id number] Medicaid Sam Sherman Group Name: 1 1 [address] PayID: [id number] [place] [address] Problems Active Problems Provider Date Localized, primary osteoarthritis of Gumaro Decker M.D. Onset: 07/06/2013 the ankle and/or foot Disorder of joint of ankle and/or Gumaro Decker M.D. Onset: 07/06/2013 foot Idiopathic peripheral neuropathy Gumaro Decker M.D. Onset: 07/06/2013 Nervous system disorder due to Gumaro Decker M.D. Onset: 07/06/2013 diabetes mellitus Atherosclerosis of [place] arteries of Alva Aldrich MD, [facility], Onset: left leg with ulceration of other [facility] part of foot Chest pain Alva Aldrich MD, [facility], Onset: 01/06/2018 [facility] Atrial flutter [facility]rich MD, [facility], Onset: 01/06/2018 [facility] Atherosclerosis of arteries of the Claude Walters M.D. 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 Work Status Not Currently Working Tobacco Use Start: Unknown Light tobacco smoker (10 or fewer cigarettes/day) ETOH Use consumes 3-4 beers per day Recreational Drug Use Never Used Drugs Tobacco Use Start: Unknown Patient is a current smoker, smokes every day Tobacco Use Start: Unknown Light tobacco smoker 1/4 pack a day (10 or fewer cigarettes/day) Smoking Status Reviewed: 12/22/18 Light tobacco smoker 1/4 pack a day (10 or fewer cigarettes/day) Exercise Type/Frequency Does not exercise Allergies, Adverse Reactions, Alerts Active Allergies Reaction Severity Comments Date Intravenous Dyes Hives Severe 07/06/2013 Amlodipine 07/28/2013 Tetracycline Urticaria 01/06/2018 Medications Active Medications SIG Qnty Indications Ordering Date Provider Metronidazole 1 tab by mouth two 30tabs E11.621 Caio Rodriguez 12/22/2018 500mg times per day Cathi Rosales Tablets Prednisone take prednisone 50 6tabs I70.261 Claude Cowan 12/09/2018 50mg Tablets mg by mouth 13, 7 Cathi Walters and 1 hour before angiography with for contrast allergy prophylaxis Sulfamethoxazole/Trim take 1 tablet by 42tabs E11.621 Caio Rodriguez 2018 ethoprim DS mouth once a day Cathi Rosales 800-160mg Tablets Eliquis 1 by mouth twice a 180tabs Domingo Jhonathan 01/13/2018 2.5mg Tablets day Cathi Torres, [facility], ANTHONY Soloyl apply thin layer Unknown 250Unit/GM daily to wound bed Ointment only Velphoro 1 po after each Unknown 500mg Chewtabs meal Sensipar 1 by mouth once a Unknown 30mg Tablets day Aspirin 81 Low Dose 1 by mouth every Unknown day 81mg Chewtabs Calcitriol 1 by mouth every Unknown 0.25mcg other day Capsules Gabapentin take 1 to 3 Unknown 100mg capsules by mouth Capsules at night Sodium Bicarbonate 2 tablets 3 times Unknown daily 650mg Tablets Lantus Solostar 70 units once Unknown daily 100Unit/ML Solution Pen-Inject Hydralazine HCL 1 by mouth two Unknown 50mg times a day as Tablets needed Atenolol 1 po qd 90tabs Unknown 100mg Tablets Glipizide 2 po bid 180tabs Unknown 5mg Tablets History Medications Metronidazole 1 tab by mouth 10tabs E11.621 Caio DDejah 12/08/2018 - 500mg two times per Cathi Rosales 12/22/2018 Tablets day Oxycodone HCL 1 tabs by 20tabs Gumaro Decker, 02/02/2018 - 5mg mouth every M.D. 07/20/2018 Tablets 4-6 hours as needed Levofloxacin 1/2 tablet Gumaro Decker, 06/09/2017 - 500mg every other M.D. 07/14/2017 Tablets day (250 mg) Atorvastatin Calcium 1 by mouth 90tabs Alva Aldrich, 06/09/2017 - every day MD [facility], [facility] 06/09/2017 80mg Tablets Knee Dalton T81.31xD Gumaro Decker, 04/18/2017 - M.D. 07/20/2018 I70.245 Levofloxacin one per day (pt 20tabs I70.245 Gumaro Decker, 03/06/2017 - 750mg takes 250 mg M.D. 06/09/2017 Tablets every other day- Per Dr. Rodriguez) Bactrim DS 1 by mouth twice 20tabs Gumaro Decker 02/03/2017 - 800-160mg a day x 10 days M.D. 02/11/2017 Tablets Oxycodone HCL 1-2 tab by mouth 40tabs Gumaro Jeronimo, 02/03/2017 - 5mg every 4-6 hours M.D. 02/11/2017 Tablets as neededfor pain Levofloxacin 1 po qd 30tabs Gumaro Decker, 07/28/2013 - 500mg M.D. 08/10/2013 Tablets Levaquin 1 po every other 14tabs 996.67 Caio D. 07/28/2013 - 750mg day Blanca M.D. 08/10/2013 Tablets Bactrim DS 1 po bid 20tabs Gumaro Decker, 11/30/2012 - 800-160mg M.D. 07/28/2013 Tablets Levofloxacin 1 po qd 14tabs Gumaro Decker, 10/12/2012 - 500mg M.D. 07/28/2013 Tablets Sulfamethoxazole/Tri 1 by mouth twice Unknown - methoprim DS a day 12/08/2018 800-160mg Tablets Clindamycin HCL 2 by mouth three Unknown - 300mg times a day x 5 12/07/2018 Capsules days Cephalexin 1 by mouth four Unknown - 500mg times a day 12/07/2018 Tablets Auryxia 1 by mouth three Unknown - 1GM 210 times a day 12/07/2018 mg(Fe) Tablets Fluticasone two sprays each Unknown - Propionate Nasal nostril once 12/07/2018 [place] daily 50mcg/Act Suspension Ondansetron HCL one by mouth Unknown - 4mg every 8 hours as 12/07/2018 Tablets needed for nausea Meclizine HCL 1 tablet every 8 Unknown - 25mg hours as needed 12/07/2018 Tablets for vertigo Auryxia 1 by mouth with Unknown - 1GM 210 meals. 05/05/2018 mg(Fe) Tablets Oxycodone HCL 1 tabs by mouth Unknown - 5mg every 4-6 hours 07/20/2018 Capsules as needed pain(pt takes twice daily) Xifaxan 1 by mouth once Unknown - 550mg Tablets daily 12/07/2018 Renvela 5-6 tablets after Unknown - 800mg Tablets each meal, 01/05/2018 dependent on meal. Clonidine HCL Unknown - (Analgesia) 06/08/2017 Bumetanide Unknown - 08/31/2013 Oxycodone HCL 1-2 po qid prn 60tabs Unknown - 5mg 06/13/2016 Tablets Oxycodone HCL 1 tablet po q6hrs 100tabs Unknown - 10mg prn 07/28/2013 Tablets Norvasc 1 po qd 90tabs Unknown - 10mg Tablets 07/28/2013 Vital Signs Date Vital Result Comment 12/22/2018 11:12am Heart Rate 63 /min BP Systolic Sitting 118 mmHg BP Diastolic Sitting 67 mmHg Pain Level 4 Right foot O2 % BldC Oximetry 93 % 12/09/2018 10:18am Height 70 inches 5'10" Weight 240.00 lb Heart Rate 64 /min BP Systolic Sitting 120 mmHg Lue, regular cuff BP Diastolic Sitting 70 mmHg Lue, regular cuff Respiratory Rate 16 /min BMI (Body Mass Index) 34.4 kg/m2 12/08/2018 10:52am Height 70 inches 5'10" Weight 240.00 lb per pt Heart Rate 60 /min BP Systolic Sitting 108 mmHg BP Diastolic Sitting 62 mmHg Respiratory Rate 14 /min Body Temperature 96.9 F BMI (Body Mass Index) 34.4 kg/m2 09/29/2018 11:43am Height 70 inches 5'10" Weight 240.00 lb Heart Rate 60 /min Body Temperature 96.2 F O2 % BldC Oximetry 92 % BMI (Body Mass Index) 34.4 kg/m2 09/18/2018 1:08pm Heart Rate 72 /min Respiratory Rate 16 /min Body Temperature 97.5 F 09/04/2018 3:10pm Heart Rate 72 /min Respiratory Rate 18 /min Body Temperature 97.0 F 09/02/2018 3:08pm Heart Rate 72 /min Respiratory Rate 18 /min Body Temperature 96.8 F 08/28/2018 1:25pm Weight 237.00 lb Heart Rate 72 /min BP Systolic 138 mmHg BP Diastolic 70 mmHg Respiratory Rate 18 /min Body Temperature 98.0 F 07/29/2018 11:23am Height 71 inches 5'11" Weight 237.00 lb BP Systolic Sitting 116 mmHg BP Diastolic Sitting 60 mmHg Respiratory Rate 20 /min Pain Level 0 BMI (Body Mass Index) 33.1 kg/m2 06/16/2018 11:56am Height 71 inches 5'11" Heart Rate 72 /min BP Systolic 150 mmHg BP Diastolic 82 mmHg Body Temperature 97.7 F Pain Level 7 05/14/2018 11:31am Height 71 inches 5'11" Weight [...] stress elsi San 1 year ago, 12/30/2017 11:15am Height 70 [...] Date Facility Test Result H/L Range Note Laboratory test 11/20/2018 [facility] Tissue Culture SEE RESULT 1, [address] & [place] [address] [phone] Wound 08/28/2018 [facility] Wound/Misc SEE RESULT 3 Culture/Sensi [address] [place] [address] Stain [phone] CBC No Diff 05/25/2018 [facility] White Blood 6.4 10^3/uL N 3.5-10.[address] Count [place], [place] [id number] [phone] Red Blood Count 3.40 10^6/uL Low 4.00-5.40 [...] fL N 7.4-10.4 CBC Auto Diff 05/21/2018 [facility] White Blood 5.7 10^3/uL N 3.5-10.[address] [place] [address] [phone] Red Blood Count 3.45 10^6/uL Low 4.00-5.40 [...] Red Blood Cells % 0 Inr/Protime 05/21/2018 [facility] Inr 1.01 N 0.77-1.[address] [place] [address] [phone] Laboratory test 05/21/2018 [facility] Partial 31.4 seconds N 26.0-36.[address] [place] [address] PTT [phone] Type & Screen 05/21/2018 [facility] Patient A Positive [address] [place] [address] [phone] Antibody Screen NEGATIVE CBC Auto Diff 05/01/2018 [facility] White Blood 6.0 10^3/uL N 3.5-10.[address] [place] [address] [phone] Red Blood Count 3.24 10^6/uL Low 4.00-5.40 [...] Red Blood Cells % 0.3 Basic Metabolic 05/01/2018 [facility] Sodium 128 mmol/L Low 135-[address] [place] [address] [phone] Potassium 4.4 mmol/L N 3.5-5.0 Chloride 88 mmol/L Low 101-111 Co2 Carbon Dioxide 24 mmol/L N 22-32 Anion Gap 16 mmol/L High 2-11 Glucose 302 mg/dL High 70-100 Blood Urea Nitrogen 70 mg/dL High 6-24 Creatinine 13.19 mg/dL High 0.67-1.17 BUN/Creatinine Ratio 5.3 Low 8-20 Calcium 10.1 mg/dL N 8.6-10.3 Egfr Non- 4.0 >60 Egfr 4.8 >60 4 Wound 02/02/2018 [facility] Wound/Misc SEE RESULT 5 Culture/Sensi [address] [place] [address] Stain [phone] Laboratory test 02/02/2018 [facility] Anaerobic Culture SEE RESULT [address] [place], [place] [address] [phone] Laboratory test 02/02/2018 [facility] Point of Care 179 mg/dL High 70-1 [address] Glucose 00 [place], [place] [address] [phone] Laboratory test 02/02/2018 [facility] Point of Care 183 mg/dL High 70-1 [address] Glucose 00 [place], [place] [address] [phone] Laboratory test 02/02/2018 [facility] Surgical SEE RESULT [address] [place] [address] [phone] Lipid Profile 07/29/2017 [facility] Triglycerides 118 mg/dL 10 (Trig/Chol/HDL) [address] [place] [address] [phone] Cholesterol 147 mg/dL 11 HDL Cholesterol 47.4 mg/dL 12 LDL Cholesterol 76 mg/dL 13 Laboratory test 06/17/2017 [facility] Point of 230 mg/dL High 70-100 [address] [place] [address] [phone] Basic Metabolic 06/11/2017 [facility] Sodium 130 mmol/L Low 133-[address] [place] [address] [phone] Potassium 4.1 mmol/L N 3.5-5.0 Chloride 94 mmol/L Low 101-111 Co2 Carbon Dioxide 25 mmol/L N 22-32 Anion Gap 11 mmol/L N 2-11 Glucose 206 mg/dL High 70-100 Blood Urea Nitrogen 59 mg/dL High 6-24 Creatinine 8.61 mg/dL High 0.67-1.17 BUN/Creatinine Ratio 6.9 Low 8-20 Calcium 9.2 mg/dL N 8.6-10.3 Egfr Non- 6.5 >60 Egfr 8.4 >60 15 CBC Auto Diff 06/11/2017 [facility] White Blood 7.0 10^3/uL N 3.5-10.[address] [place] [address] [phone] Red Blood Count 3.12 10^6/uL Low 4.0-5.4 [...] Blood Cells % 0 Manual Differential 06/11/2017 [facility] Neutrophil % 65 % N 38-[address] [place], [place] [address] [phone] Lymphocytes % 21 % Low 25-47 Monocytes % 10 % N 0-13 Basophil % 4 % High 0-2 RBC Morphology Normal Normal Creatinine 05/13/2017 [facility] Creatinine 8.98 mg/dL High 0.67-1.[address] [place], [place] [address] [phone] Egfr Non- 6.2 N >60 Egfr 8.0 N >60 16 Laboratory test 05/13/2017 [facility] Blood Urea 65 mg/dL High 6-[address] Nitrogen BUN [place], [place] [address] [phone] Laboratory test 02/03/2017 [facility] Point of Care 174 mg/dL High 74-106 [address] Glucose [place], [place] [address] [phone] Laboratory test 02/03/2017 [facility] Anaerobic SEE RESULT [address] Culture BELOW [place], [place] [address] [phone] Wound 02/03/2017 [facility] Wound/Misc SEE RESULT 19 Culture/Sensi [address] [place] [address] Stain [phone] Laboratory test 02/03/2017 [facility] Surgical SEE RESULT [address] Pathology BELOW [place], [place] [address] [phone] Laboratory test 08/06/2016 [facility] Point of Care 205 mg/dL High 74-106 [address] Glucose [place], [place] [address] [phone] Laboratory test 08/02/2013 [facility] C Reactive 0.9 mg/dL High Less [address] Protein than 0.5 [place] [address] [phone] Comp Metabolic 08/02/2013 [facility] Sodium 128 mmol/L Low 133 -[address] [place] [address] [phone] Potassium 5.1 mmol/L High 3.5-5.0 Chloride 95 [...] Egfr Non- 29.0 >60 Egfr 37.3 >60 23 CBC No Diff 08/02/2013 [facility] White Blood 6.0 10^3/uL 4.8 -10.[address] [place] [address] [phone] Red Blood Count 4.15 10^6/uL 4.0-5.4 Hemoglobin 11.4 g/dL Low 14.0-18.0 Hematocrit 35 % Low 42-52 Mean Corpuscular Volume 85 fL 80-94 Mean Corpuscular Hemoglobin 28 pg 27-31 Mean Corpuscular HGB Conc 32 g/dL 31-36 Red Cell Distribution Width 13 % 10.5-15 Platelet Count 219 10^3/uL 150-450 Mean Platelet Volume 9 um3 7.4-10.4 CBC No Diff 07/26/2013 [facility] White Blood 6.4 10^3/uL 4.8 -10.[address] [place] [address] [phone] Red Blood Count 3.90 10^6/uL Low 4.0-5.4 Hemoglobin 11.1 g/dL Low 14.0-18.0 Hematocrit 33 % Low 42-52 Mean Corpuscular Volume 85 fL 80-94 Mean Corpuscular Hemoglobin 29 pg 27-31 Mean Corpuscular HGB Conc 34 g/dL 31-36 Red Cell Distribution Width 13 % 10.5-15 Platelet Count 311 10^3/uL 150-450 Mean Platelet Volume 9 um3 7.4-10.4 Comp Metabolic Panel 07/26/2013 [facility] Sodium 132 mmol/L Low 133-[address] [place] [address] [phone] Potassium 4.8 mmol/L 3.5-5.0 Chloride 102 mmol/L [...] Egfr Non- 33.9 >60 Egfr 43.6 >60 24 Manual Differential 07/26/2013 [facility] Neutrophil % 66 % 38-[address] [place] [address] [phone] Lymphocytes % 22 % Low 25-47 Monocytes % 8 % 0-13 Eosinophils % 3 % 0-6 Myelocytes % 1 % 0-1 RBC Morphology Normal Normal Laboratory test 07/26/2013 [facility] C Reactive 0.9 mg/dL High Less than finding [address] Protein 0.5 [place] [address] [phone] 1 RIGHT HEEL TISSUE 2 SEE RESULT BELOW Name: SAM SHERMAN : [address]: Pascual Amin MD Acct: [id number] Unit: [id number] AGE: 53 Location: [facility] Re11/20/18 SEX: M Status: REG REF SPEC: [id number] ROMULO: 11/20/18-[address]: Pascual Amin MD REQ: [id number] RECD: 11/20/18 STATUS: COMP _ SOURCE: TISSUE SPDESC:NOS ORDERED: Tissue Cult/GS COMMENTS: RIGHT HEEL TISSUE Procedure Result Reported Site Tissue Gram Stain Final 11/20/18- 1525 ML 3+ Nucleated Cells 1+ Epithelial Cells 1+ Gram Positive Cocci Preparation By Cytospin Smear Tissue Culture Final 11/24/18- 0859 ML Organism 1 STAPHYLOCOCCUS EPIDERMIDIS Quantity 1+ 1. STAPHYLOCOCCUS EPIDERMIDIS M.I.C. RX --------- ------ Penicillin >=0.5 R Clindamycin >=8 R Erythromycin >=8 R Gentamicin <=0.5 S Linezolid 1 S Oxacillin >=4 R * Quinupristin/Dalfopristin <=0.25 S Rifampin <=0.5 S Tetracycline >=16 R Tigecycline 0.5 S Vancomycin 2 S Imipenem-Deduced R * Ampicillin/Sulbactam-Deduced R Cefazolin-Deduced R CONTINUED ON NEXT PAGE DEPARTMENT OF PATHOLOGY, [address] [place] [address] Balta Fuchs M.D. Director [facility] # [id number] Patient: SAM SHERMAN [id number] (Continued) Specimen: [id number] Collected: 11/20/18 Received: 11/20/18 (Continued) Procedure Result Reported Site Tissue Culture Final (continued) * These antibiotics are not available in the [facility] Formulary Contact the Microbiology Department for any additional antibiotic reporting. * ML - Main Lab . END OF REPORT DEPARTMENT OF PATHOLOGY, [address] [place] [address] Balta Fuchs M.D. Director [facility] # [id number] 3 SEE RESULT BELOW Name: SAM SHERMAN : [address]: Jonn Maravilla MD Acct: [id number] Unit: [id number] AGE: 53 Location: [facility] Re08/28/18 SEX: M Status: REG REF SPEC: [id number] ROMULO: 08/28/[address] [facility] [address]: Jonn Maravilla MD REQ: [id number] RECD: 08/28/18 STATUS: COMP _ SOURCE: AMARI ALVARADO [facility]: ORDERED: Culture Stain COMMENTS: [id number] Specimen Description right axilla Procedure Result Reported Site Wound/Misc Gram Stain Final 08/29/18- 0732 ML 4+ Neutrophils 3+ Gram Positive Cocci in Clusters, resembling Staph 2+ Gram Positive Bacilli , resembling diptheroids Wound/Misc Culture Final 08/30/18- 1054 ML Organism 1 FINEGOLDIA MAGNA Quantity 1+ Anaerobic sensitivities are not routinely performed. Positive isolates will be saved for one week. Please call the Microbiology Laboratory if susceptibility testing is needed. * - [facility] . END OF REPORT DEPARTMENT OF PATHOLOGY, [address] [place] [address] Balta Fuchs M.D. Director [facility] # [id number] 4 Because ethnic data is not always readily [...] 15-29 5 Kidney failure <15 (or dialysis) 5 SEE RESULT BELOW Name: SAM SHERMAN : [address]: Gumaro Decker MD Acct: [id number] Unit: [id number] AGE: 52 Location: [place] Re02/02/18 SEX: M Status: SCOTT ARREDONDO SPEC: [id number] ROMULO: 02/02/[address] [facility] [address]: Gumaro Decker MD REQ: [id number] RECD: 02/02/18 STATUS: ALEXA IRIZARRY DR: Trenton Romero MD _ SOURCE: ANKLE LEFT SPDESC: ORDERED: Culture Stain Procedure Result Reported Site Wound/Misc Gram Stain Final 02/02/18- 1136 ML 1+ Epithelial Cells 1+ Neutrophils No Organisms Seen Wound/Misc Culture Final 02/06/18- 34 ML No Growth Day 4 * ML - Main Lab . END OF REPORT DEPARTMENT OF PATHOLOGY, [address] [place] [address] Balta Fuchs M.D. Director [facility] # [id number] 6 SEE RESULT BELOW Name: SAM SHERMAN : [address]: Gumaro Decker MD Acct: [id number] Unit: [id number] AGE: 52 Location: [place] Re02/02/18 SEX: M Status: DEP SDC SPEC: [id number] ROMULO: 02/02/[address] [facility] [address]: Gumaro Decker MD REQ: [id number] RECD: 02/02/18 STATUS: ALEXA IRIZARRY DR: Trenton Romero MD _ SOURCE: WOUND SPDESC:ANKLE LEFT ORDERED: Anaerobic Cult Procedure Result Reported Site Anaerobic Culture Final 02/06/18- 933 ML No Growth Day 4 * ML - Main Lab . END OF REPORT DEPARTMENT OF PATHOLOGY, [address] [place] [address] Balta Fuchs M.D. Director [facility] # [id number] 7 Manager Speech: [id number] Manager Speech: [id number] 9 SEE RESULT BELOW Name: OSCARMAMISAM : [address]: Gumaro Decker MD Acct: [id number] Unit: [id number] AGE: 52 Location: [place] Re02/02/18 SEX: M Status: DEP SD SPEC: [id number] ROMULO: 02/02/18- SUBM DR: Gumaro Decker MD REQ: [id number] RECD: 02/02/18-120 STATUS: SOUT _ ORDERED: Forest, LEVEL 3 FINAL DIAGNOSIS Left tibia and [...] cm aggregate of tamez-pink irregular bone fragments. Api Product Manager sections, two cassettes following decalcification. Signed by and Reported on: Mahogany Arrieta MD 02/10/18 1044 END OF REPORT DEPARTMENT OF PATHOLOGY, [address] [place] [address] Balta Fuchs M.D. Director [facility] # [id number] 10 Desirable: <150 Borderline High: 150-199 High: 200-499 Very High: >500 11 Desirable: <200 Borderline High: 200-239 High: >239 12 Low: <40 Desirable: 40-60 High: >60 13 Desirable: <100 Near Optimal: 100-129 Borderline High: 130-159 High: 160-189 Very High: >189 14 Manager Speech: [id number] 15 Because ethnic data is not always readily [...] 15-29 5 Kidney failure <15 (or dialysis) 16 Because ethnic data is not always readily [...] 15-29 5 Kidney failure <15 (or dialysis) 17 Manager Speech: [id number] 18 SEE RESULT BELOW Name: SAM SHERMAN : [address]: Gumaro Decker MD Acct: [id number] Unit: [id number] AGE: 51 Location: [place] Re02/03/17 SEX: M Status: SCOTT COMER SPEC: [id number] ROMULO: 02/03/17-[address] [facility] [address]: Gumaro Decker MD REQ: [id number] RECD: 02/03/17-1201 STATUS: ALEXA IRIZARRY DR: Trenton Rodriguez MD _ SOURCE: WOUND SPDESC:LEFT ORDERED: Anaerobic Cult COMMENTS: LEFT FOOT Procedure Result Reported Site Anaerobic Culture Final 02/07/17- 803 ML No Growth Day 4 * ML - MAIN LAB ([facility]) . END OF REPORT * ML=Testing performed at Main Lab DEPARTMENT OF PATHOLOGY, [address] [place] [address] Balta Fuchs M.D. Director [facility] # [id number] 19 SEE RESULT BELOW Name: SAM SHERMAN : [address]: Gumaro Decker MD Acct: [id number] Unit: [id number] AGE: 51 Location: [place] Re02/03/17 SEX: M Status: DEP SDC SPEC: [id number] ROMULO: 02/03/17-[address] [facility] [address]: Gumaro Decker MD REQ: [id number] RECD: 02/03/171202 STATUS: ALEXA IRIZARRY DR: Trenton Rodriguez MD _ SOURCE: FOOT,LEFT SPDESC: ORDERED: Culture Stain QUERIES: Specimen Description LEFT FOOT OPSITE Procedure Result Reported Site Wound/Misc Gram Stain Final 02/03/17- 1358 ML 3+ Neutrophils 1+ Epithelial Cells No Organisms Seen Wound/Misc Culture Final 02/06/17- 838 ML No Growth Day 3 * ML - MAIN LAB ([facility]) . END OF REPORT * ML=Testing performed at Main Lab DEPARTMENT OF PATHOLOGY, [address] [place] [address] Balta Fuchs M.D. Director [facility] # [id number] 20 SEE RESULT BELOW Name: SAM SHERMAN : [address]: Gumaro Decker MD Acct: [id number] Unit: [id number] AGE: 51 Location: [place] Re02/03/17 SEX: M Status: DEP SDC SPEC: [id number] ROMULO: 02/03/17- SUBM DR: Gumaro Decker MD REQ: [id number] RECD: 02/03/17-1155 STATUS: SOUT _ ORDERED: Forest, LEVEL 3 FINAL DIAGNOSIS Foot, left, excision: [...] 2.5 x 1.5 x 0.5 cm and food service representative sections are submitted in cassette A following decalcification. Within the aggregate the largest fragment measures 5.0 x 4.0 x 2.0 cm, is inked blue, serially sectioned and a food service representative section is submitted in cassette B. The second largest fragment measures 3.2 x 2.5 x 0.7 cm, is inked black, serially sectioned and food service representative sections of the remaining soft tissue are submitted in cassette C. MICROSCOPIC DESCRIPTION . Signed (signature on file) Mahogany Arrieta MD 1539 END OF REPORT * ML=Testing performed at Main Lab DEPARTMENT OF PATHOLOGY, [address] [place] [address] Balta Fuchs M.D. Director [facility] # [id number] 21 Manager Speech: [id number] ADAME [address] ROSALES [phone] 23 Because ethnic data is not always readily [...] 15-29 5 Kidney failure <15 (or dialysis) 24 Because ethnic data is not always readily [...] (or dialysis) Procedures Date Code Description Status 08/28/2018 90797 I&D Of Abscess Complicated Completed 05/25/2018 15181 Amputation Leg Through Tibia & Fibula Completed 05/25/2018 48401 Amputation Leg Through Tibia & Fibula Completed 05/05/2018 05752 EKG Tracing & Interpretation Completed 04/15/2018 56738 Walking Cast Completed 04/14/2018 67130 Short Leg Cast Completed 03/19/2018 17991 Short Leg Cast Completed 03/03/2018 21435 Short Leg Cast Completed 02/12/2018 60552 Short Leg Cast Completed 02/02/2018 75104 Osteotomy Tibia Completed 02/02/2018 37818 Osteotomy Tibia Completed 02/02/2018 61879 Arthrodesis Ankle,open Completed 02/02/2018 85632 Arthrodesis Ankle,open Completed 01/09/2018 72135 ECHO Transthoracic, Real-Time 2D With Doppler And Completed Color Flow 01/09/2018 45298 ECHO Transthoracic, Real-Time 2D With Doppler And Completed Color Flow 01/06/2018 51712 EKG Tracing & Interpretation Completed 07/04/2017 11093 Removal Devitalization Tissue Wound Less Than Equal 20 Completed Square CM 06/17/2017 24765 Bcbaz-Xfmfbdixr-Nmskiydazr Completed 06/17/2017 47853 Catheter Placement Arterial System Addtl 2ND/3RD Ord Completed Abdom/Pelv 06/17/2017 68198 Catheter Placement Arterial System Init 3RD Order Completed Abdom/Pelv/Low 02/13/2017 67374 Walking Cast Completed 02/03/2017 81098 Partial Excision Bone Tarsal/Metatarsal Completed 02/03/2017 97472 Partial Excision Bone Tarsal/Metatarsal Completed 08/06/2016 89657594 Colonoscopy Completed 10/31/2015 61923 Insertion Tunneled Cent Venous Cathr W/O Subcut Completed Port/Pump 5Yrs> 10/31/2015 97523 Ultrasound Guidance For Vascular Access Completed 10/31/2015 40035 Fluoroscopic Guidance For Cent Completed 10/01/2015 04257 EKG, Interpretation Only Completed 08/31/2013 32446 Rad Exam; Foot Comp Completed 07/12/2013 69666 Partial Excision Bone Tarsal/Metatarsal Completed 07/12/2013 94918 Removal Implant Deep Wire,Screw Nail,Keith Or Plate Completed 05/31/2013 13475 Rad Exam; Foot Comp Completed 11/16/2012 22471 Rad Exam; Foot Comp Completed 10/19/2012 97905 Short Leg Cast Completed 10/12/2012 17891 Rad Exam; Foot Comp Completed 10/12/2012 09696 Short Leg Cast Completed 10/09/2012 09294 Arthrodesis Midtarsal/Tarsometatarsal W/Osteotomy Completed 09/28/2012 11811 Rad Exam; Foot Comp Completed 06/26/2012 31254 Short Leg Cast Completed 06/08/2012 63458 Walking Cast Completed 06/08/2012 93723 Short Leg Cast Completed 05/25/2012 07423 Short Leg Cast Completed 05/13/2012 00092 Rad Exam; Foot Limited Completed 05/13/2012 15994 Rad Exam; Foot Limited Completed 05/13/2012 10450 Rad Exam; Ankle Comp Completed 05/13/2012 66155 Rad Exam; Ankle Comp Completed 05/13/2012 34836 Short Leg Cast Completed 04/16/2012 117812113 Diabetic Foot Exam Completed Encounters Type Date Location Provider Dx Diagnosis Office Visit 12/22/2018 [facility] Flavio Rodriguez E11.621 Type 2 diabetes 11:10a Infectious Cathi Rosales mellitus with Diseases foot ulcer L97.519 Non-prs chronic ulcer oth prt right foot w unsp severity L97.419 Non-prs chr ulcer of right heel and midfoot w unsp severt Office Visit 12/11/2018 10:00a Wound Care Pascual Amin, E11.621 Type 2 diabetes Center AT [facility] CHARLENE WILKS mellitus with foot ulcer R09.89 Oth symptoms and signs involving the circ and resp systems I70.201 Unsp athscl [place] arteries of extremities, right leg E66.01 Morbid (severe) obesity due to excess calories Office Visit 12/08/2018 10:50a [facility] Flavio Rodriguez E11.621 Type 2 Infectious Cathi Rosales diabetes Diseases mellitus with foot ulcer L03.115 Cellulitis of right lower limb L97.419 Non-prs chr ulcer of right heel and midfoot w unsp severt Office Visit 12/04/2018 9:00a Wound Care Pascual Amin, E11.621 Type 2 diabetes Center AT [facility] [place] CHARLENE WILKS mellitus with foot ulcer R09.89 Oth symptoms and signs involving the circ and resp systems I70.201 Unsp athscl [place] arteries of extremities, right leg E66.01 Morbid (severe) obesity due to excess calories Office Visit 11/06/2018 9:30a Wound Care Pascual Amin E11.621 Type 2 diabetes Center AT [facility] [place] CHARLENE WILKS mellitus with foot ulcer R09.89 Oth symptoms and signs involving the circ and resp systems Office Visit 10/30/2018 8:30a Wound Care Pascual Amin E11.621 Type 2 diabetes Center AT [facility] [place] CHARLENE WILKS mellitus with foot ulcer R09.89 Oth symptoms and signs involving the circ and resp systems Office Visit 09/29/2018 11:30a [facility] Gumaro Gaines89.512 Acquired Of Puneet Decker M.D. absence of left leg below knee Office Visit 09/18/2018 1:00p [facility] Jonn Parker02.411 Cut[facility] Of [facility] MD Taiwo abscess of right axilla Office Visit 08/31/2018 10:09a [facility] Mihaelawesley Arzola, L02.411 Cutaneous Assoc,pc N.P. abscess of Hospitalists right axilla D64.9 Anemia, unspecified I12.0 Hyp chr kidney disease w stage 5 chr kidney disease or Esrd E11.22 Type 2 diabetes mellitus w diabetic chronic kidney disease E11.40 Type 2 diabetes mellitus with diabetic neuropathy, unsp I48.92 Unspecified atrial flutter N18.6 End stage renal disease Z99.2 Dependence on renal dialysis Z79.4 detention (current) use of insulin Z89.512 Acquired absence of left leg below knee [facility] L02.411 Cutaneous Assoc,pc N.P. 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 abscess of Hospitalists right axilla D64.9 Anemia, unspecified I12.0 Hyp chr kidney disease w stage 5 chr kidney disease or Esrd N18.6 End stage renal disease I48.92 Unspecified atrial flutter E11.22 Type 2 diabetes mellitus w diabetic chronic kidney disease E11.40 Type 2 diabetes mellitus with diabetic neuropathy, unsp Office Visit 08/28/2018 9:29a [facility] L02.411 Cutaneous Assoc,pc AMNA Haider abscess of Hospitalists right axilla N18.6 End stage renal disease I12.0 Hyp chr kidney disease w stage 5 chr kidney disease or Esrd E11.22 Type 2 diabetes mellitus w diabetic chronic kidney disease E11.40 Type 2 diabetes mellitus with diabetic neuropathy, unsp I48.92 Unspecified atrial flutter Z99.2 Dependence on renal dialysis Z89.512 Acquired absence of left leg below knee Office Visit 08/28/2018 Aryan Rosales L02.411 Cutaneous 1:15p [facility] Maravilla MD abscess of right axilla Office Visit 05/26/2018 [facility] Karen Z89.512 Acquired 8:11a Assoc,indy Ruff NP absence of left Hospitalists leg below knee N17.9 Acute kidney failure, unspecified N18.6 End stage renal disease E11.22 Type 2 diabetes mellitus w diabetic chronic kidney disease Z99.2 Dependence on renal dialysis Office Visit 05/25/2018 8:10a [facility] Christian Z89.512 Acquired Assoc,indy Blanton, N.P. 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 classified, left ankle M14.672 Charcot's joint, left ankle and foot Office Visit 05/05/2018 2:45p [facility] Domingo Ring I48.3 Typical atrial Of Fraud Investigator Cathi Torres, flutter FACC, FASNC Office Visit 01/13/2018 3:40p [facility] Alva Brothers I48.3 Typical atrial Of Fraud Investigator AT [facility] MD Valdemar, flutter FACC, FSCAI Z01.810 Encounter for preprocedural cardiovascular examination Office Visit 01/06/2018 3:20p [facility] Alva Brothers R07.9 Chest pain, Of Fraud Investigator AT [facility] MD Valdemar, unspecified FACC, FSCAI I48.3 Typical atrial flutter Office Visit 12/30/2017 [facility] Gumaro Decker M14.672 Charcot's joint , 10:45a Services Of Cathi left ankle and C.M.A. foot Office Visit 11/20/2017 Orthopedic Sina Ahmadi.672 Charolamide's joint , 11:30a Services Of Cathi left ankle and C.M.A. foot Office Visit 10/23/2017 Orthopedic Andrew Ahmadi4.672 Charogs joint , 11:30a Services Of Cathi left ankle and C.M.A. foot Office Visit 09/23/2017 [facility] Gumaro Decker M86.672 Other chronic 10:30a Services Of Cathi osteomyelitis, C.M.A. left ankle and foot Office Visit 08/26/2017 [facility] Gumaro Decker M86.672 Other chronic 11:15a Services Of Cathi osteomyelitis, C.M.A. left ankle and foot Office Visit 07/31/2017 [facility] Al[facility] Brothers I70.245 Athscl [place] 1:20p Cardiology Of MD Valdemar, arteries of left Fraud Investigator AT [facility] leg w ulceration oth prt foot Office Visit 07/25/2017 Wound Care Anh E11.610 Type 2 diabetes 1:30p Center AT [facility] JOSEPHINE Smith, RN, mellitus w [facility]- diabetic neuropathic arthropathy I70.299 Oth athscl [place] arteries of extremities, unsp extremity N18.5 Chronic [...] to brkdwn skin Office Visit 06/23/2017 3:00p [facility] Alva Brothers I70.245 Athscl [place] Of Fraud Investigator AT [facility] MD Valdemar, arteries of left FAC, [facility] leg w ulceration oth prt foot F17.200 Nicotine dependence, unspecified, uncomplicated Office Visit 06/20/2017 1:30p Wound Care Anh Smith L97.521 Non- prs chronic Center AT [facility] JOSEPHINE RN, [facility]- ulcer oth prt l foot limited to brkdwn skin E11.621 Type 2 diabetes mellitus with foot ulcer M14.672 Charcot's joint, left ankle and foot I12.0 Hyp chr kidney disease w stage 5 chr kidney disease or Esrd N18.5 Chronic kidney disease, stage 5 F17.200 Nicotine dependence, unspecified, uncomplicated Office Visit 06/09/2017 3:20p [facility] Alva Brothers I70.245 Athscl [place] Of [facility] AT [facility] MD Valdemar, arteries of left FACC, FSCAI leg w ulceration oth prt foot E11.621 Type 2 diabetes mellitus with foot ulcer N18.5 Chronic kidney disease, stage 5 K74.60 Unspecified cirrhosis of liver Office Visit 06/02/2017 1:15p Orthopedic Remy Jocy, E11.621 Type 2 Services Of diabetes C.M.A. mellitus with foot ulcer M14.672 Charcot's joint, [...] ankle and foot Office Visit 11/02/2015 10:07a [facility] Katy N18.5 Chronic kidney Assoc,indy Gan D.O. disease, stage Hospitalists 5 E11.9 Type 2 diabetes mellitus without complications I10 Essential (primary) hypertension Office Visit 11/01/2015 10:06a [facility] Katy N18.5 Chronic kidney Assoc,indy Gan D.O. disease, stage Hospitalists 5 E11.9 Type 2 diabetes mellitus without complications I10 Essential (primary) hypertension Office Visit 10/31/2015 10:06a [facility] Soco I50.9 Heart failure, Assoc,pc Renee, DO unspecified Hospitalists E11.9 Type 2 diabetes mellitus without complications S37.009A Unspecified injury of unspecified kidney, initial encounter I10 Essential (primary) hypertension Office Visit 10/08/2015 3:21p [facility] Katy N18.5 Chronic kidney Assoc,indy Gan D.O. disease, stage Hospitalists 5 E11.9 Type 2 diabetes mellitus without complications E87.70 Fluid overload, unspecified D64.9 Anemia, unspecified Office Visit 10/07/2015 [facility] Assoc,pc Hina Gan disease, stage Hospitalists 5 E11.9 Type 2 diabetes mellitus without complications E87.70 Fluid overload, unspecified D64.9 Anemia, unspecified Office Visit 10/06/2015 3:20p [facility] N[facility].5 Chronic kidney Assoc,pc Hina Gan disease, stage Hospitalists 5 E11.9 Type 2 diabetes mellitus without complications E87.70 Fluid overload, unspecified D64.9 Anemia, unspecified Office Visit 10/05/2015 2:49p [facility] N[facility].5 Chronic kidney Assoc,indy Gan D.O. disease, stage Hospitalists 5 E11.9 Type 2 diabetes mellitus without complications E87.70 Fluid overload, unspecified D64.9 Anemia, unspecified Office Visit 10/04/2015 2:49p [facility] N18.5 Chronic kidney Assoc,indy Gan D.O. disease, stage Hospitalists 5 E11.9 Type 2 diabetes mellitus without complications E87.70 Fluid overload, unspecified D64.9 Anemia, unspecified Office Visit 10/03/2015 2:48p [facility] Ulises Yen, N18.5 Chronic kidney Assoc,indy WILKS disease, stage Hospitalists 5 E11.9 Type 2 diabetes mellitus without complications E87.70 Fluid overload, unspecified D64.9 Anemia, unspecified Office Visit 10/02/2015 [facility] Ulises E87.70 Fluid overload, 2:47p Assoc,indy Yen MD unspecified Hospitalists E11.9 Type 2 diabetes mellitus without complications N18.5 Chronic kidney disease, stage 5 D64.9 Anemia, unspecified Office Visit 10/01/2015 2:47p [facility] Mukund Tapia, I50.9 Heart failure, Assindy pollard M.D. unspecified Hospitalists E11.9 Type 2 diabetes mellitus without complications D64.9 Anemia, unspecified N18.5 Chronic kidney disease, stage 5 Office Visit 08/31/2013 1:45p [facility] Gumaro Decker, 707.15 Ulcer Of Of C.M.A. Cathi Other Part Of Foot 996.67 Infection & Inflammatory React Due To Internal Orthoped Othe Office Visit 07/28/2013 [facility] Caio Rodriguez 996.67 Infection & 3:20p For Infectious Cathi Rosales Inflammatory React Diseases Due To Internal Orthoped Othe 730.27 Osteomyelitis Unspec Ankle & Foot Office Visit 07/20/2013 10:35a [facility] 682.7 Cellulitis & Assoc,pc Harvinder, N.P. Abscess Foot Hospitalists Except Toes 250.82 Diabetes W/ Other Spec Manifestations Type II Uncontrolled 713.5 Arthropathy W/ Neurological Disorders Office Visit 07/20/2013 [facility] Caio Rodriguez 996.67 Infection & 1:51p For Infectious Cathi Rosales Inflammatory React Diseases Due To Internal Orthoped Othe 730.27 Osteomyelitis Unspec Ankle & Foot 041.00 Streptococcus Unspec Office Visit 07/19/2013 10:34a [facility] Christian 682.7 Cellulitis & Assoc,pc Harvinder, N.P. Abscess Foot Hospitalists Except Toes 250.82 Diabetes W/ Other Spec Manifestations Type II Uncontrolled 713.5 Arthropathy W/ Neurological Disorders Office Visit 07/18/2013 10:33a [facility] 682.7 Cellulitis & Assoc,pc Harvinder, N.P. Abscess Foot Hospitalists Except Toes 250.82 Diabetes W/ Other Spec Manifestations Type II Uncontrolled 713.5 Arthropathy W/ Neurological Disorders Office Visit 07/17/2013 10:33a [facility] 682.7 Cellulitis & Assoc,pc Harvinder, N.P. Abscess Foot Hospitalists Except Toes 250.82 Diabetes W/ Other Spec Manifestations Type II Uncontrolled 713.5 Arthropathy W/ Neurological Disorders [facility] Cellulitis & Assoc,pc Aristeo, N.P. Abscess Foot Hospitalists Except Toes 250.82 Diabetes W/ Other Spec Manifestations Type II Uncontrolled 713.5 Arthropathy W/ Neurological Disorders Office Visit 07/15/2013 10:31a [facility] Sandra SDejah 682.7 Cellulitis & Assoc,pc Aristeo, N.P. Abscess Foot Hospitalists Except Toes 250.82 Diabetes W/ Other Spec Manifestations Type II Uncontrolled 713.5 Arthropathy W/ Neurological Disorders Office Visit 07/15/2013 [facility] Caio Rodriguez 996.67 Infection & 11:12a For Infectious Cathi Rosales Inflammatory React Diseases Due To Internal Orthoped Othe 730.27 Osteomyelitis Unspec Ankle & Foot 041.00 Streptococcus Unspec Office Visit 07/14/2013 10:31a [facility] 682.7 Cellulitis & Assoc,pc Harvinder, N.P. Abscess Foot Hospitalists Except Toes 250.82 Diabetes W/ Other Spec Manifestations Type II Uncontrolled 713.5 Arthropathy W/ Neurological Disorders Office Visit 07/13/2013 [facility] Caio Rodriguez 996.67 Infection & 11:11a For Infectious Cathi Rosales Inflammatory React Diseases Due To Internal Orthoped Othe 730.27 Osteomyelitis Unspec Ankle & Foot 041.00 Streptococcus Unspec Office Visit 07/13/2013 10:30a [facility] 682.7 Cellulitis & Assoc,pc Harvinder, N.P. Abscess Foot Hospitalists Except Toes 250.82 Diabetes W/ Other Spec Manifestations Type II Uncontrolled 713.5 Arthropathy W/ Neurological Disorders Office Visit 07/12/2013 10:29a [facility] 682.7 Cellulitis & Assoc,pc Harvinder, N.P. Abscess Foot Hospitalists Except Toes 250.82 Diabetes W/ Other Spec Manifestations Type II Uncontrolled 713.5 Arthropathy W/ Neurological Disorders Office Visit 07/11/2013 [facility] Robby Rodriguez 682.7 Cellulitis & 10:28a Assoc,indy Bradford M.D. Abscess Foot Hospitalists Hospitalist Except Toes 250.82 Diabetes W/ Other Spec Manifestations Type II Uncontrolled Office Visit 07/11/2013 7:00a Orthopedic Jazz Torres 682.7 Cellulitis & Services Of C.M.ADejah Winkler Abscess Foot Except Toes 686.9 Local Infection [...] Foot Office Visit 07/03/2012 3:45p [facility] 356.8 Neuropathy Other Services Of Ctahi Decker Spec Idiopathic C.M.A. Peripheral Office Visit [...] Arthropathy W/ Neurological Disorders Plan of Treatment Future Appointment(s):01/12/2019 10:50 am - Caio Rosales M.D. at [facility] For Infectious Espjdmod88/11/2019 - Caio Rosales M.D.E11.621 Type 2 diabetes mellitus with foot ulcerNew Medication:Metronidazole 500 mg - 1 tab by mouth two times per dayComments:agree with vascular evaluation, continue antibiotics another 3 weeksFollow up:3 zoniaP27.519 Non-prs chronic ulcer oth prt right foot w unsp nabiwmniF78.419 Non-prs chr ulcer of right heel and midfoot w unsp severt
--- OUTSIDE RECORDS SUMMARY | 2019-01-10 14:40 | XMS REPORT | Continuity of Care Document ---
:1965 External Reference #:[id number] Author Name Claire Fair Care Team Providers Name Role Phone Trenton Romero MD Primary Care Physician Unavailable Payers Date Identification Numbers Payment Provider Subscriber Policy Number: [id number] Medicare Sam Sherman PayID: [id number] [address] [place] [address] Expires: 2016 Policy Number: [id number] Medicaid Sam Sherman Group Name: 1 1 [address] PayID: [id number] [place] [address] Effective: 2018 Policy Number: [id number] Medicaid Sam Sherman Group Name: 1 1 [address] PayID: [id number] [place] [address] Problems Active Problems Provider Date Localized, primary osteoarthritis of Gumaro Decker M.D. Onset: 07/06/2013 the ankle and/or foot Disorder of joint of ankle and/or Gumaro Decker M.D. Onset: 07/06/2013 foot Idiopathic peripheral neuropathy Gumaro Decker M.D. Onset: 07/06/2013 Nervous system disorder due to Gumaro Decker M.D. Onset: 07/06/2013 diabetes mellitus Atherosclerosis of [place] arteries of Alva Aldrich MD, [facility], Onset: left leg with ulceration of other FSCAI part of foot Chest pain Alva Aldrich MD, [facility], Onset: 01/06/2018 [facility] Atrial flutter Alva Aldrich MD, [facility], Onset: 01/06/2018 FSCAI Atherosclerosis of arteries of the Claude Walters M.D. 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 07/20/2018 Tablets 4-6 hours as needed Levofloxacin 1/2 tablet Gumaro Decker, 06/09/2017 - 500mg every other M.D. 07/14/2017 Tablets day (250 mg) Atorvastatin Calcium 1 by mouth 90tabs Alva Aldrich, 06/09/2017 - every day MD [facility] 06/09/2017 80mg Tablets Knee Dalton T81.31xD Gumaro Decker, 04/18/2017 - M.D. 07/20/2018 I70.245 Levofloxacin one per day (pt 20tabs I70.245 Gumaro Decker, 03/06/2017 - 750mg takes 250 mg M.D. 06/09/2017 Tablets every other day- Per Dr. Rodriguez) Bactrim DS 1 by mouth twice 20tabs Gumaro Decker, 02/03/2017 - 800-160mg a day x 10 days M.D. 02/11/2017 Tablets Oxycodone HCL 1-2 tab by mouth 40tabs Gumaro Decker, 02/03/2017 - 5mg every 4-6 hours M.D. 02/11/2017 Tablets as neededfor pain Levofloxacin 1 po qd 30tabs Gumaro Decker, 07/28/2013 - 500mg M.D. 08/10/2013 Tablets Levaquin 1 po every other 14tabs 996.67 Caio D. 07/28/2013 - 750mg day Macqueen, M.D. 08/10/2013 Tablets Bactrim DS 1 po [...] Unknown - Propionate Nasal nostril once 12/07/2018 [place] daily 50mcg/Act Suspension Ondansetron HCL one by [...] Result H/L Range Note Laboratory test 11/20/2018 [facility] Tissue Culture SEE RESULT 1, [address] & [place] [address] [phone] Wound 08/28/2018 [facility] Wound/Misc SEE RESULT 3 Culture/Sensi [address] [place] [address] Stain [phone] CBC No Diff 05/25/2018 [facility] White Blood 6.4 10^3/uL N 3.5-10.[address] Count [place], [place] [id number] [phone] Red Blood Count 3.40 10^6/uL Low 4.00-5.40 [...] fL N 7.4-10.4 CBC Auto Diff 05/21/2018 [facility] White Blood 5.7 10^3/uL N 3.5-10.[address] [place] [address] [phone] Red Blood Count 3.45 10^6/uL Low 4.00-5.40 [...] Red Blood Cells % 0 Inr/Protime 05/21/2018 [facility] Inr 1.01 N 0.77-1.[address] [place] [address] [phone] Laboratory test 05/21/2018 [facility] Partial 31.4 seconds N 26.0-36.[address] [place] [address] PTT [phone] Type & Screen 05/21/2018 [facility] Patient A Positive [address] [place] [address] [phone] Antibody Screen NEGATIVE CBC Auto Diff 05/01/2018 [facility] White Blood 6.0 10^3/uL N 3.5-10.[address] [place] [address] [phone] Red Blood Count 3.24 10^6/uL Low 4.00-5.40 [...] Blood Cells % 0.3 Basic Metabolic 05/01/2018 [facility] Sodium 128 mmol/L Low 135-[address] [place] [address] [phone] Potassium 4.4 mmol/L N 3.5-5.0 Chloride 88 mmol/L Low 101-111 Co2 Carbon Dioxide 24 mmol/L N 22-32 Anion Gap 16 mmol/L High 2-11 Glucose 302 mg/dL High 70-100 Blood Urea Nitrogen 70 mg/dL High 6-24 Creatinine 13.19 mg/dL High 0.67-1.17 BUN/Creatinine Ratio 5.3 Low 8-20 Calcium 10.1 mg/dL N 8.6-10.3 Egfr Non- 4.0 >60 Egfr 4.8 >60 4 Wound 02/02/2018 [facility] Wound/Misc SEE RESULT 5 Culture/Sensi [address] [place] [address] Stain [phone] Laboratory test 02/02/2018 [facility] Anaerobic Culture SEE RESULT [address] BEL[address] [place], [place] [address] [phone] Laboratory test 02/02/2018 [facility] Point of Care 179 mg/dL High 70-1 [address] Glucose 00 [place], [place] [address] [phone] Laboratory test 02/02/2018 [facility] Point of Care 183 mg/dL High 70-1 [address] Glucose 00 [place], [place] [address] [phone] Laboratory test 02/02/2018 [facility] Surgical SEE RESULT [address] [place] [address] [phone] Lipid Profile 07/29/2017 [facility] Triglycerides 118 mg/dL 10 (Trig/Chol/HDL) [address] [place] [address] [phone] Cholesterol 147 mg/dL 11 HDL Cholesterol 47.4 mg/dL 12 LDL Cholesterol 76 mg/dL 13 Laboratory test 06/17/2017 [facility] Point of 230 mg/dL High 70-100 [address] [place] [address] [phone] Basic Metabolic 06/11/2017 [facility] Sodium 130 mmol/L Low 133-[address] [place] [address] [phone] Potassium 4.1 mmol/L N 3.5-5.0 Chloride 94 mmol/L Low 101-111 Co2 Carbon Dioxide 25 mmol/L N 22-32 Anion Gap 11 mmol/L N 2-11 Glucose 206 mg/dL High 70-100 Blood Urea Nitrogen 59 mg/dL High 6-24 Creatinine 8.61 mg/dL High 0.67-1.17 BUN/Creatinine Ratio 6.9 Low 8-20 Calcium 9.2 mg/dL N 8.6-10.3 Egfr Non- 6.5 >60 Egfr 8.4 >60 15 CBC Auto Diff 06/11/2017 [facility] White Blood 7.0 10^3/uL N 3.5-10.[address] [place] [address] [phone] Red Blood Count 3.12 10^6/uL Low 4.0-5.4 [...] Blood Cells % 0 Manual Differential 06/11/2017 [facility] Neutrophil % 65 % N 38-[address] [place], [place] [address] [phone] Lymphocytes % 21 % Low 25-47 Monocytes % 10 % N 0-13 Basophil % 4 % High 0-2 RBC Morphology Normal Normal Creatinine 05/13/2017 [facility] Creatinine 8.98 mg/dL High 0.67-1.[address] [place], [place] [address] [phone] Egfr Non- 6.2 N >60 Egfr 8.0 N >60 16 Laboratory test 05/13/2017 [facility] Blood Urea 65 mg/dL High 6-[address] Nitrogen BUN [place], [place] [address] [phone] Laboratory test 02/03/2017 [facility] Point of Care 174 mg/dL High 74-106 [address] Glucose [place], [place] [address] [phone] Laboratory test 02/03/2017 [facility] Anaerobic SEE RESULT [address] Culture BELOW [place], [place] [address] [phone] Wound 02/03/2017 [facility] Wound/Misc SEE RESULT 19 Culture/Sensi [address] [place] [address] Stain [phone] Laboratory test 02/03/2017 [facility] Surgical SEE RESULT [address] Pathology BELOW [place], [place] [address] [phone] Laboratory test 08/06/2016 [facility] Point of Care 205 mg/dL High 74-106 [address] Glucose [place], [place] [address] [phone] Laboratory test 08/02/2013 [facility] C Reactive 0.9 mg/dL High Less [address] Protein than 0.5 [place] [address] [phone] Comp Metabolic 08/02/2013 [facility] Sodium 128 mmol/L Low 133 -[address] [place] [address] [phone] Potassium 5.1 mmol/L High 3.5-5.0 Chloride 95 [...] 37.3 >60 23 CBC No Diff 08/02/2013 [facility] White Blood 6.0 10^3/uL 4.8 -10.[address] [place] [address] [phone] Red Blood Count 4.15 10^6/uL 4.0-5.4 Hemoglobin 11.4 g/dL Low 14.0-18.0 Hematocrit 35 % Low 42-52 Mean Corpuscular Volume 85 fL 80-94 Mean Corpuscular Hemoglobin 28 pg 27-31 Mean Corpuscular HGB Conc 32 g/dL 31-36 Red Cell Distribution Width 13 % 10.5-15 Platelet Count 219 10^3/uL 150-450 Mean Platelet Volume 9 um3 7.4-10.4 CBC No Diff 07/26/2013 [facility] White Blood 6.4 10^3/uL 4.8 -10.[address] [place] [address] [phone] Red Blood Count 3.90 10^6/uL Low 4.0-5.4 Hemoglobin 11.1 g/dL Low 14.0-18.0 Hematocrit 33 % Low 42-52 Mean Corpuscular Volume 85 fL 80-94 Mean Corpuscular Hemoglobin 29 pg 27-31 Mean Corpuscular HGB Conc 34 g/dL 31-36 Red Cell Distribution Width 13 % 10.5-15 Platelet Count 311 10^3/uL 150-450 Mean Platelet Volume 9 um3 7.4-10.4 Comp Metabolic Panel 07/26/2013 [facility] Sodium 132 mmol/L Low 133-[address] [place] [address] [phone] Potassium 4.8 mmol/L 3.5-5.0 Chloride 102 mmol/L [...] Egfr 43.6 >60 24 Manual Differential 07/26/2013 [facility] Neutrophil % 66 % 38-[address] [place] [address] [phone] Lymphocytes % 22 % Low 25-47 Monocytes % 8 % 0-13 Eosinophils % 3 % 0-6 Myelocytes % 1 % 0-1 RBC Morphology Normal Normal Laboratory test 07/26/2013 [facility] C Reactive 0.9 mg/dL High Less than finding [address] Protein 0.5 [place] [address] [phone] 1 RIGHT HEEL TISSUE 2 SEE RESULT BELOW Name: SAM SHERMAN : [address]: Pascual Amin MD Acct: [id number] Unit: [id number] AGE: 53 Location: [facility] Re11/20/18 SEX: M Status: REG REF SPEC: [id number] ROMULO: 11/20/18-[address]: Pascual Amin MD REQ: [id number] RECD: 11/20/18 STATUS: COMP _ SOURCE: TISSUE [...] CONTINUED ON NEXT PAGE DEPARTMENT OF PATHOLOGY, [address] [place] [address] Balta Fuchs M.D. Director JULIAN # [id number] Patient: SAM SHERMAN [id number] (Continued) Specimen: [id number] Collected: 11/20/18 Received: 11/20/18-1309 (Continued) Procedure Result Reported Site Tissue Culture Final (continued) * These antibiotics are not available in the [facility] Formulary Contact the Microbiology Department for any additional antibiotic reporting. * ML - Main Lab . END OF REPORT DEPARTMENT OF PATHOLOGY, [address] [place] [address] Balta Fuchs M.D. Director [facility] # [id number] 3 SEE RESULT BELOW Name: SAM SHERMAN : [address]: Jonn Maravilla MD Acct: [id number] Unit: [id number] AGE: 53 Location: [facility] Re08/28/18 SEX: M Status: REG REF SPEC: [id number] ROMULO: 08/28/181434 [facility] DR: Jonn Maravilla MD REQ: [id number] RECD: 08/28/18 STATUS: COMP _ SOURCE: AMARI ALVARADO [facility]: ORDERED: Culture Stain COMMENTS: [id number] Specimen Description right axilla Procedure Result Reported [...] if susceptibility testing is needed. * - [facility] . END OF REPORT DEPARTMENT OF PATHOLOGY, [address] [place] [address] Balta Fuchs M.D. Director [facility] # [id number] 4 Because ethnic data is not always [...] [address]: Gumaro Decker MD Acct: [id number] Unit: [id number] AGE: 52 Location: [place] Re02/02/18 SEX: M Status: SCOTT ARREDONDO SPEC: [id number] ROMULO: 02/02/[address] [facility] [address]: Gumaro Decker MD REQ: [id number] RECD: 02/02/18 STATUS: ALEXA IRIZARRY DR: Tretnon Romero MD _ SOURCE: ANKLE LEFT SPDESC: ORDERED: Culture Stain Procedure Result Reported Site Wound/Misc Gram Stain Final 02/02/18- 1136 ML 1+ Epithelial Cells 1+ Neutrophils No Organisms Seen Wound/Misc Culture Final 02/06/18- 34 ML No Growth Day 4 * ML - Main Lab . END OF REPORT DEPARTMENT OF PATHOLOGY, [address] [place] [address] Balta Fuchs M.D. Director [facility] # [id number] 6 SEE RESULT BELOW Name: SAM SHERMAN : [address]: Gumaro Decker MD Acct: [id number] Unit: [id number] AGE: 52 Location: [place] Re02/02/18 SEX: M Status: DEP SDC SPEC: [id number] ROMULO: 02/02/[address] [facility] [address]: Gumaro Decker MD REQ: [id number] RECD: 02/02/18 STATUS: ALEXA IRIZARRY DR: Trenton Romero MD _ SOURCE: WOUND SPDESC:ANKLE LEFT ORDERED: Anaerobic Cult Procedure Result Reported Site Anaerobic Culture Final 02/06/18- 933 ML No Growth Day 4 * ML - Main Lab . END OF REPORT DEPARTMENT OF PATHOLOGY, [address] [place] [address] Balta Fuchs M.D. Director [facility] # [id number] 7 Spool Carrier: [id number] Spool Carrier: [id number] 9 SEE RESULT BELOW Name: DOMINIQUEOTTONIELSAM : [address]: Gumaro Decker MD Acct: [id number] Unit: [id number] AGE: 52 Location: [place] Re02/02/18 SEX: M Status: DEP SDC SPEC: [id number] ROMULO: 02/02/18- SUBM DR: Gumaro Decker MD REQ: [id number] RECD: 02/02/18-1203 STATUS: SOUT _ ORDERED: Forest, LEVEL 3 [...] cm aggregate of tamez-pink irregular bone fragments. Vocational Case Manager sections, two cassettes following decalcification. Signed by and Reported on: Mahogany Arrieta MD 02/10/18 1044 END OF REPORT DEPARTMENT OF PATHOLOGY, [address] [place] [address] Balta Fuchs M.D. Director [facility] # [id number] 10 Desirable: <150 Borderline High: 150-199 High: 200-499 Very High: >500 11 Desirable: <200 Borderline High: 200-239 High: >239 12 Low: <40 Desirable: 40-60 High: >60 13 Desirable: <100 Near Optimal: 100-129 Borderline High: 130-159 High: 160-189 Very High: >189 14 Spool Carrier: [id number] 15 Because ethnic data is not always [...] 5 Kidney failure <15 (or dialysis) 17 Spool Carrier: [id number] 18 SEE RESULT BELOW Name: SAM SHERMAN : [address]: Gumaro Decker MD Acct: [id number] Unit: [id number] AGE: 51 Location: [place] Re02/03/17 SEX: M Status: SCOTT ARREDONDO SPEC: [id number] ROMULO: 02/03/17-[address] [facility] [address]: Gumaro Decker MD REQ: [id number] RECD: 02/03/17 STATUS: ALEXA IRIZARRY DR: Trenton Rodriguez MD _ SOURCE: WOUND SPDESC:LEFT ORDERED: Anaerobic Cult COMMENTS: LEFT FOOT Procedure Result Reported Site Anaerobic Culture Final 02/07/17803 ML No Growth Day 4 * ML - MAIN LAB ([facility]) . END OF REPORT * ML=Testing performed at Main Lab DEPARTMENT OF PATHOLOGY, [address] [place] [address] Balta Fuchs M.D. Director [facility] # [id number] 19 SEE RESULT BELOW Name: SAM SHERMAN : [address]: Gumaro Decker MD Acct: [id number] Unit: [id number] AGE: 51 Location: [place] Re02/03/17 SEX: M Status: DEP SDC SPEC: [id number] ROMULO: 02/03/17-[address] [facility] [address]: Gumaro Decker MD REQ: [id number] RECD: 02/03/171202 STATUS: ALEXA IRIZARRY DR: Trenton Rodriguez MD _ SOURCE: FOOT,LEFT SPDESC: ORDERED: Culture Stain QUERIES: Specimen Description LEFT FOOT OPSITE Procedure Result Reported Site Wound/Misc Gram Stain Final 02/03/17- 1358 ML 3+ Neutrophils 1+ Epithelial Cells No Organisms Seen Wound/Misc Culture Final 02/06/17- 0839 ML No Growth Day 3 * ML - MAIN LAB ([facility]) . END OF REPORT * ML=Testing performed at Main Lab DEPARTMENT OF PATHOLOGY, [address] [place] [address] Balta Fuchs M.D. Director [facility] # [id number] 20 SEE RESULT BELOW Name: SAM SHERMAN : [address]: Gumaro Decker MD Acct: [id number] Unit: [id number] AGE: 51 Location: [place] Re02/03/17 SEX: M Status: SCOTT COMER SPEC: [id number] ROMULO: 02/03/17- SUBM DR: Gumaro Decker MD REQ: [id number] RECD: 02/03/17-1155 STATUS: SOUT _ ORDERED: Forest, [...] 2.5 x 1.5 x 0.5 cm and treasury representative sections are submitted in cassette A following decalcification. Within the aggregate the largest fragment measures 5.0 x 4.0 x 2.0 cm, is inked blue, serially sectioned and a treasury representative section is submitted in cassette B. The second largest fragment measures 3.2 x 2.5 x 0.7 cm, is inked black, serially sectioned and treasury representative sections of the remaining soft tissue are submitted in cassette C. MICROSCOPIC DESCRIPTION . Signed (signature on file) Mahogany Arrieta MD 1539 END OF REPORT * ML=Testing performed at Main Lab DEPARTMENT OF PATHOLOGY, [address] [place] [address] Balta Fuchs M.D. Director [facility] # [id number] 21 Spool Carrier: [id number] ADAME [address] ROSALES [phone] 23 Because ethnic data is not always [...] dialysis) Procedures Date Code Description Status 08/28/2018 68234 I&D Of Abscess Complicated Completed 05/25/2018 65612 Amputation Leg Through Tibia & Fibula Completed 05/25/2018 27854 Amputation Leg Through Tibia & Fibula Completed 05/05/2018 87857 EKG Tracing & Interpretation Completed 04/15/2018 81306 Walking Cast Completed 04/14/2018 94531 Short Leg Cast Completed 03/19/2018 30334 Short Leg Cast Completed 03/03/2018 14436 Short Leg Cast Completed 02/12/2018 76022 Short Leg Cast Completed 02/02/2018 93127 Osteotomy Tibia Completed 02/02/2018 28586 Osteotomy Tibia Completed 02/02/2018 60244 Arthrodesis Ankle,open Completed 02/02/2018 57066 Arthrodesis Ankle,open Completed 01/09/2018 68068 ECHO Transthoracic, Real-Time 2D With Doppler And Completed Color Flow 01/09/2018 83141 ECHO Transthoracic, Real-Time 2D With Doppler And Completed Color Flow 01/06/2018 28760 EKG Tracing & Interpretation Completed 07/04/2017 03245 Removal Devitalization Tissue Wound Less Than Equal 20 Completed Square CM 06/17/2017 23076 Eqvpy-Faqbuqpmy-Gigrozrazm Completed 06/17/2017 35764 Catheter Placement Arterial System Addtl 2ND/3RD Ord Completed Abdom/Pelv 06/17/2017 94084 Catheter Placement Arterial System Init 3RD Order Completed Abdom/Pelv/Low 02/13/2017 03377 Walking Cast Completed 02/03/2017 34047 Partial Excision Bone Tarsal/Metatarsal Completed 02/03/2017 41545 Partial Excision Bone Tarsal/Metatarsal Completed 08/06/2016 34001445 Colonoscopy Completed 10/31/2015 02125 Insertion Tunneled Cent Venous Cathr W/O Subcut Completed Port/Pump 5Yrs> 10/31/2015 80981 Ultrasound Guidance For Vascular Access Completed 10/31/2015 79001 Fluoroscopic Guidance For Cent Completed 10/01/2015 02251 EKG, Interpretation Only Completed 08/31/2013 93599 Rad Exam; Foot Comp Completed 07/12/2013 18271 Partial Excision Bone Tarsal/Metatarsal Completed 07/12/2013 99590 Removal Implant Deep Wire,Screw Nail,Keith Or Plate Completed 05/31/2013 38464 Rad Exam; Foot Comp Completed 11/16/2012 78965 Rad Exam; Foot Comp Completed 10/19/2012 19214 Short Leg Cast Completed 10/12/2012 55486 Rad Exam; Foot Comp Completed 10/12/2012 44393 Short Leg Cast Completed 10/09/2012 00307 Arthrodesis Midtarsal/Tarsometatarsal W/Osteotomy Completed 09/28/2012 63150 Rad Exam; Foot Comp Completed 06/26/2012 16000 Short Leg Cast Completed 06/08/2012 86238 Walking Cast Completed 06/08/2012 35335 Short Leg Cast Completed 05/25/2012 62615 Short Leg Cast Completed 05/13/2012 21118 Rad Exam; Foot Limited Completed 05/13/2012 13852 Rad Exam; Foot Limited Completed 05/13/2012 49170 Rad Exam; Ankle Comp Completed 05/13/2012 86152 Rad Exam; Ankle Comp Completed 05/13/2012 59418 Short Leg Cast Completed 04/16/2012 792945292 Diabetic Foot Exam Completed Encounters Type Date Location Provider Dx Diagnosis Office Visit 12/11/2018 [facility] Pascual Amin, E11.621 Type 2 diabetes 10:00a AT [facility] CHARLENE WILKS mellitus with foot ulcer R09.89 Oth symptoms and signs involving the circ and resp systems I70.201 Unsp athscl [place] arteries of extremities, right leg E66.01 Morbid (severe) obesity due to excess calories Office Visit 12/08/2018 10:50a [facility] Flavio Rodriguez E11.621 Type 2 Infectious Cathi Rosales diabetes Diseases mellitus with foot ulcer L03.115 Cellulitis of right lower limb L97.419 Non-prs chr ulcer of right heel and midfoot w unsp severt Office Visit 12/04/2018 9:00a Wound [facility] Pascual Amin, E11.621 Type 2 diabetes Center AT [facility] CHARLENE WILKS mellitus with foot ulcer R09.89 Oth symptoms and signs involving the circ and resp systems I70.201 Unsp athscl [place] of extremities, right leg E66.01 Morbid (severe) obesity due to excess calories Office Visit 11/06/2018 9:30a Wound Care Pascual Amin, E11.621 Type 2 diabetes Center AT [facility] CHARLENE WILKS mellitus with foot ulcer R09.89 Oth symptoms and signs involving the circ and resp systems Office Visit 10/30/2018 8:30a Wound Care Pascual Amin, E11.621 Type 2 diabetes Center AT [facility] CHARLENE WILKS mellitus with foot ulcer R09.89 Oth symptoms and signs involving the circ and resp systems Office Visit 09/29/2018 11:30a [facility] Gumaro Z89.512 Acquired Of Puneet Decker M.D. absence of left leg below knee Office Visit 09/18/2018 1:00p [facility] Jonn Parker02.411 Cutaneous Of [place] Maravilla MD abscess of right axilla Office Visit 08/31/2018 10:09a [facility] Keith Lozano02.411 [facility] abscess of Hospitalists right axilla D64.9 Anemia, unspecified I12.0 Hyp chr kidney disease w stage 5 chr kidney disease or Esrd E11.22 Type 2 diabetes mellitus w diabetic chronic kidney disease E11.40 Type 2 diabetes mellitus with diabetic neuropathy, unsp I48.92 Unspecified atrial flutter N18.6 End stage renal disease Z99.2 Dependence on renal dialysis Z79.4 intermediate (current) use of insulin Z89.512 Acquired absence of left leg below knee Office Visit 08/30/2018 9:39a [facility] Mihaelawesley Arzola, L02.411 [facility] abscess of Hospitalists right axilla D64.9 Anemia, unspecified I12.0 Hyp chr kidney disease w stage 5 chr kidney disease or Esrd E11.22 Type 2 diabetes mellitus w diabetic chronic kidney disease E11.40 Type 2 diabetes mellitus with diabetic neuropathy, unsp I48.92 Unspecified atrial flutter Z79.4 intermediate (current) use of insulin Office Visit 08/29/2018 9:38a [facility] Mihaela Arzola, L02.411 [facility] abscess of Hospitalists right axilla D64.9 Anemia, unspecified I12.0 Hyp chr kidney disease w stage 5 chr kidney disease or Esrd N18.6 End stage renal disease I48.92 Unspecified atrial flutter E11.22 Type 2 diabetes mellitus w diabetic chronic kidney disease E11.40 Type 2 diabetes mellitus with diabetic neuropathy, unsp Office Visit 08/28/2018 9:29a [facility] L02.411 Cutaneous Assoc,indy Haider NP abscess of Hospitalists right axilla N18.6 End stage renal disease I12.0 Hyp chr kidney disease w stage 5 chr kidney disease or Esrd E11.22 Type 2 diabetes mellitus w diabetic chronic kidney disease E11.40 Type 2 diabetes mellitus with diabetic neuropathy, unsp I48.92 Unspecified atrial flutter Z99.2 Dependence on renal dialysis Z89.512 Acquired absence of left leg below knee Office Visit 08/28/2018 Surgical Jonn Rosales L02.411 Cutaneous 1:15p [facility] MD abscess of right axilla Office Visit 05/26/2018 [facility] Karen Z89.512 Acquired 8:11a Assoc,indy Ruff NP absence of left Hospitalists leg below knee N17.9 Acute kidney failure, unspecified N18.6 End stage renal disease E11.22 Type 2 diabetes mellitus w diabetic chronic kidney disease Z99.2 Dependence on renal dialysis Office Visit 05/25/2018 8:10a [facility] Z89.512 Acquired Assoc,pc Harvinder N.P. 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 classified, left ankle M14.672 Charcot's joint, left ankle and foot Office Visit 05/05/2018 2:45p [facility] Domingo Ring I48.3 Typical atrial Of [employer]er Cathi Torres, flutter FACC, FASNC Office Visit 01/13/2018 3:40p [facility] Alva Brothers I48.3 Typical atrial Of Theatrical [employer]enic Designer AT [facility] MD Valdemar, flutter [facility].810 Encounter for preprocedural cardiovascular examination Office Visit 01/06/2018 3:20p [facility] Alva Brothers R07.9 Chest pain, Of [employer] AT [facility] MD Valdemar, unspecified FACC, FSCAI I48.3 Typical atrial flutter Office Visit 12/30/2017 [facility] Decker M14.672 Charcot's joint , 10:45a Services Of Cathi left ankle and C.M.A. foot Office Visit 11/20/2017 [facility] G[facility] Decker M14.672 Charcot's joint , 11:30a Services Of Cathi left ankle and C.M.A. foot Office Visit 10/23/2017 [facility] Gum[facility] Decker M14.672 Charcot's joint , 11:30a Services Of Cathi left ankle and C.M.A. foot Office Visit 09/23/2017 [facility] G[facility] Decker M86.672 Other chronic 10:30a Services Of Cathi osteomyelitis, C.M.A. left ankle and foot Office Visit 08/26/2017 Orth[facility] Nora Ahmadi86.672 Other chronic 11:15a Services Of Cathi osteomyelitis, C.M.A. left ankle and foot Office Visit 07/31/2017 [place] [facility] Taylor. 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 [facility], FSCAI leg w ulceration oth prt foot Office Visit 07/25/2017 [facility] Anh E11.610 Type 2 diabetes 1:30p Center AT [facility] JOSEPHINE Smith, RN, mellitus w [facility]- diabetic neuropathic arthropathy I70.299 Oth athscl [place] arteries of extremities, unsp extremity N18.5 Chronic [...] to brkdwn skin Office Visit 06/23/2017 3:00p [facility] Alva Brothers I70.245 [place] [place] Of [facility] AT [facility] MD Valdemar, arteries of left FACC, FSCAI leg w ulceration oth prt foot F17.200 Nicotine dependence, unspecified, uncomplicated Office Visit 06/20/2017 1:30p Wound Care Anh Smith, L97.521 Non- prs chronic Center AT [facility] JOSEPHINE RN, DIRECTOR OF DIGITAL TECHNOLOGY- ulcer oth prt l foot limited to brkdwn skin E11.621 Type 2 diabetes mellitus with foot ulcer M14.672 Charcot's joint, left ankle and foot I12.0 Hyp chr kidney disease w stage 5 chr kidney disease or Esrd N18.5 Chronic kidney disease, stage 5 F17.200 Nicotine dependence, unspecified, uncomplicated Office Visit 06/09/2017 3:20p [facility] Alva Taylor. I70.245 [place] Of [employer]er AT [facility] MD Valdemar, arteries of left FACC, FSCAI leg w ulceration oth prt foot E11.621 Type 2 diabetes mellitus with foot ulcer N18.5 Chronic kidney disease, stage 5 K74.60 Unspecified cirrhosis of liver Office Visit 06/02/2017 1:15p Orthopedic Remy Jocy, E11.621 Type 2 Services Of MD laura [...] ankle and foot [facility],indy Gan D.O. disease, stage Hospitalists 5 E11.9 Type 2 diabetes mellitus without complications I10 Essential (primary) hypertension Office Visit 11/01/2015 [facility] kidney Assoc,indy Gan D.O. disease, stage Hospitalists 5 E11.9 Type 2 diabetes mellitus without complications I10 Essential (primary) hypertension Office Visit 10/31/2015 10:06a [facility] Soco I50.9 Heart failure, Assoc,pc Andreea, DO unspecified Hospitalists E11.9 Type 2 diabetes mellitus without complications S37.009A Unspecified injury of unspecified kidney, initial encounter I10 Essential (primary) hypertension Office Visit 10/08/2015 3:21p [facility] Katy N18.5 Chronic kidney Assoc,pc Hina Gan disease, stage Hospitalists 5 E11.9 Type 2 diabetes mellitus without complications E87.70 Fluid overload, unspecified D64.9 Anemia, unspecified Office Visit 10/07/2015 [facility] kidney Assoc,pc Hina Gan disease, stage Hospitalists 5 E11.9 Type 2 diabetes mellitus without complications E87.70 Fluid overload, unspecified D64.9 Anemia, unspecified Office Visit 10/06/2015 3:[facility]p [facility] N[facility] Chronic kidney Assoc,indy Gan D.O. disease, stage Hospitalists 5 E11.9 Type 2 diabetes mellitus without complications E87.70 Fluid overload, unspecified D64.9 Anemia, unspecified Office Visit 10/05/2015 2:[facility]p [facility] N[facility].5 Chronic kidney Assoc,indy Gan D.O. disease, stage Hospitalists 5 E11.9 Type 2 diabetes mellitus without complications E87.70 Fluid overload, unspecified D64.9 Anemia, unspecified Office Visit 10/04/2015 2:[facility]p [facility] N[facility].5 Chronic kidney Assoc,indy Gan D.O. disease, stage Hospitalists 5 E11.9 Type 2 diabetes mellitus without complications E87.70 Fluid overload, unspecified D64.9 Anemia, unspecified Office Visit 10/03/2015 2:48p [facility] Ulises Yen, N18.5 Chronic kidney Assoc,indy WILKS disease, stage Hospitalists 5 E11.9 Type 2 diabetes mellitus without complications E87.70 Fluid overload, unspecified D64.9 Anemia, unspecified Office Visit 10/02/2015 [facility] Ulises E87.70 Fluid overload, 2:47p Assoc,indy Yen MD unspecified Hospitalists E11.9 Type 2 diabetes mellitus without complications N18.5 Chronic kidney disease, stage 5 D64.9 Anemia, unspecified Office Visit 10/01/2015 2:47p [facility] Mukund Tapia, I50.9 Heart failure, Assoc,indy Winkler unspecified Hospitalists E11.9 Type 2 diabetes mellitus without complications D64.9 Anemia, unspecified N18.5 Chronic kidney disease, stage 5 Office Visit 08/31/2013 1:45p [facility] Gumaro Decker, 707.15 Ulcer Of Of C.Selena Winkler Other Part Of Foot 996.67 Infection & Inflammatory React Due To Internal Orthoped Othe Office Visit 07/28/2013 [facility] Lenin Rodriguez 996.67 Infection & 3:20p For Infectious Cathi Rosales Inflammatory React Diseases Due To Internal Orthoped Othe 730.27 Osteomyelitis Unspec Ankle & Foot Office Visit 07/20/2013 10:35a [facility] 682.7 Cellulitis & Assoc,pc Harvinder, N.P. Abscess Foot Hospitalists Except Toes 250.82 Diabetes W/ Other Spec Manifestations Type II Uncontrolled 713.5 Arthropathy W/ Neurological Disorders Office Visit 07/20/2013 [facility] Caio Rodriguez 996.67 Infection & 1:51p For Infectious Cathi Rosales Inflammatory React Diseases Due To Internal Orthoped Othe 730.27 Osteomyelitis Unspec Ankle & Foot 041.00 Streptococcus Unspec Office Visit 07/19/2013 10:34a [facility] 682.7 Cellulitis & Assoc,pc Harvinder, N.P. Abscess Foot Hospitalists Except Toes 250.82 Diabetes W/ Other Spec Manifestations Type II Uncontrolled 713.5 Arthropathy W/ Neurological Disorders Office Visit 07/18/2013 10:33a [facility] 682.7 Cellulitis & Assoc,pc Harvinder, N.P. Abscess Foot Hospitalists Except Toes 250.82 Diabetes W/ Other Spec Manifestations Type II Uncontrolled 713.5 Arthropathy W/ Neurological Disorders Office Visit 07/17/2013 10:33a [facility] 682.7 Cellulitis & Assoc,pc Harvinder, N.P. Abscess Foot Hospitalists Except Toes 250.82 Diabetes W/ Other Spec Manifestations Type II Uncontrolled 713.5 Arthropathy W/ Neurological Disorders Office Visit 07/16/2013 10:32a [facility] Sandra SDejah 682.7 Cellulitis & Assoc,pc Aristeo, N.P. Abscess Foot Hospitalists Except Toes 250.82 Diabetes W/ Other Spec Manifestations Type II Uncontrolled 713.5 Arthropathy W/ Neurological Disorders Office Visit 07/15/2013 10:31a [facility] SDejah 682.7 Cellulitis & Assoc,pc Aristeo, N.P. Abscess Foot Hospitalists Except Toes 250.82 Diabetes W/ Other Spec Manifestations Type II Uncontrolled 713.5 Arthropathy W/ Neurological Disorders Office Visit 07/15/2013 [facility] Caio Rodriguez 996.67 Infection & 11:12a For Infectious Cathi Rosales Inflammatory React Diseases Due To Internal Orthoped Othe 730.27 Osteomyelitis Unspec Ankle & Foot 041.00 Streptococcus Unspec Office Visit 07/14/2013 10:31a [facility] 682.7 Cellulitis & Assoc,pc Harvinder, N.P. Abscess Foot Hospitalists Except Toes 250.82 Diabetes W/ Other Spec Manifestations Type II Uncontrolled 713.5 Arthropathy W/ Neurological Disorders Office Visit 07/13/2013 10:30a [facility] 682.7 Cellulitis & Assoc,pc Harvinder, N.P. Abscess Foot Hospitalists Except Toes 250.82 Diabetes W/ Other Spec Manifestations Type II Uncontrolled 713.5 Arthropathy W/ Neurological Disorders Office Visit 07/13/2013 [facility] Caio Rodriguez 996.67 Infection & 11:11a For Infectious Cathi Rosales Inflammatory React Diseases Due To Internal Orthoped Othe 730.27 Osteomyelitis Unspec Ankle & Foot 041.00 Streptococcus Unspec Office Visit 07/12/2013 10:29a [facility] 682.7 Cellulitis & Assoc,pc Harvinder, N.P. Abscess Foot Hospitalists Except Toes 250.82 Diabetes W/ Other Spec Manifestations Type II Uncontrolled 713.5 Arthropathy W/ Neurological Disorders Office Visit 07/11/2013 [facility] Robby Rodriguez 682.7 Cellulitis & 10:28a Assoc,indy Bradford M.D. Abscess Foot Hospitalists Hospitalist Except Toes 250.82 Diabetes W/ Other Spec Manifestations Type II Uncontrolled Office Visit 07/11/2013 7:00a Orthopedic Jazz Torres 682.7 Cellulitis & Services Of UrbanoADejah Winkler Abscess Foot Except Toes 686.9 Local Infection Of Skin And Subcutaneous Tissue Unspec 250.60 Diabetes W/ Neurological Manifestations Type II Controlled 713.5 Arthropathy W/ Neurological Disorders Office Visit 05/31/2013 Elaina Naik 715.17 Osteoarthrosis 3:15p Services Of Cathi Decker [...] 10:50 am - Caio Rosales M.D. at [facility] For Infectious Faukuyrq74/11/2019 - Caio Rosales M.D.E11.621 Type 2 diabetes mellitus with foot ulcerNew Medication:Metronidazole 500 mg - 1 tab by mouth two times per dayComments:agree with vascular evaluation, continue antibiotics another 3 weeksFollow up:3 weeks
--- NOTE | 2019-01-10 15:30 | ED ---
Lower Extremity - HPI Summary HPI Summary: 53 year old M presenting [facility] accompanied by with a chief complaint of worsening diabetic wounds on his right first toe and back of right heel since today. The patient rates the pain 4/10 in severity. Symptoms aggravated by nothing. Symptoms alleviated by nothing. Patient states that the wounds are getting larger and starting to bleed. He was seen in [facility] on 01/01/19 during which he had a CT scan done. Patient was seen by vascular surgeon who wants to do angioplasty but has not yet scheduled one. Patient has left BKA. - History of Current Complaint Chief Complaint: EDExtremityLower Stated Complaint: "RT FOOT WOUND NOT HEALING PER PT" Time Seen by Provider: 01/10/19 15:21 Hx Obtained From: Patient Onset/Duration: Still Present Severity Currently: Mild Pain Intensity: 4 Pain Scale Used: 0-10 Numeric Timing: Constant Associated Signs And Symptoms: Negative: Fever Aggravating Factor(s): Nothing Alleviating Factor(s): Nothing - Allergies/Home Medications Allergies/Adverse Reactions: Allergies Allergy/AdvReac Type Severity Reaction Status Date / Time Iodinated Contrast- Oral and Allergy Severe Hives Verified 01/04/19 09:59 IV Dye amlodipine Allergy Intermediate Rash And Verified 01/04/19 09:59 Itching tetracycline Allergy Mild Hives Verified 01/04/19 09:59 Home Medications: Home Medications Apixaban* [Eliquis*] 2.5 mg PO DAILY 01/10/19 [History Confirmed 01/10/19] Darbepoetin Enio in Polysorbat [Aranesp Albumin Free] 200 mcg IJ WEEKLY [History Confirmed 01/10/19] Oxycodone HCl 5 mg PO Q6H PRN 01/10/19 [History Confirmed 01/10/19] Sucroferric Oxyhydroxide [Velphoro] 500 mg PO TID 01/10/19 [History Confirmed ] metroNIDAZOLE * [Flagyl] 500 mg PO BID 01/10/19 [History Confirmed 01/10/19] PMH/Surg Hx/FS Hx/Imm Hx Previously Healthy: No Endocrine/Hematology History: Reports: Hx Diabetes, Hx Anemia Denies: Hx Thyroid Disease Cardiovascular History: Reports: Hx Congestive Heart Failure - NO PROBLEMS NOW, Hx Hypertension, Hx Peripheral Vascular Disease - left leg atherosclerosis, Other Cardiovascular Problems/Disorders - Atrial Flutter, new onset Denies: Hx Deep Vein Thrombosis, Hx Myocardial Infarction, Hx Pacemaker/ICD Respiratory History: Denies: Hx Asthma, Hx Chronic Obstructive Pulmonary Disease (COPD), Hx Lung Cancer, Hx Pneumonia, Hx Pulmonary Embolism, Other Respiratory Problems/ Disorders GI History: Reports: 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, Hx Gastroesophageal Reflux Disease Denies: Hx Gall Bladder Disease, Hx Gastrointestinal Bleed, Hx Ulcer, Hx Urosepsis, Other GI Disorders History: Reports: Hx Chronic Renal Failure - peritoneal dialysis, Hx Dialysis , Hx Renal Disease - peritoneal dialysis Denies: Hx Kidney Stones, Other Problems/Disorders Musculoskeletal History: Reports: Hx Arthritis - LEFT FOOT, Other Musculoskeletal History - osteoarthritis Sensory History: Denies: Hx Cataracts, Hx Contacts or Glasses, Hx Hearing Aid, Hx Hearing Problem Opthamlomology History: Denies: Hx Cataracts, Hx Contacts or Glasses Neurological History: Reports: Hx Nerve Disease - Diabetic Neuropathy, Other Neuro Impairments/Disorders - neuropathy Denies: Hx Dementia, Hx Migraine, Hx Seizures, Hx Transient Ischemic Attacks (TIA) Psychiatric History: Denies: Hx Anxiety, Hx Depression, Hx Panic Disorder, Hx Schizophrenia, Hx Bipolar Disorder, Other Psychiatric Issues/Disorders - Surgical History Surgery Procedure, Year, and Place: 09/2012 LEFT MIDFOOT OSTEOTOMY AND FUSION WITH TIBIAL BONE GRAFT AND ACHILLES LENGTHING, [facility]. 06/2013 LEFT FOOT DEBRIDEMENT AND REMOVAL HARDWARE, [facility], LLE 02/02/18,dialysis catheter. 05/2018 left BKA Hx Anesthesia Reactions: No Infectious Disease History: No Infectious Disease History: Reports: Hx Shingles - history of-approx 2 years ago Denies: Hx Clostridium Difficile, Hx Hepatitis, Hx Human Immunodeficiency Virus (HIV), Hx of Known/Suspected MRSA, Hx Tuberculosis, History Other Infectious Disease - Osteomyelitis, Traveled Outside the [place] in Last 30 Days - Family History Known Family History: Positive: Diabetes, Other - No CA. - Social History Alcohol Use: Daily Alcohol Amount: 6 drinks per day Hx Substance Use: No Substance Use Type: Reports: None Hx Tobacco Use: Yes Smoking Status (MU): Current Every Day Smoker Type: Cigarettes Amount Used/How Often: 1/2 ppd per patient who is trying to quit Length of Time of Smoking/Using Tobacco: patient states 25 years Have You Smoked in the Last Year: Yes Review of Systems Negative: Fever Positive: Other - diabetic wounds on his right first toe and back of right heel All Other Systems Reviewed And Are Negative: Yes Physical Exam - Summary Physical Exam Summary: Appearance: The patient is well-nourished in no acute distress and in no acute pain. Skin: The skin is warm and dry and skin color reflects adequate perfusion. He has necrotic distal foot laterally toes HEENT: The head is normocephalic and atraumatic. The pupils are equal and reactive. The conjunctivae are clear and without drainage. Nares are patent and without drainage. Mouth reveals moist mucous membranes and the throat is without erythema and exudate. The external ears are intact. The ear canals are patent and without drainage. The tympanic membranes are intact. Neck: The neck is supple with full range of motion and non-tender. There are no carotid bruits. There is no neck vein distension. Respiratory: Chest is non-tender. Lungs are clear to auscultation and breath sounds are symmetrical and equal. Cardiovascular: Heart is regular rate and rhythm. There is no murmur or rub auscultated. There is no peripheral edema and pulses are symmetrical and equal. Abdomen: The abdomen is soft and non-tender. There are normal bowel sounds heard in all four quadrants and there is no organomegaly palpated. Musculoskeletal: There is no back tenderness noted. Extremities are non-tender with full range of motion. There is good capillary refill. There is no peripheral edema or calf tenderness elicited. Neurological: Patient is alert and oriented to person, place and time. The patient has symmetrical motor strength in all four extremities. Cranial nerves are grossly intact. Deep tendon reflexes are symmetrical and equal in all four extremities. Psychiatric: The patient has an appropriate affect and does not exhibit any anxiety or depression Triage Information Reviewed: Yes Vital Signs On Initial Exam: Initial Vitals Temp Pulse Resp BP Pulse Ox 97.5 F 73 18 115/70 100 01/10/19 14:28 01/10/19 14:28 01/10/19 14:28 01/10/19 14:28 01/10/19 14:28 Vital Signs Reviewed: Yes Diagnostics - Vital Signs Vital Signs Temp Pulse Resp BP Pulse Ox 01/10/19 14:28 97.5 F 73 18 115/70 100 - Laboratory Result Diagrams: 01/10/19 16:24 01/10/19 16:24 Lab Statement: Any lab studies that have been ordered have been reviewed, and results considered in the medical decision making process. - Radiology Right foot x-ray Radiology Interpretation Completed By: Radiologist Summary of Radiographic Findings: Disorganization and likely Charcot joint involving the talus, calcaneus and navicular. Findings are similar to that identified on November 27, 2018. ED physician has reviewed this report. Re-Evaluation - Re-Evaluation First Eval Re-Evaluation Time: 18:20 Comment: patient is agreeable to transfer Lower Extremity Course/Dx - Course Course Of Treatment: Mr. Guzman has been having trouble with his right foot and leg. He has seen Dr. Cifuentes who is recommended some type of arterial bypass. He lost his left foot already to his diabetes. Over the last several days his foot has gotten worse. His toes are turning black and the blackness is spreading. He was nontoxic when I evaluated him however he clearly has a diabetic ulcer that fairly severe. I'm concerned that we will pelvis save the foot without a revascularization. I gave him Zosyn and vancomycin here and spoke with Dr. Corral at [facility] for transfer there. - Diagnoses Provider Diagnoses: Diabetic foot ulcer, Arterial insufficiency - Physician Notifications Time Discussed With Above Provider: 18:10 Instructed by Provider To: Other - Dr. Corral at [facility] agrees to admit patient - Critical Care Time Critical Care Time: 30-74 min Discharge - Sign-Out/Discharge Documenting (check all that apply): Patient Departure - Transfer Patient Received Moderate/Deep Sedation with Procedure: No - Discharge Plan Condition: Good Disposition: TRANS HIGHER LVL OF CARE FAC Referrals: Trenton Romero MD [Primary Care Provider] - - Billing Disposition and Condition Condition: GOOD Disposition: Trans Higher Lvl of Care Fac - Attestation Statements Document Initiated by Miltonibe: Yes Documenting Scribe: Yulia Laboy Provider For Whom Rashel is Documenting (Include Credential): Juan Luis Simspon MD Scribe Attestation: Yulia Diaz, scribed for Juan Luis Simpson MD on 01/10/19 at 2010. Scribe Documentation Reviewed: Yes Provider Attestation: The documentation as recorded by the Yulia curry accurately reflects the service I personally performed and the decisions made by me, Juan Luis Simpson MD Status of Scribe Document: Viewed
[2019-01-10 16:45] LABS: Hematocrit 34 % (42-52); Hemoglobin 11.2 g/dL (14.0-18.0); Mean Corpuscular HGB Conc 33 g/dL (31-36); Mean Corpuscular Hemoglobin 29 pg (27-31); Mean Corpuscular Volume 86 fL (80-94); Platelet Count 162 10^3/uL (150-450); Red Blood Count 3.89 10^6 /uL (4.18-5.48); Red Cell Distribution Width 17 % (10-15); White Blood Count 11.6 10^3/uL (3.5-10.8)
[2019-01-10 17:03] LABS: Albumin 2.8 g/dL (3.2-5.2); Albumin/Globulin Ratio 0.6 (1-3); BUN/Creatinine Ratio 6.4 (8-20); C Reactive Protein 65.51 mg/L (<8.01); Calcium 7.9 mg/dL (8.6-10.3); EGFR Non-African American 4.1 (>60); Globulin 4.4 g/dL (2-4); Potassium 3.4 mmol/L (3.5-5.0); Total Bilirubin 0.7 mg/dL (0.2-1.0); Total Protein 7.2 g/dL (6.4-8.9)
[2019-01-10 17:23] LABS: ABS Eosinophils 0.4 10^3/ul (0-0.6); ABS Lymphocytes 0.6 10^3/ul (1.0-4.8); ABS Monocytes 0.7 10^3/ul (0-0.8); ABS Neutrophils 9.8 10^3/ul (1.5-7.7); Eosinophil % 3.8 %; Nucleated Red Blood Cells % 0.1
[2019-01-10] MEDS ORDERED: Piperacillin/Tazobac ADVAN(*) 3.375 GM in NS 0.9% 100 ML* 100 ML IVPB ONE (17:34)
[2019-01-10] MEDS ORDERED: ED Vancomycin 1 GM/250 ML 1 GM/250 ML PREMIX.SET IVPB ONE (17:40)
[2019-01-10] MEDS ORDERED: Vancomycin(*) 1,000 MG in NS 0.9% 250 ML* 250 ML IVPB ONE (19:00)
[2019-01-10 21:10] VITALS: BP 144/85
== END 2019-01-10 22:04 | disposition short-term general hospital (02) ==
LOC: ED 14:25
DX: E11.621 Type 2 diabetes mellitus with foot ulcer (principal); L97.519 Non-pressure chronic ulcer of other part of right foot with unspecified severity; I77.1 Stricture of artery; F17.210 Nicotine dependence, cigarettes, uncomplicated; I50.9 Heart failure, unspecified; I11.0 Hypertensive heart disease with heart failure; Z89.512 Acquired absence of left leg below knee; Z79.01 Long term (current) use of anticoagulants; Z79.899 Other long term (current) drug therapy; Z79.891 Long term (current) use of opiate analgesic
CPT/HCPCS: 36415; 80053; 82550; 83605; 85025; 86140; 87040; 96365; 96366; 99285; J2543; J3370